=== PATIENT | male | born 1955 | race Caucasian/White ===

== ENCOUNTER 2016-11-19 07:43 | Inpatient (IN) | payer MEDICARE, OTHER ==
--- NOTE | 2016-11-19 08:17 | ED ---
General Adult HPI - General Chief complaint: Shortness of Breath Stated complaint: CHEST PAIN, PATRICIA Time Seen by Provider: 11/19/16 07:50 Source: patient, RN notes reviewed, old records reviewed Mode of arrival: ambulatory Limitations: no limitations - History of Present Illness Initial comments: This is a 61-year-old male ER for evaluation shortness breath, severe shortness of breath and pain in cough with congestion. Patient is a history of smoking, does have COPD with takes no medication. Patient denies any fevers. Again does admit to increased cough and congestion, severe exertional dyspnea. Patient has never been to the ER before for shortness of breath. No recent travel history no known sick contacts. Patient denies any other history of heart disease, no high blood pressure not cholesterol no diabetes - Related Data Home Medications Medication Instructions Recorded Confirmed Ibuprofen [Advil] 600 mg PO Q8HR PRN 11/19/16 11/19/16 Allergies Allergy/AdvReac Type Severity Reaction Status Date / Time No Known Allergies Allergy Verified 11/19/16 09:51 Review of Systems ROS Statement: Those systems with pertinent positive or pertinent negative responses have been documented in the HPI. ROS Other: All systems not noted in ROS Statement are negative. Past Medical History Past Medical History: Hypertension Additional Past Medical History / Comment(s): headaches History of Any Multi-Drug Resistant Organisms: None Reported Past Surgical History: Appendectomy, Tonsillectomy Past Psychological History: No Psychological Hx Reported Smoking Status: Current every day smoker Past Alcohol Use History: Rare Past Drug Use History: Cocaine, Marijuana - Past Family History Mother Family Medical History: Hypertension Additional Family Medical History / Comment(s): pulmonary hypertension - Father Family Medical History: Neurologic Disorder Additional Family Medical History / Comment(s): parkinsons - General Exam Limitations: no limitations General appearance: alert, in no apparent distress, anxious Head exam: Present: atraumatic, normocephalic, normal inspection Eye exam: Present: normal appearance, PERRL, EOMI. Absent: scleral icterus, conjunctival injection, periorbital swelling ENT exam: Present: normal exam, mucous membranes moist Neck exam: Present: normal inspection. Absent: tenderness, meningismus, lymphadenopathy Respiratory exam: Present: respiratory distress, wheezes, accessory muscle use, decreased breath sounds, prolonged expiratory. Absent: rales, rhonchi, stridor Cardiovascular Exam: Present: regular rate, normal rhythm, normal heart sounds. Absent: systolic murmur, diastolic murmur, rubs, gallop, clicks GI/Abdominal exam: Present: soft, normal bowel sounds. Absent: distended, tenderness, guarding, rebound, rigid Extremities exam: Present: normal inspection, full ROM, normal capillary refill. Absent: tenderness, pedal edema, joint swelling, calf tenderness Back exam: Present: normal inspection Neurological exam: Present: alert, oriented X3, CN II-XII intact Psychiatric exam: Present: normal affect, normal mood Skin exam: Present: warm, dry, intact, normal color. Absent: rash Course Vital Signs 11/19/16 11/19/16 11/19/16 07:45 07:56 08:06 Temperature 97.5 F L Pulse Rate 88 Respiratory 20 18 Rate Blood Pressure 133/91 O2 Sat by Pulse 89 L 94 L Oximetry 11/19/16 11/19/16 11/19/16 09:10 09:24 09:40 Temperature Pulse Rate 88 93 95 Respiratory Rate Blood Pressure O2 Sat by Pulse Oximetry 11/19/16 11/19/16 10:14 10:28 Temperature Pulse Rate 96 108 H Respiratory 18 Rate Blood Pressure 137/88 O2 Sat by Pulse 100 Oximetry - Reevaluation(s) Reevaluation #1: 11/19/16 10:53 patient is no better after prolonged breathing treatment EKG Findings - EKG Comments: EKG Findings:: EKG shows normal sinus rhythm 90, MI 150, QRS 78, QTC 428 Medical Decision Making - Lab Data Result diagrams: 11/19/16 08:01 11/19/16 08:01 Lab Results 11/19/16 11/19/16 11/19/16 Range/Units 08:01 08:01 08:01 WBC 5.5 (3.8-10.6) k/uL RBC 6.03 H (4.30-5.90) m/uL Hgb 18.0 H (13.0-17.5) gm/dL Hct 54.3 H (39.0-53.0) % MCV 90.1 (80.0-100.0) fL MCH 29.8 (25.0-35.0) pg MCHC 33.1 (31.0-37.0) g/dL RDW 13.4 (11.5-15.5) % Plt Count 227 (150-450) k/uL Neutrophils % (Manual) 55.0 % Band Neutrophils % 1.0 % Lymphocytes % (Manual) 30.0 % Monocytes % (Manual) 10.0 % Eosinophils % (Manual) 4.0 % Neutrophils # (Manual) 3.1 (1.3-7.7) k/uL Lymphocytes # (Manual) 1.7 (1.0-4.8) k/uL Monocytes # (Manual) 0.6 (0-1.0) k/uL Eosinophils # (Manual) 0.2 (0-0.7) k/uL Nucleated RBCs 0 (0-0) /100 WBC Manual Slide Review Performed RBC Morphology Normal PT (9.0-12.0) sec INR (<1.1) APTT (22.0-30.0) sec D-Dimer (<0.60) mg/L FEU Sodium 143 (137-145) mmol/L Potassium 4.7 (3.5-5.1) mmol/L Chloride 107 (98-107) mmol/L Carbon Dioxide 24 (22-30) mmol/L Anion Gap 12 mmol/L BUN 23 H (9-20) mg/dL Creatinine 0.96 (0.66-1.25) mg/dL Est GFR (MDRD) Af Amer >60 (>60 ml/min/1.73 sqM) Est GFR (MDRD) Non-Af >60 (>60 ml/min/1.73 sqM) Glucose 120 H (74-99) mg/dL Calcium 9.5 (8.4-10.2) mg/dL Magnesium 2.1 (1.6-2.3) mg/dL Total Bilirubin 0.5 (0.2-1.3) mg/dL AST 53 (17-59) U/L ALT 71 (21-72) U/L Alkaline Phosphatase 106 (38-126) U/L Total Creatine Kinase 265 H (55-170) U/L CK-MB (CK-2) 6.4 H* (0.0-2.4) ng/mL CK-MB (CK-2) Rel Index 2.4 Troponin I <0.012 (0.000-0.034) ng/mL NT-Pro-B Natriuret Pep pg/mL Total Protein 6.7 (6.3-8.2) g/dL Albumin 3.7 (3.5-5.0) g/dL 11/19/16 11/19/16 Range/Units 08:01 08:01 WBC (3.8-10.6) k/uL RBC (4.30-5.90) m/uL Hgb (13.0-17.5) gm/dL Hct (39.0-53.0) % MCV (80.0-100.0) fL MCH (25.0-35.0) pg MCHC (31.0-37.0) g/dL RDW (11.5-15.5) % Plt Count (150-450) k/uL Neutrophils % (Manual) % Band Neutrophils % % Lymphocytes % (Manual) % Monocytes % (Manual) % Eosinophils % (Manual) % Neutrophils # (Manual) (1.3-7.7) k/uL Lymphocytes # (Manual) (1.0-4.8) k/uL Monocytes # (Manual) (0-1.0) k/uL Eosinophils # (Manual) (0-0.7) k/uL Nucleated RBCs (0-0) /100 WBC Manual Slide Review RBC Morphology PT 10.0 (9.0-12.0) sec INR 1.0 (<1.1) APTT 27.9 (22.0-30.0) sec D-Dimer 1.69 H (<0.60) mg/L FEU Sodium (137-145) mmol/L Potassium (3.5-5.1) mmol/L Chloride (98-107) mmol/L Carbon Dioxide (22-30) mmol/L Anion Gap mmol/L BUN (9-20) mg/dL Creatinine (0.66-1.25) mg/dL Est GFR (MDRD) Af Amer (>60 ml/min/1.73 sqM) Est GFR (MDRD) Non-Af (>60 ml/min/1.73 sqM) Glucose (74-99) mg/dL Calcium (8.4-10.2) mg/dL Magnesium (1.6-2.3) mg/dL Total Bilirubin (0.2-1.3) mg/dL AST (17-59) U/L ALT (21-72) U/L Alkaline Phosphatase (38-126) U/L Total Creatine Kinase (55-170) U/L CK-MB (CK-2) (0.0-2.4) ng/mL CK-MB (CK-2) Rel Index Troponin I (0.000-0.034) ng/mL NT-Pro-B Natriuret Pep 43 pg/mL Total Protein (6.3-8.2) g/dL Albumin (3.5-5.0) g/dL - Radiology Data Radiology results: report reviewed (CXR is negative for acute disease, CTa negative for PE), image reviewed Critical Care Time Critical Care Time: Yes Total Critical Care Time: 31 Disposition Clinical Impression: Acute exacerbation of chronic obstructive airways disease, Hypoxia Disposition: ADMITTED IP TO THIS [facility] Condition: Fair Referrals: None,Stated [Primary Care Provider] - 1-2 days
[2016-11-19 08:21] LABS: Aty Lym Flag Slight; CH 30.2; CHCM 33.7; HCT 54.3 % (39.0-53.0); HDW 2.61; MCH 29.8 pg (25.0-35.0); MCHC 33.1 g/dL (31.0-37.0); MCV 90.1 fL (80.0-100.0); Mean Platelet Volume 6.5; RBC 6.03 m/uL (4.30-5.90); RDW 13.4 % (11.5-15.5); WBC 5.5 k/uL (3.8-10.6); WBC (Perox) 5.39
[2016-11-19 08:33] LABS: Add Differential Manual Differential
[2016-11-19 08:34] LABS: ALT 71 U/L (21-72); AST 53 U/L (17-59); Alkaline Phosphatase 106 U/L (38-126); Anion Gap 12 mmol/L; Blood Urea Nitrogen 23 mg/dL (9-20); Calcium 9.5 mg/dL (8.4-10.2); Carbon Dioxide 24 mmol/L (22-30); Chloride 107 mmol/L (98-107); Glucose 120 mg/dL (74-99); Magnesium 2.1 mg/dL (1.6-2.3); Non-African American GFR(MDRD) >60 (>60 ml/min/1.73 sqM); Potassium 4.7 mmol/L (3.5-5.1); Sodium 143 mmol/L (137-145); Total Bilirubin 0.5 mg/dL (0.2-1.3); Total Protein 6.7 g/dL (6.3-8.2)
[2016-11-19 08:35] LABS: Manual Review Performed; Nucleated Red Blood Cells 0 /100 WBC (0-0); RBC Morphology Normal; Total Cells Counted 100
[2016-11-19 08:36] LABS: Partial Thromboplastin Time 27.9 sec (22.0-30.0)
--- NOTE | 2016-11-19 08:38 | XR ---
EXAMINATION TYPE: XR chest 2V DATE OF EXAM: 11/19/2016 8:18 AM COMPARISON: Prior chest x-ray 09 November 2014 HISTORY: Difficulty breathing, shortness of breath TECHNIQUE: Frontal and lateral views of the chest are obtained. FINDINGS: There is no focal air space opacity, pleural effusion, or pneumothorax seen. There are ove rlying cardiac leads. Probable granuloma left lower lobe. The cardiac silhouette size is within zaina l limits. The osseous structures are intact. IMPRESSION: No acute cardiopulmonary process.
[2016-11-19 08:45] LABS: Creatine Kinase 265 U/L (55-170)
[2016-11-19] MEDS ORDERED: MORPHINE SULFATE 4 MG/ML SYRINGE IVP STA ×2 (08:49→10:51)
[2016-11-19] MEDS ORDERED: IPRATROPIUM 0.5 MG/2.5 ML NEBU INHALATION STA ×2 (08:49→10:51)
[2016-11-19] MEDS ORDERED: methylPREDNISolone SOD SUCCI 125 MG/2 ML VIAL IV STA (08:49)
[2016-11-19] MEDS ORDERED: ALBUTEROL NEBULIZED 2.5 MG/3 ML INHALATION STA (08:49)
[2016-11-19 08:55] LABS: Troponin I <0.012 ng/mL (0.000-0.034)
[2016-11-19 08:59] LABS: Creatine Kinase MB 6.4 ng/mL (0.0-2.4)
[2016-11-19] MEDS ORDERED: RX INFO: IV CONTRAST WAS GIVEN 1 EACH MISC MISCELLANE PRN (09:56)
--- NOTE | 2016-11-19 10:47 | CT ---
EXAMINATION TYPE: CT angio chest DATE OF EXAM: 11/19/2016 10:29 AM COMPARISON: Chest x-ray same date, prior chest CT July HISTORY: SOB CT DLP: 361.6 mGycm Automated exposure control for dose reduction was used. CONTRAST: CTA scan of the thorax is performed with IV Contrast, patient injected with 100 mL of Omnipaque 350, pulmonary embolism protocol. MIP images are created and reviewed. 3D reconstructed images are creat ed on an independent workstation and reviewed. FINDINGS: LUNGS: The lungs are grossly clear, there is no concerning parenchymal mass or nodule identified. [place] cified granuloma at the left lung base laterally as noted on plain film. Noncalcified pulmonary nodul es, emphysematous changes present within the lungs as on prior exam. Some new, subcentimeter, soft ti ssue nodules are suspected, this may be due to differences in technique, follow-up is suggested. Ther e is bronchial wall thickening centrally. There is no pleural effusion or pneumothorax seen. The tra cheobronchial tree is patent. AORTA: Aorta is borderline enlarged at 4.1 cm at the level of the root MEDIASTINUM: There is limited enhancement of the pulmonary artery and its branches, there is no CT ev idence for pulmonary embolism. Retrocaval pretracheal lymph nodes borderline enlarged, some hilar karthikeyan nopathy suspected, there are small prevascular nodes, no axillary adenopathy. No pericardial effusion is seen. OTHER: No additional significant abnormality is seen. IMPRESSION: EXAM SOMEWHAT LIMITED. EMPHYSEMA. BORDERLINE MEDIASTINAL ADENOPATHY. ASCENDING AORTIC ANEURYSM, FOLLO W-UP RECOMMENDED. PROBABLE OLD GRANULOMATOUS DISEASE, CONSIDER FOLLOW-UP TO ASSESS FOR STABILITY OF N ONCALCIFIED NODULES
[2016-11-19] MEDS ORDERED: LEVALBUTEROL NEB 1.25 MG/3 ML AMP INHALATION STA (10:51)
[2016-11-19] MEDS ORDERED: SODIUM CHLORIDE 0.9% 2,000 ML IV STA (10:51)
[2016-11-19] MEDS: SODIUM CHLORIDE 0.9% 1,000 ML IV STA ×2 (10:58→12:54)
[2016-11-19 12:13] VITALS: RESP 16
[2016-11-19 12:28] VITALS: BMI 31.9
[2016-11-19] MEDS: methylPREDNISolone SOD SUCCI 125 MG/2 ML VIAL IV SCH ×3 (12:55→23:17)
[2016-11-19] MEDS: IPRATROPIUM-ALBUTEROL 3 ML NEB INHALATION SCH ×3 (13:56→19:14)
[2016-11-19] MEDS: MORPHINE SULFATE 4 MG/ML SYRINGE IVP PRN ×2 (15:46→21:12)
[2016-11-19 17:17] LABS: Glucose,Whole Blood 159 mg/dL (75-99)
[2016-11-19] MEDS: INSULIN LISPRO (humaLOG) 300 UNIT/3 ML VIAL SQ SCH ×2 (17:24→23:16)
--- NOTE | 2016-11-19 18:49 | HP ---
DATE OF ADMISSION: 11/19/2016 The patient is a 61-year-old cane in with complaints of shortness of breath, cough, congestion. Patient is unable to cough up much and is bringing up about whitish yellowish sputum production. Patient on exam does have minimal expiratory wheezing because of which D. dimer was obtained appropriately. I believe his symptoms of shortness of breath significantly improved with the initial treatments in the ER because of which patient only has minimal wheezing and patient has elevated d-dimer and symptoms do not completely explain his shortness of breath. CT angio of the chest was obtained which is appropriate which did not show any pulmonary embolism or pneumonic process, but there is some lesions consistent with sarcoidosis. Possibility of sarcoidosis and I am consulting pulmonary for that. Patient denied any fever, chills, nausea, vomiting. The patient's symptoms have been going on for a week and the patient took [id number] antibiotic that he has at home without any significant improvement in symptoms. REVIEW OF SYSTEMS: CONSTITUTIONAL: No fever, no malaise, no fatigue. HEENT: No recent visual problems or hearing problems. Denied any sore throat. CARDIOVASCULAR: No chest pain, orthopnea, PND, no palpitations, no syncope. PULMONARY: As described in HPI. GASTROINTESTINAL: As described in HPI. Patient denied orthopnea, PND, chest pain. NEUROLOGICAL: No headaches, no weakness, no numbness. HEMATOLOGICAL: Denies any bleeding or petechiae. GENITOURINARY: Denies any burning micturition, frequency, or urgency. MUSCULOSKELETAL/RHEUMATOLOGICAL: Denies any joint pain, swelling, or any muscle pain. ENDOCRINE: Denies any polyuria or polydipsia. The rest of the 14 point review of systems is negative. PAST MEDICAL HISTORY: Significant for tonsillectomy, appendectomy, hypertension history although not taking any medications at home. The patient smokes about 1 and 1/2 pack of cigarettes per day. Denied any alcohol abuse. Occasional use of cocaine and marijuana. FAMILY HISTORY: Significant for mother with hypertension and pulmonary hypertension in mother and father had Parkinson's. PHYSICAL EXAMINATION: VITAL SIGNS: Temperature 97.5, pulse of 100, respiratory rate of 16, blood pressure is 143/80, saturating at 95% on 3 L O2 by nasal cannula. GENERAL: The patient is alert and oriented x3, not in any acute distress. Well developed, well nourished. HEENT: Pupils are round and equally reacting to light. EOMI. No scleral icterus. No conjunctival pallor. Normocephalic, atraumatic. No pharyngeal erythema. No thyromegaly. CARDIOVASCULAR: S1 and S2 present. No murmurs, rubs, or gallops. PULMONARY: Air entry is minimally decreased. Minimally expiratory wheezing bilaterally on exam. No crackles were appreciated. ABDOMEN: Soft, nontender, nondistended, normoactive bowel sounds. No palpable organomegaly. MUSCULOSKELETAL: No joint swelling or deformity. EXTREMITIES: No cyanosis, clubbing, or pedal edema. NEUROLOGICAL: Gross neurological examination did not reveal any focal deficits. SKIN: No rashes. LABORATORY DATA: CBC and BMP are abnormal for elevated hemoglobin of 18.0, elevated hematocrit secondary to chronic obstructive pulmonary disease, D. dimer 1.69. CK is minimally elevated. CT angio of the chest as mentioned above. ASSESSMENT AND PLAN: 1. Acute hypercapnic respiratory failure secondary to chronic obstructive pulmonary disease exacerbation and emphysema. Continue systemic steroids inhalation treatments. 2. Tracheobronchitis, doxycycline for that. 3. Possibility of sarcoidosis. I will get pulmonary to evaluate the patient and elevated hematocrit probably secondary to chronic hypoxemia. 4. Nicotine abuse, cocaine and marijuana use. Extensive counseling was provided. 5. Chronic low back pain. Obesity counseling was provided regarding that as well.
[2016-11-19 20:56] LABS: Glucose,Whole Blood 197 mg/dL (75-99)
[2016-11-19] MEDS: FAMOTIDINE 20 MG TAB PO SCH (21:12)
[2016-11-19] MEDS: DOXYCYCLINE 50 MG CAP PO SCH (21:12)
[2016-11-20] MEDS: MORPHINE SULFATE 4 MG/ML SYRINGE IVP PRN ×3 (03:10→12:47)
[2016-11-20] MEDS: methylPREDNISolone SOD SUCCI 125 MG/2 ML VIAL IV SCH ×2 (06:14→12:21)
[2016-11-20] MEDS: IPRATROPIUM-ALBUTEROL 3 ML NEB INHALATION SCH ×2 (07:28→11:24)
[2016-11-20 07:41] LABS: Glucose,Whole Blood 135 mg/dL (75-99)
[2016-11-20 07:53] VITALS: BP 143/83; TEMP 97.6
[2016-11-20 08:05] LABS: CH 29.8; CHCM 32.5; HDW 2.55; MCH 29.4 pg (25.0-35.0); MCHC 31.9 g/dL (31.0-37.0); Mean Platelet Volume 6.8; RBC 5.43 m/uL (4.30-5.90); RDW 13.2 % (11.5-15.5); WBC 11.8 k/uL (3.8-10.6)
[2016-11-20 08:11] LABS: Anion Gap 9 mmol/L; Blood Urea Nitrogen 19 mg/dL (9-20); Carbon Dioxide 22 mmol/L (22-30); Chloride 109 mmol/L (98-107); Glucose 141 mg/dL (74-99); Non-African American GFR(MDRD) >60 (>60 ml/min/1.73 sqM); Potassium 4.6 mmol/L (3.5-5.1); Sodium 140 mmol/L (137-145)
[2016-11-20] MEDS: INSULIN LISPRO (humaLOG) 300 UNIT/3 ML VIAL SQ SCH ×2 (08:48→12:11)
[2016-11-20] MEDS: DOXYCYCLINE 50 MG CAP PO SCH (08:54)
[2016-11-20] MEDS: FAMOTIDINE 20 MG TAB PO SCH (08:55)
[2016-11-20] MEDS: NICOTINE 21MG/24HR PATCH TRANSDERM SCH ×2 (08:55→09:01)
[2016-11-20] MEDS ORDERED: ENOXAPARIN 40 MG/0.4 ML SYRINGE SQ SCH (09:00)
[2016-11-20 11:36] LABS: Glucose,Whole Blood 160 mg/dL (75-99)
--- NOTE | 2016-11-20 13:26 | P.CNPUL ---
History of Present Illness Consult date: 11/20/16 Reason for consult: dyspnea, COPD Chief complaint: Shortness of breath and chest pain History of present illness: 61-year-old male who is a heavy smoker with no family physician and no previous past medical history, comes into the emergency department with complaints of increasing shortness of breath. The eighth and also pain in his chest with cough and chest congestion. Takes no medications for COPD as never really actually been diagnosed with COPD. Again does not have a family doctor takes no medications at home. 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 Again the patient takes no medications at home. Patient has a heavy tobacco history. Currently being he takes at home is [id number]-[id number]-[id number] ibuprofen from time to time. No known ALLERGIES. Sitting at the bedside today when I come in to see him. No complaints. Not using any supplemental oxygen. States his breathing is much much improved. Not demonstrating any difficulty breathing coughing wheezing or respiratory distress for that matter. Review of Systems A 12 point review of system is positive for shortness of breath chest congestion cough and chest pain. Most of those complaints have resolved themselves. His chest x-ray was essentially negative. CT of the chest really did not reveal any acute pathology. There is no evidence of pulmonary embolism. The rest of the 12 point review of system is unremarkable. Denies any fever chills. No hemoptysis. No nausea vomiting or diarrhea. No abdominal pain. No other complaints for that matter. Past Medical History Past Medical History: Hypertension Additional Past Medical History / Comment(s): headaches History of Any Multi-Drug Resistant Organisms: None Reported Past Surgical History: Appendectomy, Tonsillectomy Past Anesthesia/Blood Transfusion Reactions: No Reported Reaction Past Psychological History: No Psychological Hx Reported Smoking Status: Current every day smoker Past Alcohol Use History: Rare Past Drug Use History: Cocaine, Marijuana - Past Family History Mother Family Medical History: Hypertension Additional Family Medical History / Comment(s): pulmonary hypertension - Father Family Medical History: Neurologic Disorder Additional Family Medical History / Comment(s): parkinsons - Medications and Allergies Home Medications Medication Instructions Recorded Confirmed Type Ibuprofen [Advil] 600 mg PO Q8HR PRN 11/19/16 11/19/16 History Allergies Allergy/AdvReac Type Severity Reaction Status Date / Time No Known Allergies Allergy Verified 11/19/16 09:51 Physical Exam Osteopathic Statement: *. No significant issues noted on an osteopathic structural exam other than those noted in the History and Physical/Consult. Vitals: Vital Signs Temp Pulse Pulse Resp BP BP Pulse Ox 11/20/16 11:33 86 11/20/16 11:25 86 11/20/16 10:05 76 16 11/20/16 07:37 88 11/20/16 07:32 88 11/20/16 07:00 97.6 F 76 16 143/83 90 L 11/20/16 00:00 76 16 11/19/16 21:50 97.2 F L 88 16 122/76 92 L 11/19/16 19:28 87 11/19/16 19:16 92 11/19/16 16:13 80 11/19/16 16:03 80 93 L 11/19/16 15:40 97.4 F L 78 16 134/88 94 L 11/19/16 14:06 80 L Intake and Output 11/19/16 11/20/16 11/20/16 22:59 06:59 14:59 Other: Voiding Method Toilet Toilet # Voids 1 Weight 95.254 kg No acute distress, oriented 3. HEENT examination is grossly unremarkable. Mucous membranes are moist. No oral lesions. Neck supple. Full range of motion. No adenopathy or thyromegaly. Neck veins are flat. Cardiovascular examination reveals regular rhythm rate. S1-S2 normal. No S3- S4 or murmur. Lungs reveal relatively clear breath sounds. A few scattered rhonchi. No wheezes or crackles. Breath sounds are equal. Abdomen soft bowel sounds are heard. Extremities are intact. Neurologic examination is brief and nonfocal. Skin is without rash or lesion. Results - Laboratory Findings CBC and BMP: 11/20/16 07:13 11/20/16 07:13 PT/INR, D-dimer PT 10.0 sec (9.0-12.0) 11/19/16 08:01 INR 1.0 (<1.1) 11/19/16 08:01 D-Dimer 1.69 mg/L FEU (<0.60) H 11/19/16 08:01 Abnormal lab findings: Abnormal Labs 11/19/16 11/19/16 11/20/16 17:14 20:31 07:13 WBC 11.8 H Chloride Glucose POC Glucose (mg/dL) 159 H 197 H 11/20/16 11/20/16 11/20/16 07:13 07:20 11:28 WBC Chloride 109 H Glucose 141 H POC Glucose (mg/dL) 135 H 160 H - Diagnostic Findings Chest x-ray: image reviewed CT scan - chest: image reviewed (Chest x-ray labs and medications are all reviewed.) Assessment and Plan (1) Acute exacerbation of chronic obstructive airways disease Status: Acute (2) Hypoxia Status: Acute (3) COPD (chronic obstructive pulmonary disease) Status: Acute (4) Chest pain Status: Acute Plan: Plan dated 11/20/2016 The patient seemed be doing relatively well. Again does not have a family doctor. Could likely be discharged home. I'll talk to the primary service. They may choose acute the patient in the the another day for observation. The patient should get himself a family doctor and eventually should see a dry room operator for probable COPD. Time with Patient: Greater than 30
[2016-11-20 15:03] VITALS: PULSE 113
--- NOTE | 2016-11-20 16:14 | P.PN ---
Subjective Date of service 11/20/2016. Progress note being dictated for Dr. Gibson. Interval history: This a 61-year-old gentleman admitted with acute hypercapnic respiratory failure secondary to COPD exacerbation with emphysema, tracheobronchitis and multiple other medical issues. Breathing improving. Nonproductive cough. Ambulated in hallway with O2 sat of 87% after ambulation on room air. Initially had planned for discharge but given 24 hours more, patient probably will not require oxygen at discharge. Objective - Vital Signs Vital signs: Vital Signs Temp 97.6 F 11/20/16 07:00 Pulse 113 H 11/20/16 15:03 Resp 16 11/20/16 10:05 BP 143/83 11/20/16 07:00 Pulse Ox 91 L 11/20/16 15:03 Intake & Output 11/19/16 11/20/16 11/20/16 18:59 06:59 18:59 Intake Total 240 Balance 240 Weight 95.254 kg 95.254 kg Intake: Oral 240 Other: Voiding Method Toilet Toilet Toilet # Voids 1 1 3 - Exam PHYSICAL EXAM: VITAL SIGNS: As above GENERAL: [Sitting up in bed, no acute distress] HEENT: [Pupils equal conjunctiva normal.] NECK: [Supple, no JVD] RESPIRATORY EFFORT:[Normal] LUNGS: [Scattered rhonchi, no wheezes, no crackles CARDIOVASCULAR[regular S1 and S2, no murmurs rubs or gallops, no edema GI: [Abdomen soft, nontender, positive bowel sounds.] PSYCH: [Alert and oriented -3, mood and affect normal.] NEURO: No focal deficits - Labs CBC & Chem 7: 11/20/16 07:13 11/20/16 07:13 Labs: Abnormal Lab Results - Last 24 Hours (Table) 11/19/16 11/19/16 11/20/16 Range/Units 17:14 20:31 07:13 WBC 11.8 H (3.8-10.6) k/uL Chloride (98-107) mmol/L Glucose (74-99) mg/dL POC Glucose (mg/dL) 159 H 197 H (75-99) mg/dL 11/20/16 11/20/16 11/20/16 Range/Units 07:13 07:20 11:28 WBC (3.8-10.6) k/uL Chloride 109 H (98-107) mmol/L Glucose 141 H (74-99) mg/dL POC Glucose (mg/dL) 135 H 160 H (75-99) mg/dL Assessment and Plan Plan: 1. [Acute hypoxic hypercapnic respiratory failure secondary to acute exacerbation of COPD and emphysema]. 2. [Acute Tracheobronchitis]. 3. [Possibility of sarcoidosis]. 4. [Elevated hematocrit probably secondary to chronic hypoxemia]. 5. [Nicotine abuse, cocaine and marijuana use]. 6. [Chronic low back pain]. Plan: Continue on current medication regime, nebulized bronchodilators, antibiotics, steroids, monitoring and symptomatic treatment. As mentioned above currently maintaining O2 sats of 87% on room air after ambulation., Monitoring for further overnight ,reevaluate tomorrow. Suspect patient will not require oxygen tomorrow at discharge. Patient left AMA. The impression and plan of care has been dictated as directed. : I performed a H&P examination of this patient and discussed the same with the dictator. I agree with the dictator's note. Any additional findings/opinions/ etc. will be noted.
== END 2016-11-20 16:15 | disposition left against medical advice (07) | DRG 190 ==
LOC: EC 07:43 → 5MS5E 10:52
PROVIDERS: ADMIT Hospitalist; ATTEND Hospitalist
DX: J44.0 Chronic obstructive pulmonary disease with (acute) lower respiratory infection (principal); J96.01 Acute respiratory failure with hypoxia; J96.02 Acute respiratory failure with hypercapnia; I10 Essential (primary) hypertension; D86.9 Sarcoidosis, unspecified; J20.9 Acute bronchitis, unspecified; J44.1 Chronic obstructive pulmonary disease with (acute) exacerbation; E66.9 Obesity, unspecified; F12.90 Cannabis use, unspecified, uncomplicated; F17.200 Nicotine dependence, unspecified, uncomplicated; G89.29 Other chronic pain; M54.5 Low back pain; F14.90 Cocaine use, unspecified, uncomplicated; Z68.31 Body mass index [BMI] 31.0-31.9, adult; Z82.49 Family history of ischemic heart disease and other diseases of the circulatory system
CPT/HCPCS: 36415; 71020; 71275; 80048; 80053; 82550; 82553; 83036; 83735; 83880; 84484; 85025; 85027; 85379; 85610; 85730; 93005; 94640; 94644; 96361; 96374; 96375; 96376; 99291

== ENCOUNTER 2020-08-26 12:54 | Emergency (ER) | payer MEDICARE, OTHER ==
[2020-08-26 13:03] VITALS: TEMP 98.2
[2020-08-26] MEDS ORDERED: MORPHINE SULFATE 4 MG/ML SYRINGE IM STA (13:41)
--- NOTE | 2020-08-26 15:03 | XR ---
EXAMINATION TYPE: XR femur RT DATE OF EXAM: 08/26/2020 COMPARISON: None HISTORY: Pain, fall TECHNIQUE: 2 view right femur FINDINGS: There is narrowing of the right hip joint space. Femoral head articulates with the acetabul um. Cam deformity may be present. Mild degenerative changes are at the right knee No acute fracture or dislocation is evident. IMPRESSION: 1. Degenerative joint changes. 2. No acute or subacute osseous abnormality.
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
[2020-08-26 15:06] VITALS: BP 110/86; PULSE 75; RESP 17
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
[2020-08-26] MEDS ORDERED: MAGNESIUM CITRATE 296 ML BOTTLE PO ONE (15:40)
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
== END 2020-08-26 16:10 | disposition home or self-care (01) ==
LOC: EC 12:54
DX: M25.551 Pain in right hip (principal); M79.651 Pain in right thigh; F17.200 Nicotine dependence, unspecified, uncomplicated; Z90.49 Acquired absence of other specified parts of digestive tract; Y04.2XXA Assault by strike against or bumped into by another person, initial encounter
CPT/HCPCS: 72110; 73502; 73552; 73562; 74018; 99284; 96372; J2270

== ENCOUNTER 2021-02-06 15:55 | Observation (INO) | payer MEDICARE, OTHER ==
--- NOTE | 2021-02-06 16:10 | ED ---
General Adult HPI - General Chief complaint: Chest Pain Stated complaint: Chest Pain Time Seen by Provider: 02/06/21 16:07 Source: patient Mode of arrival: wheelchair Limitations: no limitations - History of Present Illness Initial comments: Patient presents to the ED complaining of having "throbbing" lower sternal chest pain with some radiation to his left arm since yesterday. Patient states that he has also felt somewhat dyspneic and dizzy as well. Patient rates his chest pain at 7/10 in severity currently. Patient denies taking any medication for his pain today. Patient also states that he has had a diffuse headache for the past 4 days. Patient denies trauma or injury, sudden onset of headache, LOC, neck pain or stiffness, fever or chills, focal numbness/weakness/neuro deficit, visual changes, speech difficulty, neck/jaw/back pain, pleuritic pain, cough or cold symptoms, palpitations, syncope, nausea/vomiting/diaphoresis, abdominal p ain, diarrhea, bloody or melanotic stool, dysuria or urinary symptoms, decreased urine output, leg or calf swelling or pain, or any other symptoms or complaints. - Related Data Home Medications Medication Instructions Recorded Confirmed Ibuprofen [Motrin Ib] 800 mg PO Q8H PRN 08/26/20 08/26/20 Previous Rx's Medication Instructions Recorded HYDROcodone/APAP 10-325MG [[place] 1 tab PO Q4H PRN #18 tab 08/26/20 10-325] Allergies Allergy/AdvReac Type Severity Reaction Status Date / Time No Known Allergies Allergy Verified 02/06/21 16:06 Review of Systems ROS Statement: Those systems with pertinent positive or pertinent negative responses have been documented in the HPI. ROS Other: All systems not noted in ROS Statement are negative. Past Medical History Past Medical History: Hypertension Additional Past Medical History / Comment(s): HEADACHES History of Any Multi-Drug Resistant Organisms: None Reported Past Surgical History: Appendectomy, Tonsillectomy Past Anesthesia/Blood Transfusion Reactions: No Reported Reaction Past Psychological History: No Psychological Hx Reported Smoking Status: Current every day smoker Past Alcohol Use History: Rare Past Drug Use History: None Reported - Past Family History Mother Family Medical History: Hypertension Additional Family Medical History / Comment(s): pulmonary hypertension - Father Family Medical History: Neurologic Disorder Additional Family Medical History / Comment(s): parkinsons - General Exam Limitations: no limitations General appearance: alert, in no apparent distress Head exam: Present: atraumatic, normocephalic Eye exam: Present: normal appearance, PERRL, EOMI. Absent: nystagmus ENT exam: Present: mucous membranes moist Neck exam: Present: other (Trachea is in midline). Absent: tenderness, meningismus Respiratory exam: Present: normal lung sounds bilaterally. Absent: respiratory distress, wheezes, rales, rhonchi, stridor, chest wall tenderness Cardiovascular Exam: Present: regular rate, normal rhythm, normal heart sounds, other (Normal radial pulses bilaterally) GI/Abdominal exam: Present: soft. Absent: distended, tenderness, guarding Extremities exam: Present: other (Negative Homans sign bilaterally). Absent: tenderness, pedal edema, calf tenderness Neurological exam: Present: alert, oriented X3, CN II-XII intact. Absent: motor sensory deficit Psychiatric exam: Present: normal affect, normal mood Skin exam: Present: warm, dry, intact, normal color Course Vital Signs 02/06/21 16:04 Temperature 98.9 F Pulse Rate 89 Respiratory 20 Rate Blood Pressure 128/92 O2 Sat by Pulse 95 Oximetry - Reevaluation(s) Reevaluation #1: 02/06/21 17:20 Case, H&P, test results and ED management were discussed with JOSEPH Hendrix. He accepts hospital admission on behalf of himself and Dr. Poe. He agrees with cardiology consultation. He has no further recommendations at this time. 02/06/21 17:30 Patient states that his pain has currently improved, and he denies development of any new symptoms while in the ED. Patient remains alert and breathing comfortably. Patient is aware of his test results, and he agrees with hospital admission at this time. EKG Findings - EKG Comments: EKG Findings:: Normal sinus rhythm, no ectopy, ventricular rate of 67 bpm, normal NM and QRS intervals, normal QT interval, normal axis, no ST or T-wave abnormality Medical Decision Making - Medical Decision Making Given the patient's reported chest pain and CAD risk factors (hypertension and smoking), will admit the patient to the hospital for further evaluation, cardiac monitoring and cardiology consultation. Patient's troponin is negative. Patient's head CT is negative. Patient has been given aspirin in the emergency department. JOSEPH Hendrix has accepted hospital admission. - Lab Data Result diagrams: 02/06/21 16:27 02/06/21 16:27 Lab Results 02/06/21 02/06/21 02/06/21 Range/Units 16:27 16:27 16:27 WBC 9.4 (3.8-10.6) k/uL RBC 5.27 (4.30-5.90) m/uL Hgb 16.4 (13.0-17.5) gm/dL Hct 47.3 (39.0-53.0) % MCV 89.7 (80.0-100.0) fL MCH 31.1 (25.0-35.0) pg MCHC 34.6 (31.0-37.0) g/dL RDW 13.5 (11.5-15.5) % Plt Count 295 (150-450) k/uL MPV 6.5 Neutrophils % 60 % Lymphocytes % 30 % Monocytes % 5 % Eosinophils % 4 % Basophils % 1 % Neutrophils # 5.6 (1.3-7.7) k/uL Lymphocytes # 2.8 (1.0-4.8) k/uL Monocytes # 0.5 (0-1.0) k/uL Eosinophils # 0.3 (0-0.7) k/uL Basophils # 0.1 (0-0.2) k/uL PT 10.3 (9.0-12.0) sec INR 1.0 (<1.2) APTT 22.9 (22.0-30.0) sec D-Dimer 0.57 (<0.60) mg/L FEU Sodium 140 (137-145) mmol/L Potassium 4.2 (3.5-5.1) mmol/L Chloride 110 H (98-107) mmol/L Carbon Dioxide 24 (22-30) mmol/L Anion Gap 6 mmol/L BUN 26 H (9-20) mg/dL Creatinine 1.12 (0.66-1.25) mg/dL Est GFR (CKD-EPI)AfAm 78 (>60 ml/min/1.73 sqM) Est GFR (CKD-EPI)NonAf 68 (>60 ml/min/1.73 sqM) Glucose 131 H (74-99) mg/dL Calcium 9.5 (8.4-10.2) mg/dL Magnesium 2.1 (1.6-2.3) mg/dL Total Bilirubin 0.2 (0.2-1.3) mg/dL AST 17 (17-59) U/L ALT 13 (4-49) U/L Alkaline Phosphatase 89 (38-126) U/L Troponin I (0.000-0.034) ng/mL NT-Pro-B Natriuret Pep pg/mL Total Protein 6.3 (6.3-8.2) g/dL Albumin 3.9 (3.5-5.0) g/dL Lipase 35 (23-300) U/L 02/06/21 02/06/21 Range/Units 16:27 16:27 WBC (3.8-10.6) k/uL RBC (4.30-5.90) m/uL Hgb (13.0-17.5) gm/dL Hct (39.0-53.0) % MCV (80.0-100.0) fL MCH (25.0-35.0) pg MCHC (31.0-37.0) g/dL RDW (11.5-15.5) % Plt Count (150-450) k/uL MPV Neutrophils % % Lymphocytes % % Monocytes % % Eosinophils % % Basophils % % Neutrophils # (1.3-7.7) k/uL Lymphocytes # (1.0-4.8) k/uL Monocytes # (0-1.0) k/uL Eosinophils # (0-0.7) k/uL Basophils # (0-0.2) k/uL PT (9.0-12.0) sec INR (<1.2) APTT (22.0-30.0) sec D-Dimer (<0.60) mg/L FEU Sodium (137-145) mmol/L Potassium (3.5-5.1) mmol/L Chloride (98-107) mmol/L Carbon Dioxide (22-30) mmol/L Anion Gap mmol/L BUN (9-20) mg/dL Creatinine (0.66-1.25) mg/dL Est GFR (CKD-EPI)AfAm (>60 ml/min/1.73 sqM) Est GFR (CKD-EPI)NonAf (>60 ml/min/1.73 sqM) Glucose (74-99) mg/dL Calcium (8.4-10.2) mg/dL Magnesium (1.6-2.3) mg/dL Total Bilirubin (0.2-1.3) mg/dL AST (17-59) U/L ALT (4-49) U/L Alkaline Phosphatase (38-126) U/L Troponin I <0.012 (0.000-0.034) ng/mL NT-Pro-B Natriuret Pep 68 pg/mL Total Protein (6.3-8.2) g/dL Albumin (3.5-5.0) g/dL Lipase (23-300) U/L - Radiology Data Radiology results: report reviewed (Chest x-ray: No active cardiopulmonary disease. Normal heart. No change; noncontrast head CT: Negative CT scan of the brain) Disposition Clinical Impression: Chest pain, Headache, Dizziness Disposition: ADMITTED IP TO THIS [facility] Condition: Stable Is patient prescribed a controlled substance at d/c from ED?: No Referrals: None,Stated [Primary Care Provider] - 1-2 days Time of Disposition: 17:23
[2021-02-06] MEDS ORDERED: ASPIRIN 81 MG PO STA ×2 (16:19→17:22)
[2021-02-06] MEDS ORDERED: NITROGLYCERIN SL TABS 0.4 MG TAB SUBLINGUAL STA (16:19)
[2021-02-06 16:34] LABS: Basophils # (A) 0.1 k/uL (0-0.2); Basophils % (A) 1 %; Eosinophils # (A) 0.3 k/uL (0-0.7); Eosinophils % (A) 4 %; HCT 47.3 % (39.0-53.0); HGB 16.4 gm/dL (13.0-17.5); Lymphocytes # (A) 2.8 k/uL (1.0-4.8); Lymphocytes % (A) 30 %; MCH 31.1 pg (25.0-35.0); MCHC 34.6 g/dL (31.0-37.0); MCV 89.7 fL (80.0-100.0); Mean Platelet Volume 6.5; Monocytes # (A) 0.5 k/uL (0-1.0); Monocytes % (A) 5 %; Neutrophils # (A) 5.6 k/uL (1.3-7.7); Neutrophils % (A) 60 %; Platelet Count 295 k/uL (150-450); RBC 5.27 m/uL (4.30-5.90); RDW 13.5 % (11.5-15.5); WBC 9.4 k/uL (3.8-10.6)
--- NOTE | 2021-02-06 16:41 | XR ---
EXAMINATION TYPE: XR chest 2V DATE OF EXAM: 02/06/2021 COMPARISON: 11/19/2016 HISTORY: Chest pain TECHNIQUE: 2 views FINDINGS: Heart and mediastinum are normal. Lungs are clear. Diaphragm is normal. Bony thorax is inta ct. There are chest leads. IMPRESSION: No active cardiopulmonary disease. Normal heart. No change.
[2021-02-06 16:46] LABS: Albumin 3.9 g/dL (3.5-5.0); Calcium 9.5 mg/dL (8.4-10.2); Magnesium 2.1 mg/dL (1.6-2.3); Potassium 4.2 mmol/L (3.5-5.1); Total Bilirubin 0.2 mg/dL (0.2-1.3); Total Protein 6.3 g/dL (6.3-8.2)
[2021-02-06 17:03] LABS: D-Dimer 0.57 mg/L FEU (<0.60); Partial Thromboplastin Time 22.9 sec (22.0-30.0); Prothrombin Time 10.3 sec (9.0-12.0)
--- NOTE | 2021-02-06 17:04 | CT ---
EXAMINATION TYPE: CT brain wo con DATE OF EXAM: 02/06/2021 COMPARISON: 10/08/2014 HISTORY: Headache and dizziness. CT DLP: 1129.4 mGycm Automated exposure control for dose reduction was used. Images of the brain obtained without contrast. Ventricles have normal size. There is no mass effect nor midline shift. There is no sign of intracran ial hemorrhage. The calvarium is intact. There is fluid level right maxillary sinus. There is no evid ence of cerebral edema. IMPRESSION: Negative CT scan of the brain. There is right maxillary sinusitis which appears new compared to old e xam.
[2021-02-06] MEDS: HEPARIN SODIUM,PORCINE/PF 5,000 UNIT/0.5 ML SYRINGE SQ SCH (21:47)
[2021-02-06] MEDS: MORPHINE SULFATE 4 MG/ML SYRINGE IVP PRN (21:47)
[2021-02-06] MEDS: ACETAMINOPHEN TAB 325 MG TAB PO PRN (21:48)
[2021-02-06] MEDS: PANTOPRAZOLE 40 MG TABLET PO SCH (21:49)
[2021-02-07] MEDS: MORPHINE SULFATE 4 MG/ML SYRINGE IVP PRN ×4 (02:16→18:26)
[2021-02-07] MEDS: PANTOPRAZOLE 40 MG TABLET PO SCH (07:25)
[2021-02-07] MEDS: HEPARIN SODIUM,PORCINE/PF 5,000 UNIT/0.5 ML SYRINGE SQ SCH ×4 (07:25→20:25)
[2021-02-07] MEDS: ACETAMINOPHEN TAB 325 MG TAB PO PRN ×3 (07:29→20:24)
[2021-02-07 09:24] LABS: Basophils # (A) 0.06 X 10*3/uL (0.00-0.10); Basophils % (A) 0.7 %; Eosinophils # (A) 0.23 X 10*3/uL (0.04-0.35); Eosinophils % (A) 2.5 %; HCT 47.5 % (39.6-50.0); HGB 15.2 g/dL (13.0-17.0); Lymphocytes # (A) 3.97 X 10*3/uL (0.90-5.00); Lymphocytes % (A) 43.1 %; MCH 29.7 pg (27.0-32.0); Mean Platelet Volume 9.3 fL (9.5-12.2); Monocytes # (A) 0.64 X 10*3/uL (0.20-1.00); Monocytes % (A) 6.9 %; Neutrophils # (A) 4.29 X 10*3/uL (1.80-7.70); Neutrophils % (A) 46.5 %; Platelet Count 269 X 10*3/uL (140-440); RBC 5.11 X 10*6/uL (4.40-5.60); RDW 13.8 % (11.5-14.5); WBC 9.22 X 10*3/uL (4.50-10.00)
[2021-02-07 09:33] LABS: African American GFR (CKD) 89.9 (60.0-200.0); Albumin 3.9 g/dL (3.80-4.90); Albumin/Globulin Ratio 1.95 (1.60-3.17); Anion Gap 8.7 mmol/L (4.00-12.00); Calcium 9.1 mg/dL (8.7-10.3); Carbon Dioxide 21.3 mmol/L (21.6-31.8); Non-African American GFR(CKD) 77.5 (60.0-200.0); Potassium 4.3 mmol/L (3.5-5.5); Total Bilirubin 0.3 mg/dL (0.3-1.2); Total Protein 5.9 g/dL (6.2-8.2)
--- NOTE | 2021-02-07 09:35 | P.CRDCN ---
History of Present Illness Consult date: 02/07/21 Requesting physician: Holden Poe Reason for Consult (text): chest pain Chief complaint: chest pain, headache, dizziness History of present illness: A pleasant 65-year-old gentleman who denies any significant medical history but has not seen a physician in quite some time. Does not follow regularly with a primary care provider. He is a smoker and was previously smoking 2 packs a day but more recently has been smoking only 2-3 cigarettes a day. Does have a history of chronic right leg pain following an injury. He presented to the emergency department with complaints of headache for a week, shortness of breath that worsens with activity, dizziness that worsens with movement and chest pain that has been constant for the last 2 days. EKG on presentation showed sinus mechanism with no acute ST-T wave abnormalities indicative of ischemia. Troponins have been negative 3. Chest x-ray showed no acute process. Computed tomography scan of the brain was negative with right maxillary sinusitis which appears new compared to old exam. Vital signs have been stable. Laboratory values were reviewed potassium 4.2, BUN 26, creatinine 1.12 and NT proBNP of 68. He continues to complain of shortness of breath but denies any orthopnea. Chest pain again has been constant for the last 2 days with mild improvement with morphine. He continues to complain of headache as well as dizziness with any type of movement. Chest pain does worsen with palpation. He denies any nausea or vomiting. He's had no syncope or near syncope. He's had no edema, orthopnea or PND. Past Medical History Past Medical History: Hypertension Additional Past Medical History / Comment(s): HEADACHES History of Any Multi-Drug Resistant Organisms: None Reported Past Surgical History: Appendectomy, Tonsillectomy Past Anesthesia/Blood Transfusion Reactions: No Reported Reaction Past Psychological History: No Psychological Hx Reported Smoking Status: Current every day smoker Past Alcohol Use History: Rare Past Drug Use History: None Reported - Past Family History Mother Family Medical History: Hypertension Additional Family Medical History / Comment(s): pulmonary hypertension - dece ased Father Family Medical History: Neurologic Disorder Additional Family Medical History / Comment(s): parkinsons - Medications and Allergies Home Medications Medication Instructions Recorded Confirmed Type No Known Home Medications 02/06/21 02/06/21 History Allergies Allergy/AdvReac Type Severity Reaction Status Date / Time No Known Allergies Allergy Verified 02/06/21 17:33 Physical Exam Vitals: Vital Signs Temp Pulse Pulse Resp BP BP Pulse Ox 02/07/21 07:00 98.5 F 47 L 19 129/84 96 02/07/21 02:00 97.5 F L 57 L 16 119/74 96 02/06/21 20:00 97.9 F 60 17 125/82 96 02/06/21 18:21 98.9 F 89 20 128/92 95 02/06/21 18:08 98.3 F 65 16 116/75 95 02/06/21 16:04 98.9 F 89 20 128/92 95 Intake and Output 02/06/21 02/07/21 02/07/21 22:59 06:59 14:59 Other: Voiding Method Toilet # Voids 1 Weight 90.718 kg PHYSICAL EXAMINATION: This is a 65-year-old male in no apparent distress at the time of my examination. VITAL SIGNS: Blood pressure 119/74, heart rate 57, respirations 16, temp 97.5F. Patient is 96 % on room air. HEENT: Head is atraumatic, normocephalic. Pupils are equal, round. Sclerae anicteric. Conjunctivae are clear. Mucous membranes of the mouth are moist. Neck is supple. There is no elevated jugular venous pressure. No carotid bruit is heard. CHEST EXAMINATION: Diminished to auscultation bilaterally. No wheezes rales or rhonchi. Respirations even and nonlabored. Left-sided chest wall tenderness to palpation. HEART EXAMINATION: Heart regular, positive S1 and S2. No S3. No S4. Soft systolic murmur. ABDOMEN: Soft, nontender. Bowel sounds are heard. No organomegaly noted. EXTREMITIES: 2+ peripheral pulses with no evidence of peripheral edema and no calf tenderness noted. NEUROLOGIC EXAMINATION: Patient is awake, alert and oriented x3. Results 02/07/21 04:25 02/06/21 16:27 Cardiac Enzymes 02/06/21 02/06/21 02/06/21 Range/Units 16:27 16:27 18:21 AST 17 (17-59) U/L Troponin I <0.012 <0.012 (0.000-0.034) ng/mL 02/06/21 Range/Units 21:43 AST (17-59) U/L Troponin I <0.012 (0.000-0.034) ng/mL Coagulation 02/06/21 Range/Units 16:27 PT 10.3 (9.0-12.0) sec APTT 22.9 (22.0-30.0) sec CBC 02/06/21 Range/Units 16:27 WBC 9.4 (3.8-10.6) k/uL RBC 5.27 (4.30-5.90) m/uL Hgb 16.4 (13.0-17.5) gm/dL Hct 47.3 (39.0-53.0) % Plt Count 295 (150-450) k/uL Comprehensive Metabolic Panel 02/06/21 Range/Units 16:27 Sodium 140 (137-145) mmol/L Potassium 4.2 (3.5-5.1) mmol/L Chloride 110 H (98-107) mmol/L Carbon Dioxide 24 (22-30) mmol/L BUN 26 H (9-20) mg/dL Creatinine 1.12 (0.66-1.25) mg/dL Glucose 131 H (74-99) mg/dL Calcium 9.5 (8.4-10.2) mg/dL AST 17 (17-59) U/L ALT 13 (4-49) U/L Alkaline Phosphatase 89 (38-126) U/L Total Protein 6.3 (6.3-8.2) g/dL Albumin 3.9 (3.5-5.0) g/dL Current Medications Generic Name Dose Route Start Last Admin Trade Name Freq PRN Reason Stop Dose Admin Acetaminophen 650 mg 02/06/21 21:32 02/07/21 07:29 Acetaminophen Tab 325 Mg Tab PO 650 mg Q6HR PRN Administration Fever and/ or Pain Heparin Sodium (Porcine) 5,000 unit 02/06/21 21:45 02/07/21 07:43 Heparin Sodium,Porcine/Pf 5,000 Unit/0.5 Ml Syringe SQ Not Given Q12HR [place] Morphine Sulfate 4 mg 02/06/21 21:31 02/07/21 07:31 Morphine Sulfate 4 Mg/Ml Syringe IVP 4 mg Q4HR PRN Administration Pain Pantoprazole Sodium 40 mg 02/06/21 21:45 02/07/21 07:25 Pantoprazole 40 Mg Tablet PO 40 mg [id number] [facility] Administration Intake and Output 02/06/21 02/07/21 02/07/21 22:59 06:59 14:59 Other: Voiding Method Toilet # Voids 1 Weight 90.718 kg 02/06/21 16:27 02/06/21 16:27 Assessment and Plan Assessment: #1 chest pain, atypical, an acute coronary event has been ruled out #2 headache and dizziness #3 shortness of breath with normal NT proBNP and normal chest x-ray Plan: From Cardiology's perspective we will obtain a 2-D echo with doppler study to assess cardiac structure and function. We will schedule him for stress echocardiogram to be done tomorrow. Further recommendations depending on clinical course and diagnostic findings. ART LIBRARIAN note has been reviewed, I agree with a documented findings and plan of care. Patient was seen and examined.
--- NOTE | 2021-02-07 11:34 | ECHOF ---
Referral Reason:chest pain MEASUREMENTS -------- HEIGHT: 172.7 cm WEIGHT: 90.7 kg BP: 129/84 RVIDd: 3.2 cm (< 3.3) IVSd: 1.1 cm (0.6 - 1.1) LVIDd: 4.8 cm (3.9 - 5.3) LVPWd: 1.2 cm (0.6 - 1.1) IVSs: 1.7 cm LVIDs: 3.2 cm LVPWs: 1.5 cm LAESV Index (A-L): 20.41 ml/m Ao Diam: 3.4 cm (2.0 - 3.7) AV Cusp: 1.8 cm (1.5 - 2.6) MV EXCURSION: 20.757 mm (> 18.000) MV EF SLOPE: 79 mm/s (70 - 150) EPSS: 0.7 cm MV E Beka: 0.69 m/s MV DecT: 176 ms MV A Beka: 0.37 m/s MV E/A Ratio: 1.88 RAP: 5.00 mmHg RVSP: 20.34 mmHg FINDINGS -------- Sinus rhythm. Resting bradycardia (HR<60bpm). This was a technically adequate study. The left ventricular size is normal. There is borderline concentric left ventricular hypertrophy. Overall left ventricular systolic function is normal with, an EF between 55 - 60 %. The diastolic filling pattern is normal for the age of the patient 7.44. The right ventricle is normal in size. Normal LA size by volume 22+/-6 ml/m2. The right atrial size is normal. Interatrial and interventricular septum intact. The aortic valve is trileaflet, and appears structurally normal. No aortic stenosis or regurgitation. The mitral valve is normal. There is trace mitral regurgitation. The tricuspid valve appears structurally normal. Mild tricuspid regurgitation present. Right vent ricular systolic pressure is normal at < 35 mmHg. The right ventricular systolic pressure, as measu red by Doppler, is 20.34mmHg. There is no pulmonic regurgitation present. The aortic root size is normal. The inferior vena cava is mildly dilated. There is no pericardial effusion. CONCLUSIONS -------- 1. There is borderline concentric left ventricular hypertrophy. 2. Overall left ventricular systolic function is normal with, an EF between 55 - 60 %. 3. Normal LA size by volume 22+/-6 ml/m2. 4. The aortic valve is trileaflet, and appears structurally normal. No aortic stenosis or regurgitati on. 5. There is trace mitral regurgitation. 6. Mild tricuspid regurgitation present. 7. The inferior vena cava is mildly dilated. SECY: Suyapa Balbuena RDCS
[2021-02-07 19:49] VITALS: RESP 16
[2021-02-07] MEDS ORDERED: BUTALB/APAP/CAFF 50-325-40MG TAB PO PRN (21:30)
[2021-02-07] MEDS ORDERED: ACETAMINOPHEN TAB 325 MG TAB PO PRN (21:32)
--- NOTE | 2021-02-07 23:00 | P.HPIM ---
History of Present Illness H&P Date: 02/07/21 Chief Complaint: Chest pain Mr. Colindres is a 65-year-old gentleman with a past medical history of hypertension, chronic right leg pain following an injury coming in to the hospital with a chief complaint of difficulty in breathing and dizziness. Patient states that he has been having headaches and had been feeling dizzy on and off for the past 1 week. But his symptoms of dizziness and chest discomfort increased and so he came into the hospital for further evaluation. Patient states that his dizziness is more when he moves his head or changes position. Patient denies having any falls but states that he was dizzy he felt like he would sustain a fall. Patient denies having any headaches, blurring of vision, slurred speech or weakness of his extremities. Patient denies having any double vision. He denies having any neck stiffness. Denies having any fevers chills or rigors. No cough or difficulty in breathing. No sick contacts. No recent travel. No abdominal pain nausea vomiting or diarrhea. No dysuria or hematuria. In the ER at the time of admission his vitals temperature 98.9, heart rate 89, respiratory 20, blood pressure 128/92 saturating at 95% on room air. He had a chest x-ray done showing no active cardiopulmonary disease. EKG done in the ER showing normal sinus rhythm with no ST or T wave changes he also had a CAT scan of his head showing right maxillary sinusitis. No acute intra-cranial process. On reviewing his labs white count of 9.2, hemoglobin 15.2, platelets 269. Sodium 143, potassium 4.3, chloride 113, bicarb 21, BUN 38, creatinine 1.0. Troponin less than 0.012x3. Review of Systems REVIEW OF SYSTEMS: CONSTITUTIONAL: No fever, no malaise, no fatigue. HEENT: + headaches , no neck stiffness, no blurring of vision CARDIOVASCULAR: as per HPI PULMONARY: No cough or difficulty in breathing GASTROINTESTINAL: No Abdominal pain nausea vomiting or diarrhea NEUROLOGICAL: No weakness of extremities HEMATOLOGICAL: Denies any bleeding or petechiae. GENITOURINARY: Denies any burning micturition, frequency, or urgency. MUSCULOSKELETAL/RHEUMATOLOGICAL: Denies any joint pain, swelling, or any muscle pain. ENDOCRINE: Denies polyuria polydipsia or heat or cold intolerance The rest of the 14-point review of systems is negative. Past Medical History Past Medical History: Hypertension Additional Past Medical History / Comment(s): HEADACHES History of Any Multi-Drug Resistant Organisms: None Reported Past Surgical History: Appendectomy, Tonsillectomy Past Anesthesia/Blood Transfusion Reactions: No Reported Reaction Past Psychological History: No Psychological Hx Reported Smoking Status: Current every day smoker Past Alcohol Use History: Rare Past Drug Use History: None Reported - Past Family History Mother Family Medical History: Hypertension Additional Family Medical History / Comment(s): pulmonary hypertension - dece ased Father Family Medical History: Neurologic Disorder Additional Family Medical History / Comment(s): parkinsons - Medications and Allergies Home Medications Medication Instructions Recorded Confirmed Type No Known Home Medications 02/06/21 02/06/21 History Allergies Allergy/AdvReac Type Severity Reaction Status Date / Time No Known Allergies Allergy Verified 02/06/21 17:33 Physical Exam Vitals: Vital Signs Temp Pulse Pulse Resp BP BP Pulse Ox 02/07/21 07:00 98.5 F 47 L 19 129/84 96 02/07/21 02:00 97.5 F L 57 L 16 119/74 96 02/06/21 20:00 97.9 F 60 17 125/82 96 02/06/21 18:21 98.9 F 89 20 128/92 95 02/06/21 18:08 98.3 F 65 16 116/75 95 02/06/21 16:04 98.9 F 89 20 128/92 95 Intake and Output 02/06/21 02/07/21 02/07/21 22:59 06:59 14:59 Intake Total 180 Balance 180 Intake: Oral 180 Other: Voiding Method Toilet Toilet # Voids 1 Weight 90.718 kg PHYSICAL EXAMINATION: GENERAL: Comfortably lying up in the bed appears to be no acute distress. HEENT: Pupils are round and equally reacting to light. EOMI. No scleral icterus. No conjunctival pallor. CARDIOVASCULAR: S1 and S2 present. No murmurs, rubs, or gallops. PULMONARY: Bilateral breath sounds positive. No wheeze or crackles.. ABDOMEN: Soft,non -tender, normal bowel sounds. No guarding or rigidity. MUSCULOSKELETAL: No joint swelling or deformity. EXTREMITIES: No edema NEUROLOGICAL: Gross neurological examination did not reveal any focal deficits.Strenght 5/5 in all 4 extremities [place] Myles pike manuever + positive , no nystagmus. Gait could not be assessed due to dizziness. SKIN:No rash Results CBC & Chem 7: 02/07/21 04:25 02/07/21 04:25 Labs: Abnormal Lab Results - Last 24 Hours (Table) 02/06/21 02/07/21 02/07/21 Range/Units 16:27 04:25 04:25 MPV 9.3 L (9.5-12.2) fL Chloride 110 H 113 H (98-107) mmol/L Carbon Dioxide 21.3 L (21.6-31.8) mmol/L BUN 26 H 38.0 H (9-20) mg/dL BUN/Creatinine Ratio 38.00 H (12.00-20.00) Ratio Glucose 131 H (74-99) mg/dL AST 12 L (14-35) U/L Total Protein 5.9 L (6.2-8.2) g/dL Thrombosis Risk Factor Assmnt - Choose All That Apply Any of the Below Risk Factors Present?: Yes Each Risk Factor Represents 2 Points: Age 61-74 years Thrombosis Risk Factor Assessment Total Risk Factor Score: 2 Thrombosis Risk Factor Assessment Level: Low Risk Assessment and Plan Assessment: ASSESSMENT Chest pain Headache with dizziness Hypertension Nicotine dependence PLAN: Patient had serial EKGs and troponins done that are negative. Cardiology has been consulted and an echocardiogram has been ordered. Patient complains of headaches and dizziness, [place]-Hallpike maneuver has been positive. Could most likely be BPPV, will give a trial of meclizine. He had a CAT scan of the head that was negative for any acute intracranial process. Will consult neurology for ongoing headache and dizziness. Further recommendations to follow depending on the progress of the patient.
[2021-02-08 07:36] VITALS: BP 134/87; PULSE 52; TEMP 97.8
[2021-02-08] MEDS ORDERED: ASPIRIN 81 MG PO SCH (09:00)
--- NOTE | 2021-02-08 23:24 | P.DS ---
Providers Date of admission: 02/06/21 17:23 Expected date of discharge: 02/08/21 Attending physician: Holden Poe Consults: 02/06/21 17:24 Consult Physician Urgent Consulting Provider: Prem Dickerson Consult Reason/Comments: chest pain Do you want consulting provider notified?: Yes 02/07/21 22:57 Consult Physician Routine Consulting Provider: Chevy Granger Consult Reason/Comments: ongoing headache and dizziness Do you want consulting provider notified?: Yes, Notify in am Primary care physician: Stated None Hospital Course: Mr. Colindres is a 65-year-old gentleman with a past medical history of hypertension, chronic right leg pain following an injury coming in to the hospital with a chief complaint of difficulty in breathing and dizziness. Patient states that he has been having headaches and had been feeling dizzy on and off for the past 1 week. But his symptoms of dizziness and chest discomfort increased and so he came into the hospital for further evaluation. Patient states that his dizziness is more when he moves his head or changes position. Patient denies having any falls but states that he was dizzy he felt like he would sustain a fall. Patient denies having any headaches, blurring of vision, slurred speech or weakness of his extremities. Patient denies having any double vision. He denies having any neck stiffness. Denies having any fevers chills or rigors. No cough or difficulty in breathing. No sick contacts. No recent travel. No abdominal pain nausea vomiting or diarrhea. No dysuria or hematuria. In the ER at the time of admission his vitals temperature 98.9, heart rate 89, respiratory 20, blood pressure 128/92 saturating at 95% on room air. He had a chest x-ray done showing no active cardiopulmonary disease. EKG done in the ER showing normal sinus rhythm with no ST or T wave changes he also had a CAT scan of his head showing right maxillary sinusitis. No acute intra-cranial process. On reviewing his labs white count of 9.2, hemoglobin 15.2, platelets 269. Sodium 143, potassium 4.3, chloride 113, bicarb 21, BUN 38, creatinine 1.0. Troponin less than 0.012x3. Hospital course - Patient had serial EKGs and troponins done that are negative. Cardiology has been consulted and an echocardiogram has been ordered. Patient complains of headaches and dizziness, [place]p-Hallpike maneuver has been positive. Could most likely be BPPV, will give a trial of meclizine. He had a CAT scan of the head that was negative for any acute intracranial process. Consulted neurology for ongoing headache and dizziness. Further recommendations to follow depending on the progress of the patient. Work up is in progressp. Patient left against medical advise DISCHARGE DIAGNOSIS Chest pain Headache with dizziness Hypertension Nicotine dependence Patient Condition at Discharge: Stable Plan - Discharge Summary Discharge Rx Participant: No New Discharge Prescriptions: No Action No Known Home Medications Discharge Medication List No Known Home Medications 02/06/21 [History] Follow up Appointment(s)/Referral(s): Ady Shields MD [STAFF PHYSICIAN] - 2 Weeks None,Stated [Primary Care Provider] - 1-2 days Discharge Disposition: Left Against Medical Advice
== END 2021-02-08 09:45 | disposition left against medical advice (07) ==
LOC: EC 15:55 → 6NMEDSUR 17:23
PROVIDERS: ADMIT Hospitalist; ATTEND Hospitalist
DX: R07.89 Other chest pain (principal); I10 Essential (primary) hypertension; R51.9 Headache, unspecified; R42 Dizziness and giddiness; R06.02 Shortness of breath; F17.210 Nicotine dependence, cigarettes, uncomplicated; J32.0 Chronic maxillary sinusitis; G89.29 Other chronic pain; M79.604 Pain in right leg; Z53.29 Procedure and treatment not carried out because of patient's decision for other reasons; Z90.49 Acquired absence of other specified parts of digestive tract; Z98.890 Other specified postprocedural states; Z82.49 Family history of ischemic heart disease and other diseases of the circulatory system; Z82.0 Family history of epilepsy and other diseases of the nervous system
CPT/HCPCS: 96376; 96374; 99285; 36415; 93005; 93306; 85379; 83880; 80053 ×2; 83690; 83735; 84484; 85025 ×2; 85610; 85730; 71046; 70450; G0378 ×3; J2270 ×2

== ENCOUNTER 2021-02-19 15:28 | Emergency (ER) | payer MEDICARE ==
[2021-02-19 15:34] VITALS: TEMP 98
[2021-02-19] MEDS ORDERED: diphenhydrAMINE 50 MG/ML 1 ML VIAL IVP STA (15:43)
[2021-02-19] MEDS ORDERED: ASPIRIN 81 MG PO STA (15:43)
[2021-02-19] MEDS ORDERED: SODIUM CHLORIDE 0.9% 1,000 ML IV ONE (15:45)
[2021-02-19] MEDS ORDERED: PROCHLORPERAZINE INJ 10 MG/2 ML VIAL IVP STA (15:45)
[2021-02-19] MEDS ORDERED: KETOROLAC 15 MG/ML 1 ML VIAL IVP STA (15:45)
--- NOTE | 2021-02-19 15:57 | ED ---
General Adult HPI - General Chief complaint: Chest Pain Stated complaint: chest pain, SOB Time Seen by Provider: 02/19/21 15:37 Source: patient, RN notes reviewed, old records reviewed Mode of arrival: ambulatory Limitations: no limitations - History of Present Illness Initial comments: Patient is a 65-year-old male with past medical history remarkable for chronic tobacco use, hypertension, history of headaches who presents to the emergency Department complaining of a three-day history of sudden onset left-sided chest pain. He describes the pain as left of his breastbone below his nipple and it radiates in a belt-like pattern around his thorax towards his back. He states that it suddenly started 3 days ago and has unknown associated cause for onset. He has attempted to take ibuprofen for pain control with minimal improvement. He states that he is having worse pain as well as difficulty in breathing, as he states he feels like he cannot catch his breath. He denies orthopnea, PND, and LE edema. Dyspnea is present at rest and on exertion, and worse when the pain is worse. Pain is pleuritic. He denies any fevers, chills, cough, sick contacts. Patient is fully vaccinated for COVID-19. Denies any history of cardiac disease other than hypertension. Denies any drug use. Denies any abdominal pain, nausea, vomiting. He is endorsing a mild tension-like headache that belt-like distribution around his head that is approximately a 3 out of 10. Patient states chest pain is sharp, pressure-like. He denies any history of blood clots, hemoptysis, bilateral lower extremity swelling, family medical history of blood clots. He has no other acute complaints at this time. - Related Data Previous Rx's Medication Instructions Recorded Ibuprofen [Motrin] 800 mg PO Q8H #21 tab 02/19/21 Lidocaine 5% Patch [Lidoderm 5% 1 patch TOPICAL DAILY #7 patch 02/19/21 Patch] Methocarbamol [Robaxin-750] 1,500 mg PO TID PRN #42 tablet 02/19/21 Allergies Allergy/AdvReac Type Severity Reaction Status Date / Time No Known Allergies Allergy Verified 02/19/21 16:15 Review of Systems ROS Statement: Those systems with pertinent positive or pertinent negative responses have been documented in the HPI. Review of Systems: CONST: Denies fever EYES: Denies blurry vision ENT: Denies nasal congestion C/V: Endorses chest pain RESP: Endorses shortness of breath GI: Denies abdominal pain : Denies dysuria SKIN: Denies rash. MSK: Denies joint pain. NEURO: Denies headache ROS Other: All systems not noted in ROS Statement are negative. Past Medical History Past Medical History: Hypertension Additional Past Medical History / Comment(s): HEADACHES History of Any Multi-Drug Resistant Organisms: None Reported Past Surgical History: Appendectomy, Tonsillectomy Past Anesthesia/Blood Transfusion Reactions: No Reported Reaction Past Psychological History: No Psychological Hx Reported Smoking Status: Current every day smoker Past Alcohol Use History: Rare Past Drug Use History: None Reported - Past Family History Mother Family Medical History: Hypertension Additional Family Medical History / Comment(s): pulmonary hypertension - Father Family Medical History: Neurologic Disorder Additional Family Medical History / Comment(s): parkinsons - General Exam - General Exam Comments Initial Comments: General: Appears in mild distress secondary to chest pain. HEAD: Normal with no signs of head trauma. EYES: PERRLA, EOMI, conjunctiva normal, no discharge. ENT: Hearing grossly intact, normal oropharynx. RESPIRATORY: Clear breath sounds bilaterally. No wheezes, rales, or rhonchi. C/V: Regular rate and rhythm. S1 and S2 auscultated, no edema, peripheral pulses 2+ and intact throughout. Patient's chest pain is palpable to palpation, approximately the fifth or sixth intercostal space with radiation around his thorax within the rib space and intercostal muscle towards his back. ABD: Abd is soft, nontender, nondistended EXT: Normal range of motion, no obvious deformity SKIN: No rashes or lesions observed on exposed skin. NEURO: Alert and oriented 4. No focal sensory or strength deficits. Limitations: no limitations Course Vital Signs 02/19/21 02/19/21 02/19/21 15:31 16:33 18:19 Temperature 98 F Pulse Rate 99 71 59 L Respiratory 22 18 18 Rate Blood Pressure 122/93 124/95 116/90 O2 Sat by Pulse 95 97 94 L Oximetry 02/19/21 18:42 Temperature 98 F Pulse Rate 59 L Respiratory 18 Rate Blood Pressure 116/90 O2 Sat by Pulse 94 L Oximetry Medical Decision Making - Medical Decision Making Based on the patient's presentation and physical exam, I'm concerned for possible cardiac etiology for the patient's chest pain at this time. I cannot rule out the possibility of pulmonary embolism, as the patient is having pleuritic chest pain with subjective dyspnea who is a chronic smoker. Patient does not PERC out. We'll score for pulmonary embolism is low, and therefore d- dimer will be obtained. Troponin, EKG, chest x-ray as well as prescribed also be obtained. Patient seems to have a tension-like headache associated with current symptoms and therefore he will receive a 1 L fluid bolus in addition to IV Toradol, Compazine, Benadryl for his headache. He was in agreement with this plan. He will receive an aspirin. Patient will also be connected to continuous cardiac monitoring while he is in the department. Patient's EKG shows normal sinus rhythm and no concern for acute ischemia. Laboratory studies are remarkable for an elevated d-dimer of 0.7. Patient's troponin is negative. The remainder of his laboratory studies are unremarkable. Chest x-ray revealed no acute cardio primary process. I spoke with the patient regarding his elevated d-dimer and requested and recommended that we obtain a CT thorax pulmonary embolus and, porfirioy was in agreement. CTA chest for PE was negative for pulmonary embolus and. It does show an unchanged ascending aortic aneurysm since his prior CT thorax. On reevaluation, patient is feeling improved. I did discuss with him the results of his labs as well as his imaging. He expressed understanding. I do believe it is likely chest wall pain that he is experiencing, possibly an intercostal muscle strain or sprain. Therefore I do believe it is safe for him to be discharged home with close follow-up. He was in agreement with the plan. I will provide the patient with a prescription for ibuprofen, Robaxin, lidocaine patch. I instructed the patient to follow up with their PCP in the next 3 days. I explained that the patient should return to the emergency department if they experience any worsening symptoms. Strict return precautions were discussed with the patient. The patient expressed understanding of these instructions. I answered all questions that the patient had. The patient was discharged home in improved condition with their prescriptions and follow up information. - Lab Data Result diagrams: 02/19/21 15:49 02/19/21 15:49 Lab Results 02/19/21 02/19/21 02/19/21 Range/Units 15:49 15:49 15:49 WBC 10.5 (3.8-10.6) k/uL RBC 5.27 (4.30-5.90) m/uL Hgb 16.5 (13.0-17.5) gm/dL Hct 47.7 (39.0-53.0) % MCV 90.5 (80.0-100.0) fL MCH 31.3 (25.0-35.0) pg MCHC 34.6 (31.0-37.0) g/dL RDW 13.5 (11.5-15.5) % Plt Count 310 (150-450) k/uL MPV 6.5 Neutrophils % 70 % Lymphocytes % 22 % Monocytes % 4 % Eosinophils % 3 % Basophils % 1 % Neutrophils # 7.3 (1.3-7.7) k/uL Lymphocytes # 2.3 (1.0-4.8) k/uL Monocytes # 0.4 (0-1.0) k/uL Eosinophils # 0.3 (0-0.7) k/uL Basophils # 0.1 (0-0.2) k/uL PT 9.8 (9.0-12.0) sec INR 0.9 (<1.2) APTT 22.4 (22.0-30.0) sec D-Dimer 0.70 H (<0.60) mg/L FEU Sodium 143 (137-145) mmol/L Potassium 4.2 (3.5-5.1) mmol/L Chloride 111 H (98-107) mmol/L Carbon Dioxide 24 (22-30) mmol/L Anion Gap 8 mmol/L BUN 27 H (9-20) mg/dL Creatinine 1.16 (0.66-1.25) mg/dL Est GFR (CKD-EPI)AfAm 76 (>60 ml/min/1.73 sqM) Est GFR (CKD-EPI)NonAf 65 (>60 ml/min/1.73 sqM) Glucose 138 H (74-99) mg/dL Calcium 9.5 (8.4-10.2) mg/dL Magnesium 2.2 (1.6-2.3) mg/dL Total Bilirubin <0.1 L (0.2-1.3) mg/dL AST 15 L (17-59) U/L ALT 12 (4-49) U/L Alkaline Phosphatase 98 (38-126) U/L Troponin I (0.000-0.034) ng/mL Total Protein 6.3 (6.3-8.2) g/dL Albumin 3.9 (3.5-5.0) g/dL 02/19/21 Range/Units 15:49 WBC (3.8-10.6) k/uL RBC (4.30-5.90) m/uL Hgb (13.0-17.5) gm/dL Hct (39.0-53.0) % MCV (80.0-100.0) fL MCH (25.0-35.0) pg MCHC (31.0-37.0) g/dL RDW (11.5-15.5) % Plt Count (150-450) k/uL MPV Neutrophils % % Lymphocytes % % Monocytes % % Eosinophils % % Basophils % % Neutrophils # (1.3-7.7) k/uL Lymphocytes # (1.0-4.8) k/uL Monocytes # (0-1.0) k/uL Eosinophils # (0-0.7) k/uL Basophils # (0-0.2) k/uL PT (9.0-12.0) sec INR (<1.2) APTT (22.0-30.0) sec D-Dimer (<0.60) mg/L FEU Sodium (137-145) mmol/L Potassium (3.5-5.1) mmol/L Chloride (98-107) mmol/L Carbon Dioxide (22-30) mmol/L Anion Gap mmol/L BUN (9-20) mg/dL Creatinine (0.66-1.25) mg/dL Est GFR (CKD-EPI)AfAm (>60 ml/min/1.73 sqM) Est GFR (CKD-EPI)NonAf (>60 ml/min/1.73 sqM) Glucose (74-99) mg/dL Calcium (8.4-10.2) mg/dL Magnesium (1.6-2.3) mg/dL Total Bilirubin (0.2-1.3) mg/dL AST (17-59) U/L ALT (4-49) U/L Alkaline Phosphatase (38-126) U/L Troponin I <0.012 (0.000-0.034) ng/mL Total Protein (6.3-8.2) g/dL Albumin (3.5-5.0) g/dL - EKG Data -: EKG Interpreted by Me EKG Comments: 12-lead Electrocardiogram Interpretation Note EKG was reviewed and interpreted by myself. 12-lead ECG performed at 1538 is interpreted by me as revealing normal sinus rhythm at a rate of 89 beats per minute. [place] is normal. [place] interval is 130 ms, QRS duration is 88 ms, QTc is 430 ms.. There were no ST or T wave abnormalities to suggest myocardial ischemia or injury. R wave progression across the precordium was satisfactory. By my interpretation this EKG is non-diagnostic for acute ischemia. Disposition Clinical Impression: Chest wall pain, Headache Disposition: HOME SELF-CARE Condition: Good Instructions (If sedation given, give patient instructions): Chest Pain (ED), Costochondritis (ED) Prescriptions: Lidocaine 5% Patch [Lidoderm 5% Patch] 1 patch TOPICAL DAILY #7 patch Ibuprofen [Motrin] 800 mg PO Q8H #21 tab Methocarbamol [Robaxin-750] 1,500 mg PO TID PRN #42 tablet PRN Reason: Muscle Pain Is patient prescribed a controlled substance at d/c from ED?: No Referrals: None,Stated [Primary Care Provider] - 1-2 days
[2021-02-19 16:02] LABS: Basophils # (A) 0.1 k/uL (0-0.2); Basophils % (A) 1 %; Eosinophils # (A) 0.3 k/uL (0-0.7); Eosinophils % (A) 3 %; HCT 47.7 % (39.0-53.0); HGB 16.5 gm/dL (13.0-17.5); Lymphocytes # (A) 2.3 k/uL (1.0-4.8); Lymphocytes % (A) 22 %; MCH 31.3 pg (25.0-35.0); MCHC 34.6 g/dL (31.0-37.0); MCV 90.5 fL (80.0-100.0); Mean Platelet Volume 6.5; Monocytes # (A) 0.4 k/uL (0-1.0); Monocytes % (A) 4 %; Neutrophils # (A) 7.3 k/uL (1.3-7.7); Neutrophils % (A) 70 %; Platelet Count 310 k/uL (150-450); RBC 5.27 m/uL (4.30-5.90); RDW 13.5 % (11.5-15.5); WBC 10.5 k/uL (3.8-10.6)
[2021-02-19 16:20] LABS: INR 0.9 (<1.2); Partial Thromboplastin Time 22.4 sec (22.0-30.0); Prothrombin Time 9.8 sec (9.0-12.0)
--- NOTE | 2021-02-19 16:29 | XR ---
EXAMINATION TYPE: XR chest 2V DATE OF EXAM: 02/19/2021 COMPARISON: 02/06/2021 HISTORY: Chest pain TECHNIQUE: FINDINGS: Heart and mediastinum are normal. There are small calcified granulomata in the left lower l obe. There are no hilar masses. Bony thorax is intact. There are chest leads. IMPRESSION: No active cardiopulmonary disease. No change.
[2021-02-19 16:37] LABS: ALT 12 U/L (4-49); AST 15 U/L (17-59); African American GFR (CKD) 76 (>60 ml/min/1.73 sqM); Albumin 3.9 g/dL (3.5-5.0); Alkaline Phosphatase 98 U/L (38-126); Anion Gap 8 mmol/L; Blood Urea Nitrogen 27 mg/dL (9-20); Calcium 9.5 mg/dL (8.4-10.2); Carbon Dioxide 24 mmol/L (22-30); Chloride 111 mmol/L (98-107); Glucose 138 mg/dL (74-99); Magnesium 2.2 mg/dL (1.6-2.3); Non-African American GFR(CKD) 65 (>60 ml/min/1.73 sqM); Potassium 4.2 mmol/L (3.5-5.1); Sodium 143 mmol/L (137-145); Total Bilirubin <0.1 mg/dL (0.2-1.3); Total Protein 6.3 g/dL (6.3-8.2)
[2021-02-19 16:41] LABS: D-Dimer 0.7 mg/L FEU (<0.60)
[2021-02-19] MEDS ORDERED: LIDOCAINE 5% PATCH TOPICAL STA (16:51)
[2021-02-19] MEDS ORDERED: MORPHINE SULFATE 4 MG/ML SYRINGE IVP STA (16:51)
[2021-02-19] MEDS ORDERED: methocarbamoL 750 MG TAB PO STA (16:52)
[2021-02-19 17:25] VITALS: RESP 18
--- NOTE | 2021-02-19 17:43 | CT ---
EXAMINATION TYPE: CT chest angio for PE DATE OF EXAM: 02/19/2021 COMPARISON: 11/19/2016 HISTORY: Chest pain and SOB CT DLP: 468.8 mGycm Automated exposure control for dose reduction was used. CONTRAST: Performed with IV Contrast, patient injected with 100 mL of Isovue 370. There are 3-D post processed images. The lungs are clear of consolidation. There is no evidence of a pulmonary mass. There is no pleural e ffusion. There is no pericardial effusion. Heart size is normal. There is no mediastinal adenopathy. There are no hilar masses. Thoracic aorta is intact. There is no aneurysm or dissection. The ascendin g aorta measures 3.9 cm. There is no evidence of filling defect in the pulmonary arteries. The bony thorax is intact. Sternum is intact. There is no evidence of rib fracture. IMPRESSION: Negative exam. No evidence of pulmonary embolism. No adverse change compared to old exam. Borderline aneurysm ascending aorta is unchanged.
[2021-02-19 18:19] VITALS: BP 116/90; PULSE 59
== END 2021-02-19 18:42 | disposition home or self-care (01) ==
LOC: EC 15:28
DX: R07.89 Other chest pain (principal); F17.200 Nicotine dependence, unspecified, uncomplicated; I10 Essential (primary) hypertension; R51.9 Headache, unspecified
CPT/HCPCS: 36415; 93005; 85379; 80053; 83735; 84484; 85025; 85610; 85730; 71046; 71275; 99285; 96374; 96375 ×3; J2270; J1200; J0780; J1885; Q9967

== ENCOUNTER 2021-02-27 16:46 | Emergency (ER) | payer MEDICARE ==
[2021-02-27 17:01] VITALS: BP 145/89; PULSE 67; RESP 16; TEMP 98
[2021-02-27] MEDS ORDERED: HYDROmorphone 0.5 MG/0.5 ML SYRINGE IVP STA (17:14)
--- NOTE | 2021-02-27 17:14 | ED ---
ENT HPI - General Chief complaint: Dental/Oral Stated complaint: Tooth pain Source: patient, family, RN notes reviewed Mode of arrival: ambulatory Limitations: no limitations - History of Present Illness Initial comments: 65-year-old well-appearing white male presents to the emergency room with complaints of left lower tooth pain. Patient states has been increasing pain with the past 2-3 days. States that he does not have a dentist and does not have insurance. He states that he does have a high tolerance for pain medications and needs something very strong. Patient denies any other symptoms. Denies fevers, nausea vomiting or diarrhea. No difficulty swallowing. No headache. MD complaint: tooth pain -: days(s) (2) Severity: severe Severity scale (1-10): 10 Quality: aching, constant Consistency: constant Improves with: none Worsens with: none Context- Dental: history of dental caries, poor dental care - Related Data Previous Rx's Medication Instructions Recorded Ibuprofen [Motrin] 800 mg PO Q8H #21 tab 02/19/21 Lidocaine 5% Patch [Lidoderm 5% 1 patch TOPICAL DAILY #7 patch 02/19/21 Patch] Methocarbamol [Robaxin-750] 1,500 mg PO TID PRN #42 tablet 02/19/21 Amoxicillin/Potassium Clav 1 tab PO Q12HR #20 tab 02/27/21 [Augmentin 875-125 Tablet] HYDROcodone/APAP 7.5-325MG [[place] 1 tab PO Q6HR PRN 3 Days #12 tab 02/27/21 7.5-325] Allergies Allergy/AdvReac Type Severity Reaction Status Date / Time No Known Allergies Allergy Verified 02/27/21 16:59 Review of Systems ROS Statement: Those systems with pertinent positive or pertinent negative responses have been documented in the HPI. ROS Other: All systems not noted in ROS Statement are negative. Past Medical History Past Medical History: Hypertension Additional Past Medical History / Comment(s): HEADACHES History of Any Multi-Drug Resistant Organisms: None Reported Past Surgical History: Appendectomy, Tonsillectomy Past Anesthesia/Blood Transfusion Reactions: No Reported Reaction Past Psychological History: No Psychological Hx Reported Smoking Status: Never smoker Past Alcohol Use History: Rare Past Drug Use History: None Reported - Past Family History Mother Family Medical History: Hypertension Additional Family Medical History / Comment(s): pulmonary hypertension - Father Family Medical History: Neurologic Disorder Additional Family Medical History / Comment(s): parkinsons - General Exam Limitations: no limitations General appearance: alert, in no apparent distress Head exam: Present: atraumatic, normocephalic, normal inspection Eye exam: Present: normal appearance, PERRL, EOMI. Absent: scleral icterus, conjunctival injection, periorbital swelling ENT exam: Present: normal exam, normal oropharynx, mucous membranes moist Expanded Mouth exam: Present: normal external inspection, tongue normal, tongue elevation. Absent: drooling, trismus, muffled voice, laceration Teeth exam: Present: dental caries, dental tenderness # (Tooth 17) Throat exam: normal inspection. negative: tonsillar erythema, tonsillomegaly, tonsillar exudate, R peritonsillar mass, L peritonsillar mass Neck exam: Present: normal inspection, full ROM. Absent: tenderness, menin gismus, lymphadenopathy, thyromegaly Expanded Neck exam: Absent: tenderness, midline deformity, anterior neck swelling, thyroid mass, carotid bruit, tracheal deviation Respiratory exam: Present: normal lung sounds bilaterally. Absent: respiratory distress, wheezes, rales, rhonchi, stridor, chest wall tenderness, accessory muscle use Cardiovascular Exam: Present: regular rate, normal rhythm, normal heart sounds. Absent: systolic murmur, diastolic murmur, rubs, gallop, clicks GI/Abdominal exam: Present: soft, normal bowel sounds. Absent: distended, tenderness, guarding, rebound, rigid Extremities exam: Present: normal inspection, full ROM, normal capillary refill. Absent: tenderness, pedal edema, joint swelling, calf tenderness Back exam: Present: normal inspection, full ROM. Absent: tenderness, CVA tenderness (R), CVA tenderness (L), muscle spasm, paraspinal tenderness, vertebral tenderness, rash noted Neurological exam: Present: alert, oriented X3, CN II-XII intact Psychiatric exam: Present: normal affect, normal mood Skin exam: Present: warm, dry, intact, normal color. Absent: rash, cyanosis, diaphoretic, erythema, petechiae, pallor, mottled Course Vital Signs 02/27/21 16:59 Temperature 98 F Pulse Rate 67 Respiratory 16 Rate Blood Pressure 145/89 O2 Sat by Pulse 99 Oximetry Procedures - Nerve Block Consent Obtained: verbal consent Local Anesthetic Used: Lidocaine 1% Side: left Intraoral Nerve Block: inferior alveolar Procedure Successful: Yes Complications: none Patient Tolerated Procedure: well Medical Decision Making - Medical Decision Making Patient got relief with pain medications in the emergency room along with dental block. He'll be discharged home with antibiotics and pain medication and directed to follow up with dentist as soon as possible. He is also directed to return if increasing pain, headache or fevers. Disposition Clinical Impression: Dental caries, Dental abscess Disposition: HOME SELF-CARE Condition: Fair Instructions (If sedation given, give patient instructions): Dental Abscess (ED), Toothache (ED) Additional Instructions: Follow-up with the dentist as soon as possible. Take antibiotics as prescribed. Return if fever, headache or worsening pain Prescriptions: Amoxicillin/Potassium Clav [Augmentin 875-125 Tablet] 1 tab PO Q12HR #20 tab HYDROcodone/APAP 7.5-325MG [[place] 7.5-325] 1 tab PO Q6HR PRN 3 Days #12 tab PRN Reason: Severe Pain Is patient prescribed a controlled substance at d/c from ED?: Yes Referrals: None,Stated [Primary Care Provider] - 1-2 days Tari Antonio DDS [STAFF PHYSICIAN] - 1-2 days Eben Roche DDS [STAFF PHYSICIAN] - 1-2 days Arely Briceno DDS [STAFF PHYSICIAN] - 1-2 days Time of Disposition: 17:59
[2021-02-27] MEDS ORDERED: BUPIVACAINE (PF) 0.5% 30 ML VIAL SQ STA (17:25)
[2021-02-27] MEDS ORDERED: LIDOCAINE 1% INJ 10MG/ML (20 ML MDV) SQ ONE (17:25)
== END 2021-02-27 18:22 | disposition home or self-care (01) ==
LOC: EC 16:46
DX: K04.7 Periapical abscess without sinus (principal); K02.9 Dental caries, unspecified; I10 Essential (primary) hypertension; Z79.1 Long term (current) use of non-steroidal anti-inflammatories (NSAID); Z79.899 Other long term (current) drug therapy; Z82.49 Family history of ischemic heart disease and other diseases of the circulatory system
CPT/HCPCS: 64400; 96374; 99282; J2001; J1170

== ENCOUNTER 2021-03-01 15:45 | Emergency (ER) | payer MEDICARE ==
[2021-03-01 16:27] VITALS: BP 137/79; PULSE 84; RESP 18; TEMP 98.4
[2021-03-01] MEDS ORDERED: LIDOCAINE 1% INJ 10MG/ML (20 ML MDV) SQ ONE (16:33)
[2021-03-01] MEDS ORDERED: BUPIVACAINE (PF) 0.5% 30 ML VIAL SQ STA (16:33)
--- NOTE | 2021-03-01 17:10 | ED ---
ENT HPI - General Chief complaint: Dental/Oral Stated complaint: dental pain-revisit Source: patient, RN notes reviewed, old records reviewed Mode of arrival: ambulatory Limitations: no limitations - History of Present Illness Initial comments: 65-year-old white male, well-appearing presents to the emergency room being seen for the same 2 days ago. Patient states that the dental block was performed pain medicine given lasted him for almost 2 days but no pain in his back severely. Patient states he cannot get into the dentist yet and he needs some pain relief. Patient denies any fevers, nausea vomiting or diarrhea. He states this just the tooth that is constantly painful. MD complaint: tooth pain -: week(s) Location: tooth # (17) Severity: severe Severity scale (1-10): 10 Quality: aching Consistency: constant Improves with: other medication Context- Dental: history of dental caries, poor dental care - Related Data Previous Rx's Medication Instructions Recorded Ibuprofen [Motrin] 800 mg PO Q8H #21 tab 02/19/21 Lidocaine 5% Patch [Lidoderm 5% 1 patch TOPICAL DAILY #7 patch 02/19/21 Patch] Methocarbamol [Robaxin-750] 1,500 mg PO TID PRN #42 tablet 02/19/21 Amoxicillin/Potassium Clav 1 tab PO Q12HR #20 tab 02/27/21 [Augmentin 875-125 Tablet] HYDROcodone/APAP 7.5-325MG [[place] 1 tab PO Q6HR PRN 3 Days #12 tab 02/27/21 7.5-325] Allergies Allergy/AdvReac Type Severity Reaction Status Date / Time No Known Allergies Allergy Verified 03/01/21 16:25 Review of Systems ROS Statement: Those systems with pertinent positive or pertinent negative responses have been documented in the HPI. ROS Other: All systems not noted in ROS Statement are negative. Past Medical History Past Medical History: Hypertension Additional Past Medical History / Comment(s): HEADACHES History of Any Multi-Drug Resistant Organisms: None Reported Past Surgical History: Appendectomy, Tonsillectomy Past Anesthesia/Blood Transfusion Reactions: No Reported Reaction Past Psychological History: No Psychological Hx Reported Smoking Status: Never smoker Past Alcohol Use History: Rare Past Drug Use History: None Reported - Past Family History Mother Family Medical History: Hypertension Additional Family Medical History / Comment(s): pulmonary hypertension - Father Family Medical History: Neurologic Disorder Additional Family Medical History / Comment(s): parkinsons - General Exam Limitations: no limitations General appearance: alert, in no apparent distress Head exam: Present: atraumatic, normocephalic, normal inspection Eye exam: Present: normal appearance, PERRL, EOMI. Absent: scleral icterus, conjunctival injection, periorbital swelling ENT exam: Present: normal exam, normal oropharynx, mucous membranes moist, other (Dental caries and) Neck exam: Present: normal inspection, full ROM. Absent: tenderness, meningismus, lymphadenopathy Respiratory exam: Present: normal lung sounds bilaterally. Absent: respiratory distress, wheezes, rales, rhonchi, stridor, chest wall tenderness, accessory mus daniel use Cardiovascular Exam: Present: regular rate, normal rhythm, normal heart sounds. Absent: systolic murmur, diastolic murmur, rubs, gallop, clicks GI/Abdominal exam: Present: soft, normal bowel sounds. Absent: distended, tenderness, guarding, rebound, rigid Extremities exam: Present: normal inspection, full ROM, normal capillary refill. Absent: tenderness, pedal edema, joint swelling, calf tenderness Back exam: Present: full ROM. Absent: tenderness Neurological exam: Present: alert, oriented X3, CN II-XII intact Psychiatric exam: Present: normal affect, normal mood Skin exam: Present: warm, dry, intact, normal color. Absent: rash, cyanosis, diaphoretic, petechiae, pallor Course Vital Signs 03/01/21 16:25 Temperature 98.4 F Pulse Rate 84 Respiratory 18 Rate Blood Pressure 137/79 O2 Sat by Pulse 95 Oximetry Medical Decision Making - Medical Decision Making 65-year-old male patient requesting another digital block that was given 2 days ago with pain relief. Patient states he could not get into the dentist but does have an appointment scheduled for the end of next week. He will be discharged home to continue his antibiotics Tylenol and Motrin for pain. Patient was also given antibiotics and [place] last visit she continues to take. Case discussed with Dr. Lomeli Disposition Clinical Impression: Dental caries, Dental abscess Disposition: HOME SELF-CARE Condition: Good Instructions (If sedation given, give patient instructions): Dental Abscess (ED), Toothache (ED) Additional Instructions: Keep your appointment next week and continue your antibiotics as prescribed Is patient prescribed a controlled substance at d/c from ED?: No Referrals: None,Stated [Primary Care Provider] - 1-2 days Time of Disposition: 17:10
== END 2021-03-01 17:21 | disposition home or self-care (01) ==
LOC: EC 15:45
DX: K02.9 Dental caries, unspecified (principal); K04.7 Periapical abscess without sinus; I10 Essential (primary) hypertension; Z90.49 Acquired absence of other specified parts of digestive tract
CPT/HCPCS: 99282; J2001

== ENCOUNTER 2021-03-02 11:36 | Emergency (ER) | payer MEDICARE ==
[2021-03-02 12:04] VITALS: BP 137/85; PULSE 65; RESP 17; TEMP 98
[2021-03-02] MEDS ORDERED: HYDROmorphone 0.5 MG/0.5 ML SYRINGE IM STA (12:52)
[2021-03-02] MEDS ORDERED: LIDOCAINE 1% INJ 10MG/ML (20 ML MDV) SQ ONE (12:52)
--- NOTE | 2021-03-02 12:55 | ED ---
General Adult HPI - General Chief complaint: Dental/Oral Stated complaint: dental pain & headache Time Seen by Provider: 03/02/21 12:28 Source: patient Mode of arrival: ambulatory Limitations: no limitations - History of Present Illness Initial comments: Dictation was produced using [employer] dictation software. please excuse any grammatical, word or spelling errors. Chief Complaint: 65-year-old male presents with dental pain History of Present Illness: Patient is 65-year-old male he has history of poor dentition. Patient is in the hospital yesterday and 3 days ago for dental pain. He states that he wants a dental block. Patient has not had any luck with finding any [facility] on so short notice. He does however have an appointment with scarring to be in several days. States that his left mandibular dental teeth hurt. States that he reports significant relief after dental block the last 2 times. The ROS documented in this emergency department record has been reviewed and confirmed by me. Those systems with pertinent positive or negative responses have been documented in the HPI. All other systems are other negative and/or noncontributory. PHYSICAL EXAM: General Impression: Alert and oriented x3, not in acute distress HEENT: Normocephalic atraumatic, extra-ocular movements intact, pupils equal and reactive to light bilaterally, mucous membranes moist. Oral: Very poor dentition, no gingival abscess Cardiovascular: Heart regular rate and rhythm Chest: Able to complete full sentences, no retractions, no tachypnea Musculoskeletal: Pulses present and equal in all extremities, no peripheral edema Motor: no focal deficits noted Neurological: CN II-XII grossly intact, no focal motor or sensory deficits noted Skin: Intact with no visualized rashes Psych: Normal affect and mood ED course: 65-year-old male presents with chief complaint of dental pain. This is his third time in the last 4 days. vitalsigns upon arrival are within acceptable limits. Patient still has antibiotics medications to cover for dental pain. If her alveolar block was performed. Patient given prescription for by mouth analgesia. Still that he should follow-up with dentist as soon as possible. - Related Data Previous Rx's Medication Instructions Recorded Ibuprofen [Motrin] 800 mg PO Q8H #21 tab 02/19/21 Lidocaine 5% Patch [Lidoderm 5% 1 patch TOPICAL DAILY #7 patch 02/19/21 Patch] Methocarbamol [Robaxin-750] 1,500 mg PO TID PRN #42 tablet 02/19/21 Amoxicillin/Potassium Clav 1 tab PO Q12HR #20 tab 02/27/21 [Augmentin 875-125 Tablet] HYDROcodone/APAP 7.5-325MG [[place] 1 tab PO Q6HR PRN 3 Days #12 tab 02/27/21 7.5-325] HYDROcodone/APAP 5-325MG [[place] 1 tab PO Q6HR PRN 3 Days #12 tab 03/02/21 5-325] Allergies Allergy/AdvReac Type Severity Reaction Status Date / Time No Known Allergies Allergy Verified 03/02/21 12:04 Review of Systems ROS Statement: Those systems with pertinent positive or pertinent negative responses have been documented in the HPI. ROS Other: All systems not noted in ROS Statement are negative. Past Medical History Past Medical History: Hypertension Additional Past Medical History / Comment(s): HEADACHES History of Any Multi-Drug Resistant Organisms: None Reported Past Surgical History: Appendectomy, Tonsillectomy Past Anesthesia/Blood Transfusion Reactions: No Reported Reaction Past Psychological History: No Psychological Hx Reported Smoking Status: Never smoker Past Alcohol Use History: Rare Past Drug Use History: None Reported - Past Family History Mother Family Medical History: Hypertension Additional Family Medical History / Comment(s): pulmonary hypertension - deceas ed Father Family Medical History: Neurologic Disorder Additional Family Medical History / Comment(s): parkinsons - General Exam Limitations: no limitations Course Vital Signs 03/02/21 12:01 Temperature 98.0 F Pulse Rate 65 Respiratory 17 Rate Blood Pressure 137/85 O2 Sat by Pulse 96 Oximetry Procedures - Nerve Block Consent Obtained: verbal consent Local Anesthetic Used: Lidocaine 1% Side: left Nerve Blocks: other (infralveolar block) Intraoral Nerve Block: inferior alveolar Procedure Successful: Yes Complications: none Patient Tolerated Procedure: well Disposition Clinical Impression: Dental implant pain Disposition: HOME SELF-CARE Condition: Fair Instructions (If sedation given, give patient instructions): Toothache (ED) Prescriptions: HYDROcodone/APAP 5-325MG [[place] 5-325] 1 tab PO Q6HR PRN 3 Days #12 tab PRN Reason: Severe Pain Is patient prescribed a controlled substance at d/c from ED?: Yes If prescribed controlled substance>3 days was MAPS reviewed?: Prescribed <3 Days Referrals: None,Stated [Primary Care Provider] - 1-2 days
== END 2021-03-02 13:28 | disposition home or self-care (01) ==
LOC: EC 11:36
DX: K08.89 Other specified disorders of teeth and supporting structures (principal); I10 Essential (primary) hypertension; Z79.1 Long term (current) use of non-steroidal anti-inflammatories (NSAID); Z79.899 Other long term (current) drug therapy; Z82.49 Family history of ischemic heart disease and other diseases of the circulatory system; Z90.49 Acquired absence of other specified parts of digestive tract
CPT/HCPCS: 64400; 96372; 99282; J2001; J1170

== ENCOUNTER 2021-03-04 14:57 | Emergency (ER) | payer MEDICARE ==
[2021-03-04 15:12] VITALS: BP 133/83; PULSE 90; RESP 20; TEMP 98.6
[2021-03-04] MEDS ORDERED: KETOROLAC 15 MG/ML 1 ML VIAL IM STA (15:27)
--- NOTE | 2021-03-04 15:36 | ED ---
General Adult HPI - General Chief complaint: Headache Stated complaint: Head/Oral pain Time Seen by Provider: 03/04/21 15:14 Source: patient, RN notes reviewed Mode of arrival: ambulatory Limitations: no limitations - History of Present Illness Initial comments: Patient is a 65-year-old male that presents to the emergency department complaining of continuing to pain. Been seen several times and last week in the emergency Department for the same complaint. He keeps saying that he's been try to call the dentist and has an appointment scheduled for Sunday. He notes that he needs more pain medication and symptomatic control. 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 Patient was otherwise a well-appearing 65-year-old male in no apparent distress or pain. He denied any chest pain shortness of breath headache nausea vomiting diarrhea constipation fever fatigue chills. - Related Data Previous Rx's Medication Instructions Recorded Ibuprofen [Motrin] 800 mg PO Q8H #21 tab 02/19/21 Lidocaine 5% Patch [Lidoderm 5% 1 patch TOPICAL DAILY #7 patch 02/19/21 Patch] Methocarbamol [Robaxin-750] 1,500 mg PO TID PRN #42 tablet 02/19/21 Amoxicillin/Potassium Clav 1 tab PO Q12HR #20 tab 02/27/21 [Augmentin 875-125 Tablet] HYDROcodone/APAP 7.5-325MG [[place] 1 tab PO Q6HR PRN 3 Days #12 tab 02/27/21 7.5-325] HYDROcodone/APAP 5-325MG [[place] 1 tab PO Q6HR PRN 3 Days #12 tab 03/02/21 5-325] Amoxicillin/Potassium Clav 1 tab PO Q12HR #20 tab 03/04/21 [Augmentin 875-125 Tablet] HYDROcodone/APAP 7.5-325MG [[place] 1 tab PO Q6HR PRN 3 Days #12 tab 03/04/21 7.5-325] Allergies Allergy/AdvReac Type Severity Reaction Status Date / Time No Known Allergies Allergy Verified 03/04/21 15:12 Review of Systems ROS Statement: Those systems with pertinent positive or pertinent negative responses have been documented in the HPI. ROS Other: All systems not noted in ROS Statement are negative. Past Medical History Past Medical History: Hypertension Additional Past Medical History / Comment(s): HEADACHES History of Any Multi-Drug Resistant Organisms: None Reported Past Surgical History: Appendectomy, Tonsillectomy Past Anesthesia/Blood Transfusion Reactions: No Reported Reaction Past Psychological History: No Psychological Hx Reported Smoking Status: Never smoker Past Alcohol Use History: Rare Past Drug Use History: None Reported - Past Family History Mother Family Medical History: Hypertension Additional Family Medical History / Comment(s): pulmonary hypertension - Father Family Medical History: Neurologic Disorder Additional Family Medical History / Comment(s): parkinsons - General Exam Limitations: no limitations General appearance: alert, in no apparent distress Head exam: Present: atraumatic, normocephalic, normal inspection Eye exam: Present: normal appearance, PERRL, EOMI. Absent: scleral icterus, conjunctival injection, periorbital swelling ENT exam: Present: normal exam, mucous membranes moist Neck exam: Present: normal inspection Respiratory exam: Present: normal lung sounds bilaterally. Absent: respiratory distress, wheezes, rales, rhonchi, stridor Cardiovascular Exam: Present: regular rate, normal rhythm, normal heart sounds. Absent: systolic murmur, diastolic murmur, rubs, gallop, clicks Extremities exam: Present: normal inspection, full ROM, normal capillary refill. Absent: tenderness, pedal edema, joint swelling, calf tenderness Neurological exam: Present: alert. Absent: oriented X3 Psychiatric exam: Present: normal affect, normal mood Skin exam: Present: warm, dry, intact, normal color. Absent: rash Course Vital Signs 03/04/21 15:09 Temperature 98.6 F Pulse Rate 90 Respiratory 20 Rate Blood Pressure 133/83 O2 Sat by Pulse 99 Oximetry Medical Decision Making - Medical Decision Making 65-year-old male complaining of tooth pain. Has been seen several times in the last week. Antibiotics sent to pharmacy per patient's last, pain medication sent for 3 days. Patient was instructed that he needs to follow-up with his dentist in the pain management clinic for further prescriptions and symptomatic control. Case discussed with Dr. Law, patient discharge home with follow-up to dentist. Disposition Clinical Impression: Dental caries, Dental implant pain Disposition: HOME SELF-CARE Condition: Stable Instructions (If sedation given, give patient instructions): Acute Headache (ED) Additional Instructions: Please return to the Emergency Department if symptoms worsen or any other concerns. Follow-up with primary care in 1-2 days. Take pain medication as prescribed. Follow-up with pain clinic for symptomatic control. Take antibiotics as prescribed until complete. Prescriptions: Amoxicillin/Potassium Clav [Augmentin 875-125 Tablet] 1 tab PO Q12HR #20 tab HYDROcodone/APAP 7.5-325MG [[place] 7.5-325] 1 tab PO Q6HR PRN 3 Days #12 tab PRN Reason: Pain Is patient prescribed a controlled substance at d/c from ED?: No Referrals: None,Stated [Primary Care Provider] - 1-2 days Time of Disposition: 15:35
== END 2021-03-04 15:41 | disposition home or self-care (01) ==
LOC: EC 14:57
DX: T85.848A Pain due to other internal prosthetic devices, implants and grafts, initial encounter (principal); K02.9 Dental caries, unspecified; I10 Essential (primary) hypertension; Z79.891 Long term (current) use of opiate analgesic; Z79.1 Long term (current) use of non-steroidal anti-inflammatories (NSAID); Z79.899 Other long term (current) drug therapy; Z82.49 Family history of ischemic heart disease and other diseases of the circulatory system
CPT/HCPCS: 99282; 96372; J1885

== ENCOUNTER 2021-03-17 18:51 | Emergency (ER) | payer MEDICARE ==
[2021-03-17 19:08] VITALS: BP 152/97; PULSE 65; RESP 16; TEMP 98.4
[2021-03-17] MEDS ORDERED: LIDOCAINE 1% INJ 10MG/ML (20 ML MDV) SQ ONE (19:42)
[2021-03-17] MEDS ORDERED: BUPIVACAINE (PF) 0.5% 30 ML VIAL SQ STA (19:43)
--- NOTE | 2021-03-17 19:44 | ED ---
ENT HPI - General Chief complaint: Dental/Oral Stated complaint: InQuicker/Dental Pain/Headache Time Seen by Provider: 03/17/21 19:31 Source: patient Mode of arrival: ambulatory Limitations: no limitations - History of Present Illness Initial comments: This 65-year-old male presents with a complaint of some left lower dental pain which is been present over the last 1 day. He states that it radiates up into his left head and causes a headache. He denies any fevers or chills. He has had multiple dental problems in the past. He states that he cannot currently afford to get his teeth fixed. He is requesting a dental anesthetic injection. No other complaints or modifying factors. He has been prescribed Lambert in the past but does not have any left currently. - Related Data Previous Rx's Medication Instructions Recorded Ibuprofen [Motrin] 800 mg PO Q8H #21 tab 02/19/21 Lidocaine 5% Patch [Lidoderm 5% 1 patch TOPICAL DAILY #7 patch 02/19/21 Patch] Methocarbamol [Robaxin-750] 1,500 mg PO TID PRN #42 tablet 02/19/21 Amoxicillin/Potassium Clav 1 tab PO Q12HR #20 tab 02/27/21 [Augmentin 875-125 Tablet] HYDROcodone/APAP 7.5-325MG [Lambert 1 tab PO Q6HR PRN 3 Days #12 tab 02/27/21 7.5-325] HYDROcodone/APAP 5-325MG [Lambert 1 tab PO Q6HR PRN 3 Days #12 tab 03/02/21 5-325] Amoxicillin/Potassium Clav 1 tab PO Q12HR #20 tab 03/04/21 [Augmentin 875-125 Tablet] HYDROcodone/APAP 7.5-325MG [Lambert 1 tab PO Q6HR PRN 3 Days #12 tab 03/04/21 7.5-325] Amoxicillin 500 mg PO Q8H #30 capsule 03/17/21 traMADol HCl [Ultram] 50 - 100 mg PO Q6H PRN #12 tab 03/17/21 Allergies Allergy/AdvReac Type Severity Reaction Status Date / Time No Known Allergies Allergy Verified 03/17/21 19:08 Review of Systems ROS Statement: Those systems with pertinent positive or pertinent negative responses have been documented in the HPI. ROS Other: All systems not noted in ROS Statement are negative. Past Medical History Past Medical History: Hypertension Additional Past Medical History / Comment(s): HEADACHES History of Any Multi-Drug Resistant Organisms: None Reported Past Surgical History: Appendectomy, Tonsillectomy Past Anesthesia/Blood Transfusion Reactions: No Reported Reaction Past Psychological History: No Psychological Hx Reported Smoking Status: Never smoker Past Alcohol Use History: Rare Past Drug Use History: None Reported - Past Family History Mother Family Medical History: Hypertension Additional Family Medical History / Comment(s): pulmonary hypertension - Father Family Medical History: Neurologic Disorder Additional Family Medical History / Comment(s): parkinsons - General Exam Limitations: no limitations General appearance: alert, in no apparent distress Head exam: Present: atraumatic, normocephalic ENT exam: Present: other (Multiple dental caries are identified. There is one tooth left in the molar region on the left lower dentition and this appears to have a dental carry. There is no intraoral abscess identified. There is no facial swelling identified.) Neck exam: Present: normal inspection. Absent: tenderness, meningismus Psychiatric exam: Present: normal affect, normal mood Course Vital Signs 03/17/21 19:05 Temperature 98.4 F Pulse Rate 65 Respiratory 16 Rate Blood Pressure 152/97 O2 Sat by Pulse 95 Oximetry Medical Decision Making - Medical Decision Making The patient is seen and examined. It is felt as though he does have a dental carry with likely dental abscess. It is also felt as though he would benefit from a dental block. Utilizing approximately 2 mL of lidocaine with bupivacaine a local injection is done at the base of the left 18th tooth. Excellent anesthesia is identified. He will be placed on antibiotics as well as medication for pain. He understands and agrees with this plan and leaves in no distress. Close follow-up with dentist is recommended. Disposition Clinical Impression: Dental abscess, Dental caries, Cephalgia Disposition: HOME SELF-CARE Condition: Good Instructions (If sedation given, give patient instructions): Dental Abscess (ED), Toothache (ED) Additional Instructions: Please follow-up with their dentist as soon as possible. You also may take Tylenol and/or Motrin as needed for pain. Prescriptions: Amoxicillin 500 mg PO Q8H #30 capsule traMADol HCl [Ultram] 50 - 100 mg PO Q6H PRN #12 tab PRN Reason: Pain Is patient prescribed a controlled substance at d/c from ED?: Yes When asked, does pt state using other controlled substances?: No If prescribed controlled substance>3 days was MAPS reviewed?: Prescribed <3 Days Referrals: None,Stated [Primary Care Provider] - 1-2 days Time of Disposition: 19:51
== END 2021-03-17 20:01 | disposition home or self-care (01) ==
LOC: EC 18:51
DX: K04.7 Periapical abscess without sinus (principal); K02.9 Dental caries, unspecified; I10 Essential (primary) hypertension; Z79.1 Long term (current) use of non-steroidal anti-inflammatories (NSAID); Z82.49 Family history of ischemic heart disease and other diseases of the circulatory system; Z90.49 Acquired absence of other specified parts of digestive tract
CPT/HCPCS: 64400; 99282; J2001

== ENCOUNTER 2021-04-16 09:37 | Emergency (ER) | payer MEDICARE ==
[2021-04-16 09:43] VITALS: TEMP 98.1
--- NOTE | 2021-04-16 10:19 | ED ---
Psych HPI - General Chief Complaint: Psychiatric Symptoms Stated Complaint: Mental Health Time Seen by Provider: 04/16/21 09:43 Source: patient, RN notes reviewed Mode of arrival: ambulatory Limitations: no limitations - History of Present Illness Initial Comments: 65-year-old male presents emergency Department with chief complaint of needing psychiatric help. Patient states that he wants to get off his drug use. Patient uses cocaine. Patient does admit that he's had thoughts of overdosing. Patient did take some [id number] sleeping pills overnight denies any fevers or chills no chest pain or shortness breath no nausea vomiting abdominal complaints. - Related Data Home Medications Medication Instructions Recorded Confirmed No Known Home Medications 04/16/21 04/16/21 Allergies Allergy/AdvReac Type Severity Reaction Status Date / Time No Known Allergies Allergy Verified 04/16/21 10:32 Review of Systems ROS Statement: Those systems with pertinent positive or pertinent negative responses have been documented in the HPI. ROS Other: All systems not noted in ROS Statement are negative. Past Medical History Past Medical History: Hypertension Additional Past Medical History / Comment(s): HEADACHES History of Any Multi-Drug Resistant Organisms: None Reported Past Surgical History: Appendectomy, Tonsillectomy Past Anesthesia/Blood Transfusion Reactions: No Reported Reaction Past Psychological History: Anxiety, Depression Smoking Status: Current every day smoker Past Alcohol Use History: Occasional, Rare Past Drug Use History: Cocaine, Marijuana - Past Family History Mother Family Medical History: Hypertension Additional Family Medical History / Comment(s): pulmonary hypertension - Father Family Medical History: Neurologic Disorder Additional Family Medical History / Comment(s): parkinsons - General Exam Limitations: no limitations General appearance: alert, in no apparent distress Head exam: Present: atraumatic, normocephalic, normal inspection Eye exam: Present: normal appearance, PERRL, EOMI. Absent: scleral icterus, conjunctival injection, periorbital swelling ENT exam: Present: normal exam, normal oropharynx, mucous membranes moist Neck exam: Present: normal inspection, full ROM. Absent: tenderness, meningism us, lymphadenopathy Respiratory exam: Present: normal lung sounds bilaterally. Absent: respiratory distress, wheezes, rales, rhonchi, stridor Cardiovascular Exam: Present: regular rate, normal rhythm, normal heart sounds. Absent: systolic murmur, diastolic murmur, rubs, gallop, clicks Neurological exam: Present: alert Psychiatric exam: Present: depressed Skin exam: Present: warm, dry, intact, normal color. Absent: rash Course Vital Signs 04/16/21 04/16/21 04/16/21 09:38 09:42 10:42 Temperature 98.1 F Pulse Rate 57 L Respiratory 16 18 18 Rate Blood Pressure 123/85 O2 Sat by Pulse 95 Oximetry 04/16/21 11:42 Temperature Pulse Rate Respiratory 18 Rate Blood Pressure O2 Sat by Pulse Oximetry Medical Decision Making - Medical Decision Making Patient was evaluated by EPS case discussed with psychiatrist for atrial fibrillation rehab. Disposition Clinical Impression: Drug abuse, Depression Disposition: HOME SELF-CARE Condition: Stable Instructions (If sedation given, give patient instructions): Cocaine Abuse (ED) Additional Instructions: Please return to the Emergency Department if symptoms worsen or any other concerns. Is patient prescribed a controlled substance at d/c from ED?: No Referrals: Eduard Dominguez MD [Primary Care Provider] - 1-2 days Time of Disposition: 12:00
[2021-04-16 11:43] VITALS: RESP 18
[2021-04-16 12:15] VITALS: BP 120/84; PULSE 61
== END 2021-04-16 12:15 | disposition home or self-care (01) ==
LOC: EC 09:37
DX: F19.10 Other psychoactive substance abuse, uncomplicated (principal); F32.9 Major depressive disorder, single episode, unspecified; I10 Essential (primary) hypertension; F12.90 Cannabis use, unspecified, uncomplicated; F14.90 Cocaine use, unspecified, uncomplicated; F17.200 Nicotine dependence, unspecified, uncomplicated; Z82.49 Family history of ischemic heart disease and other diseases of the circulatory system; Z90.49 Acquired absence of other specified parts of digestive tract
CPT/HCPCS: 82075; 99283

== ENCOUNTER 2021-04-22 16:04 | Emergency (ER) | payer MEDICARE ==
[2021-04-22 16:14] VITALS: TEMP 98.4
[2021-04-22] MEDS ORDERED: AMOXIC-POT CLAV 200-28.5MG/5ML 100 ML BOTTLE PO ONE (16:57)
[2021-04-22] MEDS ORDERED: HYDROmorphone 0.5 MG/0.5 ML SYRINGE IM STA (16:59)
--- NOTE | 2021-04-22 17:37 | ED ---
ENT HPI - General Chief complaint: Dental/Oral Stated complaint: tooth pain Time Seen by Provider: 04/22/21 16:32 Source: patient Mode of arrival: ambulatory Limitations: no limitations - History of Present Illness Initial comments: 65-year-old male presents to the emergency room with a chief complaint of dental abscess. Patient reports she has not seen a dentist in quite some time. Patient reports the pain is located in the right upper jaw. States he has poor dentition. Patient states the pain has been getting worse over the last week and now he has a headache from it. He denies any fevers or chills. Denies any facial swelling nausea vomiting or diarrhea. Denies any chest pain or shortness of breath. - Related Data Home Medications Medication Instructions Recorded Confirmed No Known Home Medications 04/16/21 04/16/21 Allergies Allergy/AdvReac Type Severity Reaction Status Date / Time No Known Allergies Allergy Verified 04/22/21 16:14 Review of Systems ROS Statement: Those systems with pertinent positive or pertinent negative responses have been documented in the HPI. ROS Other: All systems not noted in ROS Statement are negative. Past Medical History Past Medical History: Hypertension Additional Past Medical History / Comment(s): HEADACHES History of Any Multi-Drug Resistant Organisms: None Reported Past Surgical History: Appendectomy, Tonsillectomy Past Anesthesia/Blood Transfusion Reactions: No Reported Reaction Past Psychological History: Anxiety, Depression Smoking Status: Current every day smoker Past Alcohol Use History: Occasional, Rare Past Drug Use History: Cocaine, Marijuana - Past Family History Mother Family Medical History: Hypertension Additional Family Medical History / Comment(s): pulmonary hypertension - Father Family Medical History: Neurologic Disorder Additional Family Medical History / Comment(s): parkinsons - General Exam Limitations: no limitations General appearance: alert, in no apparent distress Head exam: Present: atraumatic, normocephalic, normal inspection Eye exam: Present: normal appearance Pupils: Present: normal accommodation ENT exam: Present: normal exam, mucous membranes moist, TM's normal bilaterally, normal external ear exam. Absent: normal oropharynx (Dental abscess in the right upper region of the intraoral cavity. Tooth #1. Poor dentition. No other oral lesions.) Neck exam: Present: normal inspection, full ROM. Absent: tenderness, lymphadenopathy Respiratory exam: Present: normal lung sounds bilaterally. Absent: respiratory distress Cardiovascular Exam: Present: regular rate, normal rhythm, normal heart sounds Extremities exam: Present: normal inspection, full ROM, normal capillary refill. Absent: tenderness, pedal edema, joint swelling Back exam: Present: normal inspection, full ROM. Absent: tenderness Neurological exam: Present: alert, oriented X3 Psychiatric exam: Present: normal affect, normal mood Skin exam: Present: warm, dry, intact, normal color Course Vital Signs 04/22/21 16:11 Temperature 98.4 F Pulse Rate 78 Respiratory 16 Rate Blood Pressure 155/97 O2 Sat by Pulse 96 Oximetry Procedures - Incision & Drainage Consent Obtained: verbal consent Indication: Dental abscess Site: oral Size (cm): 1 Sterile Field Used?: No Needle Aspiration Performed?: Yes Irrigation Performed?: No I&D Drainage Obtained: Pus, Blood Culture Obtained?: No Complications: pain, bleeding Patient Tolerated Procedure: well, no complications Medical Decision Making - Medical Decision Making 65-year-old male presents to the emergency department with a chief complaint of dental pain. On physical examination, patient has a dental abscess. Tooth #1. He has poor dentition. Needle aspiration performed with pus and blood removed. Patient will be started on Timentin. Discharged with Augmentin. He was given analgesia here. I given contact information for [facility] to follow up. Return parameters were discussed the patient was understanding and agreeable. Disposition Clinical Impression: Dental caries, Toothache, Dental abscess Disposition: HOME SELF-CARE Condition: Stable Instructions (If sedation given, give patient instructions): Dental Abscess (ED) Additional Instructions: Please return to the Emergency Department if symptoms worsen or any other concerns. Is patient prescribed a controlled substance at d/c from ED?: No Referrals: Eduard Dominguez MD [Primary Care Provider] - 1-2 days Time of Disposition: 17:37
[2021-04-22 17:47] VITALS: BP 152/95; PULSE 64; RESP 18
== END 2021-04-22 17:46 | disposition home or self-care (01) ==
LOC: EC 16:04
DX: K04.7 Periapical abscess without sinus (principal); K02.9 Dental caries, unspecified; I10 Essential (primary) hypertension; F17.200 Nicotine dependence, unspecified, uncomplicated; F14.90 Cocaine use, unspecified, uncomplicated; F12.90 Cannabis use, unspecified, uncomplicated; Z82.49 Family history of ischemic heart disease and other diseases of the circulatory system; Z90.49 Acquired absence of other specified parts of digestive tract
CPT/HCPCS: 41800; 99282; 96372; J1170

== ENCOUNTER 2021-05-04 14:56 | Emergency (ER) | payer MEDICARE ==
--- NOTE | 2021-05-04 16:48 | CT ---
EXAMINATION TYPE: CT brain osman wo con DATE OF EXAM: 05/04/2021 COMPARISON: 02/06/2021 CT brain HISTORY: fall CT DLP: 1390.5 mGycm Automated exposure control for dose reduction was used. Ventricles have normal size. There is no mass effect nor midline shift. There is no sign of intracran ial hemorrhage. Calvarium appears intact skull base is intact. Mastoid sinuses appear normal. Cervical vertebra have normal alignment. There is degenerative disc space narrowing at C5-6 and C6-7 with spurring of the endplates. There is hypertrophic facet arthropathy in the mid cervical spine. Th ere is no compression fracture. IMPRESSION: Negative CT scan of the brain. Right maxillary sinusitis noted. No change. Spondylotic changes in the cervical spine. No fracture.
--- NOTE | 2021-05-04 16:50 | XR ---
EXAMINATION TYPE: XR Hip Complete RT DATE OF EXAM: 05/04/2021 COMPARISON: 08/26/2020 HISTORY: Fall. Pain. TECHNIQUE: 2 views FINDINGS: Acetabulum is intact. There is mild acetabular spurring. Proximal femur is intact. There is hip joint space narrowing. IMPRESSION: Mild osteoarthritis. No fracture.
[2021-05-04] MEDS ORDERED: ORPHENADRINE 30 MG/ML 2 ML VIAL IM STA (19:01)
--- NOTE | 2021-05-04 19:01 | ED ---
General Adult HPI - General Chief complaint: Fall Stated complaint: Fall-Back Pain Time Seen by Provider: 05/04/21 18:28 Source: patient, RN notes reviewed Mode of arrival: wheelchair Limitations: no limitations - History of Present Illness Initial comments: This is a well-appearing 65-year-old male that presents to the emergency room stating that he fell down 10 steps head over heels and is complaining of neck pain, low back pain and right hip pain. he denies any loss of consciousness. States the pain is 10 out of 10. He states that there is no redness or bruising to his back because the steps were carpeted. he did not loose consciousness. -: hour(s) (5) Location: neck, back, right, lower extremity Severity scale (1-10): 10 Quality: aching Consistency: constant Improves with: none Worsens with: movement Associated Symptoms: denies other symptoms Treatments Prior to Arrival: none - Related Data Previous Rx's Medication Instructions Recorded Cyclobenzaprine [Flexeril] 10 mg PO TID PRN #15 tab 05/04/21 Ibuprofen [Motrin] 800 mg PO Q6HR #30 tab 05/04/21 Allergies Allergy/AdvReac Type Severity Reaction Status Date / Time No Known Allergies Allergy Verified 05/04/21 18:35 Review of Systems ROS Statement: Those systems with pertinent positive or pertinent negative responses have been documented in the HPI. ROS Other: All systems not noted in ROS Statement are negative. Past Medical History Past Medical History: Hypertension Additional Past Medical History / Comment(s): HEADACHES History of Any Multi-Drug Resistant Organisms: None Reported Past Surgical History: Appendectomy, Tonsillectomy Past Anesthesia/Blood Transfusion Reactions: No Reported Reaction Past Psychological History: Anxiety, Depression Smoking Status: Current every day smoker Past Alcohol Use History: None Reported Past Drug Use History: None Reported, Cocaine, Marijuana - Past Family History Mother Family Medical History: Hypertension Additional Family Medical History / Comment(s): pulmonary hypertension - Father Family Medical History: Neurologic Disorder Additional Family Medical History / Comment(s): parkinsons - General Exam Limitations: no limitations General appearance: alert, in no apparent distress Head exam: Present: atraumatic, normocephalic, normal inspection Eye exam: Present: normal appearance, PERRL, EOMI. Absent: scleral icterus, conjunctival injection, periorbital swelling, periorbital tenderness ENT exam: Present: normal exam, mucous membranes moist Neck exam: Present: normal inspection, full ROM. Absent: tenderness, meningismus, lymphadenopathy, thyromegaly Expanded Neck exam: Present: other (no C-spine tenderness, full ROM). Absent: midline deformity, anterior neck swelling, tracheal deviation Respiratory exam: Present: normal lung sounds bilaterally. Absent: respiratory distress, wheezes, rales, rhonchi, stridor, chest wall tenderness Cardiovascular Exam: Present: regular rate, normal rhythm, normal heart sounds. Absent: systolic murmur, diastolic murmur, rubs, gallop, clicks GI/Abdominal exam: Present: soft, normal bowel sounds. Absent: distended, tenderness, guarding, rebound, rigid Extremities exam: Present: normal inspection, full ROM, normal capillary refill. Absent: tenderness, pedal edema, joint swelling, calf tenderness Back exam: Present: normal inspection, full ROM, paraspinal tenderness. Absent: vertebral tenderness, rash noted (Right lumbar) Neurological exam: Present: alert, oriented X3, CN II-XII intact, normal gait Psychiatric exam: Present: normal affect, normal mood Skin exam: Present: warm, dry, intact, normal color. Absent: rash, cyanosis, diaphoretic, petechiae, pallor, mottled Course Vital Signs 05/04/21 05/04/21 15:38 19:35 Temperature 99.1 F 98.4 F Pulse Rate 67 88 Respiratory 20 19 Rate Blood Pressure 140/98 147/89 O2 Sat by Pulse 97 97 Oximetry Medical Decision Making - Medical Decision Making patient is ambulatory in the room steady gait. He has full range of motion. He has trapezius muscle tightness. He did not lose consciousness. He has no evidence of trauma, no bruising or abrasions noted at this time. he was directed to follow up with his primary care doctor, take medication as prescribed, increase his fluid intake and return to the emergency room with any new or worsening symptoms. Case discussed with Dr. Negron Disposition Clinical Impression: Fall Disposition: HOME SELF-CARE Condition: Good Instructions (If sedation given, give patient instructions): Fall Prevention for Older Adults (ED) Additional Instructions: Take Motrin and Flexeril as needed for pain. Follow-up with the primary care doctor in 1 week Prescriptions: Cyclobenzaprine [Flexeril] 10 mg PO TID PRN #15 tab PRN Reason: Muscle Spasm Ibuprofen [Motrin] 800 mg PO Q6HR #30 tab Is patient prescribed a controlled substance at d/c from ED?: No Referrals: Eduard Dominguez MD [Primary Care Provider] - 1-2 days Time of Disposition: 19:18
[2021-05-04 19:37] VITALS: BP 147/89; PULSE 88; RESP 19; TEMP 98.4
== END 2021-05-04 19:36 | disposition home or self-care (01) ==
LOC: EC 14:56
DX: M54.2 Cervicalgia (principal); I10 Essential (primary) hypertension; F41.9 Anxiety disorder, unspecified; F32.9 Major depressive disorder, single episode, unspecified; F17.200 Nicotine dependence, unspecified, uncomplicated; F12.90 Cannabis use, unspecified, uncomplicated; Z90.49 Acquired absence of other specified parts of digestive tract; Z90.89 Acquired absence of other organs
CPT/HCPCS: 99284; 96372; 73502; 72125; 70450; J2360

== ENCOUNTER 2021-06-25 14:15 | Emergency (ER) | payer MEDICARE, OTHER ==
[2021-06-25 14:23] VITALS: TEMP 98.1
[2021-06-25] MEDS ORDERED: HYDROmorphone 1 MG/ML 1 ML SYRINGE IM STA (15:34)
[2021-06-25] MEDS ORDERED: methylPREDNISolone SOD SUCCI 125 MG/2 ML VIAL IM ONE (15:34)
--- NOTE | 2021-06-25 16:32 | XR ---
EXAMINATION TYPE: XR Hip RT and AP Pelvis DATE OF EXAM: 06/25/2021 COMPARISON: 05/04/2021 HISTORY: Hip pain TECHNIQUE: 4 views FINDINGS: Pelvic ring appears intact. There is some narrowing of the right hip joint space with aceta bular spurring. Sacroiliac joints are intact. IMPRESSION: Osteoarthritis in the right hip joint. No fracture. No adverse change compared to recent exam.
--- NOTE | 2021-06-25 16:36 | XR ---
EXAMINATION TYPE: XR lumbar spine 2 or 3V DATE OF EXAM: 06/25/2021 COMPARISON: 08/26/2020 HISTORY: Back pain TECHNIQUE: 3 views FINDINGS: 3 views show some degenerative disc space narrowing from L2 to S1. There is no compression fracture. Posterior elements are intact. There is slight levoscoliosis. Sacroiliac joints are intact. IMPRESSION: Spondylotic changes. No fracture. No change compared to old exam.
--- NOTE | 2021-06-25 16:37 | XR ---
EXAMINATION TYPE: XR femur RT DATE OF EXAM: 06/25/2021 COMPARISON: 08/26/2020 HISTORY: Pain TECHNIQUE: 4 views FINDINGS: There is narrowing of the hip joint space. I see no fracture nor dislocation. Knee joint ap pears intact. IMPRESSION: Mild osteoarthritis right hip joint. No fracture. No adverse change.
--- NOTE | 2021-06-25 16:51 | ED ---
Extremity Problem HPI - General Chief complaint: Extremity Problem,Nontraumatic Stated complaint: severe leg pain Time Seen by Provider: 06/25/21 15:28 Source: patient, RN notes reviewed Mode of arrival: wheelchair Limitations: no limitations - History of Present Illness Initial comments: 65-year-old male presenting to the emergency room complaining of right hip and leg pain. He notes he was seen approximately 2 months ago for a similar issue and did not find any acute fractures dislocations. He notes that he is just having increased pain. Recommend getting an MRI. He notes he has a follow-up with his primary care in July 11. He notes that he needs symptomatically control his pain at this time. He denied any chest pain shortness breath headache nausea vomiting diarrhea constipation fever fatigue chills. He denied any saddle anesthesia bladder bowel incontinence or retention. - Related Data Previous Rx's Medication Instructions Recorded Cyclobenzaprine [Flexeril] 10 mg PO TID PRN #15 tab 05/04/21 Ibuprofen [Motrin] 800 mg PO Q6HR #30 tab 05/04/21 HYDROcodone/APAP 10-325MG [[place] 1 tab PO Q6HR PRN 3 Days #12 tab 06/25/21 10-325] Allergies Allergy/AdvReac Type Severity Reaction Status Date / Time No Known Allergies Allergy Verified 06/25/21 14:23 Review of Systems ROS Statement: Those systems with pertinent positive or pertinent negative responses have been documented in the HPI. ROS Other: All systems not noted in ROS Statement are negative. Past Medical History Past Medical History: Hypertension Additional Past Medical History / Comment(s): HEADACHES History of Any Multi-Drug Resistant Organisms: None Reported Past Surgical History: Appendectomy, Tonsillectomy Past Anesthesia/Blood Transfusion Reactions: No Reported Reaction Past Psychological History: Anxiety, Depression Smoking Status: Current every day smoker Past Alcohol Use History: None Reported Past Drug Use History: None Reported, Cocaine, Marijuana - Past Family History Mother Family Medical History: Hypertension Additional Family Medical History / Comment(s): pulmonary hypertension - Father Family Medical History: Neurologic Disorder Additional Family Medical History / Comment(s): parkinsons - General Exam Limitations: no limitations General appearance: alert, in no apparent distress, obese Head exam: Present: atraumatic, normocephalic, normal inspection Eye exam: Present: normal appearance, PERRL, EOMI. Absent: scleral icterus, conjunctival injection, periorbital swelling ENT exam: Present: normal exam, mucous membranes moist Neck exam: Present: normal inspection Respiratory exam: Present: normal lung sounds bilaterally. Absent: respiratory distress, wheezes, rales, rhonchi, stridor Cardiovascular Exam: Present: regular rate, normal rhythm, normal heart sounds. Absent: systolic murmur, diastolic murmur, rubs, gallop, clicks GI/Abdominal exam: Present: soft, normal bowel sounds. Absent: distended, tenderness, guarding, rebound, rigid Extremities exam: Present: normal inspection, full ROM, normal capillary refill. Absent: tenderness, pedal edema, joint swelling, calf tenderness Neurological exam: Present: alert, oriented X3 Psychiatric exam: Present: normal affect, normal mood Skin exam: Present: warm, dry, intact, normal color. Absent: rash Course Vital Signs 06/25/21 14:20 Temperature 98.1 F Pulse Rate 116 H Respiratory 18 Rate Blood Pressure 175/97 O2 Sat by Pulse 97 Oximetry Medical Decision Making - Medical Decision Making 65-year-old male complaining of right hip and right leg pain. X-ray of the right hip and pelvis, x-ray right femur, x-ray lumbar spine ordered. Enema Dilaudid and 125 mg of Solu-Medrol ordered. X-ray imaging negative for any acute fractures dislocations. Patient was informed of results and is agreeable discharge home with follow-up to primary care as planned. Case discussed with Dr. Negron, patient discharge home. - Radiology Data Radiology results: report reviewed, image reviewed Femur x-ray: Mild osteoarthritis right hip joint. No fracture. No adverse change. Lumbar spine x-ray: Spondylitic changes. No fracture. No change compared to old exam. X-ray right hip and pelvis: Osteoarthritis the right hip joint. No fracture. No adverse change compared to recent exam. Disposition Clinical Impression: Right hip pain Disposition: HOME SELF-CARE Condition: Stable Instructions (If sedation given, give patient instructions): Hip Pain (ED) Additional Instructions: Please return to the Emergency Department if symptoms worsen or any other concerns. Follow-up with primary care 1-2 days. Take pain medication as prescribed. Is patient prescribed a controlled substance at d/c from ED?: Yes When asked, does pt state using other controlled substances?: No If prescribed controlled substance>3 days was MAPS reviewed?: Prescribed <3 Days If opioid is for acute pain is fill amount 7 days or less?: Yes Referrals: Eduard Dominguez MD [Primary Care Provider] - 1-2 days Time of Disposition: 16:51
[2021-06-25 17:10] VITALS: BP 128/76; PULSE 89; RESP 20
== END 2021-06-25 17:14 | disposition home or self-care (01) ==
LOC: EC 14:15
DX: M25.551 Pain in right hip (principal); I10 Essential (primary) hypertension; F41.9 Anxiety disorder, unspecified; F32.A Depression, unspecified; F17.200 Nicotine dependence, unspecified, uncomplicated; F12.90 Cannabis use, unspecified, uncomplicated
CPT/HCPCS: 72100; 73502; 73552; 99283; 96372 ×2; J2930; J1170

== ENCOUNTER 2021-08-16 20:19 | Emergency (ER) | payer MEDICARE, OTHER ==
[2021-08-16 20:24] VITALS: BP 169/111; PULSE 80; RESP 18; TEMP 98
[2021-08-16 21:04] LABS: INR 0.9 (<1.2); Partial Thromboplastin Time 24.5 sec (22.0-30.0); Prothrombin Time 9.8 sec (9.0-12.0)
[2021-08-16 21:06] LABS: Basophils # (A) 0.1 k/uL (0-0.2); Basophils % (A) 1 %; Eosinophils # (A) 0.3 k/uL (0-0.7); Eosinophils % (A) 3 %; HCT 47.9 % (39.0-53.0); HGB 15.9 gm/dL (13.0-17.5); Lymphocytes # (A) 3.2 k/uL (1.0-4.8); Lymphocytes % (A) 40 %; MCH 31.3 pg (25.0-35.0); MCHC 33.2 g/dL (31.0-37.0); MCV 94.4 fL (80.0-100.0); Mean Platelet Volume 6.6; Monocytes # (A) 0.4 k/uL (0-1.0); Monocytes % (A) 5 %; Neutrophils # (A) 3.9 k/uL (1.3-7.7); Neutrophils % (A) 49 %; Platelet Count 287 k/uL (150-450); RBC 5.07 m/uL (4.30-5.90); RDW 13.5 % (11.5-15.5); WBC 8.1 k/uL (3.8-10.6)
[2021-08-16 21:10] LABS: Albumin 3.8 g/dL (3.5-5.0); Calcium 9.1 mg/dL (8.4-10.2); Magnesium 2.3 mg/dL (1.6-2.3); Potassium 4.5 mmol/L (3.5-5.1); Total Bilirubin 0.3 mg/dL (0.2-1.3); Total Protein 6.4 g/dL (6.3-8.2)
--- NOTE | 2021-08-16 22:16 | XR ---
EXAMINATION TYPE: XR chest 2V DATE OF EXAM: 08/16/2021 COMPARISON: 02/19/2021 HISTORY: 66 years Male. STUDY INDICATION GIVEN: Chest Pain . TECHNIQUE: Frontal and lateral chest radiographs. IMPRESSION: A patchy opacity seen in the right lower lobe. Be reflective of pneumonia. Thickening of the right upper peripheral pleural as annotated on the x-ray. This is not significantly changed compared to prior chest radiograph. Pneumothorax or large pleural effusion. The cardiomediastinal silhouette is within normal limits. Stable subcentimeter nodules in the bilateral perihilar regions. No acute osseous abnormality seen.
== END 2021-08-17 03:55 | disposition left against medical advice (07) ==
LOC: EC 20:19
DX: Z53.21 Procedure and treatment not carried out due to patient leaving prior to being seen by health care provider (principal)
CPT/HCPCS: 36415; 71046; 80053; 83735; 84484; 85025; 85610; 85730; 93005; 99499

== ENCOUNTER → 2021-08-16 | Outpatient (CLI) | payer MEDICARE, OTHER ==
--- NOTE | 2021-08-16 09:06 | CT ---
EXAMINATION TYPE: CT lumbar spine wo con DATE OF EXAM: 08/16/2021 8:59 AM COMPARISON: Lumbar spine x-ray August 26, 2020 HISTORY: neuritis CT DLP: 754 mGycm Automated exposure control for dose reduction was used. Unenhanced CT of the lumbar spine was performed. Bone and soft tissue window settings are submitted as well as coronal and sagittal reconstructions. There are 5 lumbar-type vertebra redemonstrated. There is stable in satisfactory alignment. Vertebral body heights are maintained. Jeaf-oj-[id number] multilevel anterior and lateral spurring is present. M oderate to severe multilevel disc space narrowing with multilevel vacuum disc phenomenon L2-L3 throug h the L5-S1 levels. Findings greatest at right L3-L4 and left L5-S1 levels. Endplate sclerosis L4-L5 and L5-S1 levels noted. Axial images from T12-L1 and L1-L2 levels to appear within normal limits. Axial images at L2-L3 level to moderate broad-based posterior disc protrusion effacing the anterior t hecal sac and mild facet arthropathy and ligamentum flavum hypertrophy effacing posterolateral thecal sac. There is symmetric mild bilateral neural foraminal narrowing. Axial images at the L3-L4 level show moderate right greater than left facet arthropathy and ligamentu m flavum hypertrophy effacing posterior lateral thecal sac. There is icknqvkt-jn-yzpnsv broad-based d isc bulge effacing the anterior thecal sac causing spinal canal stenosis axial image 49. There is mod erate bilateral neural foraminal narrowing. Axial images at the L4-L5 level show moderate to advanced right greater than left facet arthropathy a nd ligament flavum hypertrophy pressing posterior lateral thecal sac. There is posterior spur disc co mplex effacing the anterior thecal sac. There is moderate to severe left greater than right facet art hropathy. Axial images at L5-S1 level shows a right paracentral disc herniation and moderate facet arthropathy. There is moderate to severe left greater than right bilateral neural foraminal narrowing with margin al spurring. Some sigmoid colonic diverticula are present. Visualized liver is heterogeneously hypodense consisten t with diffuse fatty infiltration. IMPRESSION: Multilevel moderate to advanced degenerative changes mid to lower lumbar spine as detaile d above. No paraspinal masses are identified. Lumbar segments are intact.
== END | disposition home or self-care (01) ==
LOC: RADCTMAIN 08:31
PROVIDERS: ATTEND Family Medicine
DX: M47.26 Other spondylosis with radiculopathy, lumbar region (principal); M51.16 Intervertebral disc disorders with radiculopathy, lumbar region; M48.061 Spinal stenosis, lumbar region without neurogenic claudication; M99.73 Connective tissue and disc stenosis of intervertebral foramina of lumbar region; K57.30 Diverticulosis of large intestine without perforation or abscess without bleeding
CPT/HCPCS: 72131

== ENCOUNTER → 2021-08-22 | Outpatient (CLI) | payer MEDICARE, OTHER ==
--- NOTE | 2021-08-23 07:36 | CT ---
EXAMINATION TYPE: CT chest w con DATE OF EXAM: 08/22/2021 COMPARISON: CTA chest February 19, 2021 HISTORY: Pneumothorax, pleural effusion. Prior abnormal CT. CT DLP: 551.80 mGycm. Automated Exposure Control for Dose Reduction was Utilized. TECHNIQUE: CT scan of the thorax is performed following with IV Contrast, patient injected with 80 m L of Isovue 300. FINDINGS: LUNGS: Small subpleural calcified nodules or benign granulomas in the left lower lobe axial images 45 and 46 are redemonstrated. Focal prominence of pleural based fat lateral right upper lung axial imag e 19 again seen. Occasional scattered micronodule for reference in the lingula axial image 36 there a re 2 nodules measuring near 2 mm identified. No greater than 5 mm noncalcified pulmonary nodules. No pleural effusion or pneumothorax seen bilaterally. No suspicious focal consolidation. MEDIASTINUM: There are no greater than 1 cm hilar or mediastinal lymph nodes. No pericardial effusi on is seen. Mild calcified plaque in the LAD redemonstrated. OTHER: Liver is diffusely low dense consistent with diffuse fatty infiltration. Slight underlying sco liotic curvature with mild to moderate multilevel spurring. IMPRESSION: No pleural effusion or pneumothorax seen. Chronic changes without suspicious acute pulmon gregor process.
== END | disposition home or self-care (01) ==
LOC: RADCTMAIN 15:04
PROVIDERS: ATTEND Family Medicine
DX: R91.8 Other nonspecific abnormal finding of lung field (principal)
CPT/HCPCS: 82565; 84520; 71260; 36415; Q9967

== ENCOUNTER 2021-09-23 21:44 | Inpatient (IN) | payer MEDICARE, OTHER ==
[2021-09-23] MEDS ORDERED: SODIUM CHLORIDE 0.9% 1,000 ML IV STA ×2 (22:44)
[2021-09-23] MEDS ORDERED: IPRATROPIUM-ALBUTEROL 3 ML NEB INHALATION STA (22:44)
[2021-09-23] MEDS ORDERED: MORPHINE SULFATE 4 MG/ML SYRINGE IV STA (22:44)
--- NOTE | 2021-09-23 22:45 | ED ---
Chest Pain HPI - General Chief Complaint: Chest Pain Stated Complaint: PATRICIA,L side pain Time Seen by Provider: 09/23/21 22:42 Source: patient, family, RN notes reviewed, old records reviewed Mode of arrival: wheelchair Limitations: no limitations - History of Present Illness Initial Comments: This is a 66-year-old male to the emergency department for evaluation of difficulty breathing with left-sided chest pain. She does admit to some underlying shortness of breath. Patient has history of high blood pressure is a nonsmoker no history of COPD no history of heart disease. No travel history or sick contacts. No recent fevers, no current cough or congestion. MD Complaint: chest pain -: hour(s) Onset: during rest Pain Location: left chest Pain Radiation: back Severity: moderate Severity scale (1-10): 7 Quality: sharp Consistency: constant Improves With: nothing Worsens With: nothing Context: recent illness Anginal Symptoms: dyspnea Other Symptoms: palpitations Treatments Prior to Arrival: none - Related Data Home Medications Medication Instructions Recorded Confirmed Cyclobenzaprine [Flexeril] 5 mg PO TID PRN 09/23/21 09/23/21 Gabapentin 300 mg PO TID 09/23/21 09/23/21 HYDROcodone/APAP 7.5-325MG [[place] 1 tab PO TID 09/23/21 09/23/21 7.5-325] Allergies Allergy/AdvReac Type Severity Reaction Status Date / Time No Known Allergies Allergy Verified 09/23/21 23:40 Review of Systems ROS Statement: Those systems with pertinent positive or pertinent negative responses have been documented in the HPI. ROS Other: All systems not noted in ROS Statement are negative. EKG Findings - EKG Comments: EKG Findings:: EKG is sinus tachycardia 132 WI 158 QRS 60 QTC 387 Past Medical History Past Medical History: Hypertension Additional Past Medical History / Comment(s): HEADACHES, back pain History of Any Multi-Drug Resistant Organisms: None Reported Past Surgical History: Appendectomy, Tonsillectomy Past Anesthesia/Blood Transfusion Reactions: No Reported Reaction Past Psychological History: Anxiety, Depression Smoking Status: Current every day smoker Past Alcohol Use History: None Reported Past Drug Use History: Marijuana - Past Family History Mother Family Medical History: Hypertension Additional Family Medical History / Comment(s): pulmonary hypertension - Father Family Medical History: Neurologic Disorder Additional Family Medical History / Comment(s): parkinsons - General Exam Limitations: no limitations General appearance: alert, in no apparent distress Head exam: Present: atraumatic, normocephalic, normal inspection Eye exam: Present: normal appearance, PERRL, EOMI. Absent: scleral icterus, conjunctival injection, periorbital swelling ENT exam: Present: normal exam, mucous membranes moist Neck exam: Present: normal inspection. Absent: tenderness, meningismus, lymphadenopathy Respiratory exam: Present: normal lung sounds bilaterally. Absent: respiratory distress, wheezes, rales, rhonchi, stridor Cardiovascular Exam: Present: normal rhythm, tachycardia, normal heart sounds. Absent: systolic murmur, diastolic murmur, rubs, gallop, clicks GI/Abdominal exam: Present: soft, normal bowel sounds. Absent: distended, tenderness, guarding, rebound, rigid Extremities exam: Present: normal inspection, full ROM, normal capillary refill. Absent: tenderness, pedal edema, joint swelling, calf tenderness Back exam: Present: normal inspection Neurological exam: Present: alert, oriented X3, CN II-XII intact Psychiatric exam: Present: normal affect, normal mood Skin exam: Present: warm, dry, intact, normal color. Absent: rash Course Vital Signs 09/23/21 09/23/21 09/23/21 22:31 23:24 23:32 Temperature 98.8 F Pulse Rate 130 H 115 H 121 H Respiratory 18 Rate Blood Pressure 121/81 O2 Sat by Pulse 94 L Oximetry 09/24/21 00:47 Temperature Pulse Rate 110 H Respiratory 18 Rate Blood Pressure 106/71 O2 Sat by Pulse 97 Oximetry - Reevaluation(s) Reevaluation #1: 09/23/21 23:08 Medical records reviewed Reevaluation #2: 09/24/21 02:36 Patient is resting comfortably here in the ER currently Reevaluation #3: 09/24/21 02:36 Patient informed results and questions are answered - Consultations Consultation #1: Spoke with Dr. Alexander who agrees to admit this patient Chest Pain MDM - MDM 66 male DF for evaluation patient Dese for left-sided chest pain. Patient does have significant left-sided pneumonia with no other findings. Patient will be admitted for treatment of pneumonia IV antibiotics IV resuscitation and breathing treatments for COPD. Disposition Clinical Impression: Acute exacerbation of chronic obstructive airways disease, Chest pain, Community acquired pneumonia Disposition: ADMITTED IP TO THIS HOSP Condition: Good Is patient prescribed a controlled substance at d/c from ED?: No Referrals: Eduard Dominguez MD [Primary Care Provider] - 1-2 days
--- NOTE | 2021-09-23 23:05 | XR ---
EXAMINATION TYPE: XR chest 1V portable DATE OF EXAM: 09/23/2021 COMPARISON: 08/16/2021 HISTORY: Abdominal pain TECHNIQUE: Single view FINDINGS: There is no heart failure. Pneumonic infiltrate. Costophrenic angles are clear. There are c hest leads. Bony thorax is intact. IMPRESSION: No active cardiopulmonary disease. No adverse change.
[2021-09-24 00:46] LABS: HCT 46.3 % (39.0-53.0); HGB 15.6 gm/dL (13.0-17.5); MCH 31.4 pg (25.0-35.0); MCHC 33.7 g/dL (31.0-37.0); MCV 92.9 fL (80.0-100.0); Mean Platelet Volume 6.5; Platelet Count 275 k/uL (150-450); RBC 4.98 m/uL (4.30-5.90); RDW 13.8 % (11.5-15.5); WBC 23.8 k/uL (3.8-10.6)
[2021-09-24 01:02] LABS: Band Neutrophils % 26 %; Eosinophils # (M) 0.24 k/uL (0-0.7); INR 1.2 (<1.2); Lymphocytes # (M) 0.95 k/uL (1.0-4.8); Monocytes # (M) 0.24 k/uL (0-1.0); Neutrophils % (M) 68 %; Nucleated Red Blood Cells 0 /100 WBC (0-0); Partial Thromboplastin Time 27.4 sec (22.0-30.0); Prothrombin Time 12.9 sec (9.0-12.0); Total Cells Counted 200
[2021-09-24 01:03] LABS: Toxic Vacuolation Present
[2021-09-24 01:04] LABS: Potassium 4.2 mmol/L (3.5-5.1)
[2021-09-24 01:05] LABS: Albumin 3.7 g/dL (3.5-5.0); Calcium 9.1 mg/dL (8.4-10.2); Magnesium 1.6 mg/dL (1.6-2.3); Phosphorus 3.3 mg/dL (2.5-4.5); Total Bilirubin 1.1 mg/dL (0.2-1.3); Total Protein 6.3 g/dL (6.3-8.2)
[2021-09-24] MEDS ORDERED: MORPHINE SULFATE 4 MG/ML SYRINGE IVP STA (01:48)
--- NOTE | 2021-09-24 02:09 | CT ---
EXAMINATION TYPE: CT angio chest DATE OF EXAM: 09/24/2021 COMPARISON: 08/22/2021 HISTORY: pe CT DLP: 2264.8 mGycm Automated exposure control for dose reduction was used. CONTRAST: Performed with IV Contrast, patient injected with 100 mL of Isovue 370. There are Three-D postprocessed images. There is airspace consolidation and atelectasis left lower lobe posteriorly. There is no mediastinal adenopathy. There are no hilar masses. There is no thoracic aortic aneurysm or dissection. The ascend ing aorta measures 3.5 cm. There are no hilar masses. There is no evidence of filling defect in the pulmonary arteries. The thor acic spine is intact. There is some fatty infiltration of the liver. Sternum is intact. IMPRESSION: No evidence of pulmonary embolism. Left lower lobe pneumonia. Fatty infiltration of the liver. Pneumonia appears new compared to old exa m.
--- NOTE | 2021-09-24 02:19 | CT ---
EXAMINATION TYPE: CT abdomen pelvis w con DATE OF EXAM: 09/24/2021 COMPARISON: None HISTORY: pain CT DLP: 2264.8 mGycm Automated exposure control for dose reduction was used. CONTRAST: Performed with IV Contrast, patient injected with 100 mL of Isovue 370. Images obtained from the diaphragm to the floor of the pelvis with IV contrast. There is infiltrate and atelectasis left lower lobe. Heart size is normal. There is no pericardial ef fusion. There is diffuse fatty infiltration of the liver. Gallbladder appears normal. Spleen appears normal. There is no pancreatic mass. Stomach has normal size and contour. The bile ducts are not dila tamia. There is no adrenal mass. Kidneys show satisfactory contrast opacification. There is no hydronephrosi s. Delayed images show normal renal excretion. There is no retroperitoneal adenopathy. Bladder distends smoothly. There is no inguinal hernia. There is no free fluid in the pelvis. There i s no evidence of a pelvic mass. There are a few sigmoid diverticula. There is no diverticulitis. There is no mesenteric edema. There is no ascites or free air. There is no bowel obstruction. Appendi x not seen. No sign of thickened appendix. The lumbar vertebra have normal alignment. There is narrowing of disc spaces from L2 to S1 with vacuu m disc and spurring. There is no compression fracture. The bony pelvis is intact. Hip joints are inta ct. There is spinal stenosis at L4-5 related to facet arthropathy. IMPRESSION: Left lower lobe pneumonia and atelectasis. Fatty infiltration of the liver. Sigmoid mild diverticulosis without diverticulitis. No acute abnorma lity within the abdomen pelvis.
[2021-09-24] MEDS ORDERED: AZITHROMYCIN 500 MG in SODIUM CHLORIDE 0.9% 250 ML IVPB STA (02:24)
[2021-09-24] MEDS ORDERED: KETOROLAC 15 MG/ML 1 ML VIAL IVP STA (02:25)
[2021-09-24] MEDS ORDERED: ACETAMINOPHEN TAB 500 MG TAB PO STA (02:25)
[2021-09-24] MEDS ORDERED: PNEUMONIA PROTOCOL UTILIZED 1 EACH MISC PO PRN (02:34)
[2021-09-24] MEDS ORDERED: IPRATROPIUM-ALBUTEROL 3 ML NEB INHALATION STA (02:34)
[2021-09-24] MEDS: SODIUM CHLORIDE 0.9% 1,000 ML IV SCH ×4 (05:48→21:43)
[2021-09-24] MEDS: ALBUTEROL NEBULIZED 2.5 MG/3 ML INHALATION SCH ×4 (07:50→19:57)
[2021-09-24] MEDS: ENOXAPARIN 40 MG/0.4 ML SYRINGE SQ SCH (08:42)
[2021-09-24] MEDS ORDERED: CYCLOBENZAPRINE 5 MG TAB PO PRN (09:03)
[2021-09-24] MEDS: GABAPENTIN 300 MG CAP PO SCH ×3 (11:13→21:42)
[2021-09-24] MEDS: HYDROcodone/APAP 7.5-325MG 1 EACH TAB PO SCH ×3 (11:13→21:41)
[2021-09-24] MEDS ORDERED: SODIUM CHLORIDE 0.9% 500 ML 500 ML IV ONE (12:04)
[2021-09-24] MEDS ORDERED: IPRATROPIUM-ALBUTEROL 3 ML NEB INHALATION PRN (15:21)
--- NOTE | 2021-09-24 15:35 | HP ---
HISTORY AND PHYSICAL This 66-year-old white male came in with left-sided chest pain and difficulty breathing, admitted for shortness of breath and possible bilateral pneumonia. He has a history of hypertension, COPD, heart disease. No sick contacts. No fevers, chills, congestion. He was having some mild palpitations, dyspnea, sharp pain, moderate in severity 7/10 in his chest, intermittent. MEDICATIONS AT HOME: 1. Flexeril 5 mg t.i.d. 2. Gabapentin 300 t.i.d. 3. [place] 7.5 t.i.d. ALLERGIES: NEGATIVE. REVIEW OF SYSTEMS: Fourteen-point review of systems otherwise negative. EKG sinus rhythm. PAST MEDICAL HISTORY: See old chart. SURGICAL HISTORY: See old chart. All reviewed. FAMILY HISTORY: Reviewed. See chart. PHYSICAL EXAMINATION: Pulse is 115 to 130, temperature 98.8, blood pressure 120s over 80s, O2 94. Cardiovascular S1, S2. No murmurs, rubs, gallops. Lungs with normal breath sounds. Some mild wheeze. HEENT within normal. Ophthalmologic normal. ENT normal. EXTREMITIES: No cyanosis, clubbing, edema. Back normal. Neurologic normal. Psych normal. Skin normal. ASSESSMENT: Atypical left-sided chest pain secondary to left-sided pneumonia. IV antibiotics, steroids, updrafts. Prognosis is guarded. Possibly get Cardiology and Pulmonary involved. Please see further orders. MMODL / IJN: [id number] /
[2021-09-24] MEDS: methylPREDNISolone SOD SUCCI 40 MG/ML 1 ML VIAL IV SCH ×2 (16:28→23:04)
--- NOTE | 2021-09-24 16:58 | P.CNPUL ---
History of Present Illness Consult date: 09/24/21 Reason for consult: dyspnea, cough, chest pain Chief complaint: Shortness of breath with left-sided pleuritic chest pain History of present illness: This is a 66-year-old male with extensive history of smoking and nicotine abuse lately has been smoking one pack per day for last 50 years, patient had the one day history of pleuritic chest pain cough shortness of breath not feeling well decided to come into the hospital, on arrival patient was hypertensive, patient does have a history of degenerative joint disease osteoarthritis of the spine and hypertension, his labs are significant for diabetes is on the 23,800, d- dimer 0.7, lactic acid 3.2, cord was negative, chest x-ray was negative for any active process, computed tomography scan of the chest showed left lower lobe pneumonia, patient has been on IV Rocephin and Zithromax Review of Systems All systems: negative Past Medical History Past Medical History: Hypertension Additional Past Medical History / Comment(s): HEADACHES, back pain History of Any Multi-Drug Resistant Organisms: None Reported Past Surgical History: Appendectomy, Tonsillectomy Past Anesthesia/Blood Transfusion Reactions: No Reported Reaction Past Psychological History: Anxiety, Depression Smoking Status: Current every day smoker Past Alcohol Use History: None Reported Past Drug Use History: Marijuana - Past Family History Mother Family Medical History: Hypertension Additional Family Medical History / Comment(s): pulmonary hypertension - Father Family Medical History: Neurologic Disorder Additional Family Medical History / Comment(s): parkinsons - Medications and Allergies Home Medications Medication Instructions Recorded Confirmed Type Cyclobenzaprine [Flexeril] 5 mg PO TID PRN 09/23/21 09/23/21 History Gabapentin 300 mg PO TID 09/23/21 09/23/21 History HYDROcodone/APAP 7.5-325MG [[place] 1 tab PO TID 09/23/21 09/23/21 History 7.5-325] Allergies Allergy/AdvReac Type Severity Reaction Status Date / Time No Known Allergies Allergy Verified 09/23/21 23:40 Physical Exam Vitals: Vital Signs Temp Pulse Pulse Resp BP BP Pulse Ox 09/24/21 16:00 104 H 09/24/21 15:46 100 09/24/21 13:48 97.3 F L 104 H 16 109/62 93 L 09/24/21 12:19 108 H 09/24/21 12:04 108 H 09/24/21 08:02 100 09/24/21 07:50 92 09/24/21 07:00 97.8 F 106 H 16 101/63 93 L 09/24/21 05:26 99.7 F H 126 H 22 111/75 91 L 09/24/21 04:00 98.8 F 115 H 20 111/59 95 09/24/21 00:47 110 H 18 106/71 97 09/23/21 23:32 121 H 09/23/21 23:24 115 H 09/23/21 22:31 98.8 F 130 H 18 121/81 94 L Intake and Output 09/24/21 09/24/21 09/24/21 06:59 14:59 22:59 Intake Total 118 Balance 118 Intake: Oral 118 Other: # Voids 1 4 # Bowel Movements 1 Weight 99.79 kg - Constitutional General appearance: average body habitus, disheveled - EENT Eyes: PERRLA ENT: normal oropharynx Ears: bilateral: normal - Neck Carotids: bilateral: upstroke normal Thyroid: bilateral: normal size - Respiratory Respiratory: bilateral: CTA - Cardiovascular Rhythm: regular Heart sounds: normal: S1, S2 - Gastrointestinal General gastrointestinal: normal bowel sounds, soft - Integumentary Integumentary: normal turgor - Neurologic Neurologic: CNII-XII intact - Musculoskeletal Musculoskeletal: gait normal, generalized weakness, strength equal bilaterally - Psychiatric Psychiatric: A&O x's 3, appropriate affect, intact judgment & insight Results - Laboratory Findings CBC and BMP: 09/24/21 00:32 09/24/21 00:32 PT/INR, D-dimer PT 12.9 sec (9.0-12.0) H 09/24/21 00:32 INR 1.2 (<1.2) H 09/24/21 00:32 D-Dimer 0.72 mg/L FEU (<0.60) H 09/24/21 00:32 Abnormal lab findings: Abnormal Labs 09/24/21 09/24/21 09/24/21 00:32 00:32 00:32 WBC 23.8 H Neutrophils # (Manual) 22.30 H Lymphocytes # (Manual) 0.95 L PT 12.9 H INR 1.2 H D-Dimer 0.72 H Sodium 135 L Carbon Dioxide 20 L Glucose 126 H Plasma Lactic Acid Anjel 09/24/21 09/24/21 09/24/21 00:32 03:28 07:10 WBC Neutrophils # (Manual) Lymphocytes # (Manual) PT INR D-Dimer Sodium Carbon Dioxide Glucose Plasma Lactic Acid Anjel 2.1 H* 2.2 H* 2.5 H* 09/24/21 09/24/21 11:08 13:56 WBC Neutrophils # (Manual) Lymphocytes # (Manual) PT INR D-Dimer Sodium Carbon Dioxide Glucose Plasma Lactic Acid Anjel 2.6 H* 3.2 H* - Diagnostic Findings Chest x-ray: report reviewed, image reviewed CT scan - chest: report reviewed, image reviewed (Finding as noted above) Assessment and Plan Assessment: Sepsis associated with left lower lobe pneumonia Left lower lobe pneumonia Chest pain due to left lower lobe pneumonia Extensive history of smoking and nicotine use Possible baseline COPD Plan: IV antibiotics including Rocephin and Zithromax Pain control with [place] Supplemental oxygen Deep breathing exercise incentive spirometry Gentle rehydration Further plan of care as per clinical response of the patient Time with Patient: Greater than 30
[2021-09-25] MEDS: SODIUM CHLORIDE 0.9% 1,000 ML IV SCH ×3 (04:38→15:20)
[2021-09-25] MEDS: AZITHROMYCIN 500 MG in SODIUM CHLORIDE 0.9% 250 ML IVPB SCH ×2 (05:38→06:55)
[2021-09-25] MEDS: ALBUTEROL NEBULIZED 2.5 MG/3 ML INHALATION SCH ×4 (07:23→20:23)
[2021-09-25] MEDS: ENOXAPARIN 40 MG/0.4 ML SYRINGE SQ SCH (07:53)
[2021-09-25] MEDS: HYDROcodone/APAP 7.5-325MG 1 EACH TAB PO SCH ×3 (07:56→21:44)
[2021-09-25] MEDS: GABAPENTIN 300 MG CAP PO SCH ×3 (07:57→21:44)
[2021-09-25] MEDS: methylPREDNISolone SOD SUCCI 40 MG/ML 1 ML VIAL IV SCH ×3 (07:57→23:10)
--- NOTE | 2021-09-25 08:03 | XR ---
EXAMINATION TYPE: XR chest 2V DATE OF EXAM: 09/25/2021 COMPARISON: 09/23/[address] 09/24/2021 HISTORY: 66-year-old male pneumonia TECHNIQUE: Frontal and lateral views FINDINGS: The heart is upper limits of normal in size. Aorta and pulmonary vasculature within normal limits. Th ere is some focal subpleural nodularity in her right upper lobe measuring 2.5 cm. Worsening left infr ahilar patchy opacity. Suspect a couple calcified granulomas in the left base. IMPRESSION: 1. Borderline heart size. 2. Slight interval worsening in left lower lobe pneumonia. 3. Known peripheral right upper lobe subpleural lipoma.
[2021-09-25 09:09] LABS: HCT 42.3 % (39.6-50.0); HGB 12.9 g/dL (13.0-17.0); MCHC 30.5 g/dL (32.0-37.0); MCV 95.1 fL (80.0-97.0); Mean Platelet Volume 9.3 fL (9.5-12.2); NRBC Per 100 WBC 0 /100 WBCS (0.0-0.0); Platelet Count 226 X 10*3/uL (140-440); RBC 4.45 X 10*6/uL (4.40-5.60); RDW 13.7 % (11.5-14.5); WBC 24.83 X 10*3/uL (4.50-10.00)
[2021-09-25 09:21] LABS: ALT 17 U/L (10-49); AST 11 U/L (14-35); African American GFR (CKD) 101.4 (60.0-200.0); Albumin 3.2 g/dL (3.8-4.9); Albumin/Globulin Ratio 1.78 (1.60-3.17); Alkaline Phosphatase 56 U/L (41-126); BUN/Creat Ratio 22.11 Ratio (12.00-20.00); Blood Urea Nitrogen 19.9 mg/dL (9.0-27.0); Calcium 8.6 mg/dL (8.7-10.3); Carbon Dioxide 21.1 mmol/L (20.0-27.5); Chloride 110 mmol/L (96-109); Globulin 1.8 g/dL (1.6-3.3); Glucose 164 mg/dL (70-110); Non-African American GFR(CKD) 87.5 (60.0-200.0); Potassium 4.3 mmol/L (3.5-5.5); Sodium 139 mmol/L (135-145); Total Bilirubin <0.15 mg/dL (0.30-1.20)
[2021-09-25 09:41] LABS: Basophils # (A) 0.06 X 10*3/uL (0.00-0.10); Basophils % (A) 0.2 %; Eosinophils # (A) 0 X 10*3/uL (0.04-0.35); Eosinophils % (A) 0 %; Immature Grans, Automated 3.1 %; Lymphocytes # (A) 1.02 X 10*3/uL (0.90-5.00); Lymphocytes % (A) 4.1 %; Monocytes # (A) 0.51 X 10*3/uL (0.20-1.00); Monocytes % (A) 2.1 %; Neutrophils # (A) 22.48 X 10*3/uL (1.80-7.70); Neutrophils % (A) 90.5 %
[2021-09-25] MEDS: PIPERACILLIN-TAZOBACTAM 3.375 GM in SODIUM CHLORIDE 0.9% 100 ML IVPB SCH ×2 (11:38→20:08)
--- NOTE | 2021-09-25 11:50 | PN ---
PROGRESS NOTE [age]old white male says he is feeling a lot better than yesterday, although his white count is still at 24,000. He had a negative D-dimer. Lactic acid was high for 3 days, but it is now 1.7. He feels like he is getting better. Chest x- ray shows left lower lobe pneumonia is getting possibly worse. We are going to switch his Rocephin to Zosyn for a day. Plan on discharging him home in the next day or two depending on how he does. Home medicines have been ordered. CT of the chest negative for PE. Pulse rate now is right around 100, temperature 97 to 98. Blood pressure is 110s over 60s now. O2 is 92 on 2 L. Cardiovascular S, S2. Lungs have scattered wheeze. GI is distended due to obesity. Extremities no cyanosis, clubbing, edema. As mentioned, white count 22.5, sodium 135, potassium 4.2, BUN 17, creatinine 1.05. ASSESSMENT: 1. Sepsis associated with left lower lobe pneumonia. 2. Chest pain secondary to left lower lobe pneumonia. 3. Extensive nicotine addiction. 4. Chronic obstructive pulmonary disease. 5. Lumbar spinal stenosis. Sees neurosurgeon next week as an outpatient. Continue with antibiotics, pain control. Rehydrate. Try to wean off oxygen as tolerated. MMODL / IJN: [id number] /
[2021-09-26] MEDS: SODIUM CHLORIDE 0.9% 1,000 ML IV SCH ×2 (01:09→11:49)
[2021-09-26] MEDS: PIPERACILLIN-TAZOBACTAM 3.375 GM in SODIUM CHLORIDE 0.9% 100 ML IVPB SCH (03:30)
[2021-09-26] MEDS: ENOXAPARIN 40 MG/0.4 ML SYRINGE SQ SCH (07:05)
[2021-09-26] MEDS: GABAPENTIN 300 MG CAP PO SCH (07:09)
[2021-09-26] MEDS: HYDROcodone/APAP 7.5-325MG 1 EACH TAB PO SCH (07:09)
[2021-09-26] MEDS: methylPREDNISolone SOD SUCCI 40 MG/ML 1 ML VIAL IV SCH (07:09)
[2021-09-26] MEDS: ALBUTEROL NEBULIZED 2.5 MG/3 ML INHALATION SCH ×2 (07:25→11:05)
[2021-09-26 08:42] VITALS: BP 97/60; PULSE 85; RESP 16; TEMP 97.9
[2021-09-26] MEDS: AZITHROMYCIN 500 MG in SODIUM CHLORIDE 0.9% 250 ML IVPB SCH (11:49)
[2021-09-26] MEDS ORDERED: CEFDINIR 300 MG CAP PO SCH (21:00)
[2021-09-27] MEDS ORDERED: dexAMETHasone 2 MG TAB PO SCH (09:00)
== END 2021-09-26 13:01 | disposition home or self-care (01) | DRG 871 ==
LOC: EC 21:44 → 6NMEDSUR 09-24 02:34 → OBSVTOIN 09-24 11:00
PROVIDERS: ADMIT Family Medicine; ATTEND Family Medicine
DX: A41.9 Sepsis, unspecified organism (principal); J18.9 Pneumonia, unspecified organism; J44.0 Chronic obstructive pulmonary disease with (acute) lower respiratory infection; J44.1 Chronic obstructive pulmonary disease with (acute) exacerbation; E66.9 Obesity, unspecified; M48.061 Spinal stenosis, lumbar region without neurogenic claudication; Z68.33 Body mass index [BMI] 33.0-33.9, adult; F17.210 Nicotine dependence, cigarettes, uncomplicated; I10 Essential (primary) hypertension; Z79.899 Other long term (current) drug therapy; Z82.0 Family history of epilepsy and other diseases of the nervous system; Z82.49 Family history of ischemic heart disease and other diseases of the circulatory system; Z20.822 Contact with and (suspected) exposure to COVID-19; Z90.89 Acquired absence of other organs; Z90.49 Acquired absence of other specified parts of digestive tract; I51.9 Heart disease, unspecified
CPT/HCPCS: 36415; 71045; 71046; 71275; 74177; 80053; 83605; 83735; 83880; 84100; 84484; 85025; 85379; 85610; 85730; 87040; 87635; 93005; 94640; 96361; 96374; 99285

== ENCOUNTER → 2022-02-17 | Outpatient (CLI) | payer MEDICARE, OTHER ==
--- NOTE | 2022-02-20 12:13 | MR ---
EXAMINATION TYPE: MR lumbar spine wo con DATE OF EXAM: 02/17/2022 COMPARISON: none HISTORY: Low back pain TECHNIQUE: Multiplanar, multisequence images of the lumbar spine were acquired without IV contrast. L1-L2: Moderate decreased signal and loss of height compatible degenerative disc disease. Mild to mod erate posterior disc bulge with mild central stenosis. Bilateral foraminal encroachment. L2-L3: Severe disc desiccation with moderate circumferential disc bulge greatest posteriorly. Hypertr ophy ligamentum flavum and facet joint arthropathy result in moderate to severe central stenosis. Mu ateral neural foraminal encroachment. L3-L4: Severe disc desiccation with moderate circumferential disc bulge greatest posteriorly. Hypertr ophy ligamentum flavum and facet joint arthropathy result in moderate to severe central stenosis. Mu ateral neural foraminal encroachment. L4-L5: Severe disc desiccation. Posterior disc bulge with small herniation. Hypertrophy ligamentum fl avum and facet joint arthropathy resulting in severe central stenosis. Neural foraminal encroachment seen bilaterally. L5-S1: Moderate decreased signal and loss of height compatible degenerative disc disease. Mild suspender maker ior disc bulge without central stenosis or lateral recess stenosis. No evidence for disc herniation. Facet joint arthropathy resulting in moderate to severe bilateral foraminal encroachment. Bilateral f oraminal encroachment. Lumbar segments are intact. No paraspinal masses are identified. Conus medullaris has a normal appe arance. IMPRESSION: 1. Multilevel degenerative disc disease. 2. Central stenosis at multiple levels as outlined above.
== END | disposition home or self-care (01) ==
LOC: RADMRIMAIN 18:02
PROVIDERS: ATTEND Orthopaedic Surgery
DX: M47.816 Spondylosis without myelopathy or radiculopathy, lumbar region (principal); M51.26 Other intervertebral disc displacement, lumbar region; M48.061 Spinal stenosis, lumbar region without neurogenic claudication
CPT/HCPCS: 72148

== ENCOUNTER → 2022-06-02 | Outpatient (CLI) | payer MEDICARE, OTHER ==
[2022-06-02 18:04] LABS: Basophils # (A) 0.08 X 10*3/uL (0.00-0.10); Basophils % (A) 1.3 %; Eosinophils # (A) 0.39 X 10*3/uL (0.04-0.35); Eosinophils % (A) 6.1 %; HCT 48.1 % (39.6-50.0); HGB 14.4 g/dL (13.0-17.0); Immature Grans, Automated 0.2 %; Lymphocytes # (A) 2.56 X 10*3/uL (0.90-5.00); MCH 26.7 pg (27.0-32.0); MCHC 29.9 g/dL (32.0-37.0); MCV 89.2 fL (80.0-97.0); Mean Platelet Volume 9.4 fL (9.5-12.2); Monocytes # (A) 0.52 X 10*3/uL (0.20-1.00); Monocytes % (A) 8.1 %; NRBC Per 100 WBC 0 /100 WBCS (0.0-0.0); Neutrophils # (A) 2.84 X 10*3/uL (1.80-7.70); Neutrophils % (A) 44.3 %; Platelet Count 301 X 10*3/uL (140-440); RBC 5.39 X 10*6/uL (4.40-5.60); RDW 15.7 % (11.5-14.5)
[2022-06-02 18:23] LABS: African American GFR (CKD) 89.2 (60.0-200.0); Anion Gap 7.2 mmol/L (10.00-18.00); Carbon Dioxide 25.8 mmol/L (20.0-27.5); Potassium 4.9 mmol/L (3.5-5.5)
== END | disposition home or self-care (01) ==
LOC: LABPAT 10:36
PROVIDERS: ATTEND Orthopaedic Surgery
DX: Z01.812 Encounter for preprocedural laboratory examination (principal); Z01.818 Encounter for other preprocedural examination; M48.061 Spinal stenosis, lumbar region without neurogenic claudication; M48.062 Spinal stenosis, lumbar region with neurogenic claudication
CPT/HCPCS: 80048; 85025; 87070

== ENCOUNTER 2022-06-06 09:08 | Inpatient (IN) | payer MEDICARE, OTHER ==
--- NOTE | 2022-06-06 06:32 | P.HPOR ---
History of Present Illness H&P Date: 05/24/22 .D:Date: 05/24/22 : 09:29am .T:Title: [facility] History and Physical Date of :[birth year] Age: 66 year Height: 5'8" Weight: 240 lbs BMI: 36.49 kg/m2 Occupation: Retired VAS: 8 CHIEF COMPLAINT: low back pain DOI: chronic DOS: none HISTORY : Xrays No new xrays taken in office Trauma or injury No Work-Related No Pain description burning, sharp. Location posterior diffuse Activity Modification yes , unable to stand or ambulate for extended periods of time. Hand Dominance right TREATMENTS COMPLETED: 6 weeks of PT completed? Month and Year of last PT date? 12/2021 Yes How many visits: 6 Did it help: No discernable improvements, patient did have to d/c as a family member was in a MVA in [place] which he had to travel for. Physician directed home exercise completed? Yes, daily for 2 months without any relief of his symptoms. Medications yes List: Flexeril 5mg, Gabapentin 300mg, Fairview 7.5/325mg all with mild relief. Mobic 15mg without any relief. Toradol 10mg without relief of his symptoms. Alternative interventions Chiropractic: yes , temporary relief Massage therapy: No R.I.C.E: yes daily without relief. Brace: No Injections No RFA: No SUBJECTIVE: Mr. Colindres returns to the office for a recheck of their low back pain. Since the time of the last appointment the patient reports continued low back pain into the right lower extremity diffusely. Patient does also continue to complain of numbness and tingling about the lower extremity as well. Overall the patient has seen a progressive increase in symptoms since their onset. Mr. Colindres symptoms are exacerbated with standing and ambulation, due to this they notes that it is increasingly difficult for Mr. Colindres to complete many of their daily tasks. Patient is having severe sleep disturbances as well due to their ongoing pain and associated symptoms. Regarding treatments, the patient has previously trialed all abovementioned treatment modalities without any lasting relief his his symptoms. Patient denies trialing any other modalities at this time. For their symptoms, the patient has been taking Celoxib with mild improvements to his pain. Otherwise the patient denies any f/c/sob/cp, no incision concerns, no bladder or bowel retention/incontinence, no perineal numbness/tingling, and ambu lates independently. HPI: Mr. Colindres last returned to the office on 04/05/2022 for a recheck of their low back and to review his MRI obtained after the time of the last appointment. Patient reports continued lumbar pain ongoing for the last 1 1/2-2 years with no known injury or trauma to indicate an exact onset of their symptoms. In addition to their lumbar pain, they do report that it radiates into the bilateral lower extremities, associated with numbness and tingling through the legs diffusely. Overall the patient has seen a progressive increase in symptoms since their onset. Mr. Colindres symptoms are exacerbated with most ADL's, due to this they notes that it is increasingly difficult for Mr. Colindres to complete many of their daily tasks. Patient is having severe sleep disturbances as well due to their ongoing pain and associated symptoms. Regarding treatments, the patient has previously trialed all abovementioned treatment modalities without relief of his symptoms. Patient denies trialing any other modalities at this time. For their symptoms, the patient has been taking Mobic 15mg, Fairview 7.5/325mg, Gabapentin 300mg, and Flexeril all without relief of his symptoms. Otherwise the patient denies any f/c/sob/cp, no incision concerns, no bladder or bowel retention/incontinence, no perineal numbness/tingling, and ambulates with the use of crutches. The patient previously returned to the office on 01/12/2022 for a recheck of his lumbar spine. Since the time of the last appointment the patient did complete 6 visits of formal physical therapy but had to discontinue this due to him leaving the state following his daughter being in an MVA. With the visits he did attend the patient denies any lasting improvements. Additionally he notes that he has continued with the physician recommended home exercise program without any relief of his symptoms. Patient notes that he has seen some mid, temporary relief with Chiropractics as well as the daily use of Fairview 7.5mg. He denies any improvements with Flexeril 5mg, Gabapentin, and Mobic 15mg. Overall he denies any lasting changes to his symptoms with all conservative modalities trialed thus far. As for his symptoms he continues to complain of right sided low back pain radiating into the right lower extremity with associated numbness/tingling and weakness. Overall these symptoms are exacerbated with prolonged standing and ambulation which is making completion of most daily tasks very challenging. he also notes frequent sleep disturbances due to pain. Otherwise he denies any f/c/sob/cp, no bladder or bowel retention/incontinence, no perineal numbness/tingling and is ambulating with the use of crutches. Mr. Colindres presents to the office on 12/01/2021 for and evaluation of his lumbar spine. Patient reports that he has had persistent pain for the last 1 1/2 years with no known injury or trauma to indicate an exact onset of her symptoms. With this he does report that his symptoms have progressively worsened over time. He denies seeing any other prior specialists regarding this issues outside of her PCP. Regarding his back, she complains of diffuse lumbar pain radiating into the bilateral lower extremities, with left hip and left lower extremity being worse than the right. With this the patient does also report that hat he is having numbness and tingling about the left lower extremity as well. Overall his symptoms are made worse with prolonged standing, activity, and ambulation which is increasingly impacting his ability to perform daily functions. Additionally he notes that he is having frequent sleep disturbances due to his pain as well. As for treatments, the patient has trialed Flexeril ,Gabapentin, and Fairview all with mild/temporary relief of his symptoms. Additionally he has trialed chiropractics and RICE daily with mild relief. Overall he denies any notable improvements to his symptoms with the modalities trialed thus far. Otherwise the patient denies any bladder or bowel retention/incontinence, no perineal numbness/tingling, and ambulates independently. The patients' past social, medical, family, surgical history, as well as review of systems, have been reviewed. Please refer to the Neurosurgery History and Ph ysical form that has been scanned in to our electronic medical record system. 16 points review of systems completed and as stated in HPI, all other systems reviewed are negative. Social History: Reviewed, see appropriate section of the chart for details. P3 Social History: Smoking: former smoker P3 Alcohol: none P3 Family History: Reviewed, see appropriate section of the chart for details. P2 Past Medical History: Reviewed, see appropriate section of the chart for details. T4Bncukec Medications: Rx: cyclobenzaprine 5 mg tablet Ref: 0 Rx: gabapentin 300 mg capsule Ref: 0 Rx: HYDROcodone 7.5 mg-acetaminophen 325 mg tablet Ref: 0 Rx: meloxicam 15 mg tablet Ref: 0 PHYSICAL EXAMINATION: General: Awake, alert, appropriate for age, in no acute distress. HEENT: No unusual neck masses around region of lateral neck triangle, thyroid, supraclavicular groove Heart: Regular rate and rhythm, normal S1, S2 and no murmur/gallop. Lungs: Clear to auscultation bilaterally with no use of accessory muscles. Extremities: Skin warm and dry without acute lesions, coloration, temperature, skin intact, no tenderness or erythema Integument: Hairy patches: ABSENT Dorsal skin dimples: ABSENT Cafe au lait spots: ABSENT Surgical incisions: none Palpation: Please see Pain drawing on Intake sheet for further detail. Midline spinal tenderness: No E6 Cervical Tenderness: No E6 Paralumbar tenderness: No E6 Parathoracic tenderness: No E6 Buttocks tenderness: No E6 Sacroiliac Tenderness: No POSTURAL and MUSCULO-SKELETAL EVALUATION: Coronal Balance: NEUTRAL Recumbent testing: Patient is able to lay flat on back Sagittal Balance: NEUTRAL Shoulder Profile: LEVEL Pelvic Girdle: LEVEL Neck ROM: UNRESTRICTED Lumbar ROM: RESTRICTED Shoulder ROM: Symmetrical Hip ROM: Symmetrical Knee ROM: Symmetrical Hands: Normal appearance, symmetrical Feet: Normal appearance, Symmetrical VASCULAR STATUS : LEFT RIGHT Wrist Pulses INTACT INTACT Pedal Pulses (Dors. pedis & post.tibialis) INTACT INTACT Color NORMAL NORMAL Edema Absent Absent NEUROLOGIC EXAMINATION: Mental Status:Awake and alert, fully oriented, with normal attention, concentration and memory, and fluent, appropriate speech. Cranial Nerves: I: Olfactory not tested. II: Visual acuity normal, no visual field deficit noted with confrontation. III,IV: Normal pupillary reflexes & intact extraocular movements without nystagmus. V,: Intact symmetrical facial sensation. VII: Intact symmetrical facial motor movement VIII: Hearing intact. IX,X: Intact gag, swallow, & normal voice. XI: Sternocleidomastoid, trapezius function intact. XII: Tongue midline with normal movements. L'hermitte's Sign: Negative / absent Spurling'Sign: Absent bilaterally. Cubital percussion test: Absent bilaterally. Meyer-Tinel sign - Carpal region: Absent bilaterally. Straight Leg Raising: Absent bilaterally. Crossed straight leg raise: negative O8 MOTOR EXAM (0-5/5, N/T) STRENGTH RIGHT LEFT Shoulder Abd (not part of the DAVID score) 5 5 Elbow Flexors 5 5 Elbow Extensor 5 5 Wrist Dorsiflexors 5 5 Finger Abductor 5 5 Acquisition Manager 5 5 Hip Flexor (Not part of DAVID Motor score) 5 5 Knee Flexor 5 5 Knee Extensor 5 5 Ankle dorsiflexor 4+ 4- Ankle plantarflexion 4+ 4- Extensor hallucis 5 5 REFLEXES(0-4/2, NT) RIGHT LEFT Upper Extremities 2 2 Lower Extremities 1 1 Pathological Reflexes RIGHT LEFT Meyer's Absent Absent Clonus Absent Absent Babinski Absent Absent # Indicates mechanical impairment Muscle appearance: Symmetrical, without signs of atrophy or dystrophy. Rectal Tone:Deferred Sensory system (0-4, N/T) Test type RU SONAL RL LL Joint-Position 2 2 2 2 Vibration 2 2 2 2 Pain & LT sense 2 2 2 2 Dermatomal Deficit: None None L4-L5, L5-S1 None Gait and Functional Evaluation: Ambulatory aids: Crutches Romberg's test: Intact bilaterally Toe heel walk / heel-toe walk intact while maintaining satisfactory balance? No Squatting/straightening w/o assistance to a min of 60 degree knee flexion? No Single leg stance: not intact bilaterally Trendelenburg sign negative bilaterally Hand and finger dexterity intact bilaterally? yes Disdiadochokinesis examination negative bilaterally? yes RADIOGRAPHIC STUDIES: XRay taken on 12/02/21 of Lumbar Spine and Pelvis: this is reviewed in the office of the patient and demonstrates severe spondylosis from L2 through S1 with near complete disc height loss desiccation anterior osteophyte posterior osteophytes facet arthrosis facet overgrowth. Somewhat flattened lumbar lordosis secondary to these changes. There is foraminal stenosis and likely central stenosis related these changes. There are no fractures or other dislocations noted at this time. AP pelvis demonstrates congruent level pelvis no fracture or dislocation CT scan from08/16/2021 of Lumbar Spine: this is also reviewed in the office today and demonstrates multilevel spondylotic changes with vacuum disc phenomenon at L2 through S1. There is severe facet arthrosis with overgrowth osteophytic changes as well as stenosis throughout the lumbar spine related to the spondylotic changes. There is flattening of the normal lumbar lordosis secondary to this. There is foraminal collapse secondary to this.no acute fracture or dislocation is noted at this time. MRI from 02/17/2022 of the lumbar spine demonstrates: Images reviewed with the patient demonstrate severe spondylotic changes in the lumbar spine from L2-S1. There is disc dessication, height loss and herniation at nearly every level. This as well as facet arthrosis, ligamental hypertrophy, facet hypertrophy causes severe stenosis centrally and foraminally at all levels. There is turublent flow of CSF at the L2 level due to the severity of the stenosis at this level. There is flattening of the normal LL to around 30 deg. There is a L4-5 grade I spondylolisthesis noted which is degenerative in nature. No fractures noted. No lesions noted at this time. IMPRESSION: It was my pleasure to have seen and examined Jerrod. I reviewed the patient's clinical syndrome, physical findings, and imaging studies during the appointment today. It is my impression that the patient has a diagnosis of. 1. lumbar spondylosis L2-S1 severe 2. severe lumbar stenosis 3. neurogenic claudication .DX:Diagnosis: Lumbar spondylosis : ICD10 = M47.816 / ICD9 = 721.3 / SNOMED = 905664069 .DX:Diagnosis: Degenerative lumbar spinal stenosis : ICD10 = M48.061 / ICD9 = 724.02 / SNOMED = 722117215 .DX:Diagnosis: Spinal stenosis of lumbar region with neurogenic claudication : ICD10 = M48.062 / ICD9 = 724.03 I outlined the natural course history without intervention and various interventional options. PLAN: Based on my findings I suggest the following course of action: -Continue with supplements, health maintenance, home exercise, and expressive writing programs. - Continue with current course of medications. - Patient given a refill of his Celoxib for further management of his symptoms. - I discussed treatment options with the patient, including operative and non- operative options, and they have elected to proceed with the following surgical procedure: lumbar (L2-Pelvis) Decompression and Posterior Lateral Interbody Fusion (59495, 24566, 76596, 45424, 97878, 08650, 78741) The indications, risks, benefits, and alternatives to surgery were discussed with the patient at length. Specifically (but not limited to) the risks of infection, stiffness, recurrence of symptoms, need for revision surgery, local numbness, neurovascular injury, and blood clots were discussed. The patient's questions were answered. The decision to proceed was made. Consent will be obtained for the procedure. Spine Surgery Risk Review Mr. Colindres is presenting for evaluation of low back pain. It was my pleasure to have seen and examined Mr. Colindres. In our visit today we have had a chance to go over subjective complaints, physical examination findings and treatments including the natural course history without intervention and various interventional options. The patients imaging demonstrates: XRay taken on 12/02/21 of Lumbar Spine and Pelvis: this is reviewed in the office of the patient and demonstrates severe spondylosis from L2 through S1 with near complete disc height loss desiccation anterior osteophyte posterior osteophytes facet arthrosis facet overgrowth. Somewhat flattened lumbar lordosis secondary to these changes. There is foraminal stenosis and likely central stenosis related these changes. There are no fractures or other dislocations noted at this time. AP pelvis demonstrates congruent level pelvis no fracture or dislocation CT scan from08/16/2021 of Lumbar Spine: this is also reviewed in the office today and demonstrates multilevel spondylotic changes with vacuum disc phenomenon at L2 through S1. There is severe facet arthrosis with overgrowth osteophytic changes as well as stenosis throughout the lumbar spine related to the spondylotic changes. There is flattening of the normal lumbar lordosis secondary to this. There is foraminal collapse secondary to this.no acute fracture or dislocation is noted at this time. MRI from 02/17/2022 of the lumbar spine demonstrates: Images reviewed with the patient demonstrate severe spondylotic changes in the lumbar spine from L2-S1. There is disc dessication, height loss and herniation at nearly every level. This as well as facet arthrosis, ligamental hypertrophy, facet hypertrophy causes severe stenosis centrally and foraminally at all levels. There is turublent flow of CSF at the L2 level due to the severity of the stenosis at this level. There is flattening of the normal LL to around 30 deg. There is a L4-5 grade I spondylolisthesis noted which is degenerative in nature. No fractures noted. No lesions noted at this time. On physical exam, Mr. Colindres demonstrates severely restricted lumbar ROM with bilateral lower extremity weakness, radiculopathy, and hyporeflexia . Patient does also demonstrate right lower extremity L4-S1 dermatomal deficits. I have explained to the patient that as their condition progresses it will cause further neurological deficits and eventual paralysis. Based on the patients imaging, physical exam, and the rapid progression and disabling nature of their symptoms, at this time I recommend surgery in the form or a: lumbar (L2-Pelvis) Decompression and Posterior Lateral Interbody Fusion. I discussed the risk and benefits of this procedure at length with Mr. Colindres. The patient [significant other] agreed to considered pursuing the procedure abovementioned. Prior to surgery, she should follow up with her PCP (Cardio, ID, IM etc) for clearance. Questions were invited and answered, and the patient wishes to proceed as outlined below. Currently, I am recommendin.lumbar (L2-Pelvis) Decompression and Posterior Lateral Interbody Fusion 2.Follow up with PCP for surgical clearance 3.Review of surgical risks and benefits as well as an educational packet on t he proposed surgical procedure. Risks: All surgical procedures come with inherent risks, including those related to positioning, anesthesia, intraoperative findings, and postoperative complications. It is important to understand that surgery does not come with any guarantee of a successful outcome as complications and adverse events are always possible. The patient was given a handout in office today discussing the surgical procedure and risks associated with the intervention, both of which were discussed with the patient. These risks include but are not limited to the following: * Experiencing same, different or even worse symptoms in back, neck, arms, or legs compared to before surgery. Requiring further surgery or other forms of treatment presently or at some time in the future at same or other levels of the intended spine surgery. On an extreme but fortunately relatively rare basis severe complication such as blindness, stroke, heart attack, temporary and/or permanent nerve injury, paralysis, coma, or may occur, sometimes without known explanation. Surgical complications may include but are not limited to risk of infection, fluid accumulation in the surgical dissection site, including a seroma or hematoma, that requires additional surgery, wound drainage, bleeding, new numbness or weakness, vision changes/loss, spinal fluid leakage, non-healing and/or infected incision, headaches, difficulty or inability to swallow, hoarseness, hemopneumothorax, pneumothorax, impotence, retrograde ejaculation, vaginal dryness; injury to nerves, spinal cord, blood vessels, lymphatics or other vital organs (i.e., bowel injury, injury to the great vessels); heterotopic bone formation; complications related to the hardware such as screws, rods, cages including misplaced hardware, device failure, instrumentation at the wrong spine level, hardware fracture/breakage, or hardware loosening; vertebral failure of the spinal column above or below the newly placed hardware; retained surgical instrumentations or devices and the need for further surgery. * Medical risks of the planned spine surgery include but are not limited to generalized Infections to the whole body or local areas outside of the surgical site (sepsis), heart attack, bleeding, anaphylaxis, meningitis, seizure, epilepsy, hearing loss, burn betts, laceration of the head or other areas of the body, bruising, hypersensitivity of the skin, bladder over distension; allergic reaction; shoulder injury related to positioning; fat, blood and air clots to other areas of the body like heart, lungs, brain; failure of internal organs such as lungs, kidneys, liver and excessive bleeding. If blood transfusions are necessary, note that transfusions may cause intolerance reactions such as anaphylaxis or other complex reactions. Despite best efforts, the results of spine surgery might not heal in terms of bone, soft tissues such as skin, fascia, ligaments, and joints. Additionally, in order to achieve best possible results, spine surgery may be carried out beyond the initially planned levels and involve decompression, fusion including insertion of hardware at levels other than the original intended area of surgical interest change some portions of the procedure in order to ensure the best possible outcomes. With spine surgery and spinal fusion, there are different off label uses of instrumentation (devices, implants and hardware) as well as biological substances (bone morphogenic proteins, demineralized bone matrix) as well as using extra bone from allograft sources (i.e. cadaver bone) or autograft (iliac crest bone, ribs, or the spine itself). The patient has been given information about these practices and their inherent risks and benefits. [facility] is an educational center that serves as a training facility for neurosurgical and orthopedic [employer] and Nursing students. Physician assistants are medically trained surgical providers who function in the outpatient, inpatient, and operating room setting under the direct supervision of the attending surgeon. [facility] has multiple operating rooms with single and overlapping rooms running daily. They currently function under the required guidelines as produced by the Senate Finance Committee with regards to the overlapping rooms and will continue to comply with changes to this policy as they occur. The requirements include and are complied with as follows: (1) the critical portions of the overlapping rooms will not occur at the same time, (2) the attending physician will be physically present during the critical portions of the procedure and immediately available during the entire case, and (3) a back-up attending is designated should the primary attending not be immediately available. The patient has had a chance to review all the listed information, has been given print outs detailing this information, and has had all his/her questions answered to their satisfaction. It was my pleasure to have seen and examined Mr. Colindres. In our visit today we have had a chance to go over my understanding of our patient's current condition, the natural course history without intervention and various interventional options. Questions were invited and answered, and the patient wishes to proceed as outlined above. I have seen and examined the patient for 25 minutes and we have spent more than 50% of the time in repeat and detailed counseling about the patient's condition, its natural course history with out and as much as can be predicted with surgery and re-review of various surgical treatment options. In conclusion, Mr. Colindres requested we proceed with the above suggested surgery and are willing to accept risks and limitations of the suggested surgery as nature of the disease process and our best attempts at treatment for the condition. Thank you again for allowing us to be part of your patient's care. Please don't hesitate to contact me if you have any further questions. Signed and authenticated by: [employer] P:\\\\ppart\\\\[id number]\\\\[id number].[id number] \\d Follow-up: 2 weeks post-op Patient Education: (Informational booklet, instructions, etc) given at today's appointment: Yes .ED:Patient Education: Y Plan at next visit: review progress Medications Reviewed: YES In our visit today Mr. Colindres and I have had a chance to go over my understanding of the patient's current condition, the natural course history without intervention and various interventional options. Questions were invited and answered, and the patient wishes to proceed as outlined above. I will be sure to keep you updated afterMr. Jens returns here for further follow-up. Thank you again for your referral. Please do not hesitate to contact me if you have any further questions. Signed and authenticated by: Stiven Roland Anju Phan [facility] [address], [address] [place] [address] This message is confidential, intended only for the named recipient(s) and may contain information that is privileged or exempt from disclosure under applicable law. If you are not the intended recipient(s), you are notified that the dissemination, distribution or copying of this information is strictly prohibited. If you received this message in error, please notify the sender then delete this message. Patient verbalizes understanding of the information discussed. The above note was initiated by Stiven Quiroga, physician recording assistant health educator for Dr. Stiven Khan. This note has been reviewed by Dr. Khan, who has made his personal changes and impressions for this document. Rx: celecoxib 200 mg capsule, 30, Ref: 1, take 1 capsule (200 mg) by oral route daily # SIGNED BY Stiven Khan (GOO)05/31/2022 07:43AM Past Medical History Past Medical History: COPD, Hypertension, Osteoarthritis (OA), Pneumonia Additional Past Medical History / Comment(s): HEADACHES., HOSPITALIZED WITH PNEUMONIA, COPD AND SEPSIS (OCTOBER 2021)., HX COLON POLYPS, DDD WITH BACK PAIN w/right leg pain & weakness & numbness History of Any Multi-Drug Resistant Organisms: None Reported Past Surgical History: Appendectomy, Heart Catheterization, Tonsillectomy Additional Past Surgical History / Comment(s): JOB REMOVED FROM SHOULDER (CHILD) Past Anesthesia/Blood Transfusion Reactions: No Reported Reaction Smoking Status: Former smoker - Past Family History Mother Family Medical History: Hypertension Additional Family Medical History / Comment(s): pulmonary hypertension - Father Family Medical History: Neurologic Disorder Additional Family Medical History / Comment(s): parkinsons - Medications and Allergies Home Medications Medication Instructions Recorded Confirmed Type Gabapentin 800 mg PO TID 09/23/21 05/30/22 History Acetaminophen/Caffeine [Excedrin 3 each PO BID 05/30/22 05/30/22 History Tension Headache] Albuterol Inhaler [Ventolin Hfa 1 - 2 puff INHALATION Q6H PRN 05/30/22 05/30/22 History Inhaler] Celecoxib [CeleBREX] 200 mg PO DAILY 05/30/22 05/30/22 History Metoprolol Succinate [Metoprolol 25 mg PO DAILY 05/30/22 05/30/22 History Succinate ER] Allergies Allergy/AdvReac Type Severity Reaction Status Date / Time No Known Allergies Allergy Verified 11/21/21 11:04 Physical Examination Osteopathic Statement: *. No significant issues noted on an osteopathic structural exam other than those noted in the History and Physical/Consult.
[~2022-06-06 09:08] MED LIST: ACETAMINOPHEN TAB 500 MG TAB PO PRN; DEXAMETHASONE SOD PHOSPHATE 4 MG/ML 1 ML VIAL IV ONE; GABAPENTIN 300 MG CAP PO PRN; HYDROmorphone 0.5 MG/0.5 ML SYRINGE IVP PRN; ONDANSETRON 4 MG/2 ML VIAL IVP ONE; ONDANSETRON 4 MG/2 ML VIAL IVP PRN; TRANEXAMIC ACID IN NACL,ISO-OS 1,000 MG in SALINE 1 100ML.BAG IVPB PRN
[2022-06-06] MEDS: LACTATED RINGERS 1,000 ML IV SCH ×2 (09:45→11:30)
[2022-06-06 10:11] LABS: Prothrombin Time 10.6 sec (9.0-12.0)
[2022-06-06] MEDS ORDERED: MIDAZOLAM 2 MG/2 ML VIAL IV ONE (10:11)
--- NOTE | 2022-06-06 11:01 | P.ANPRN ---
Procedure Note - Anesthesia - Invasive Line Right Arterial Line Time Out Performed: Yes Date of Procedure: 06/06/22 Time of Procedure: 10:11 Location of Patient: PreOp Preparation: Sterile Prep Arterial Line Location: Radial Ultrasound Used: No Purpose - Visualization and Identification of Vasculature: No Narrative: Central line placement per sterile protocol utilized.
--- NOTE | 2022-06-06 11:02 | P.ANPRN ---
Procedure Note - Anesthesia - Invasive Line Right Central Line Time Out Performed: Yes Date of Procedure: 06/06/22 Location of Patient: PreOp Preparation: Sterile Prep, Sterile Dressing Ultrasound Used: No Purpose - Visualization and Identification of Vasculature: No (RIGHT INT JUGULAR) Narrative: Central line placement per sterile protocol utilized.
--- NOTE | 2022-06-06 11:31 | XR ---
EXAMINATION TYPE: XR chest 1V DATE OF EXAM: 06/06/2022 COMPARISON: 09/25/2021 INDICATION: Line placement TECHNIQUE: Single frontal view of the chest is obtained. FINDINGS: The heart size is normal. The pulmonary vasculature is normal. The lungs are clear. There is placement of a right central venous catheter with tip in the distal superior vena cava regio n. No pneumothorax is evident. IMPRESSION: 1. No pneumothorax post line placement, tip is in the distal superior vena cava region.
--- NOTE | 2022-06-06 11:43 | P.PN ---
Progress Note - Text Progress Note Date: 06/06/22 History and Physical UPDATE I have seen and examined the patient and reviewed the history and physical. There appear to be no significant changes in the patient's current medical status as outlined in the current History and Physical.
[2022-06-06] MEDS ORDERED: GELATIN SPONGE,ABSORBABLE 1 GM POWDER TOPICAL ONE (13:25)
[2022-06-06] MEDS ORDERED: THROMBIN (BOVINE) 5,000 UNIT VIAL TOPICAL ONE (13:25)
[2022-06-06] MEDS ORDERED: TRANEXAMIC ACID IN NACL,ISO-OS 1,000 MG in SALINE 1 100ML.BAG IVPB ONE (13:52)
[2022-06-06] MEDS ORDERED: LACTATED RINGERS 1,000 ML IV ONE ×4 (15:41→17:17)
[2022-06-06] MEDS ORDERED: bisacodyL 10 MG SUPP RECTAL PRN (15:50)
[2022-06-06] MEDS ORDERED: SENNOSIDES-DOCUSATE SODIUM 1 EACH TAB PO PRN (15:50)
[2022-06-06] MEDS ORDERED: MAGNESIUM HYDROXIDE 2,400 MG/10 ML CUP PO PRN (15:50)
[2022-06-06] MEDS ORDERED: ONDANSETRON 4 MG/2 ML VIAL IVP PRN (15:50)
[2022-06-06] MEDS ORDERED: MAG HYDROX/AL HYDROX/SIMETH 30 ML CUP PO PRN (15:50)
[2022-06-06] MEDS ORDERED: NA PHOS,M-B/NA PHOS,DI-BA 133 ML ENEMA RECTAL PRN (15:50)
[2022-06-06] MEDS ORDERED: ceFAZolin 3,000 MG in SODIUM CHLORIDE 0.9% IRRIGATIO 3,000 ML IRRIGATION ONE (16:00)
[2022-06-06 17:48] LABS: HCT 31.7 % (39.0-53.0); HGB 10.3 gm/dL (13.0-17.5); Hypochromasia Slight; MCH 28.7 pg (25.0-35.0); MCHC 32.4 g/dL (31.0-37.0); MCV 88.4 fL (80.0-100.0); Mean Platelet Volume 7.6; Platelet Count 265 k/uL (150-450); RBC 3.58 m/uL (4.30-5.90); RDW 14.9 % (11.5-15.5); WBC 9.6 k/uL (3.8-10.6)
[2022-06-06 19:02] LABS: Glucose,Whole Blood 138 mg/dL (70-110)
[2022-06-06] MEDS: 0.9% NACL WITH KCL 20 MEQ/L 1,000 ML IV SCH (19:43)
[2022-06-06] MEDS: GABAPENTIN 400 MG CAP PO SCH ×2 (19:44→22:58)
[2022-06-06] MEDS: ACETAMINOPHEN TAB 500 MG TAB PO SCH ×3 (20:15→22:58)
[2022-06-06] MEDS: HYDROmorphone 1 MG/ML 1 ML SYRINGE IVP PRN (20:17)
--- NOTE | 2022-06-06 20:45 | P.PN ---
Progress Note - Text Progress Note Date: 06/06/22 brief postop report preop diagnosis: L2 to S1 severe stenosis neurogenic claudication postoperative diagnosis same procedure: L2 to pelvis decompression and fusion surgeon: Erin Assist: Jose anesthesia: GETHo EBL: 2 L fluids: 3200 urine output: 340 complications: None distal: Stable to ICU - plantar postoperative resuscitation with ICU staff and ICU. Fluids and or blood transfusions as needed for vital signs. - Maintain blood pressure and maps 80 overnight - pain control as needed - GI prophylaxis mechanical DVT prophylaxis - Reynolds - will reassess in the morning.
--- NOTE | 2022-06-06 20:59 | FL ---
Intraoperative/procedural fluoroscopic services were provided. Total fluoroscopy time is 1 minute 3 s econds with a total of 0 submitted images to PACS. Please see the operative/procedural note for furth er details.
[2022-06-06] MEDS: HYDROcodone/APAP 10-325MG 1 EACH TAB PO PRN (22:59)
[2022-06-07] MEDS: HYDROmorphone 1 MG/ML 1 ML SYRINGE IVP PRN ×3 (01:15→18:54)
[2022-06-07 04:33] LABS: Basophils % (A) 0 %; Eosinophils % (A) 0 %; HCT 30.4 % (39.0-53.0); HGB 9.8 gm/dL (13.0-17.5); Hypochromasia Slight; Lymphocytes # (A) 1.7 k/uL (1.0-4.8); Lymphocytes % (A) 15 %; MCH 28.5 pg (25.0-35.0); MCHC 32.1 g/dL (31.0-37.0); MCV 88.9 fL (80.0-100.0); Mean Platelet Volume 7.9; Monocytes # (A) 0.5 k/uL (0-1.0); Monocytes % (A) 5 %; Neutrophils # (A) 8.6 k/uL (1.3-7.7); Neutrophils % (A) 79 %; Platelet Count 215 k/uL (150-450); RBC 3.42 m/uL (4.30-5.90); RDW 14.9 % (11.5-15.5)
[2022-06-07 04:48] LABS: African American GFR (CKD) >90 (>60 ml/min/1.73 sqM); Anion Gap 8 mmol/L; Blood Urea Nitrogen 18 mg/dL (9-20); Calcium 7.7 mg/dL (8.4-10.2); Carbon Dioxide 23 mmol/L (22-30); Chloride 106 mmol/L (98-107); Glucose 128 mg/dL (74-99); Non-African American GFR(CKD) 90 (>60 ml/min/1.73 sqM); Potassium 4.6 mmol/L (3.5-5.1); Sodium 137 mmol/L (137-145)
[2022-06-07] MEDS ORDERED: SODIUM CHLORIDE 0.9% 500 ML 500 ML IV ONE (05:08)
[2022-06-07] MEDS: ACETAMINOPHEN TAB 500 MG TAB PO SCH ×4 (05:22→23:09)
[2022-06-07] MEDS: HYDROcodone/APAP 10-325MG 1 EACH TAB PO PRN ×4 (07:03→23:11)
--- NOTE | 2022-06-07 07:52 | P.PN ---
Subjective Progress Note Date: 06/07/22 patient seen and examined using fairly well as morning although he is in some pain. He has been getting pain medications overnight but needs more control. He has not been up yet but states his legs better. He is moving all 4 extremities well. Denies any bowel or bladder issues Chong is in place. Denies any numbness or tingling at this time. Objective - Vital Signs Vital signs: Vital Signs Temp 97.9 F 06/07/22 04:00 Pulse 86 06/07/22 07:00 Resp 13 06/07/22 07:00 BP 115/75 06/07/22 07:00 Pulse Ox 97 06/07/22 07:00 FiO2 Intake & Output 06/06/22 06/07/22 06/07/22 18:59 06:59 18:59 Intake Total 3461 1350 70 Output Total 2300 770 310 Balance 1161 580 -240 Weight 95.3 kg 104.6 kg Intake: IV 3151 1350 70 Lactated Ringers 1,000 ml 750 70 @ 70 mls/hr IV .[id number] [facility] Rx#:[id number] Sodium Chloride 0.9% 500 500 ml 500 ml @ 999 mls/hr IV .Q31M ONE Rx#:[id number] ceFAZolin 2 gm In Sodium 100 Chloride 0.9% 50 ml @ 100 mls/hr IVPB Q8H [facility] Rx#: [id number] Blood Product 310 Rc As-1 Unit 310 [id number] Output: Drainage 270 250 Right Back 270 250 Urine 300 500 60 Estimated Blood Loss 1999 Other: Voiding Method Indwelling Catheter ABP, PAP, CO, CI - Last Documented Arterial Blood Pressure 105/66 - Exam Physical Exam: -Patient is alert and oriented 3 appears well-nourished well-hydrated is in no acute distress. They do not appear septic. -There is TTP About the incision site which is clean and dry dressings are clean and dry with mild spotting [-Incision is CDI, no EEE, no drainage] -Upper extremities show [5] out of 5 strength in all major muscle groups. -Lower extremities with 4+] out of 5 strength in all major muscle groups normal deconditioning postsurgical -There is [FROM] that is [painless] of the b/l UE and LE in all major joints. negative straight leg raise -They are intact to light touch sensation in C5 to T1 and L2 to S1 nerve distribution. -DTR [2]/4 all upper and lower extremities -Patient has palpable distal pulses all 4 ext -Compartments are soft and compressible. -Patient shows a negative Manny's [-Neg Hoffmans b/l] [-Neg Clonus b/l] [-Neg babinski b/l] Cranial nerves II through XII are grossly intact. drain: 580 mL overnight - Labs CBC & Chem 7: 06/07/22 04:24 06/07/22 04:24 Labs: Abnormal Lab Results - Last 24 Hours (Table) 06/02/22 06/06/22 06/06/22 Range/Units 10:53 17:30 19:01 WBC (3.8-10.6) k/uL RBC 3.58 L (4.30-5.90) m/uL Hgb 10.3 L (13.0-17.5) gm/dL Hct 31.7 L (39.0-53.0) % Neutrophils # (1.3-7.7) k/uL Glucose (74-99) mg/dL POC Glucose (mg/dL) 138 H (70-110) mg/dL Calcium (8.4-10.2) mg/dL Crossmatch See Detail 06/07/22 06/07/22 Range/Units 04:24 04:24 WBC 11.0 H (3.8-10.6) k/uL RBC 3.42 L (4.30-5.90) m/uL Hgb 9.8 L (13.0-17.5) gm/dL Hct 30.4 L (39.0-53.0) % Neutrophils # 8.6 H (1.3-7.7) k/uL Glucose 128 H (74-99) mg/dL POC Glucose (mg/dL) (70-110) mg/dL Calcium 7.7 L (8.4-10.2) mg/dL Crossmatch Assessment and Plan Assessment: 66-year-old male postoperative day 1 L2 to pelvis decompression and fusion Plan: -Appreciate educational consultant and team management. -Activity: Ambulate QID, OOB all meals, up and about, limit lifting bending twisting to less than 5 lbs. Use walker or cane if needed for stability. -Daily PT/OT, increase ambulation strength and balance. -[Brace when up and about, not needed in bed or chair] -Pain control: will schedule medications scheduled [place] 2 tabs, schedule gabapentin, schedule Flexeril, -Meds: [reviewed] -GI ppx: senna, Miralax -DC chong when up and about, bedside commode if needed -DVT PPX: [OK to restart Heparin tonight] -Hygiene: Shower today. Maintain dressing clean and dry. Meticulous cleaning after BMs away from incision site -Drains: [Maintain for now. Record output] -Encourage IS 10x/hr -Dispo: [Pending]
[2022-06-07] MEDS: GABAPENTIN 400 MG CAP PO SCH ×3 (08:04→21:00)
[2022-06-07] MEDS: CYCLOBENZAPRINE 10 MG TAB PO PRN (08:05)
[2022-06-07] MEDS ORDERED: HYDROcodone/APAP 10-325MG 1 EACH TAB PO ONE (09:57)
[2022-06-07] MEDS: METOPROLOL SUCCINATE (ER) 25 MG TAB.ER.24H PO SCH (10:01)
--- NOTE | 2022-06-07 11:28 | P.CONS ---
History of Present Illness - Reason for Consult Consult date: 06/06/22 Medical management Requesting physician: Stiven Khan - Chief Complaint Lumbar surgery - History of Present Illness I'm rounding for Dr. Eduard Dominguez This is a 66-year-old patient, follows with Dr. Eduard Dominguez. Patient has undergone lumbar surgery per Dr. Khan. Postprocedure the ICU. Hemovac in place. Post anesthesia patient rather lethargic. Not able to give much of a history. Just about arousable. Does not appear to be in pain. IV fluids. Patient's had chronic low back pain. Review of systems could not be obtained as patient other lethargic p ostprocedure. Past medical history to include: COPD, hypertension, chronic low back pain Social history: Patient smoked for about 54 years 2 packs a day stopped about 3 months ago. Occasionally does marijuana and alcohol. 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 Lives with his . Physical examination: VITAL SIGNS: 96.7, 71, 12, 133/94, 100% on nasal cannula GENERAL: BMI 35.1, lethargic laying in bed. EYES: Pupils equal. Conjunctiva normal. HEENT: [External appearance of nose and ears normal, oral cavity mucous membrane dry. NECK: JVD not raised; masses not palpable. HEART: First and second heart sounds are normal; no edema. LUNGS: Respiratory rate normal; decreased breath sounds. ABDOMEN: Soft, nontender, liver spleen not palpable, no masses palpable. Reynolds catheter. Hemovac PSYCH: Unable to assess patient lethargicl. MUSCULOSKELETAL:No Clubbing/cyanosis;muscles-grossly intact NEUROLOGICAL: Cranial nerves grossly intact; no facial asymmetry, power and sensation grossly intact. LYMPHATICS: No lymph nodes palpable in the axilla and neck INVESTIGATIONS, reviewed in the clinical context: WBC 9.6 hemoglobin 10.3 platelets 265 Previous labs [06/02/2022] Hemoglobin 14.4 potassium 4.9 creatinine 1.0 Assessment and plan: -Lumbar surgery by Dr. Khan. Formal operative report pending. Hemovac in place. -COPD in a smoker Albuterol when necessary -Essential hypertension Metoprolol ER 25 mg a day -Primary osteoarthritis Pain management -Acute postprocedure blood loss anemia expected from surgery IV iron. Ferrous sulfate Resumed medications. Hemovac in place. Patient will need IV iron. Oral ferrous sulfate. Thank you Dr. Khan Past Medical History Past Medical History: COPD, Hypertension, Osteoarthritis (OA), Pneumonia Additional Past Medical History / Comment(s): HEADACHES., HOSPITALIZED WITH PNEUMONIA, COPD AND SEPSIS (OCTOBER 2021)., HX COLON POLYPS, DDD WITH BACK PAIN w/right leg pain & weakness & numbness History of Any Multi-Drug Resistant Organisms: None Reported Past Surgical History: Appendectomy, Heart Catheterization, Tonsillectomy Additional Past Surgical History / Comment(s): JOB REMOVED FROM SHOULDER (CHILD) Past Anesthesia/Blood Transfusion Reactions: No Reported Reaction Smoking Status: Former smoker - Past Family History Mother Family Medical History: Hypertension Additional Family Medical History / Comment(s): pulmonary hypertension - dec eased Father Family Medical History: Neurologic Disorder Additional Family Medical History / Comment(s): parkinsons - Medications and Allergies Home Medications Medication Instructions Recorded Confirmed Type Gabapentin 800 mg PO TID 09/23/21 05/30/22 History Acetaminophen/Caffeine [Excedrin 3 each PO BID 05/30/22 05/30/22 History Tension Headache] Albuterol Inhaler [Ventolin Hfa 1 - 2 puff INHALATION Q6H PRN 05/30/22 05/30/22 History Inhaler] Celecoxib [CeleBREX] 200 mg PO DAILY 05/30/22 05/30/22 History Metoprolol Succinate [Metoprolol 25 mg PO DAILY 05/30/22 05/30/22 History Succinate ER] Allergies Allergy/AdvReac Type Severity Reaction Status Date / Time No Known Allergies Allergy Verified 06/06/22 09:33 Physical Exam Vitals: Vital Signs Temp Pulse Pulse Resp BP BP Pulse Ox 06/06/22 20:30 64 10 L 115/92 100 06/06/22 20:15 125 H 98 06/06/22 20:00 96.5 F L 68 14 137/94 100 06/06/22 10:45 56 L 16 145/83 99 06/06/22 09:44 97.6 F 66 16 147/92 95 Intake and Output 06/06/22 06/06/22 06/06/22 06:59 14:59 22:59 Intake Total 1950 1511 Output Total 2300 Balance 1950 -789 Intake: IV 1950 1201 Blood Product 310 Rc As-1 Unit 310 [id number] Output: Urine 300 Estimated Blood Loss 1999 Other: Weight 95.3 kg ABP, PAP, CO, CI - Last 8 Hours Arterial Blood Pressure 109/54 Arterial Blood Pressure 106/64 Arterial Blood Pressure 116/58 Results CBC & Chem 7: 06/07/22 04:24 06/07/22 04:24 Labs: Abnormal Lab Results - Last 24 Hours (Table) 06/02/22 06/06/22 06/06/22 Range/Units 10:53 17:30 19:01 RBC 3.58 L (4.30-5.90) m/uL Hgb 10.3 L (13.0-17.5) gm/dL Hct 31.7 L (39.0-53.0) % POC Glucose (mg/dL) 138 H (70-110) mg/dL Crossmatch See Detail
[2022-06-07] MEDS: 0.9% NACL WITH KCL 20 MEQ/L 1,000 ML IV SCH (11:31)
--- NOTE | 2022-06-07 11:31 | P.PN ---
Progress Note - Text Progress Note Date: 06/07/22 - Chief Complaint Lumbar surgery I'm rounding for Dr. Eduard Dominguez This is a 66-year-old patient, follows with Dr. Eduard Dominguez. Patient has undergone lumbar surgery per Dr. Khan. Postprocedure the ICU. Hemovac in place. Post anesthesia patient rather lethargic. Not able to give much of a history. Just about arousable. Does not appear to be in pain. IV fluids. Patient's had chronic low back pain. 06/07/2022: ICU. Awake. Pain at the operative site. Hemovac in place. IV Ancef. Did eat a very small amount of breakfast. Reynolds catheter in place. Hasn't been out of bed. Active Medications Acetaminophen (Acetaminophen Tab 500 Mg Tab) 1,000 mg PO Q6HR [facility] Last Admin: 06/07/22 05:22 Dose: 1,000 mg Hydrocodone Bitart/Acetaminophen (Hydrocodone/Apap 10-325mg 1 Each Tab) 1 each PO Q6H PRN PRN Reason: Pain Scale 6 To 8 Last Admin: 06/07/22 07:03 Dose: 1 each Al Hydroxide/Mg Hydroxide (Mag Hydrox/Al Hydrox/Simeth 30 Ml Cup) 30 ml PO Q4HR PRN PRN Reason: Indigestion Bisacodyl (Bisacodyl 10 Mg Supp) 10 mg RECTAL DAILY PRN PRN Reason: Constipation Cyclobenzaprine HCl (Cyclobenzaprine 10 Mg Tab) 10 mg PO TID PRN PRN Reason: Muscle Spasm Last Admin: 06/07/22 08:05 Dose: 10 mg Ferrous Sulfate (Ferrous Sulfate 325 Mg Tab) 325 mg PO BID-W/ME[facility] [place] Gabapentin (Gabapentin 400 Mg Cap) 800 mg PO TID [facility] Last Admin: 06/07/22 08:04 Dose: 800 mg Hydromorphone HCl (Hydromorphone 0.5 Mg/0.5 Ml Syringe) 0.5 mg IVP Q3HR PRN PRN Reason: Pain Scale 4 - 6 Hydromorphone HCl (Hydromorphone 1 Mg/Ml 1 Ml Syringe) 1 mg IVP Q3HR PRN PRN Reason: Pain Scale of 7 - 10 Last Admin: 06/07/22 08:06 Dose: 1 mg Lactated Ringer's (Lactated Ringers) 1,000 mls @ 70 mls/hr IV .[id number] [facility] Last Admin: 06/06/22 11:30 Dose: 200 mls Cefazolin Sodium 2 gm/ Sodium (Chloride) 50 mls @ 100 mls/hr IVPB Q8H [facility]; Protocol Last Admin: 06/07/22 04:27 Dose: 100 mls/hr Potassium Chloride/Sodium Chloride (Ns-Kcl 20 Meq/L Iv Solution) 1,000 mls @ 50 mls/hr IV .Q20H [facility] Last Admin: 06/06/22 19:43 Dose: Not Given Ferric Sodium Gluconate 125 mg (/ Sodium Chloride) 110 mls @ 100 mls/hr IVPB DAILY [facility] Stop: 06/08/22 10:05 Magnesium Hydroxide (Magnesium Hydroxide 2,400 Mg/10 Ml Cup) 2,400 mg PO DAILY PRN PRN Reason: Constipation Metoprolol Succinate (Metoprolol Succinate (Er) 25 Mg Tab.Er.24h) 25 mg PO DAILY [facility] Last Admin: 06/07/22 10:01 Dose: 25 mg Ondansetron HCl (Ondansetron 4 Mg/2 Ml Vial) 4 mg IVP Q8HR PRN PRN Reason: Nausea And Vomiting Oxycodone HCl (Oxycodone Hcl 5 Mg Tab) 5 mg PO Q4HR PRN PRN Reason: Pain Scale 8 to 10 Last Admin: 06/07/22 08:05 Dose: 5 mg Senna/Docusate Sodium (Sennosides-Docusate Sodium 1 Each Tab) 2 each PO DAILY PRN PRN Reason: Constipation Sodium Biphosphate/Sodium Phosphate (Na Phos,M-B/Na Phos,Di-Ba 133 Ml Enema) 133 ml RECTAL DAILY PRN PRN Reason: Constipation Past medical history to include: COPD, hypertension, chronic low back pain Social history: Patient smoked for about 54 years 2 packs a day stopped about 3 months ago. Occasionally does marijuana and alcohol. 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 Lives with his . Physical examination: VITAL SIGNS: 97.9, 89, 13, 115/69, 95% on 2 L GENERAL: Laying in bed, awake, tired EYES: Pupils equal. Conjunctiva normal. HEENT: [External appearance of nose and ears normal, oral cavity mucous membrane dry. NECK: JVD not raised; masses not palpable. HEART: First and second heart sounds are normal; no edema. LUNGS: Respiratory rate normal; decreased breath sounds. ABDOMEN: Soft, nontender, liver spleen not palpable, no masses palpable. Reynolds catheter. PSYCH: Unable to assess patient lethargicl. MUSCULOSKELETAL:No Clubbing/cyanosis;muscles-grossly intact. Hemovac in place. NEUROLOGICAL: Cranial nerves grossly intact; no facial asymmetry, power and sensation grossly intact. INVESTIGATIONS, reviewed in the clinical context: 06/06/2022: White count 11 hemoglobin 9.8 platelets 215 progression 4.6 creatinine 0.85 WBC 9.6 hemoglobin 10.3 platelets 265 Previous labs [06/02/2022] Hemoglobin 14.4 potassium 4.9 creatinine 1.0 Assessment and plan: -Lumbar surgery by Dr. Khan. Formal operative report pending. Hemovac in place. -COPD in a smoker Albuterol when necessary -Mild leukocytosis, likely reactive from blood loss anemia. No clinical evidence of infection. Follow CBC -Essential hypertension Metoprolol ER 25 mg a day -Primary osteoarthritis Pain management -Acute postprocedure blood loss anemia expected from surgery IV iron. Ferrous sulfate Resumed medications. Hemovac in place. Patient will need IV iron. Oral ferrous sulfate. Thank you Dr. Khan
[2022-06-07] MEDS: SODIUM FERRIC GLUCONAT-SUCROSE 125 MG in SODIUM CHLORIDE 0.9% 100 ML IVPB SCH (12:01)
--- NOTE | 2022-06-07 12:53 | CT ---
EXAMINATION TYPE: CT lumbar spine wo con DATE OF EXAM: 06/07/2022 11:21 AM COMPARISON: 08/16/2021 HISTORY: S/P Lumbar fusion CT DLP: 1977 mGycm Automated exposure control for dose reduction was used. Unenhanced CT of the lumbar spine was performed. Bone and soft tissue window settings are submitted as well as coronal and sagittal reconstructions. L1-L2: Mild degenerative disc space narrowing. No evidence for disc herniation or protrusion. No cent ral stenosis. Mild ventral spondylosis. L2-L3: Decompressive laminectomy with pedicular screws in place. Alignment is anatomic. Streak artifa ct limits evaluation. No obvious recurrent or residual disease. L3-L4: Decompressive laminectomy with pedicular screws in place. Intervertebral spacer is well-positi oned. Alignment is anatomic. Streak artifact limits evaluation. No obvious recurrent or residual dise ase. L4-L5: Decompressive laminectomy with pedicular screws in place. Intervertebral spacer is well-positi oned. Alignment is anatomic. Streak artifact limits evaluation. No obvious recurrent or residual dise ase. L5-S1: Decompressive laminectomy with pedicular screws in place. Intervertebral spacer is well-positi oned. Alignment is anatomic. Streak artifact limits evaluation. No obvious recurrent or residual dise ase. No evidence for fracture. Postsurgical soft tissue changes seen. IMPRESSION: Postsurgical changes of decompressive laminectomy and fusion thinning from L2-3 through L5-S1 as disc ussed above. Alignment appears near-anatomic. Postsurgical soft tissue changes seen.
[2022-06-07] MEDS: LACTATED RINGERS 1,000 ML IV SCH (18:54)
[2022-06-08] MEDS: HYDROmorphone 1 MG/ML 1 ML SYRINGE IVP PRN (01:29)
[2022-06-08] MEDS: ACETAMINOPHEN TAB 500 MG TAB PO SCH ×4 (05:26→23:51)
[2022-06-08] MEDS: HYDROcodone/APAP 10-325MG 1 EACH TAB PO PRN (06:34)
[2022-06-08 07:05] LABS: Basophils # (A) 0.1 k/uL (0-0.2); Basophils % (A) 1 %; Eosinophils # (A) 0.4 k/uL (0-0.7); Eosinophils % (A) 4 %; HCT 26.1 % (39.0-53.0); HGB 8.4 gm/dL (13.0-17.5); Hypochromasia Moderate; Lymphocytes # (A) 1.7 k/uL (1.0-4.8); Lymphocytes % (A) 17 %; MCHC 32.2 g/dL (31.0-37.0); Mean Platelet Volume 7.4; Monocytes # (A) 0.6 k/uL (0-1.0); Monocytes % (A) 6 %; Neutrophils # (A) 7.1 k/uL (1.3-7.7); Neutrophils % (A) 72 %; Platelet Count 140 k/uL (150-450); RDW 14.8 % (11.5-15.5)
[2022-06-08] MEDS: 0.9% NACL WITH KCL 20 MEQ/L 1,000 ML IV SCH (07:57)
[2022-06-08] MEDS: SODIUM FERRIC GLUCONAT-SUCROSE 125 MG in SODIUM CHLORIDE 0.9% 100 ML IVPB SCH (08:28)
[2022-06-08] MEDS: GABAPENTIN 400 MG CAP PO SCH ×3 (08:28→22:25)
[2022-06-08] MEDS: CYCLOBENZAPRINE 10 MG TAB PO PRN ×2 (11:41→22:25)
[2022-06-08] MEDS: METOPROLOL SUCCINATE (ER) 25 MG TAB.ER.24H PO SCH ×2 (11:42→12:18)
--- NOTE | 2022-06-08 14:36 | P.PN ---
Subjective Progress Note Date: 06/08/22 Principal diagnosis: 1. lumbar spondylosis L2-S1 severe 2. severe lumbar stenosis 3. neurogenic claudication Patient was seen at bedside this morning resting comfortably in the semirecumbent position. Patient says she did get up with physical therapy and sat in the chair. Drain is in place currently and dressing is present on lumbar spine. Patient says he has not had bowel area, however, patient says she has been passing gas. Patient denies chest pain, fever, Shortness of breath, nausea, Change in vision, loss of bowel/bladder control. Objective - Vital Signs Vital signs: Vital Signs Temp 98.1 F 06/08/22 08:00 Pulse 82 06/08/22 09:00 Resp 9 L 06/08/22 09:00 BP 107/63 06/08/22 09:00 Pulse Ox 95 06/08/22 09:00 FiO2 Intake & Output 06/07/22 06/08/22 06/08/22 18:59 06:59 18:59 Intake Total 960 940 210 Output Total 820 845 120 Balance 140 95 90 Weight 106.3 kg Intake: IV 960 940 210 Lactated Ringers 1,000 ml 910 840 210 @ 70 mls/hr IV .[id number] [facility] Rx#:[id number] ceFAZolin 2 gm In Sodium 50 100 Chloride 0.9% 50 ml @ 100 mls/hr IVPB Q8H [facility] Rx#: [id number] Output: Drainage 250 380 120 Right Back 250 380 120 Urine 570 465 Other: Voiding Method Indwelling Catheter Indwelling Catheter Indwelling Catheter ABP, PAP, CO, CI - Last Documented Arterial Blood Pressure 93/61 - Exam Silver foam dressing is present over the lumbar spine this time. Drain is in place. There has been a moderate amount of serosanguineous output to drain. We will maintain drain for now. Drain may be moved to gravity. Sensation is intact bilaterally in upper and lower extremities. Patient does have some moderate tenderness to the patient along the incision. Nontender to palpation throughout rest of exam. Patient does have decent range of motion in bilateral upper and lower extremities. Motor exam 4+/5 in all major motor groups. Negative Callie bilaterally. Negative clonus bilaterally. Negative Homans bilaterally. Cap refill is under 3 seconds in digits the upper extremities. Radial pulses intact, 2+ bilaterally - Labs CBC & Chem 7: 06/08/22 06:24 06/07/22 04:24 Labs: Abnormal Lab Results - Last 24 Hours (Table) 06/02/22 06/08/22 Range/Units 10:53 06:24 RBC 2.90 L (4.30-5.90) m/uL Hgb 8.4 L (13.0-17.5) gm/dL Hct 26.1 L (39.0-53.0) % Plt Count 140 L (150-450) k/uL Crossmatch See Detail Assessment and Plan Assessment: 1. lumbar spondylosis L2-S1 severe; severe lumbar stenosis; neurogenic claudication - Postop day #2 status post [id number] decompression and posterolateral interbody fusion Plan: 1. lumbar spondylosis L2-S1 severe; severe lumbar stenosis; neurogenic claudication - surgery performed 06/06/2022 - [id number] decompression and posterolateral interbody fusion. Patient stable at bedside this afternoon. Dressing in place over lumbar spine. Maintain drain for now. Patient is to be transferred from ICU to surgical floor later today. Drain may be removed to gravity. We'll continue to follow patient during his stay in hospital. 2. Appreciate medical management 3. Pain management - OxyIR; [place]; Flexeril; gabapentin 4. DVT prophylaxis - mechanical 5. GI prophylaxis - senna; Maalox; Dulcolax 6. PT/OT - weightbearing as tolerated with walker and brace on at all times while up and about 7. Encourage incentive spirometer use 8. Discharge planning - pending Time with Patient: Less than 30
[2022-06-08 14:38] LABS: HCT 25.4 % (39.0-53.0); HGB 8.1 gm/dL (13.0-17.5); Hypochromasia Slight; MCH 28.7 pg (25.0-35.0); MCHC 31.9 g/dL (31.0-37.0); Mean Platelet Volume 7.6; Platelet Count 164 k/uL (150-450); RBC 2.82 m/uL (4.30-5.90); RDW 15.1 % (11.5-15.5); WBC 10.7 k/uL (3.8-10.6)
[2022-06-08] MEDS: HYDROmorphone 0.5 MG/0.5 ML SYRINGE IVP PRN ×3 (16:16→23:48)
[2022-06-08] MEDS: FERROUS SULFATE 325 MG TAB PO SCH (16:16)
--- NOTE | 2022-06-08 17:08 | P.PN ---
Progress Note - Text Progress Note Date: 06/08/22 - Chief Complaint Lumbar surgery I'm rounding for Dr. Eduard Dominguez This is a 66-year-old patient, follows with Dr. Eduard Dominguez. Patient has undergone lumbar surgery per Dr. Khan. Postprocedure the ICU. Hemovac in place. Post anesthesia patient rather lethargic. Not able to give much of a history. Just about arousable. Does not appear to be in pain. IV fluids. Patient's had chronic low back pain. 06/07/2022: ICU. Awake. Pain at the operative site. Hemovac in place. IV Ancef. Did eat a very small amount of breakfast. Reynolds catheter in place. Hasn't been out of bed. 06/08/2022: Overflow in the ICU. More awake. Some pain at the operative site. Hemovac in place. Putting on about 200 mL a shift. Appetite better but still low. Reynolds catheter removed this morning. Slight flatus. Did walk in the hallway. Active Medications Acetaminophen (Acetaminophen Tab 500 Mg Tab) 1,000 mg PO Q6HR [facility] Last Admin: 06/08/22 11:41 Dose: 1,000 mg Hydrocodone Bitart/Acetaminophen (Hydrocodone/Apap 10-325mg 1 Each Tab) 1 each PO Q6H PRN PRN Reason: Pain Scale 6 To 8 Last Admin: 06/08/22 06:34 Dose: 1 each Al Hydroxide/Mg Hydroxide (Mag Hydrox/Al Hydrox/Simeth 30 Ml Cup) 30 ml PO Q4HR PRN PRN Reason: Indigestion Bisacodyl (Bisacodyl 10 Mg Supp) 10 mg RECTAL DAILY PRN PRN Reason: Constipation Cyclobenzaprine HCl (Cyclobenzaprine 10 Mg Tab) 10 mg PO TID PRN PRN Reason: Muscle Spasm Last Admin: 06/08/22 11:41 Dose: 10 mg Ferrous Sulfate (Ferrous Sulfate 325 Mg Tab) 325 mg PO BID-W/MEALS [facility] Last Admin: 06/08/22 16:16 Dose: 325 mg Gabapentin (Gabapentin 400 Mg Cap) 800 mg PO TID [facility] Last Admin: 06/08/22 16:15 Dose: 800 mg Hydromorphone HCl (Hydromorphone 0.5 Mg/0.5 Ml Syringe) 0.5 mg IVP Q3HR PRN PRN Reason: Pain Scale 4 - 6 Last Admin: 06/08/22 16:16 Dose: 0.5 mg Hydromorphone HCl (Hydromorphone 1 Mg/Ml 1 Ml Syringe) 1 mg IVP Q3HR PRN PRN Reason: Pain Scale of 7 - 10 Last Admin: 06/08/22 01:29 Dose: 1 mg Cefazolin Sodium 2 gm/ Sodium (Chloride) 50 mls @ 100 mls/hr IVPB Q8H [facility]; Protocol Last Admin: 06/08/22 14:10 Dose: 100 mls/hr Magnesium Hydroxide (Magnesium Hydroxide 2,400 Mg/10 Ml Cup) 2,400 mg PO DAILY PRN PRN Reason: Constipation Metoprolol Succinate (Metoprolol Succinate (Er) 25 Mg Tab.Er.24h) 25 mg PO DAILY [facility] Last Admin: 06/08/22 12:18 Dose: Not Given Ondansetron HCl (Ondansetron 4 Mg/2 Ml Vial) 4 mg IVP Q8HR PRN PRN Reason: Nausea And Vomiting Oxycodone HCl (Oxycodone Hcl 5 Mg Tab) 5 mg PO Q4HR PRN PRN Reason: Pain Scale 8 to 10 Last Admin: 06/08/22 11:41 Dose: 5 mg Senna/Docusate Sodium (Sennosides-Docusate Sodium 1 Each Tab) 2 each PO DAILY PRN PRN Reason: Constipation Sodium Biphosphate/Sodium Phosphate (Na Phos,M-B/Na Phos,Di-Ba 133 Ml Enema) 133 ml RECTAL DAILY PRN PRN Reason: Constipation Past medical history to include: COPD, hypertension, chronic low back pain Social history: Patient smoked for about 54 years 2 packs a day stopped about 3 months ago. Occasionally does marijuana and alcohol. 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 Lives with his . Physical examination: VITAL SIGNS: 98.1, 73, 18, 98/62, 95% on 2 L GENERAL: Laying in bed, awake, less tired EYES: Pupils equal. Conjunctiva normal. HEENT: [External appearance of nose and ears normal, oral cavity mucous membrane dry. NECK: JVD not raised; masses not palpable. HEART: First and second heart sounds are normal; no edema. LUNGS: Respiratory rate normal; decreased breath sounds. ABDOMEN: Soft, nontender, liver spleen not palpable, no masses palpable. PSYCH: Unable to assess patient lethargicl. MUSCULOSKELETAL:No Clubbing/cyanosis;muscles-grossly intact. Hemovac in place. NEUROLOGICAL: Patient did walk in the hallway INVESTIGATIONS, reviewed in the clinical context: 06/08/2022: Hemoglobin 8.1 06/07/2022: White count 11 hemoglobin 9.8 platelets 215 progression 4.6 creatinine 0.85 WBC 9.6 hemoglobin 10.3 platelets 265 Previous labs [06/02/2022] Hemoglobin 14.4 potassium 4.9 creatinine 1.0 Assessment and plan: -Lumbar surgery by Dr. Khan. Formal operative report pending. Hemovac in place. -COPD in a smoker Albuterol when necessary -Mild leukocytosis, likely reactive from blood loss anemia. No clinical evidence of infection. Follow CBC -Essential hypertension, currently blood pressure running low because of blood loss anemia Hold Metoprolol ER 25 mg a day -Primary osteoarthritis Pain management -Acute postprocedure blood loss anemia expected from surgery IV iron. Ferrous sulfate Hemovac in place. Further drop in hemoglobin. Hold Toprol-XL. Repeat CBC in the morning. Activity as tolerated. We'll follow along with you, Dr. Khan
[2022-06-09] MEDS: HYDROmorphone 0.5 MG/0.5 ML SYRINGE IVP PRN ×2 (02:52→06:56)
[2022-06-09] MEDS: ACETAMINOPHEN TAB 500 MG TAB PO SCH ×4 (04:59→23:42)
[2022-06-09 06:28] LABS: Basophils % (A) 0 %; Eosinophils # (A) 0.4 k/uL (0-0.7); Eosinophils % (A) 5 %; HCT 24.6 % (39.0-53.0); HGB 7.9 gm/dL (13.0-17.5); Hypochromasia Slight; Lymphocytes # (A) 1.5 k/uL (1.0-4.8); Lymphocytes % (A) 15 %; MCH 28.8 pg (25.0-35.0); MCHC 32.1 g/dL (31.0-37.0); MCV 89.9 fL (80.0-100.0); Mean Platelet Volume 7.3; Monocytes # (A) 0.4 k/uL (0-1.0); Monocytes % (A) 4 %; Neutrophils # (A) 7.3 k/uL (1.3-7.7); Neutrophils % (A) 74 %; Platelet Count 177 k/uL (150-450); RBC 2.74 m/uL (4.30-5.90); RDW 14.9 % (11.5-15.5); WBC 9.9 k/uL (3.8-10.6)
[2022-06-09 06:41] LABS: African American GFR (CKD) >90 (>60 ml/min/1.73 sqM); Anion Gap 4 mmol/L; Blood Urea Nitrogen 12 mg/dL (9-20); Calcium 7.5 mg/dL (8.4-10.2); Carbon Dioxide 27 mmol/L (22-30); Chloride 104 mmol/L (98-107); Glucose 119 mg/dL (74-99); Non-African American GFR(CKD) >90 (>60 ml/min/1.73 sqM); Potassium 3.6 mmol/L (3.5-5.1); Sodium 135 mmol/L (137-145)
[2022-06-09] MEDS: FERROUS SULFATE 325 MG TAB PO SCH ×2 (08:45→17:04)
[2022-06-09] MEDS: GABAPENTIN 400 MG CAP PO SCH ×3 (08:45→21:42)
[2022-06-09] MEDS: METOPROLOL SUCCINATE (ER) 25 MG TAB.ER.24H PO SCH (08:57)
[2022-06-09] MEDS: HYDROcodone/APAP 10-325MG 1 EACH TAB PO PRN ×2 (09:11→16:06)
[2022-06-09] MEDS: CYCLOBENZAPRINE 10 MG TAB PO PRN ×2 (09:12→17:03)
--- NOTE | 2022-06-09 10:59 | P.PN ---
Subjective Progress Note Date: 06/09/22 Principal diagnosis: 1. lumbar spondylosis L2-S1 severe 2. severe lumbar stenosis 3. neurogenic claudication Patient was seen at bedside this morning sitting up in chair. Patient says he did walk with physical therapy earlier this morning. Patient says he was able to walk down the hallway and all away down to the nurse's station and back. Patient says his pain medication is not then helping control his pain very much. Patient says he did have less pain when he is walking with therapy and now that he is sitting in a chair as pain has seemed to increase. Patient does have a back brace he uses. Drain is in place currently. Patient says he has not had bowel movement yet, however, patient says he has been passing gas. Patient denies chest pain, fever, shortness of breath, nausea, vomiting, change in vision, loss of bowel/bladder control. Objective - Vital Signs Vital signs: Vital Signs Temp 96.2 F L 06/09/22 08:09 Pulse 82 06/09/22 08:09 Resp 14 06/09/22 08:09 BP 119/66 06/09/22 08:09 Pulse Ox 92 L 06/09/22 05:11 FiO2 Intake & Output 06/08/22 06/09/22 06/09/22 18:59 06:59 18:59 Intake Total 620 550 Output Total 750 600 Balance -130 -50 Intake: IV 260 50 Lactated Ringers 1,000 ml 210 @ 70 mls/hr IV .[id number] [facility] Rx#:[id number] ceFAZolin 2 gm In Sodium 50 50 Chloride 0.9% 50 ml @ 100 mls/hr IVPB Q8H [facility] Rx#: [id number] Oral 360 500 Output: Drainage 250 100 Right Back 250 100 Urine 500 500 Other: Voiding Method Indwelling Catheter Urinal ABP, PAP, CO, CI - Last Documented Arterial Blood Pressure 93/61 - Exam Silver foam dressing was removed from incision. Negative for any fluctuance/purulence. Ayer appear to be well aligned in good place at this time. New silver foam dressing was placed over incision. We will maintain drain for now. Drain to be kept to gravity. Sensation is intact bilaterally in upper and lower extremities. Patient does have some moderate tenderness to the patient along the incision. Nontender to palpation throughout rest of exam. Patient does have decent range of motion in bilateral upper and lower extremities. Motor exam 4+/5 in all major motor groups. Negative Callie bilaterally. Negative clonus bilaterally. Negative Homans bilaterally. Cap refill is under 3 seconds in digits the upper extremities. Radial pulses intact, 2+ bilaterally - Labs CBC & Chem 7: 06/09/22 05:48 06/09/22 05:48 Labs: Abnormal Lab Results - Last 24 Hours (Table) 06/08/22 06/09/22 06/09/22 Range/Units 14:27 05:48 05:48 WBC 10.7 H (3.8-10.6) k/uL RBC 2.82 L 2.74 L (4.30-5.90) m/uL Hgb 8.1 L 7.9 L (13.0-17.5) gm/dL Hct 25.4 L 24.6 L (39.0-53.0) % Sodium 135 L (137-145) mmol/L Glucose 119 H (74-99) mg/dL Calcium 7.5 L (8.4-10.2) mg/dL Assessment and Plan Assessment: 1. lumbar spondylosis L2-S1 severe; severe lumbar stenosis; neurogenic claudication - Postop day #3 status post [id number] decompression and posterolateral interbody fusion Plan: 1. lumbar spondylosis L2-S1 severe; severe lumbar stenosis; neurogenic claudication - surgery performed 06/06/2022 - [id number] decompression and posterolateral interbody fusion. Patient stable at bedside this morning. Surgical dressing was removed. Incision appears be healing well at this time. Ayer are well aligned. Negative for any fluctuance/purulence. New silicone dressing was placed over incision. We'll maintain drain for now. Drain will be kept at gravity. 100 ml overnight. Possible removal of drain tmrw. We will just some of the pain medications. We'll continue to follow patient during his stay in hospital. 2. Appreciate medical management 3. Pain management - OxyIR; [place]; Flexeril; gabapentin 4. DVT prophylaxis - mechanical 5. GI prophylaxis - senna; Maalox; Dulcolax 6. PT/OT - weightbearing as tolerated with walker and brace on at all times while up and about 7. Encourage incentive spirometer use 8. Discharge planning - Sunday vs Sunday home with health services Time with Patient: Less than 30
[2022-06-09] MEDS: HYDROmorphone 1 MG/ML 1 ML SYRINGE IVP PRN ×3 (12:06→23:43)
--- NOTE | 2022-06-09 16:53 | P.PN ---
Progress Note - Text Progress Note Date: 06/09/22 - Chief Complaint Lumbar surgery I'm rounding for Dr. Eduard Dominguez This is a 66-year-old patient, follows with Dr. Eduard Dominguez. Patient has undergone lumbar surgery per Dr. Khan. Postprocedure the ICU. Hemovac in place. Post anesthesia patient rather lethargic. Not able to give much of a history. Just about arousable. Does not appear to be in pain. IV fluids. Patient's had chronic low back pain. 06/07/2022: ICU. Awake. Pain at the operative site. Hemovac in place. IV Ancef. Did eat a very small amount of breakfast. Reynolds catheter in place. Hasn't been out of bed. 06/08/2022: Overflow in the ICU. More awake. Some pain at the operative site. Hemovac in place. Putting on about 200 mL a shift. Appetite better but still low. Reynolds catheter removed this morning. Slight flatus. Did walk in the hallway. 06/09/2022: Sitting up in a chair. Did walk in the hallway. No BM. Eating better. pain at the operative site. Active Medications Acetaminophen (Acetaminophen Tab 500 Mg Tab) 1,000 mg PO Q6HR [facility] Last Admin: 06/09/22 12:07 Dose: 1,000 mg Hydrocodone Bitart/Acetaminophen (Hydrocodone/Apap 10-325mg 1 Each Tab) 1 each PO Q4H PRN PRN Reason: Pain Scale 6 To 8 Last Admin: 06/09/22 16:06 Dose: 1 each Al Hydroxide/Mg Hydroxide (Mag Hydrox/Al Hydrox/Simeth 30 Ml Cup) 30 ml PO Q4HR PRN PRN Reason: Indigestion Bisacodyl (Bisacodyl 10 Mg Supp) 10 mg RECTAL DAILY PRN PRN Reason: Constipation Cyclobenzaprine HCl (Cyclobenzaprine 10 Mg Tab) 10 mg PO TID PRN PRN Reason: Muscle Spasm Last Admin: 06/09/22 09:12 Dose: 10 mg Ferrous Sulfate (Ferrous Sulfate 325 Mg Tab) 325 mg PO BID-W/MEALS [facility] Last Admin: 06/09/22 08:45 Dose: 325 mg Gabapentin (Gabapentin 400 Mg Cap) 800 mg PO TID [facility] Last Admin: 06/09/22 16:05 Dose: 800 mg Hydromorphone HCl (Hydromorphone 0.5 Mg/0.5 Ml Syringe) 0.5 mg IVP Q3HR PRN PRN Reason: Pain Scale 4 - 6 Last Admin: 06/09/22 06:56 Dose: 0.5 mg Hydromorphone HCl (Hydromorphone 1 Mg/Ml 1 Ml Syringe) 1 mg IVP Q3HR PRN PRN Reason: Pain Scale of 7 - 10 Last Admin: 06/09/22 12:06 Dose: 1 mg Cefazolin Sodium 2 gm/ Sodium (Chloride) 50 mls @ 100 mls/hr IVPB Q8H [facility]; Protocol Last Admin: 06/09/22 12:06 Dose: 100 mls/hr Magnesium Hydroxide (Magnesium Hydroxide 2,400 Mg/10 Ml Cup) 2,400 mg PO DAILY PRN PRN Reason: Constipation Metoprolol Succinate (Metoprolol Succinate (Er) 25 Mg Tab.Er.24h) 25 mg PO JANEL LY [facility] Last Admin: 06/09/22 08:57 Dose: 25 mg Ondansetron HCl (Ondansetron 4 Mg/2 Ml Vial) 4 mg IVP Q8HR PRN PRN Reason: Nausea And Vomiting Oxycodone HCl (Oxycodone Hcl 5 Mg Tab) 7.5 mg PO Q4HR PRN PRN Reason: Pain Scale 8 to 10 Last Admin: 06/09/22 11:13 Dose: 7.5 mg Senna/Docusate Sodium (Sennosides-Docusate Sodium 1 Each Tab) 2 each PO DAILY PRN PRN Reason: Constipation Sodium Biphosphate/Sodium Phosphate (Na Phos,M-B/Na Phos,Di-Ba 133 Ml Enema) 133 ml RECTAL DAILY PRN PRN Reason: Constipation Past medical history to include: COPD, hypertension, chronic low back pain Social history: Patient smoked for about 54 years 2 packs a day stopped about 3 months ago. Occasionally does marijuana and alcohol. 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 Lives with his . Physical examination: VITAL SIGNS: 96.2, 82, 14, 11 9 x 66, 92% on 2 L GENERAL: Sitting up in a chair, more comfortable EYES: Pupils equal. Conjunctiva normal. HEENT: [External appearance of nose and ears normal, oral cavity mucous membrane dry. NECK: JVD not raised; masses not palpable. HEART: First and second heart sounds are normal; no edema. LUNGS: Respiratory rate normal; decreased breath sounds. ABDOMEN: Soft, nontender, liver spleen not palpable, no masses palpable. PSYCH: Unable to assess patient lethargicl. MUSCULOSKELETAL:No Clubbing/cyanosis;muscles-grossly intact. Hemovac in place. NEUROLOGICAL: Patient did walk in the hallway INVESTIGATIONS, reviewed in the clinical context: 06/09/2022: Hemoglobin 7.9 date is 177 potassium 2.6 creatinine 0.76 06/08/2022: Hemoglobin 8.1 06/07/2022: White count 11 hemoglobin 9.8 platelets 215 progression 4.6 creatinine 0.85 WBC 9.6 hemoglobin 10.3 platelets 265 Previous labs [06/02/2022] Hemoglobin 14.4 potassium 4.9 creatinine 1.0 Assessment and plan: -Lumbar surgery by Dr. Khan. Formal operative report pending. Hemovac in place. Ambulated in the hallway. -COPD in a smoker Albuterol when necessary -Mild leukocytosis, likely reactive from blood loss anemia. No clinical evidence of infection. Follow CBC -Essential hypertension, currently blood pressure running low because of blood loss anemia Hold Metoprolol ER 25 mg a day. Resume when systolic blood pressure above 120 -Primary osteoarthritis Pain management -Acute postprocedure blood loss anemia expected from surgery IV iron. Ferrous sulfate Hemovac in place. Hold Toprol-XL. Increase activity as tolerated. We'll follow along with you, Dr. Khan
[2022-06-10] MEDS: GABAPENTIN 400 MG CAP PO SCH ×3 (10:13→21:16)
[2022-06-10] MEDS: METOPROLOL SUCCINATE (ER) 25 MG TAB.ER.24H PO SCH (10:13)
[2022-06-10] MEDS: ACETAMINOPHEN TAB 500 MG TAB PO SCH ×3 (10:13→17:34)
[2022-06-10] MEDS: FERROUS SULFATE 325 MG TAB PO SCH ×2 (10:13→17:34)
[2022-06-10] MEDS: HYDROmorphone 1 MG/ML 1 ML SYRINGE IVP PRN (12:53)
--- NOTE | 2022-06-10 14:09 | P.PN ---
Subjective Progress Note Date: 06/10/22 Principal diagnosis: 1. lumbar spondylosis L2-S1 severe 2. severe lumbar stenosis 3. neurogenic claudication Patient was seen at bedside this morning lying semirecumbent in bed. Patient says he did walk with physical therapy yesterday morning. Patient says he was able to walk down the hallway and down to the nurse's station and back. Patient says his pain medication is not then helping control his pain very much. Patient does have a back brace he uses. Drain was removed at bedside this morning. Patient says he has not had bowel movement yet, however, patient says he has been passing gas. Patient denies chest pain, fever, shortness of breath, nausea, vomiting, change in vision, loss of bowel/bladder control. Objective - Vital Signs Vital signs: Vital Signs Temp 97.9 F 06/10/22 11:58 Pulse 93 06/10/22 11:58 Resp 18 06/10/22 11:58 BP 113/74 06/10/22 11:58 Pulse Ox 95 06/10/22 11:58 FiO2 Intake & Output 06/09/22 06/10/22 06/10/22 18:59 06:59 18:59 Output Total 170 Balance -170 Output: Drainage 170 Right Back 170 Other: Voiding Method Urinal Urinal Urinal # Voids 3 ABP, PAP, CO, CI - Last Documented Arterial Blood Pressure 93/61 - Exam Silver foam dressing is over incision. there is some spotting present. Drain removed at bedisde this morning. Minimal serosanguineous output. Sensation is intact bilaterally in upper and lower extremities. Patient does have some moderate tenderness to the patient along the incision. Nontender to palpation throughout rest of exam. Patient does have decent range of motion in bilateral upper and lower extremities. Motor exam 4+/5 in all major motor groups. Negative Callie bilaterally. Negative clonus bilaterally. Negative Homans bilaterally. Cap refill is under 3 seconds in digits the upper extremities. Radial pulses intact, 2+ bilaterally - Labs CBC & Chem 7: 06/09/22 05:48 06/09/22 05:48 Assessment and Plan Assessment: 1. lumbar spondylosis L2-S1 severe; severe lumbar stenosis; neurogenic claudication - Postop day #4 status post [id number] decompression and posterolateral interbody fusion Plan: 1. lumbar spondylosis L2-S1 severe; severe lumbar stenosis; neurogenic claudication - surgery performed 06/06/2022 - [id number] decompression and posterolateral interbody fusion. Patient stable at bedside this morning. Dressign in place over incision. Drain removed at bedside this morning. Minimal serosanguineous output. We'll continue to follow patient during his stay in hospital. Plan for discharge home with health services tmrw, Sunday06/11/2022 vs Sunday06/12/2022. 2. Appreciate medical management 3. Pain management - OxyIR; [place]; Flexeril; gabapentin 4. DVT prophylaxis - mechanical 5. GI prophylaxis - senna; Maalox; Dulcolax 6. PT/OT - weightbearing as tolerated with walker and brace on at all times while up and about 7. Encourage incentive spirometer use 8. Discharge planning - Sunday vs Sunday home with health services Time with Patient: Less than 30
[2022-06-10] MEDS ORDERED: LACTULOSE 20 GM/30 ML CUP PO ONE (15:05)
[2022-06-10] MEDS: PSYLLIUM HUSK 100% 6 GM PACKET PO SCH (15:19)
[2022-06-10] MEDS: CYCLOBENZAPRINE 10 MG TAB PO PRN (15:19)
[2022-06-10] MEDS: SODIUM CHLORIDE 0.9% 1,000 ML IV SCH (17:53)
--- NOTE | 2022-06-10 18:37 | P.PN ---
Progress Note - Text Progress Note Date: 06/10/22 - Chief Complaint Lumbar surgery I'm rounding for Dr. Eduard Dominguez This is a 66-year-old patient, follows with Dr. Eduard Dominguez. Patient has undergone lumbar surgery per Dr. Khan. Postprocedure the ICU. Hemovac in place. Post anesthesia patient rather lethargic. Not able to give much of a history. Just about arousable. Does not appear to be in pain. IV fluids. Patient's had chronic low back pain. 06/07/2022: ICU. Awake. Pain at the operative site. Hemovac in place. IV Ancef. Did eat a very small amount of breakfast. Reynolds catheter in place. Hasn't been out of bed. 06/08/2022: Overflow in the ICU. More awake. Some pain at the operative site. Hemovac in place. Putting on about 200 mL a shift. Appetite better but still low. Reynolds catheter removed this morning. Slight flatus. Did walk in the hallway. 06/09/2022: Sitting up in a chair. Did walk in the hallway. No BM. Eating better. pain at the operative site. 06/10/2022: Salt the patient this morning. Sitting up in a chair. He tolerated his diet. No BM. Metamucil and lactulose ordered. Did ambulate. Patient has a brace. Computers were down earlier. I did the patient picked up a fever. UA with culture, blood culture, chest x-ray ordered. Active Medications Acetaminophen (Acetaminophen Tab 500 Mg Tab) 1,000 mg PO Q6HR [facility] Last Admin: 06/10/22 17:34 Dose: 1,000 mg Hydrocodone Bitart/Acetaminophen (Hydrocodone/Apap 10-325mg 1 Each Tab) 1 each PO Q4H PRN PRN Reason: Pain Scale 6 To 8 Last Admin: 06/09/22 16:06 Dose: 1 each Al Hydroxide/Mg Hydroxide (Mag Hydrox/Al Hydrox/Simeth 30 Ml Cup) 30 ml PO Q4HR PRN PRN Reason: Indigestion Bisacodyl (Bisacodyl 10 Mg Supp) 10 mg RECTAL DAILY PRN PRN Reason: Constipation Cyclobenzaprine HCl (Cyclobenzaprine 10 Mg Tab) 10 mg PO TID PRN PRN Reason: Muscle Spasm Last Admin: 06/10/22 15:19 Dose: 10 mg Ferrous Sulfate (Ferrous Sulfate 325 Mg Tab) 325 mg PO BID-W/MEALS [facility] TO [facility] Last Admin: 06/10/22 17:34 Dose: 325 mg Gabapentin (Gabapentin 400 Mg Cap) 800 mg PO TID [facility] Last Admin: 06/10/22 15:19 Dose: 800 mg Hydromorphone HCl (Hydromorphone 0.5 Mg/0.5 Ml Syringe) 0.5 mg IVP Q3HR PRN PRN Reason: Pain Scale 4 - 6 Last Admin: 06/09/22 06:56 Dose: 0.5 mg Hydromorphone HCl (Hydromorphone 1 Mg/Ml 1 Ml Syringe) 1 mg IVP Q3HR PRN PRN Reason: Pain Scale of 7 - 10 Last Admin: 06/10/22 12:53 Dose: 1 mg Cefazolin Sodium 2 gm/ Sodium (Chloride) 50 mls @ 100 mls/hr IVPB Q8H [facility]; Protocol Last Admin: 06/10/22 12:53 Dose: 100 mls/hr Sodium Chloride (Saline 0.9%) 1,000 mls @ 100 mls/hr IV .Q10H [facility] Last Admin: 06/10/22 17:53 Dose: 100 mls/hr Magnesium Hydroxide (Magnesium Hydroxide 2,400 Mg/10 Ml Cup) 2,400 mg PO DAILY PRN PRN Reason: Constipation Metoprolol Succinate (Metoprolol Succinate (Er) 25 Mg Tab.Er.24h) 25 mg PO DAILY [facility] Last Admin: 06/10/22 10:13 Dose: Not Given Ondansetron HCl (Ondansetron 4 Mg/2 Ml Vial) 4 mg IVP Q8HR PRN PRN Reason: Nausea And Vomiting Oxycodone HCl (Oxycodone Hcl 5 Mg Tab) 7.5 mg PO Q4HR PRN PRN Reason: Pain Scale 8 to 10 Last Admin: 06/09/22 21:42 Dose: 7.5 mg Psyllium Hydrophilic Mucilloid (Psyllium Husk 100% 6 Gm Packet) 6 gm PO DAILY [facility] Last Admin: 06/10/22 15:19 Dose: 6 gm Senna/Docusate Sodium (Sennosides-Docusate Sodium 1 Each Tab) 2 each PO DAILY PRN PRN Reason: Constipation Sodium Biphosphate/Sodium Phosphate (Na Phos,M-B/Na Phos,Di-Ba 133 Ml Enema) 133 ml RECTAL DAILY PRN PRN Reason: Constipation Past medical history to include: COPD, hypertension, chronic low back pain Social history: Patient smoked for about 54 years 2 packs a day stopped about 3 months ago. Occasionally does marijuana and alcohol. 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 Lives with his . Physical examination: VITAL SIGNS: 103.1, 103, 18, 130/81, 94% on 2 L GENERAL: Sitting up in a chair, EYES: Pupils equal. Conjunctiva normal. HEENT: [External appearance of nose and ears normal, oral cavity mucous membrane dry. NECK: JVD not raised; masses not palpable. HEART: First and second heart sounds are normal; no edema. LUNGS: Respiratory rate normal; decreased breath sounds. ABDOMEN: Soft, nontender, liver spleen not palpable, no masses palpable. PSYCH: Unable to assess patient lethargicl. MUSCULOSKELETAL:No Clubbing/cyanosis;muscles-grossly intact. Hemovac in place. NEUROLOGICAL: Patient did walk in the hallway INVESTIGATIONS, reviewed in the clinical context: 06/09/2022: Hemoglobin 7.9 date is 177 potassium 2.6 creatinine 0.76 06/08/2022: Hemoglobin 8.1 06/07/2022: White count 11 hemoglobin 9.8 platelets 215 progression 4.6 creatinine 0.85 WBC 9.6 hemoglobin 10.3 platelets 265 Previous labs [06/02/2022] Hemoglobin 14.4 potassium 4.9 creatinine 1.0 Assessment and plan: -Lumbar surgery by Dr. Khan. Formal operative report pending. Hemovac in place. Ambulated in the hallway. -COPD in a smoker Albuterol when necessary -Mild leukocytosis, likely reactive from blood loss anemia. No clinical evidence of infection. Follow CBC -Essential hypertension, currently blood pressure running low because of blood loss anemia Hold Metoprolol ER 25 mg a day. Resume when systolic blood pressure above 120 -Primary osteoarthritis Pain management -Acute postprocedure blood loss anemia expected from surgery IV iron. Ferrous sulfate -Febrile with a sepsis picture.: New diagnosis Blood culture, urine culture, chest x-ray ordered. IV fluids. Infection workup in place. Given that patient's had orthopedic surgery will empirically start the patient and IV vancomycin and Zosyn if okay with orthopedics. Repeat labs. Started IV fluids.
[2022-06-10] MEDS: HYDROcodone/APAP 10-325MG 1 EACH TAB PO PRN (18:42)
[2022-06-10] MEDS ORDERED: VANCOMYCIN IV PER PHARMACY 1 EACH MISC MISCELLANE PRN (18:56)
--- NOTE | 2022-06-10 18:58 | XR ---
EXAMINATION TYPE: XR chest 2V DATE OF EXAM: 06/10/2022 6:44 PM COMPARISON: Chest x-ray 06/06/2022, chest x-ray 09/25/2021 TECHNIQUE: XR chest 2V . CLINICAL INDICATION:Male, 66 years old with history of Post op fever; FINDINGS: Lungs/Pleura: Low lung volumes are present. There is no evidence of pleural effusion, focal consolida tion, or pneumothorax. Bibasilar atelectasis. Stable calcified granulomas in the left lung base. Pulmonary vascularity: Unremarkable. Heart/mediastinum: Cardiomediastinal silhouette is unremarkable. Musculoskeletal: No acute osseous pathology. Other findings: Interval removal of right central venous catheter from 06/06/2022. IMPRESSION: Multifocal atelectasis without evidence for focal airspace consolidation.
[2022-06-10] MEDS: VANCOMYCIN 1,750 MG in SODIUM CHLORIDE 0.9% 500 ML 500 ML IVPB SCH (20:09)
[2022-06-10] MEDS: PIPERACILLIN-TAZOBACTAM 3.375 GM in SODIUM CHLORIDE 0.9% 100 ML IVPB SCH (20:09)
[2022-06-10 22:14] LABS: Appearance,Urine Clear (Clear); Bilirubin,Urine Negative (Negative); Blood,Urine Negative (Negative); Color,Urine Light Yellow; Glucose,Urine (UA) Negative (Negative); Ketones,Urine Negative (Negative); Leukocyte Esterase,Urine Negative (Negative); Nitrite,Urine Negative (Negative); Protein,Urine Negative (Negative); Specific Gravity,Urine 1.009 (1.001-1.035); Urobilinogen,Urine <2.0 mg/dL (<2.0)
[2022-06-11] MEDS: PIPERACILLIN-TAZOBACTAM 3.375 GM in SODIUM CHLORIDE 0.9% 100 ML IVPB SCH ×3 (00:24→17:31)
[2022-06-11] MEDS: ACETAMINOPHEN TAB 500 MG TAB PO SCH ×4 (00:33→17:36)
[2022-06-11] MEDS: HYDROcodone/APAP 10-325MG 1 EACH TAB PO PRN ×3 (02:30→22:14)
[2022-06-11] MEDS: CYCLOBENZAPRINE 10 MG TAB PO PRN ×2 (02:31→10:43)
[2022-06-11] MEDS: SODIUM CHLORIDE 0.9% 1,000 ML IV SCH ×2 (03:53→17:32)
[2022-06-11] MEDS: HYDROmorphone 1 MG/ML 1 ML SYRINGE IVP PRN (05:20)
[2022-06-11 05:49] LABS: Basophils % (A) 0 %; Eosinophils # (A) 0.2 k/uL (0-0.7); Eosinophils % (A) 2 %; HCT 22.3 % (39.0-53.0); HGB 7.1 gm/dL (13.0-17.5); Hypochromasia Slight; Lymphocytes # (A) 1.6 k/uL (1.0-4.8); Lymphocytes % (A) 17 %; MCH 28.4 pg (25.0-35.0); MCHC 31.8 g/dL (31.0-37.0); MCV 89.4 fL (80.0-100.0); Mean Platelet Volume 8.3; Monocytes # (A) 0.4 k/uL (0-1.0); Monocytes % (A) 4 %; Neutrophils # (A) 7.2 k/uL (1.3-7.7); Neutrophils % (A) 74 %; Platelet Count 242 k/uL (150-450); RDW 15.5 % (11.5-15.5); WBC 9.7 k/uL (3.8-10.6)
[2022-06-11 06:02] LABS: African American GFR (CKD) >90 (>60 ml/min/1.73 sqM); Anion Gap 5 mmol/L; Blood Urea Nitrogen 12 mg/dL (9-20); Calcium 7.3 mg/dL (8.4-10.2); Carbon Dioxide 29 mmol/L (22-30); Chloride 102 mmol/L (98-107); Glucose 112 mg/dL (74-99); Non-African American GFR(CKD) >90 (>60 ml/min/1.73 sqM); Potassium 3.3 mmol/L (3.5-5.1); Sodium 136 mmol/L (137-145)
[2022-06-11] MEDS: METOPROLOL SUCCINATE (ER) 25 MG TAB.ER.24H PO SCH (08:20)
[2022-06-11] MEDS: GABAPENTIN 400 MG CAP PO SCH ×3 (08:20→22:14)
[2022-06-11] MEDS: FERROUS SULFATE 325 MG TAB PO SCH ×2 (08:20→16:40)
[2022-06-11] MEDS: PSYLLIUM HUSK 100% 6 GM PACKET PO SCH (08:20)
[2022-06-11] MEDS: VANCOMYCIN 1,750 MG in SODIUM CHLORIDE 0.9% 500 ML 500 ML IVPB SCH ×2 (08:21→20:22)
[2022-06-11] MEDS ORDERED: Potassium Replacement Protocol 1 EACH MISC MISCELLANE PRN (10:36)
[2022-06-11] MEDS: POTASSIUM CHLORIDE ER 20 MEQ TAB.ER PO SCH ×2 (10:43→13:09)
--- NOTE | 2022-06-11 10:47 | P.PN ---
Subjective Progress Note Date: 06/11/22 Principal diagnosis: 1. lumbar spondylosis L2-S1 severe 2. severe lumbar stenosis 3. neurogenic claudication Patient was seen at bedside this morning lying semirecumbent in bed. Patient says he did get up yesterday and walked a little bit around room and into hallway. Patient says he is still having a lot of pain and it is localized to low back. Patient does have a back brace he uses. Patient mentions he is feeling very fatigued this morning. Patient says he has not had bowel movement yet, however, patient says he has been passing gas. Patient denies chest pain, fever, shortness of breath, nausea, vomiting, change in vision, loss of bowel/bladder control. Objective - Vital Signs Vital signs: Vital Signs Temp 97.7 F 06/11/22 04:31 Pulse 78 06/11/22 04:31 Resp 18 06/11/22 04:31 BP 111/65 06/11/22 04:31 Pulse Ox 95 06/11/22 04:31 FiO2 Intake & Output 06/10/22 06/11/22 06/11/22 19:59 06:59 18:59 Intake Total Balance Intake: Intake, IV Titration Amount Piperacillin-Tazobactam 3 .375 gm In Sodium Chloride 0.9% 100 ml @ 25 mls/hr IVPB Q8HR [facility] Rx# :[id number] Sodium Chloride 0.9% 1, 000 ml @ 100 mls/hr IV . Q10H [facility] Rx#:[id number] Vancomycin 1,750 mg In Sodium Chloride 0.9% 500 ml 500 ml @ 167 mls/hr IVPB Q12H [facility] Rx#: [id number] Oral Other: Voiding Method # Voids ABP, PAP, CO, CI - Last Documented Arterial Blood Pressure 93/61 - Exam Silver foam dressing is over incision. there is some spotting present. Sensation is intact bilaterally in upper and lower extremities. Patient does have some moderate tenderness to the patient along the incision. Nontender to palpation throughout rest of exam. Patient does have decent range of motion in bilateral upper and lower extremities. Motor exam 4+/5 in all major motor groups. Negative Callie bilaterally. Negative clonus bilaterally. Negative Homans bilaterally. Cap refill is under 3 seconds in digits the upper extremities. Radial pulses intact, 2+ bilaterally - Labs CBC & Chem 7: 11/06/22 05:28 06/11/22 05:28 Labs: Abnormal Lab Results - Last 24 Hours (Table) 06/11/22 06/11/22 Range/Units 05:28 05:28 RBC 2.50 L (4.30-5.90) m/uL Hgb 7.1 L (13.0-17.5) gm/dL Hct 22.3 L (39.0-53.0) % Sodium 136 L (137-145) mmol/L Potassium 3.3 L (3.5-5.1) mmol/L Glucose 112 H (74-99) mg/dL Calcium 7.3 L (8.4-10.2) mg/dL Assessment and Plan Assessment: 1. lumbar spondylosis L2-S1 severe; severe lumbar stenosis; neurogenic claudication - Postop day #5 status post [id number] decompression and posterolateral interbody fusion Plan: 1. lumbar spondylosis L2-S1 severe; severe lumbar stenosis; neurogenic claudi cation - surgery performed 06/06/2022 - [id number] decompression and posterolateral interbody fusion. Patient stable at bedside this morning. Dressign in place over incision. Hemoglobin 7.1 as of this morning. Potassium 3.3. 1 unit PRBCs ordered. Potassium protocol. We'll continue to follow patient during his stay in hospital. Plan for discharge home with health services tmrw, Sunday06/12/2022. 2. Appreciate medical management 3. Pain management - OxyIR; Martin; Flexeril; gabapentin 4. DVT prophylaxis - mechanical 5. GI prophylaxis - senna; Maalox; Dulcolax 6. PT/OT - weightbearing as tolerated with walker and brace on at all times while up and about 7. Encourage incentive spirometer use 8. Discharge planning - Sunday vs Sunday home with health services Time with Patient: Less than 30
[2022-06-11] MEDS ORDERED: bisacodyL 5 MG TABLET.DR PO STA (11:49)
--- NOTE | 2022-06-11 19:56 | P.PN ---
Progress Note - Text Progress Note Date: 06/11/22 - Chief Complaint Lumbar surgery I'm rounding for Dr. Eduard Dominguez This is a 66-year-old patient, follows with Dr. Eduard Dominguez. Patient has undergone lumbar surgery per Dr. Khan. Postprocedure the ICU. Hemovac in place. Post anesthesia patient rather lethargic. Not able to give much of a history. Just about arousable. Does not appear to be in pain. IV fluids. Patient's had chronic low back pain. 06/07/2022: ICU. Awake. Pain at the operative site. Hemovac in place. IV Ancef. Did eat a very small amount of breakfast. Reynolds catheter in place. Hasn't been out of bed. 06/08/2022: Overflow in the ICU. More awake. Some pain at the operative site. Hemovac in place. Putting on about 200 mL a shift. Appetite better but still low. Reynolds catheter removed this morning. Slight flatus. Did walk in the hallway. 06/09/2022: Sitting up in a chair. Did walk in the hallway. No BM. Eating better. pain at the operative site. 06/10/2022: saw the patient this morning. Sitting up in a chair. He tolerated his diet. No BM. Metamucil and lactulose ordered. Did ambulate. Patient has a brace. Computers were down earlier. Evening picked up a fever. UA with culture, blood culture, chest x-ray ordered. 06/11/2022: Feeling tired. On IV vancomycin and Zosyn. No further fever. Cultures pending. Patient has a slight cough. No urinary symptoms. Patient Hemovac was removed yesterday. Orthopedics ordered a unit of blood. Active Medications Acetaminophen (Acetaminophen Tab 500 Mg Tab) 1,000 mg PO Q6HR [facility] Last Admin: 06/11/22 17:36 Dose: Not Given Hydrocodone Bitart/Acetaminophen (Hydrocodone/Apap 10-325mg 1 Each Tab) 1 each PO Q4H PRN PRN Reason: Pain Scale 6 To 8 Last Admin: 06/11/22 16:39 Dose: 1 each Al Hydroxide/Mg Hydroxide (Mag Hydrox/Al Hydrox/Simeth 30 Ml Cup) 30 ml PO Q4HR PRN PRN Reason: Indigestion Bisacodyl (Bisacodyl 10 Mg Supp) 10 mg RECTAL DAILY PRN PRN Reason: Constipation Cyclobenzaprine HCl (Cyclobenzaprine 10 Mg Tab) 10 mg PO TID PRN PRN Reason: Muscle Spasm Last Admin: 06/11/22 10:43 Dose: 10 mg Ferrous Sulfate (Ferrous Sulfate 325 Mg Tab) 325 mg PO BID-W/MEALS [facility] Last Admin: 06/11/22 16:40 Dose: 325 mg Gabapentin (Gabapentin 400 Mg Cap) 800 mg PO TID [facility] Last Admin: 06/11/22 16:39 Dose: 800 mg Hydromorphone HCl (Hydromorphone 0.5 Mg/0.5 Ml Syringe) 0.5 mg IVP Q3HR PRN PRN Reason: Pain Scale 4 - 6 Last Admin: 06/09/22 06:56 Dose: 0.5 mg Hydromorphone HCl (Hydromorphone 1 Mg/Ml 1 Ml Syringe) 1 mg IVP Q3HR PRN PRN Reason: Pain Scale of 7 - 10 Last Admin: 06/11/22 05:20 Dose: 1 mg Sodium Chloride (Saline 0.9%) 1,000 mls @ 100 mls/hr IV .Q10H [facility] Last Admin: 06/11/22 17:32 Dose: 100 mls/hr Piperacillin Sod/Tazobactam (Sod 3.375 gm/ Sodium Chloride) 100 mls @ 25 mls/hr IVPB Q8HR [facility]; Protocol Last Admin: 06/11/22 17:31 Dose: 25 mls/hr Vancomycin HCl 1,750 mg/ (Sodium Chloride) 500 mls @ 167 mls/hr IVPB Q12H [facility] Last Admin: 06/11/22 08:21 Dose: 167 mls/hr Magnesium Hydroxide (Magnesium Hydroxide 2,400 Mg/10 Ml Cup) 2,400 mg PO DAILY PRN PRN Reason: Constipation Metoprolol Succinate (Metoprolol Succinate (Er) 25 Mg Tab.Er.24h) 25 mg PO DAILY [facility] Last Admin: 06/11/22 08:20 Dose: 25 mg Miscellaneous Information (Potassium Replacement Protocol 1 Each Misc) 1 each MISCELLANE DAILY PRN; Protocol PRN Reason: Per Protocol Ondansetron HCl (Ondansetron 4 Mg/2 Ml Vial) 4 mg IVP Q8HR PRN PRN Reason: Nausea And Vomiting Oxycodone HCl (Oxycodone Hcl 5 Mg Tab) 7.5 mg PO Q4HR PRN PRN Reason: Pain Scale 8 to 10 Last Admin: 06/11/22 08:27 Dose: 7.5 mg Psyllium Hydrophilic Mucilloid (Psyllium Husk 100% 6 Gm Packet) 6 gm PO DAILY [facility] Last Admin: 06/11/22 08:20 Dose: 6 gm Senna/Docusate Sodium (Sennosides-Docusate Sodium 1 Each Tab) 2 each PO DAILY PRN PRN Reason: Constipation Sodium Biphosphate/Sodium Phosphate (Na Phos,M-B/Na Phos,Di-Ba 133 Ml Enema) 133 ml RECTAL DAILY PRN PRN Reason: Constipation Past medical history to include: COPD, hypertension, chronic low back pain Social history: Patient smoked for about 54 years 2 packs a day stopped about 3 months ago. Occasionally does marijuana and alcohol. 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 Lives with his . Physical examination: VITAL SIGNS: Afebrile, 91, 18, 104/70, 100% on room air GENERAL: Laying in bed, tired EYES: Pupils equal. Conjunctiva normal. HEENT: [External appearance of nose and ears normal, oral cavity normal. NECK: JVD not raised; masses not palpable. HEART: First and second heart sounds are normal; no edema. LUNGS: Respiratory rate normal; decreased breath sounds. ABDOMEN: Soft, nontender, liver spleen not palpable, no masses palpable. PSYCH: Unable to assess patient lethargicl. MUSCULOSKELETAL:No Clubbing/cyanosis;muscles-grossly intact. Hemovac removed yesterday NEUROLOGICAL: Patient did walk in the hallway INVESTIGATIONS, reviewed in the clinical context: 06/11/2022: He will globin 7.1 progression 3.3 creatinine 0.78 UA: Negative Chest x-ray film personally reviewed by me-[June 11]: Multifocal atelectasis reported 06/09/2022: Hemoglobin 7.9 date is 177 potassium 2.6 creatinine 0.76 06/08/2022: Hemoglobin 8.1 06/07/2022: White count 11 hemoglobin 9.8 platelets 215 progression 4.6 creatinine 0.85 WBC 9.6 hemoglobin 10.3 platelets 265 Previous labs [06/02/2022] Hemoglobin 14.4 potassium 4.9 creatinine 1.0 Assessment and plan: -Lumbar surgery by Dr. Khan. Formal operative report pending. Hemovac in place. Ambulated in the hallway. -COPD in a smoker Albuterol when necessary -Essential hypertension, currently blood pressure running low because of blood loss anemia Hold Metoprolol ER 25 mg a day. Resume when systolic blood pressure above 120 -Primary osteoarthritis Pain management -Acute postprocedure blood loss anemia expected from surgery IV iron. Ferrous sulfate. Patient received 1 unit of blood today. -Febrile with a sepsis picture.: Blood culture, urine culture, chest x-ray -nonspecific. IV fluids. Empirically vancomycin and Zosyn. Await culture results. Empirically vancomycin and Zosyn. Patient has a slight cough. No fever. Normal white count. Repeat labs in the morning. Check pro- calcitonin. Discussed with patient.
[2022-06-12] MEDS: ACETAMINOPHEN TAB 500 MG TAB PO SCH ×4 (00:19→18:41)
[2022-06-12] MEDS: PIPERACILLIN-TAZOBACTAM 3.375 GM in SODIUM CHLORIDE 0.9% 100 ML IVPB SCH ×3 (00:20→16:59)
[2022-06-12] MEDS: SODIUM CHLORIDE 0.9% 1,000 ML IV SCH ×2 (00:21→11:15)
[2022-06-12] MEDS: HYDROcodone/APAP 10-325MG 1 EACH TAB PO PRN ×4 (04:24→18:39)
[2022-06-12] MEDS: CYCLOBENZAPRINE 10 MG TAB PO PRN ×2 (04:24→16:28)
[2022-06-12 07:21] LABS: Basophils % (A) 0 %; Eosinophils # (A) 0.4 k/uL (0-0.7); Eosinophils % (A) 6 %; HCT 24.6 % (39.0-53.0); HGB 7.6 gm/dL (13.0-17.5); Hypochromasia Slight; Lymphocytes # (A) 1.5 k/uL (1.0-4.8); Lymphocytes % (A) 23 %; MCH 27.7 pg (25.0-35.0); MCHC 30.9 g/dL (31.0-37.0); MCV 89.8 fL (80.0-100.0); Mean Platelet Volume 7.6; Monocytes # (A) 0.3 k/uL (0-1.0); Monocytes % (A) 5 %; Neutrophils # (A) 4.3 k/uL (1.3-7.7); Neutrophils % (A) 63 %; Platelet Count 246 k/uL (150-450); RBC 2.74 m/uL (4.30-5.90); RDW 15.6 % (11.5-15.5); WBC 6.9 k/uL (3.8-10.6)
[2022-06-12 07:33] LABS: African American GFR (CKD) >90 (>60 ml/min/1.73 sqM); Anion Gap 1 mmol/L; Blood Urea Nitrogen 12 mg/dL (9-20); Calcium 7.4 mg/dL (8.4-10.2); Carbon Dioxide 29 mmol/L (22-30); Chloride 106 mmol/L (98-107); Glucose 97 mg/dL (74-99); Non-African American GFR(CKD) >90 (>60 ml/min/1.73 sqM); Potassium 3.4 mmol/L (3.5-5.1); Sodium 136 mmol/L (137-145)
--- NOTE | 2022-06-12 08:22 | P.OP ---
Date of Procedure: 06/06/22 Preoperative Diagnosis: 1. L1-S1 severe spondylosis with severe stenosis 2. Lumbar degenerative scoliosis 3. Neurogenic claudication 4. LE weakness Postoperative Diagnosis: 1. L1-S1 severe spondylosis with severe stenosis 2. Lumbar degenerative scoliosis 3. Neurogenic claudication 4. LE weakness Procedure(s) Performed: 1. L3-4, L4-5 and L5-S1 posteriolatearl and interbody fusion (92165, 32622a2) 2. L2-3 posteriolateral instrumented fusion (24208/59) 3. Attachment of the caudal end of instrumentation to bony pelvis (56126) 4. Bilateral laminectomy, complete facetectomy and foraminotomy L2-S1 beyond that needed for cage placement (95713, 89183i9) 5. Dural repair with patch graft (91912) 6. Segmental instrumentation L2-P (66164) 7. Insertion of biomechanical device L3-4, L4-5 and L5-S1 (22098i3) 8. [employer] 3D navigation for the placement of screws (28282) Use of IONM Implants: -Globus Creo Screw and fabiana system -x2 cross link globus -Zivation expandable cages x3 -iFactor -MagnatOs -Autograft -Allograft Anesthesia: GETA Surgeon: Stiven Khan Public Health Training Assistant #1: Alan Garcia Estimated Blood Loss (ml): 1,700 IV fluids (ml): 3,200 Urine output (ml): 550 Pathology: none sent Condition: stable Disposition: ICU Indications for Procedure: Mr. Colindres is presenting for evaluation of low back pain. It was my pleasure to have seen and examined Mr. Colindres. In our visit today we have had a chance to go over subjective complaints, physical examination findings and treatments including the natural course history without intervention and various interventional options. The patients imaging demonstrates: XRay taken on 12/02/21 of Lumbar Spine and Pelvis: this is reviewed in the office of the patient and demonstrates severe spondylosis from L2 through S1 with near complete disc height loss desiccation anterior osteophyte posterior osteophytes facet arthrosis facet overgrowth. Somewhat flattened lumbar lordosis secondary to these changes. There is foraminal stenosis and likely central stenosis related these changes. There are no fractures or other dislocations noted at this time. AP pelvis demonstrates congruent level pelvis no fracture or dislocation CT scan from08/16/2021 of Lumbar Spine: this is also reviewed in the office today and demonstrates multilevel spondylotic changes with vacuum disc phenomenon at L2 through S1. There is severe facet arthrosis with overgrowth osteophytic changes as well as stenosis throughout the lumbar spine related to the spondylotic changes. There is flattening of the normal lumbar lordosis secondary to this. There is foraminal collapse secondary to this.no acute fracture or dislocation is noted at this time. MRI from 02/17/2022 of the lumbar spine demonstrates: Images reviewed with the patient demonstrate severe spondylotic changes in the lumbar spine from L2-S1. There is disc dessication, height loss and herniation at nearly every level. This as well as facet arthrosis, ligamental hypertrophy, facet hypertrophy causes severe stenosis centrally and foraminally at all levels. There is turublent flow of CSF at the L2 level due to the severity of the stenosis at this level. There is flattening of the normal LL to around 30 deg. There is a L4-5 grade I spondylolisthesis noted which is degenerative in nature. No fractures noted. No lesions noted at this time. On physical exam, Mr. Colindres demonstrates severely restricted lumbar ROM with bilateral lower extremity weakness, radiculopathy, and hyporeflexia . Patient does also demonstrate right lower extremity L4-S1 dermatomal deficits. I have explained to the patient that as their condition progresses it will cause further neurological deficits and eventual paralysis. Based on the patients imaging, physical exam, and the rapid progression and disabling nature of their symptoms, at this time I recommend surgery in the form or a: lumbar (L2-Pelvis) Decompression and Posterior Lateral Interbody Fusion. I discussed the risk and benefits of this procedure at length with Mr. Colindres. The patient [significant other] agreed to considered pursuing the procedure abovementioned. Prior to surgery, she should follow up with her PCP (Cardio, ID, IM etc) for clearance. Questions were invited and answered, and the patient wishes to proceed as outlined below. Currently, I am recommendin.lumbar (L2-Pelvis) Decompression and Posterior Lateral Interbody Fusion Description of Procedure: The patient was seen and examined in the preoperative area. All preoperative protocols were followed. Informed consent was obtained risks and benefits of the procedure were discussed at length. Risks including bleeding infection damage to the surrounding tissue and risk of reoperation were discussed with the patient. Risk of anesthesia up to and including was a discussed with the patient. These are outlined in the risk review. They were willing to accept these risks and all of the risks of surgery. The patient was given a weight- based dose of antibiotics in the form of 2 g Ancef redosed every 4 hours. The p atient was seen and evaluated by the anesthesia team who deemed them fit for surgery. The site was marked, the patient was willing to proceed with the procedure. The patient was transferred to the operative suite by the Department of anesthesia. They were then drifted off to sleep by the department anesthesia and GETA was performed. The patient tolerated this well. [Reynolds catheter was placed by nursing staff, atraumatically]. Once confirmation of lines and ventilation the patient was transferred to a [prone Julio table very carefully]. All bony prominences including wrists, elbows, axilla, chest, hips, and thighs, and feet were padded very well. Special attention was paid to the genitalia and these were padded accordingly. SCDs were placed on bilateral lower extremities and were connected. Arms were well padded and placed [on arm boards up and out in the 90/90 position]. Once in position, again we confirmed good ventilation capabilities and that lines were running appropriately. The patient's lumbopelvic spine was then exposed. 1010s were placed outlining the incision site. Standard alcohol was used to clean the incision site and allowed to dry. C-arm was used to biomark the patient and confirm level for incision which was marked with a skin marker. Operative briefing was performed with all teams and everyone in agreement to proceed. The patient was then prepped and draped in a normal sterile fashion. Timeout was then performed and all parties were in agreement with the procedure to be performed. midline skin incision was made over the previously been marked. Dissection taken down to the lumbar sacral fascia was identified. This was then cleaned with a Martinez. Midline fasciotomy was then made from L1 down to S2. Subperiosteal dissection was taken down over the lamina of these levels transverse processes were identified at these levels and decorticated. Once there was good exposure the wound was irrigated a tracker was placed on to S1 spinous process for Lee navigation. This was secured once secured a 3-D intraoperative Ziehm spin was registered. Once registered we confirmed its accuracy with the Lee navigation and was accurate. We then proceeded with placement of pedicle screws bilaterally using first a navigated bur to create a gliding pilot instructor hole followed by a navigated all tapped and navigated screwdriver. Each screw was measured appropriately. A feeler was placed in between each step to ensure within the 4 valdes of the pedicle. We then placed screws bilaterally at L2 through S1. These were then tested and tested above 20 mA. Then placed bilateral pelvic screws using freehand technique under lateral fluoroscopy high- speed bur was used to obtain gliding pilot instructor hole followed by a pedicle gearshift which was advanced into the inner and outer table we then took a 30 iliac oblique view to visualize the teardrop and confirmed in good position once we confirmed good position the screw was measured and placed under lateral fluoroscopy. We then took AP and lateral films to confirm good placement of all hardware. We then proceeded with decompression and interbody fusion was performed at L3 through S1. Starting at L5-S1 bilateral laminectomy complete facetectomy and foraminotomy were performed using high-speed bur Kerrison registered rongeur. We did access the disc space through Kambin's triangle and carefully protecting the neural elements we were able to perform interbody fusion L5-S1 using osteotome followed by sequential lavonne. Complete discectomy was performed at this level good bleeding endplates were encountered. The packed anterior to the cage autograft allograft and I factor. Once this was accomplished cage was impacted into position under lateral fluoroscopic guidance was in good position and was expanded and was stable. We then repeated this at L4-L5 with bilateral laminectomy complete facetectomy foraminotomy and interbody fusion using same technique as described. at L4-L5 due to the severe stenosis that was there was erosion into the dura on the left-hand side of the bone. This produced a small punctate dural lesion. This was then closed with 5-0 Prolene in a [id number] fashion. We then sewed in a fat patch graft over this. A Valsalva to 40 no unusual mercurywas performed and there was no leak. we then turned our attention to the L3 4 interspace and we performed interobody fusion at L3-L4 with bilateral laminectomy complete facetectomy and foraminotomies and interbody fusion as described. the L2-L3 disc space was unable to be accessed at this point the patient had lost about 1200 mL of blood and so we elected to go the interbody fusion at L2-L3. Once the decompression and interbody fusions were completely then proceeded with fabiana placement rods were selected and bent accordingly and placed and secured with set screws. The set screws were final tightened rods were sequentially reduced to allow for lordosis. Once sequentially reduced the set screws were all final tightened. We then selected 2 cross-links and final tightened these into position. We then copiously irrigated the wound with 3 L of Ancef irrigation 3 L of gentamicin irrigation followed by 3 L of normal sterile saline. We then placed Surgicel over the dura along with meticulous hemostasis. A combination of MagnatOs autograft and allograft were placed in the posterior lateral gutters from L2 through the pelvis. This was to complete the posterior lateral fusion. We then placed a deep drain and sewed it in position. 2 g of vancomycin powder was placed deep within the wound. We then proceeded with layered closure. Deep fascial layer was closed with #1 PDS in [id number] fashion. Then closed the deep subcu tissue with 0 Vicryl superficial subcu tissue with 2-0 Vicryl and skin with skin ace. The wound edges approximated very well. The wound was then cleaned and dressed sterilely with an operative foam dressing drain sponge and Tegaderm. The patient was transferred back to their hospital bed atraumatically. Drain continued to hold suction and were in good position. Patient was then awakened and extubated by the department of anesthesia having tolerated the procedure very well with no complications. They were transferred to the ICU in stable condition.
--- NOTE | 2022-06-12 08:43 | P.PN ---
Subjective Progress Note Date: 06/12/22 Principal diagnosis: 1. L1-S1 severe spondylosis with severe stenosis 2. Lumbar degenerative scoliosis 3. Neurogenic claudication 4. LE weakness Patient seen and examined at bedside. Patient resting supine in bed. Patient states his pain is managed on current regimen. He states his prior symptoms to surgery seem to be resolving. He denies any numbness or tingling to bilateral lower extremities. Patient is currently refusing to get up to the chair. Encouraged patient to use incentive spirometer and he states, "I can't do it and I don't want to do it". Educated patient on the effects of utilizing the IS and patient was resistant to information. During assessment of his incision, patient tolerated rolling to his left side well. The dressing was wet due to patient sweating and not moving in bed. Dressing was changed and was noted that he has x5 blisters present related to tape irritation. Requested patient to lay on his side to allow air to get to his back, patient verbalized understanding. Patient is requesting a hospital bed for home, script was left in the chart. Patient denies fever/chills, nausea/vomiting, or chest pain. Patient is requesting to be discharged. Informed patient that due to his hgb post-op we would infuse an additional unit of RBC and evaluate this afternoon. Objective - Vital Signs Vital signs: Vital Signs Temp 97.5 F L 06/12/22 04:28 Pulse 63 06/12/22 04:28 Resp 18 06/12/22 04:28 BP 109/62 06/12/22 04:28 Pulse Ox 96 06/12/22 04:28 FiO2 Intake & Output 06/11/22 06/12/22 06/12/22 18:59 06:59 18:59 Intake Total 1510 2300 Output Total 200 Balance 1310 2300 Intake: Intake, IV Titration 1200 1800 Amount Piperacillin-Tazobactam 3 100 .375 gm In Sodium Chloride 0.9% 100 ml @ 25 mls/hr IVPB Q8HR [facility] Rx# :[id number] Sodium Chloride 0.9% 1, 1200 1200 000 ml @ 100 mls/hr IV . Q10H [facility] Rx#:[id number] Vancomycin 1,750 mg In 500 Sodium Chloride 0.9% 500 ml 500 ml @ 167 mls/hr IVPB Q12H [facility] Rx#: [id number] Oral 500 Blood Product 310 Rc As-1 Unit 310 [id number] Output: Urine 200 Other: Voiding Method Urinal Urinal # Voids 2 3 ABP, PAP, CO, CI - Last Documented Arterial Blood Pressure 93/61 - Exam Physical Examination General: The patient is awake and alert, in no acute distress Skin: Skin is warm and dry with no obvious rashes or lesions. Hairy patches absent, no dorsal skin dimples, no cafe au lait spots. Surgical incision to lumbar region, edges approximated with ace intact. Dressing changed this morning. x5 blisters present around drain site, r/t tape irritation. Left them open to air. Eye: Pupils are equal, round and reactive to light, extra-ocular movements are intact; there is normal conjunctiva bilaterally. Neck: The neck is supple, there is no tenderness and ROM intact. Cardiovascular: There is a regular rate and rhythm. No murmur, rub or gallop is appreciated. Respiratory: Lungs are clear to auscultation, respirations are non-labored, breath sounds are equal. Gastrointestinal: Soft, non-distended, non-tender abdomen . Back: There is no tenderness to palpation in the midline, paralumbar, parathoracic or buttocks region. There is no obvious deformity . Musculoskeletal: ROM limited secondary to pain and stiffness from surgical procedure. Muscle strength in all major groups in BUE 5/5, BLE 4/5 Neurological: CN 2-12 intact. There are no obvious motor or sensory deficits. Movement and coordination equal and intact. Sensory exam to light touch intact C5-T1 and intact from L2-S1. Reflexes 2/4 in bilateral upper and lower extremities. Negative Hoffmans, babinski, and clonus signs. Psychiatric: Cooperative, appropriate mood & affect, normal judgment. - Labs CBC & Chem 7: 06/12/22 06:34 06/12/22 06:34 Labs: Abnormal Lab Results - Last 24 Hours (Table) 06/02/22 06/11/22 06/12/22 Range/Units 10:53 12:43 06:34 RBC 2.74 L (4.30-5.90) m/uL Hgb 7.6 L (13.0-17.5) gm/dL Hct 24.6 L (39.0-53.0) % MCHC 30.9 L (31.0-37.0) g/dL RDW 15.6 H (11.5-15.5) % Sodium (137-145) mmol/L Potassium (3.5-5.1) mmol/L Calcium (8.4-10.2) mg/dL Crossmatch See Detail See Detail 06/12/22 Range/Units 06:34 RBC (4.30-5.90) m/uL Hgb (13.0-17.5) gm/dL Hct (39.0-53.0) % MCHC (31.0-37.0) g/dL RDW (11.5-15.5) % Sodium 136 L (137-145) mmol/L Potassium 3.4 L (3.5-5.1) mmol/L Calcium 7.4 L (8.4-10.2) mg/dL Crossmatch Microbiology - Last 24 Hours (Table) 06/10/22 19:12 Blood Culture - Preliminary Blood No Growth after 24 hours 06/10/22 19:12 Blood Culture - Preliminary Blood No Growth after 24 hours Assessment and Plan Assessment: Post-Op Day 6: L2-Pelvis decompression and PLIF 1. L1-S1 severe spondylosis with severe stenosis 2. Lumbar degenerative scoliosis 3. Neurogenic claudication 4. LE weakness Plan: Plan: -Appreciate applications consultant and team management. -Infuse 1unit PRBCs -Activity: Ambulate QID, OOB all meals, up and about, limit lifting bending twisting to less than 5 lbs. Use walker or cane if needed for stability. -Daily PT/OT, increase ambulation strength and balance. -Brace when up and about, not needed in bed or chair -Pain control: Adequate at this time -Meds: reviewed -GI ppx: senna, Miralax -DVT PPX: Heparin, TEDS -Hygiene: Shower today. Maintain dressing clean and dry. Meticulous cleaning after BMs away from the incision site -Encourage IS 10x/hr -Dispo: Anticipate discharge home later today vs tomorrow with homecare *I reviewed and discussed this case with my attending Dr. Khan, whom has reviewed this chart and films and is in agreement with assessment and plan of care as outlined above. I have personally seen and examined the patient, performed the documentation and the assessment and plan as written. Number of minutes spent on the visit: 20m.
[2022-06-12] MEDS: VANCOMYCIN 1,750 MG in SODIUM CHLORIDE 0.9% 500 ML 500 ML IVPB SCH (09:35)
[2022-06-12] MEDS: GABAPENTIN 400 MG CAP PO SCH ×2 (09:35→16:28)
[2022-06-12] MEDS: METOPROLOL SUCCINATE (ER) 25 MG TAB.ER.24H PO SCH (09:35)
[2022-06-12] MEDS: FERROUS SULFATE 325 MG TAB PO SCH ×2 (09:35→18:39)
[2022-06-12] MEDS: PSYLLIUM HUSK 100% 6 GM PACKET PO SCH (09:36)
[2022-06-12] MEDS: POTASSIUM CHLORIDE ER 20 MEQ TAB.ER PO SCH (11:18)
--- NOTE | 2022-06-12 14:06 | P.PN ---
Progress Note - Text Progress Note Date: 06/12/22 Patient is requesting a hospital bed, prescription was left in chart. The beneficiary has a medical condition status post L2 to pelvis decompression and PLIF which requires positioning of the body in ways not feasible with an ordinary bed. The head of the bed must be elevated at more than 30 most of the time to alleviate pain/and or pressure. Please accommodate accordingly.
[2022-06-12] MEDS ORDERED: Potassium Replacement Protocol 1 EACH MISC MISCELLANE PRN (14:09)
[2022-06-12] MEDS ORDERED: POTASSIUM CHLORIDE ER 20 MEQ TAB.ER PO SCH (15:00)
--- NOTE | 2022-06-12 16:17 | P.DS ---
Providers Date of admission: 06/06/22 09:08 Expected date of discharge: 06/12/22 Attending physician: Stiven Khan DO Consults: 06/06/22 15:52 Consult Physician Routine Consulting Provider: Eduard Dominguez Reason/Comments: medical management Do you want consulting provider notified?: Yes [facility]: Hospital Course: The patient was evaluated preoperatively and found to have the diagnosis of lumbar spondylosis with stenosis. They underwent appropriate preoperative care and were willing to undergo the intended procedure. They underwent a successful [id number] decompression with PLIF, were recovered appropriately and sent to the floor. While on the floor they worked with physical therapy, occupational therapy and nursing to enhance their recovery experience. Their pain was well controlled through their stay and they were started on appropriate medications, DVT ppx modalities, activity and dietary needs. Daily labs were monitored closely, and transfusions were only used when necessary. Medicine as well as other consulting services have made their input and have helped with our team approach and multidisciplinary care. PT milestones have been met and passed and they have made the recommendation of home with home care for this patient and treating providers agree with this care path. The patient will be discharged home with appropriate medications, instructions and follow-up information and in stable condition. Patient Condition at Discharge: Good Plan - Discharge Summary Discharge Rx Participant: Yes New Discharge Prescriptions: New cefaDROXiL [Duricef] 500 mg PO Q12HR 10 Days #5 cap Gabapentin 300 mg PO TID #90 cap HYDROcodone/APAP 10-325MG [[place] 10-325] 1 tab PO Q4-6H PRN #56 tab PRN Reason: Pain Cyclobenzaprine [Flexeril] 10 mg PO TID #90 tab No Action Celecoxib [CeleBREX] 200 mg PO DAILY Gabapentin 800 mg PO TID Metoprolol Succinate [Metoprolol Succinate ER] 25 mg PO DAILY Acetaminophen/Caffeine [Excedrin Tension Headache] 3 each PO BID Albuterol Inhaler [Ventolin Hfa Inhaler] 1 - 2 puff INHALATION Q6H PRN PRN Reason: Shortness Of Breath Discharge Medication List Gabapentin 800 mg PO TID 09/23/21 [History] Acetaminophen/Caffeine [Excedrin Tension Headache] 3 each PO BID 05/30/22 [History] Albuterol Inhaler [Ventolin Hfa Inhaler] 1 - 2 puff INHALATION Q6H PRN 05/30/22 [History] Celecoxib [CeleBREX] 200 mg PO DAILY 05/30/22 [History] Metoprolol Succinate [Metoprolol Succinate ER] 25 mg PO DAILY 05/30/22 [History] Cyclobenzaprine [Flexeril] 10 mg PO TID #90 tab 06/12/22 [Rx] Gabapentin 300 mg PO TID #90 cap 06/12/22 [Rx] HYDROcodone/APAP 10-325MG [[place] 10-325] 1 tab PO Q4-6H PRN #56 tab 06/12/22 [Rx] cefaDROXiL [Duricef] 500 mg PO Q12HR 10 Days #5 cap 06/12/22 [Rx] Follow up Appointment(s)/Referral(s): Eduard Dominguez MD [Primary Care Provider] - 1-2 Days (Please follow up with PCP for a CBC to recheck hgb level) [facility], [NON-STAFF] - ([facility] will call you to arrange a visit. ) Stiven Khan DO [Doctor of Osteopathic Medicine] - 2 Weeks Activity/Diet/Wound Care/Special Instructions: Spine Discharge and Recovery Instructions Date of Surgery: 06/06/2022 Diagnosis: Lumbar spondylosis with stenosis Procedure: L2 to pelvis decompression with PLIF Medications: See medication list All medication refills should be obtained through your primary care doctor or your clinic spine surgeon. Please discuss prescription refills at your follow up appointment. Do not call the hospital for medication refills. Dressing: Leave your dressing in place for a total of 5 days post operatively. Then you may remove your dressing and leave open to air. Keep the area clean and if not able to keep area clean, then cover with sterile gauze and tape. Showering: You may shower 3 days after your procedure allowing soap and water to run over incision. Do not scrub. Do not soak. Blot dry. Follow up: Please confirm a follow up appointment with your surgeon 3 weeks post operatively. Please make an appointment to follow up with your PCP in 1-2 weeks after surgery for evaluation 3 phase, 3-week plan POST OP WEEKS 1-3 1. Lifting/carrying/pushing/pulling limited to less than 5 pounds. 2. Do not sit for longer than 15 minutes at one time. Get up and walk around. Prolonged sitting is NOT advised. If you lay down, see if you can tolerate laying down on you front (belly side) 3. Walk for periods of 15 minutes = 1 mile but no longer; do it multiple times times each day. 4. Ice your low back after activity. POST OP WEEKS 3-6 1. Lifting limited to less than 20 pounds. 2. Do not sit for longer than 30 minutes at a time. Frequently change positions. Use a sit-to stand workstation or take frequent breaks from sitting if you have returned to work. 3. Walk for 30 minutes each day. If possible, do these three or more times a day POST OP WEEKS 6+ At your 6-week appointment we will give you a physical therapy referral to focus on a core stabilization and strengthening program. You should also work on leg & buttock strengthening, hamstring & quadriceps stretching, and continue a low impact aerobic activity program such as swimming, walking, or riding a stationary bicycle. During the initial 6 weeks after your surgery, you are at the highest risk of re-injuring your spine. You should generally avoid BLTs (bending, lifting and twisting combination motions) and follow the above guidelines to reduce the chance of reinjury. You can anticipate post op appointments in our office at approximately 3 weeks and 6 weeks after your surgery. INCISION CARE: If your incision is not draining you do NOT need to cover it with a dressing. Keep your incision clean, dry and intact. In most cases, we apply skin glue, ace or sutures to the incision at the time of surgery. This will be like a crust or have the appearance of a scab and will fall off in time on its own. The stitches or ace need to be removed at 3 weeks post op appointment. You may begin to shower 3 days after surgery (this allows the glue to mackenzie well). However, please avoid scrubbing the incision site or peeling off any of the skin glue. This will ensure optimal healing of your incision. Also, during this time avoid soaking the incision area in water - this includes swimming pools, hot tubs or baths. No ointments, lotions or oils on the incision until your surgeon allows. Leave ace, sutures or glue in place. Neurological dysfunction that comes on suddenly can also be a sign of a stroke. Below some common symptoms of a stroke are listed: B - balance difficulty such as sudden onset walking or leaning to one side - NEW E - eye problem such as sudden double vision or trouble seeing on one side - NEW F - Facial weakness or numbness on one side - NEW A - Arm or leg weakness or numbness on one side - NEW S - Slurred speech or difficulty with word finding - NEW T - Time is BRAIN! Call 911 as soon as you recognize these symptoms Diet: Consume a regular diet rich in vegetables and lean protein such as chicken or fish. You should consume in a ratio of approximately 20% fats|40% carbohydrates|40%protein. Vegetables, sweet potatoes, brown rice or quinoa are examples of good carbohydrates. Chips, white bread, cookies and sweets/sugar are examples of bad carbohydrates. Limit your bad carbs, go wild with good carbs. "Life's Simple 7" Guidelines as per [place] [employer] These will help you reclaim your life after surgery and cementer helper in your recovery, keeping in mind your restrictions. (1) Get Active. Physical activity can help people lose weight, control high blood pressure and cholesterol, feel emotionally better, and sleep better. (2) Control Cholesterol. Avoid a diet high in saturated fat, trans fat, & cholesterol. Limit whole milk & cream, ice cream, butter, egg yolks, processed meats (like sausage and hot dogs), and fatty meats. Choose healthy foods that are low in saturated fat, trans fat and cholesterol which include: Fruits and vegetables, fiber rich grain products (like whole grain pasta and brown rice), lean meat such as chicken, fish, nuts, seeds, and legumes. (3) Eat Better. Eat small portions. Shop at the grocery with a list and do not stray from it. Tips for a healthy diet include: Limit sodium intake to less than 1500mg daily, avoid prepackaged, processed, and fast foods, choose a diet rich in fruits, vegetables, and whole grain, high fiber foods, and limit saturated & cholesterol in your diet. (4) Manage Blood Pressure. If you have high blood pressure, you should have a cuff at home so that you can check your blood pressure regularly. Be sure you have a good cuff. An arm one is generally better than a wrist one. Bring the cuff to a doctor's appointment to validate that the measurements that your cuff are taking are accurate. Take your blood pressure twice daily when you are sitting down and relaxing. Record the numbers in a log and bring this log with you to your doctors' appointments. (5) Lose Weight if your BMI is above 25. A healthy BMI is between 19-25. To calculate Your BMI, you may use a Standard BMI Calculator on the NIH BMI website: <www.nhlbi.nih.gov/guidelines/obesity/BMI/bmicalc.htm>. Weigh oneself daily. If you are overweight, set a goal to lose weight. A pound a week loss if needed is a good target. (6) Reduce Blood Sugar. Limit foods and liquids with "added sugars." (Added sugars include sucrose, fructose, glucose, maltose, dextrose, high fructose corn syrup, corn syrup, concentrated fruit juice and honey). (7) Stop Smoking. If you smoke, quitting smoking is one of the best things that you can do for your health. Smoking increases your risk of heart attack, stroke, and peripheral vascular disease, which is a build-up of plaque in your arteries. Please discard all the cigarettes and lighters in your house. Have a plan for what you will do when you have the urge to smoke. Direct and second- hand smoke shortens your life as well as the lives of your family, friends and others around you. For your health and the health of those around you, please co nsider quitting! Proper Bending Body Mechanics: Maintain a wide stance with one foot slightly in front of the other. Keep your back straight. Bend utilizing the strength in your hips and knees. Do not bend at the waist. Maintain the lifted object at your waist-level close to your body. Avoid lifting weight that causes immediately pain or pain anywhere in the body afterwards. Smoking/Nicotine If there was ever one thing that you could do to increase your overall health, decrease your risk of cardiovascular problems by about 39% the second you make the choice, it is to STOP SMOKING. Your body's most instant gratification is the second you stop smoking. We have all heard the studies, read the articles but it is true, smoking is extremely bad for your overall health, and moreover it is detrimental to your bone health. Nicotine, IN ANY FORM, kills bone cells, prevents your body from healing fractures, and significantly prolongs healing after surgery. In spine surgery specifically, it increases your risk of not healing your bones to create a fusion and increases your risk of having a revision surgery due to this up to 60%. I know it is hard. I know it feels impossible. But there are ways. Take control of your life. We are here to help you through it. And when you are ready, ask us and we can direct you to help if you desire. Use the START Plan to Quit Smoking (please visit the Let it Wave.org website listed below for more information): S = Set a quit date. Choose a date within the next 2 weeks, so you have enough time to prepare without losing your motivation to quit. If you mainly smoke at work, quit on the weekend, so you have a few days to adjust to the change. T = Tell family, friends, and co-workers that you plan to quit. Let your friends and family in on your plan to quit smoking and tell them you need their support and encouragement to stop. Look for a quit laurita who wants to stop smoking as well. You can help each other get through the rough times. A = Anticipate and plan for the challenges you'll face while quitting. Most people who begin smoking again do so within the first 3 months. You can help yourself make it through by preparing ahead for common challenges, such as nicotine withdrawal and cigarette cravings. R = Remove cigarettes and other tobacco products from your home, car, and work. Throw away all your cigarettes (no emergency pack!), lighters, ashtrays, and matches. Wash your clothes and freshen up anything that smells like smoke. Shampoo your car, clean your drapes and carpet, and steam your furniture. T = Talk to your doctor about getting help to quit. Your doctor can prescribe medication to help with withdrawal and suggest other alternatives. If you can't see a doctor, you can get many products over the counter at your local pharmacy or grocery store, including the nicotine patch, nicotine lozenges, and nicotine gum. Resources for Quitting Smoking: <https://www.[place].gov/documents/[facility]/Quit_Tobacco_Resources_for_patients_313 480_7.pdf> Supplementation: Take recommended dosages of Vitamin D and Calcium to help fortify your bones and help them to heal. See your health maintenance packet for dosages and vani mmended levels. DVT/VTE prophylaxis: You will be given compression stockings from the hospital. Wear these daily for the first two weeks after surgery. You may take them off at night. You may be prescribed a medication to help thin your blood. Take this as directed. If you are not prescribed this medication, early and frequent ambulation has been shown to be the best prophylaxis to deep vein thrombosis and sequelae related to this event. Discharge Disposition: HOME WITH HOME HEALTH SERVICES
[2022-06-12 19:14] LABS: Basophils % (A) 0 %; Eosinophils # (A) 0.5 k/uL (0-0.7); Eosinophils % (A) 6 %; HCT 29.2 % (39.0-53.0); Hypochromasia Slight; Lymphocytes % (A) 25 %; MCH 28.8 pg (25.0-35.0); MCHC 32.2 g/dL (31.0-37.0); MCV 89.6 fL (80.0-100.0); Mean Platelet Volume 7.9; Monocytes # (A) 0.3 k/uL (0-1.0); Monocytes % (A) 4 %; Neutrophils % (A) 62 %; Platelet Count 336 k/uL (150-450); RBC 3.26 m/uL (4.30-5.90); RDW 15.6 % (11.5-15.5); WBC 8.1 k/uL (3.8-10.6)
[2022-06-12 19:53] VITALS: BP 142/87; PULSE 68; RESP 16; TEMP 97.3
[2022-06-12 19:58] LABS: HGB 9.4 gm/dL (13.0-17.5)
[2022-06-13] MEDS ORDERED: VANCOMYCIN TROUGH DUE 1 EACH MISC MISCELLANE ONE (07:00)
--- NOTE | 2022-06-14 20:30 | CDI ---
Documentation Clarification Form Date: 06/14/2022 08:15:03 PM From: Tosha Fernandez Phone: Admit Date: 06/06/2022 09:08:00 AM Patient Name: Jerrod Colindres Visit Number: [id number] Discharge Date: 06/12/2022 08:04:00 PM ATTENTION: The Clinical Documentation Specialists (CDI) and [facility] Coding Staff appreciate your assistance in clarifying documentation. Please respond to the clarification below the line at the bottom and electronically sign. The CDI & [facility] Coding staff will review the response and follow-up if needed. Please note: Queries are made part of the Legal Health Record. If you have any questions, please contact the author of this message via ITS. Dr. Stiven Khan Sepsis is documented per Dr. Orozco Progress Note 06/10/22 which may lack sufficient clinical evidence/support in the medical record. Additional clarification is requested. History/Risk Factors: 66yo M, Lumbar spondylosis L2-S1 w myelopathy, radiculopathy, and stenosis, Neurogenic claudication, acute ABLA, reactive leukocytosis, COPD, Hx smoking WBC: 9.6 06/06 10.7 06/08 Blood cultures: Cultures pending 06/11 VITAL SIGNS: 97.9, 89, 13, 115/69, 95% on 2 L 06/07/22 VITAL SIGNS: 96.2, 82, 14, 11 9 x 66, 92% on 2 L 06/09/22 VITAL SIGNS: Afebrile, 91, 18, 104/70, 100% on room air 06/11/22 Antibiotics: vancomycin and Zosyn IV Bolus: IV fluids Please clarify if Sepsis is a valid diagnosis? [ ] Sepsis, Not POA [ ] Sepsis ruled out [ ] SIRS, without underlying infectious process [ ] Other, please specify [ ] Unable to determine SIRS Criteria: 2 or more of the following may indicate SIRS -Temperature < 96.8F (36C) or > 101.0F (38.3C) -Heart Rate > 90 bpm -Respiratory Rate > 20 breaths/min or PaCO2 < 32 mmHg -White Blood Cell Count > 12,000 or < 4,000 cells/mm3 or > 10% bands (Template Last Revised: October 2020) No sepsis. Does not meet SIRS criteria. Sepsis ruled out. MTDD
== END 2022-06-12 20:04 | disposition home health service (06) | DRG 454 ==
LOC: 2ORMAIN 09:08 → 2SICU 18:21 → 5NMEDONC 06-08 22:18
PROVIDERS: ADMIT Orthopaedic Surgery; ATTEND Orthopaedic Surgery
PROC: 0SG1071 Fusion of 2 or more Lumbar Vertebral Joints with Autologous Tissue Substitute, Posterior Approach, Posterior Column, Open Approach (ICD-10-PCS; 2022-06-06)
PROC: 0SG30AJ Fusion of Lumbosacral Joint with Interbody Fusion Device, Posterior Approach, Anterior Column, Open Approach (ICD-10-PCS; 2022-06-06)
PROC: 01NB0ZZ Release Lumbar Nerve, Open Approach (ICD-10-PCS; 2022-06-06)
PROC: 00UT07Z Supplement Spinal Meninges with Autologous Tissue Substitute, Open Approach (ICD-10-PCS; 2022-06-06)
PROC: 30243N1 Transfusion of Nonautologous Red Blood Cells into Central Vein, Percutaneous Approach (ICD-10-PCS; 2022-06-06)
PROC: 0SG10AJ Fusion of 2 or more Lumbar Vertebral Joints with Interbody Fusion Device, Posterior Approach, Anterior Column, Open Approach (ICD-10-PCS; principal; 2022-06-06 10:45)
DX: M47.16 Other spondylosis with myelopathy, lumbar region (principal); D62 Acute posthemorrhagic anemia; J44.9 Chronic obstructive pulmonary disease, unspecified; I10 Essential (primary) hypertension; M41.56 Other secondary scoliosis, lumbar region; I95.89 Other hypotension; M48.062 Spinal stenosis, lumbar region with neurogenic claudication; M48.07 Spinal stenosis, lumbosacral region; M43.16 Spondylolisthesis, lumbar region; M47.26 Other spondylosis with radiculopathy, lumbar region; G89.29 Other chronic pain; Z87.891 Personal history of nicotine dependence; M19.91 Primary osteoarthritis, unspecified site; D72.828 Other elevated white blood cell count; Z79.1 Long term (current) use of non-steroidal anti-inflammatories (NSAID); Z79.899 Other long term (current) drug therapy
CPT/HCPCS: 71045; 71046; 72100; 72131; 80048; 81003; 84145; 85025; 85027; 85610; 86850; 86900; 86901; 86920; 87040; 94760

== ENCOUNTER → 2023-07-16 | Outpatient (CLI) | payer MEDICARE, OTHER ==
--- NOTE | 2023-07-16 13:03 | CT ---
EXAMINATION TYPE: CT lumbar spine wo con DATE OF EXAM: 07/16/2023 COMPARISON: 06/07/2022 HISTORY: Low back pain CT DLP: 1354.90 mGycm CONTRAST: None TECHNIQUE: CT of the lumbar spine is performed on a spiral scan at 3 mm thick sections. Reconstructed images are performed in the coronal and sagittal planes. FINDINGS: Pedicle screws appear to extend from L2 to S2. Beam hardening artifact is present with some limitation. Multiple laminectomies are evident. No obvious stenosis is evident. Pelvic screws are stable in position with the left pelvic screw extending posterior to the iliac wing . Disc spacers present at L4-5. Additional disc spaces are present L3-4 and L5-S1. Narrowing of the L2- 3 disc height. No spondylolisthesis is evident. Vertebral body heights appear preserved. IMPRESSION: Postsurgical lumbar fixation, stable from the comparison of 06/07/2022.
== END | disposition home or self-care (01) ==
LOC: RADCTMAIN 09:32
PROVIDERS: ATTEND Orthopaedic Surgery
DX: M54.50 Low back pain, unspecified (principal); Z98.890 Other specified postprocedural states
CPT/HCPCS: 72131

== ENCOUNTER 2023-08-25 17:49 | Inpatient (IN) | payer MEDICARE, OTHER ==
[2023-08-25] MEDS ORDERED: MORPHINE SULFATE 4 MG/ML SYRINGE IVP STA (17:59)
[2023-08-25 18:09] LABS: Glucose,Whole Blood 138 mg/dL (70-110)
[2023-08-25] MEDS: ONDANSETRON 4 MG/2 ML VIAL IVP STA (18:10)
[2023-08-25] MEDS: fentaNYL (PF) 50 MCG/ML 2 ML AMP IVP STA ×2 (18:11→19:00)
[2023-08-25 18:16] LABS: Basophils # (A) 0.1 k/uL (0-0.2); Basophils % (A) 0 %; Eosinophils # (A) 0.3 k/uL (0-0.7); Eosinophils % (A) 1 %; HCT 45.1 % (39.0-53.0); HGB 14.6 gm/dL (13.0-17.5); Lymphocytes # (A) 4.1 k/uL (1.0-4.8); Lymphocytes % (A) 20 %; MCH 28.1 pg (25.0-35.0); MCHC 32.3 g/dL (31.0-37.0); MCV 87.1 fL (80.0-100.0); Monocytes # (A) 0.8 k/uL (0-1.0); Monocytes % (A) 4 %; Neutrophils # (A) 14.8 k/uL (1.3-7.7); Neutrophils % (A) 74 %; Platelet Count 312 k/uL (150-450); RBC 5.18 m/uL (4.30-5.90); RDW 15.4 % (11.5-15.5); WBC 20.1 k/uL (3.8-10.6)
[2023-08-25 18:26] LABS: ALT 50 U/L (4-49); African American GFR (CKD) >90 (>60 ml/min/1.73 sqM); Albumin 3.5 g/dL (3.5-5.0); Alcohol <10 mg/dL; Anion Gap 3 mmol/L; Blood Urea Nitrogen 22 mg/dL (9-20); Calcium 8.3 mg/dL (8.4-10.2); Carbon Dioxide 22 mmol/L (22-30); Chloride 112 mmol/L (98-107); Glucose 137 mg/dL (74-99); Non-African American GFR(CKD) 85 (>60 ml/min/1.73 sqM); Sodium 137 mmol/L (137-145); Total Bilirubin 0.5 mg/dL (0.2-1.3)
--- NOTE | 2023-08-25 18:26 | XR ---
EXAMINATION TYPE: XR chest 1V DATE OF EXAM: 08/25/2023 HISTORY: Shortness of breath. COMPARISON: 06/10/2022 TECHNIQUE: Single view of the chest is submitted. FINDINGS: Demonstrated are scattered senescent parenchymal change. There is no evidence for focal infiltrate. The heart is stable. Hilar and mediastinal structures are within normal limits. Degenerative changes are seen of the dorsal spine. IMPRESSION: 1. Chronic changes without evidence for acute pulmonary disease.
--- NOTE | 2023-08-25 18:27 | XR ---
EXAMINATION TYPE: XR pelvis AP view DATE OF EXAM: 08/25/2023 CLINICAL HISTORY: pain TECHNIQUE: Single view the pelvis is submitted. FINDINGS: No evidence for fracture, dislocation or bony lesion. Joint spaces are severely narrowed on the right.. SI joints appear symmetric. Lumbosacral postoperative changes seen. IMPRESSION: 1. No acute fracture or dislocation seen. ICD 10 NO FRACTURE, INITIAL EVALUATION
[2023-08-25 18:32] LABS: Potassium 4.6 mmol/L (3.5-5.1)
[2023-08-25 18:33] LABS: AST 72 U/L (17-59); Alkaline Phosphatase 73 U/L (38-126)
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
[2023-08-25] MEDS: SODIUM CHLORIDE 0.9% 1,000 ML IV STA (18:38)
[2023-08-25 18:43] LABS: Partial Thromboplastin Time 24.3 sec (22.0-30.0)
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
[2023-08-25] MEDS: DIPH,PERTUS(ACELL)TETVAC-LF 0.5 ML VIAL IM ONE (18:59)
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
--- NOTE | 2023-08-25 19:15 | XR ---
EXAMINATION TYPE: XR knee limited RT DATE OF EXAM: 08/25/2023 CLINICAL HISTORY: pain TECHNIQUE: 2 views of the right knee are obtained. COMPARISON: None. FINDINGS: There is no acute fracture/dislocation. The tri-compartment joint spaces appear within no rmal limits. The overlying soft tissue appears unremarkable. IMPRESSION: There is no acute fracture or dislocation.ICD 10 NO FRACTURE, INITIAL EVALUATION
--- NOTE | 2023-08-25 19:16 | XR ---
EXAMINATION TYPE: XR tibia fibula LT DATE OF EXAM: 08/25/2023 CLINICAL HISTORY: pain TECHNIQUE: AP and lateral images of the left tibia and fibula are obtained. COMPARISON: None. FINDINGS: Minimally comminuted virtually nondisplaced fracture involving the distal one third of the left tibial diaphysis. There is additional minimally displaced fracture involving the distal fibular diaphysis just proximal to the metaphyseal region. The joint spaces appear within normal limits. Tis adriana swelling noted. IMPRESSION: Fractures as described. ICD 10 NO FRACTURE, INITIAL EVALUATION
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
[2023-08-25] MEDS ORDERED: ONDANSETRON 4 MG/2 ML VIAL IVP PRN (20:00)
[2023-08-25] MEDS ORDERED: NALOXONE 0.4 MG/ML 1 ML VIAL IV PRN (20:00)
[2023-08-25] MEDS: MORPHINE SULFATE 4 MG/ML SYRINGE IVP STA (20:29)
[2023-08-25] MEDS: LIDOCAINE 1% INJ 10MG/ML (20 ML MDV) SQ ONE (20:30)
[2023-08-25] MEDS: SODIUM CHLORIDE 0.9% 1,000 ML IV SCH (20:36)
[2023-08-25] MEDS: CYCLOBENZAPRINE 5 MG TAB PO SCH (21:08)
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
[2023-08-25] MEDS: HEPARIN SODIUM,PORCINE 5,000 UNIT/ML 1 ML VIAL SQ SCH (23:27)
[2023-08-25] MEDS: GABAPENTIN 400 MG CAP PO SCH (23:27)
[2023-08-26] MEDS: HYDROmorphone 1 MG/ML 1 ML SYRINGE IVP PRN (00:37)
[2023-08-26 05:20] LABS: Appearance,Urine Clear (Clear); Bilirubin,Urine Negative (Negative); Blood,Urine Moderate (Negative); Color,Urine Yellow; Glucose,Urine (UA) Negative (Negative); Ketones,Urine Negative (Negative); Leukocyte Esterase,Urine Negative (Negative); Nitrite,Urine Negative (Negative); PH, Urine 5.5 (5.0-8.0); Protein,Urine Trace (Negative); RBC,Urine 8 /hpf (0-5); Squamous Epithelial Cell,Urine <1 /hpf (0-4); Urobilinogen,Urine <2.0 mg/dL (<2.0); WBC,Urine 5 /hpf (0-5)
[2023-08-26 05:23] LABS: Specific Gravity,Urine >1.050 (1.001-1.035)
[2023-08-26 05:52] LABS: Amphetamine Screen,Urine Detected (NotDetected); Cocaine Screen,Urine Detected (NotDetected); Opiate Screen,Urine Detected (NotDetected); Phencyclidine Screen,Urine Not Detected (NotDetected); Urn Cannabinoid Scrn Detected (NotDetected)
[2023-08-26 05:53] LABS: Barbiturate Screen,Urine Not Detected (NotDetected); Benzodiazepines Screen,Urine Not Detected (NotDetected); Methadone Screen, Urine Not Detected (NotDetected); Oxycodone Screen, Urine Not Detected (NotDetected); Tricyclic Antidepressant,Urine Detected (NotDetected)
[2023-08-26] MEDS: IPRATROPIUM 0.5 MG/2.5 ML NEBU INHALATION SCH (07:56)
[2023-08-26 08:07] LABS: Basophils % (A) 0 %; Eosinophils % (A) 0 %; HCT 38.7 % (39.0-53.0); HGB 12.5 gm/dL (13.0-17.5); Hypochromasia Slight; Lymphocytes # (A) 2.3 k/uL (1.0-4.8); Lymphocytes % (A) 19 %; MCH 28.7 pg (25.0-35.0); MCHC 32.3 g/dL (31.0-37.0); MCV 88.9 fL (80.0-100.0); Mean Platelet Volume 7.6; Monocytes # (A) 0.7 k/uL (0-1.0); Monocytes % (A) 6 %; Neutrophils # (A) 9.2 k/uL (1.3-7.7); Neutrophils % (A) 74 %; Platelet Count 275 k/uL (150-450); RBC 4.35 m/uL (4.30-5.90); RDW 15.5 % (11.5-15.5); WBC 12.5 k/uL (3.8-10.6)
[2023-08-26] MEDS: PANTOPRAZOLE 40 MG TABLET PO SCH (08:07)
[2023-08-26] MEDS: METOPROLOL SUCCINATE (ER) 25 MG TAB.ER.24H PO SCH (08:07)
[2023-08-26 08:22] LABS: African American GFR (CKD) 40 (>60 ml/min/1.73 sqM); Anion Gap 8 mmol/L; Blood Urea Nitrogen 33 mg/dL (9-20); Calcium 8.3 mg/dL (8.4-10.2); Carbon Dioxide 16 mmol/L (22-30); Chloride 113 mmol/L (98-107); Glucose 130 mg/dL (74-99); Non-African American GFR(CKD) 34 (>60 ml/min/1.73 sqM); Sodium 137 mmol/L (137-145)
[2023-08-26 08:26] LABS: Potassium 5.9 mmol/L (3.5-5.1)
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
[2023-08-26] MEDS: MIDODRINE 5 MG TAB PO SCH (11:51)
[2023-08-26] MEDS: DEXTROSE 5% IN WATER 1,000 ML with SODIUM BICARB (1 MEQ/ML) 150 ML IV SCH (12:12)
[2023-08-26 12:31] LABS: African American GFR (CKD) 40 (>60 ml/min/1.73 sqM); Anion Gap 10 mmol/L; Blood Urea Nitrogen 35 mg/dL (9-20); Calcium 8.1 mg/dL (8.4-10.2); Carbon Dioxide 14 mmol/L (22-30); Chloride 112 mmol/L (98-107); Glucose 186 mg/dL (74-99); Non-African American GFR(CKD) 35 (>60 ml/min/1.73 sqM); Potassium 4.9 mmol/L (3.5-5.1); Sodium 136 mmol/L (137-145)
[2023-08-26] MEDS: GABAPENTIN 300 MG CAP PO SCH (16:21)
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
[2023-08-26] MEDS: NICOTINE 21MG/24HR PATCH TRANSDERM SCH (23:58)
[2023-08-27] MEDS ORDERED: TRANEXAMIC 1,000 MG/100ML-NACL 1,000 MG in SALINE 1 100ML.BAG IVPB PRN (05:00)
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
[2023-08-27] MEDS: SYMBICORT 80-4.5 MCG INHALER INHALATION SCH (07:42)
[2023-08-27] MEDS: MORPHINE SULFATE 4 MG/ML SYRINGE IV PRN (08:41)
[2023-08-27 08:57] LABS: Basophils # (A) 0.1 k/uL (0-0.2); Basophils % (A) 1 %; Eosinophils # (A) 0.3 k/uL (0-0.7); Eosinophils % (A) 2 %; HCT 31.6 % (39.0-53.0); HGB 10.4 gm/dL (13.0-17.5); Lymphocytes # (A) 2.3 k/uL (1.0-4.8); Lymphocytes % (A) 22 %; MCH 28.8 pg (25.0-35.0); MCV 87.3 fL (80.0-100.0); Mean Platelet Volume 7.5; Monocytes # (A) 0.6 k/uL (0-1.0); Monocytes % (A) 5 %; Neutrophils # (A) 7.5 k/uL (1.3-7.7); Neutrophils % (A) 69 %; Platelet Count 206 k/uL (150-450); RBC 3.62 m/uL (4.30-5.90); RDW 15.6 % (11.5-15.5); WBC 10.8 k/uL (3.8-10.6)
[2023-08-27 09:11] LABS: ALT 40 U/L (4-49); AST 65 U/L (17-59); African American GFR (CKD) 76 (>60 ml/min/1.73 sqM); Albumin 2.6 g/dL (3.5-5.0); Alkaline Phosphatase 61 U/L (38-126); Anion Gap 2 mmol/L; Blood Urea Nitrogen 29 mg/dL (9-20); Calcium 7.4 mg/dL (8.4-10.2); Carbon Dioxide 32 mmol/L (22-30); Chloride 100 mmol/L (98-107); Glucose 284 mg/dL (74-99); Non-African American GFR(CKD) 66 (>60 ml/min/1.73 sqM); Potassium 3.9 mmol/L (3.5-5.1); Sodium 134 mmol/L (137-145); Total Bilirubin 0.5 mg/dL (0.2-1.3); Total Protein 4.7 g/dL (6.3-8.2)
[2023-08-27 09:32] LABS: Creatine Kinase 2998 U/L (55-170)
[2023-08-27] MEDS: SODIUM CHLORIDE 0.9% 1,000 ML IV SCH (10:30)
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
[2023-08-27] MEDS: IV FLUID CONTINUATION 1,000 ML IV ONE ×2 (14:18→16:45)
[2023-08-27] MEDS: ONDANSETRON 4 MG/2 ML VIAL IVP ONE (14:34)
[2023-08-27] MEDS: DEXAMETHASONE SOD PHOSPHATE 4 MG/ML 1 ML VIAL IVP ONE (14:35)
[2023-08-27] MEDS ORDERED: HYDROmorphone 0.5 MG/0.5 ML SYRINGE ONE (14:48)
[2023-08-27] MEDS: HYDROmorphone 0.5 MG/0.5 ML SYRINGE IVP ONE (14:49)
[2023-08-27] MEDS: IPRATROPIUM-ALBUTEROL 3 ML NEB INHALATION SCH (15:10)
[2023-08-27] MEDS ORDERED: SUCCINYLCHOLINE CHLORIDE 200 MG/10 ML VIAL IV ONE (15:24)
[2023-08-27] MEDS ORDERED: GLYCOPYRROLATE 0.2 MG/ML 2 ML VIAL ONE (15:24)
[2023-08-27] MEDS ORDERED: MIDAZOLAM 2 MG/2 ML VIAL ONE (15:24)
[2023-08-27] MEDS ORDERED: fentaNYL (PF) 50 MCG/ML 2 ML AMP ONE (15:24)
[2023-08-27] MEDS ORDERED: LIDOCAINE 1% INJ 10MG/ML (20 ML MDV) ONE (15:24)
[2023-08-27] MEDS ORDERED: ROCURONIUM 10 MG/ML (5 ML VIAL) IV ONE (15:24)
[2023-08-27] MEDS ORDERED: PROPOFOL 10 MG/ML 20 ML VIAL IV ONE (15:24)
[2023-08-27] MEDS ORDERED: NEOSTIGMINE 1 MG/ML 10 ML VIAL ONE (15:24)
[2023-08-27 15:48] LABS: Hepatitis A Antibody IgM Nonreactive; Hepatitis B Core IgM Nonreactive; Hepatitis B Surface Antigen Nonreactive; Hepatitis C IgG Antibody Nonreactive
[2023-08-27] MEDS: ceFAZolin 1,000 MG in SODIUM CHLORIDE 0.9% 1,000 ML IRRIGATION ONE (15:58)
[2023-08-27] MEDS ORDERED: SENNOSIDES-DOCUSATE SODIUM 1 EACH TAB PO PRN (17:10)
[2023-08-27] MEDS ORDERED: HYDROmorphone 0.5 MG/0.5 ML SYRINGE IVP PRN (17:10)
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
--- NOTE | 2023-08-27 17:17 | XR ---
EXAMINATION TYPE: XR tibia fibula LT, FL guidance operating room Intraoperative/procedural fluoroscop ic services were provided. Total fluoroscopy time is 59 seconds with a total of 10 submitted images t o PACS. Please see the operative/procedural note for further details. DAP: 0.8197 Gycm2
[2023-08-27 20:18] LABS: Basophils % (A) 0 %; Eosinophils # (A) 0.1 k/uL (0-0.7); Eosinophils % (A) 1 %; HCT 29.8 % (39.0-53.0); HGB 9.8 gm/dL (13.0-17.5); Lymphocytes % (A) 8 %; MCH 28.8 pg (25.0-35.0); MCHC 33.1 g/dL (31.0-37.0); MCV 87.1 fL (80.0-100.0); Mean Platelet Volume 7.1; Monocytes # (A) 0.5 k/uL (0-1.0); Monocytes % (A) 4 %; Neutrophils # (A) 10.8 k/uL (1.3-7.7); Neutrophils % (A) 86 %; Platelet Count 201 k/uL (150-450); RBC 3.42 m/uL (4.30-5.90); RDW 15.6 % (11.5-15.5); WBC 12.6 k/uL (3.8-10.6)
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
[2023-08-28] MEDS: ceFAZolin 3 GM in SODIUM CHLORIDE 0.9% 100 ML IVPB SCH (00:05)
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
[2023-08-28] MEDS: HYDROcodone/APAP 7.5-325MG 1 EACH TAB PO PRN (17:55)
[2023-08-29] MEDS: HYDROcodone/APAP 10-325MG 1 EACH TAB PO PRN (08:52)
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
--- NOTE | 2023-08-29 09:09 | XR ---
EXAMINATION TYPE: XR hand limited LT DATE OF EXAM: 08/29/2023 COMPARISON: 08/25/2023 HISTORY: 68-year-old male left hand pain and tenderness, limited range of motion TECHNIQUE: 2 views FINDINGS: Moderate degenerative change first CMC joint. A ring obscures the fourth proximal phalangea l shaft. Unchanged punctate hyperdense retained foreign body material along the ulnar carpal soft tis sues. Some lucencies within the lunate bone remain unchanged and may be seen with ulnar impaction syn drome. No acute fracture, subluxation, dislocation seen. 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 Changes which may be seen with ulnar impaction syndrome. Correlate for any chronic ulnar-sided wrist pain. No acute osseous amount is seen.
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
[2023-08-29 11:17] LABS: African American GFR (CKD) >90 (>60 ml/min/1.73 sqM); Anion Gap 2 mmol/L; Blood Urea Nitrogen 22 mg/dL (9-20); Calcium 8.1 mg/dL (8.4-10.2); Carbon Dioxide 27 mmol/L (22-30); Chloride 106 mmol/L (98-107); Glucose 116 mg/dL (74-99); Non-African American GFR(CKD) 89 (>60 ml/min/1.73 sqM); Potassium 3.9 mmol/L (3.5-5.1); Sodium 135 mmol/L (137-145)
[2023-08-29] MEDS ORDERED: ARTIFICIAL TEARS-HYPROMELLOSE DROPS 15 ML BTL RIGHT EYE PRN (14:40)
[2023-08-29] MEDS: HYDROmorphone 0.5 MG/0.5 ML SYRINGE IVP PRN (16:33)
--- NOTE | 2023-08-30 03:16 | PN ---
PROGRESS NOTE SUBJECTIVE: This is a 68-year-old white male, on Symbicort, scheduled to get a T10-L2 fracture repair tomorrow. He has hypertension. He is on blood pressure medications COPD, pulmonary hypertension, and getting treatments. Prognosis guarded. OBJECTIVE: VITAL SIGNS: Temperature 98.5, pulse 85, respiratory rate 18 to 20, blood pressure 120s/80s, and O2 saturations 97% on 3 L. HEMATOLOGY: Negative for Homans. CARDIOVASCULAR: S1 and S2. LUNGS: Decreased breath sounds x4. ABDOMEN: Soft. Nontender. ASSESSMENT: 1. Preoperative thoracic fracture. 2. Chronic obstructive pulmonary disease. 3. Hypertension. 4. Nicotine addiction. PLAN: Continue current treatment. Continue breathing treatments, inhalers, PT/OT. Follow up in the next 24 to 48 hours after surgery. MMODL / IJN: [id number] /
[2023-08-30] MEDS: LACTATED RINGERS 1,000 ML IV ONE ×8 (10:58→14:30)
[2023-08-30] MEDS: ONDANSETRON 4 MG/2 ML VIAL IVP ONE (11:00)
[2023-08-30] MEDS ORDERED: LIDOCAINE 1% (10MG/ML) FOR IV START INTRADERMA PRN (11:03)
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
[2023-08-30] MEDS: MIDAZOLAM 2 MG/2 ML VIAL IVP ONE (11:18)
[2023-08-30] MEDS: fentaNYL (PF) 50 MCG/ML 2 ML AMP IVP ONE (11:18)
[2023-08-30] MEDS ORDERED: TRANEXAMIC 1,000 MG/100ML-NACL 1,000 MG in SALINE 1 100ML.BAG IVPB PRN (12:00)
[2023-08-30] MEDS ORDERED: GLYCOPYRROLATE 0.2 MG/ML 2 ML VIAL ONE (12:10)
[2023-08-30] MEDS ORDERED: MIDAZOLAM 2 MG/2 ML VIAL ONE (12:10)
[2023-08-30] MEDS ORDERED: NEOSTIGMINE 1 MG/ML 10 ML VIAL ONE (12:10)
[2023-08-30] MEDS ORDERED: HYDROmorphone (PF) 1 MG/ML ONE (12:10)
[2023-08-30] MEDS ORDERED: PROPOFOL 10 MG/ML 20 ML VIAL IV ONE (12:10)
[2023-08-30] MEDS ORDERED: fentaNYL (PF) 50 MCG/ML 2 ML AMP ONE (12:10)
[2023-08-30] MEDS ORDERED: PHENYLEPHRINE 10 MG/ML VIAL ONE (12:10)
[2023-08-30] MEDS ORDERED: TRANEXAMIC 1,000 MG/100ML-NACL PREMIX BAG ONE (12:10)
[2023-08-30] MEDS ORDERED: ROCURONIUM 10 MG/ML (5 ML VIAL) IV ONE (12:10)
[2023-08-30] MEDS ORDERED: KETAMINE HCL IN 0.9 % NACL 50 MG/5 ML SYRINGE ONE (12:10)
[2023-08-30] MEDS ORDERED: SUCCINYLCHOLINE CHLORIDE 200 MG/10 ML VIAL IV ONE (12:10)
[2023-08-30] MEDS ORDERED: LIDOCAINE 1% INJ 10MG/ML (20 ML MDV) ONE (12:10)
[2023-08-30] MEDS: THROMBIN (BOVINE) 5,000 UNIT VIAL TOPICAL ONE (12:15)
[2023-08-30] MEDS: GELATIN SPONGE,ABSORB (LARGE) 1 EACH SPONGE TOPICAL ONE (12:15)
[2023-08-30] MEDS: VANCOMYCIN 1,000 MG VIAL MISCELLANE ONE (12:15)
[2023-08-30] MEDS: GENTAMICIN 80 MG in SODIUM CHLORIDE 0.9% IRRIGATIO 3,000 ML IRRIGATION ONE ×2 (12:15→13:07)
[2023-08-30] MEDS: ceFAZolin 3,000 MG in SODIUM CHLORIDE 0.9% IRRIGATIO 3,000 ML IRRIGATION ONE ×2 (12:15→13:07)
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
[2023-08-30 12:23] LABS: Anisocytosis Slight; Basophils % (A) 0 %; Eosinophils # (A) 0.4 k/uL (0-0.7); Eosinophils % (A) 6 %; HCT 25.1 % (39.0-53.0); HGB 8.5 gm/dL (13.0-17.5); Lymphocytes # (A) 1.5 k/uL (1.0-4.8); Lymphocytes % (A) 22 %; MCH 29.5 pg (25.0-35.0); MCHC 33.9 g/dL (31.0-37.0); MCV 86.9 fL (80.0-100.0); Mean Platelet Volume 7.4; Monocytes # (A) 0.4 k/uL (0-1.0); Monocytes % (A) 6 %; Neutrophils # (A) 4.5 k/uL (1.3-7.7); Neutrophils % (A) 64 %; Platelet Count 231 k/uL (150-450); RBC 2.88 m/uL (4.30-5.90); RDW 16.3 % (11.5-15.5)
--- NOTE | 2023-08-30 12:36 | P.ANPRN ---
Procedure Note - Anesthesia - Invasive Line Right Central Line Time Out Performed: Yes (1117) Date of Procedure: 08/30/23 Time of Procedure: 11:18 Location of Patient: PreOp Preparation: Sterile Prep, Sterile Dressing Central Line Location: Internal Jugular (right IJ CHERI) Ultrasound Used: Yes Purpose - Visualization and Identification of Vasculature: Yes Needle Guage: 18g angio Image Stored and Saved: Yes Narrative: Central line placement per sterile protocol utilized. + local + angio+ CVP + J-wire + uneventful dilation and introduction right IJ double-lumen catheter. Lumens blood and flushed. Secured. Biopatch. Dressed
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
--- NOTE | 2023-08-30 14:42 | P.PN ---
Progress Note - Text Progress Note Date: 08/30/23 Attempted to see patient for new consult. Patient is currently not in his room and is in the OR for back surgery. Patient will be seen tomorrow.
--- NOTE | 2023-08-30 16:13 | FL ---
EXAMINATION TYPE: FL guidance operating room, XR lumbar spine 2 or 3V Intraoperative/procedural fluor oscopic services were provided. Total fluoroscopy time is 21 seconds with a total of 12 submitted shalom ges to PACS. Please see the operative/procedural note for further details. DAP: 3423.11 cGycm2
[2023-08-30] MEDS: LACTATED RINGERS 1,000 ML IV SCH (20:47)
[2023-08-30] MEDS: DEXAMETHASONE SOD PHOSPHATE 4 MG/ML 1 ML VIAL IV ONE (20:47)
[2023-08-30] MEDS: SENNOSIDES-DOCUSATE SODIUM 1 EACH TAB PO SCH (21:36)
--- NOTE | 2023-08-30 22:57 | PN ---
PROGRESS NOTE SUBJECTIVE: This is a 68-year-old who had interoperative procedure for possible surgery on his back today, coming to OR for back surgery. OBJECTIVE: VITAL SIGNS: Reviewed. Temp 97.6, O2 is 99 on simple face mask, respiratory rate 16 to 18, pulse is 90s, blood pressure 110/60s to 70s. Hemoglobin 8.5 this morning. Sodium 135, potassium 3.9. Continue current treatment. Prognosis guarded. Please see further orders. Wait for further surgical recommendations. MMODL / IJN: [id number] /
[2023-08-31] MEDS: LACTATED RINGERS 1,000 ML IV SCH (01:26)
[2023-08-31] MEDS: ONDANSETRON 4 MG/2 ML VIAL IVP ONE (01:26)
[2023-08-31] MEDS ORDERED: HYDROmorphone 0.5 MG/0.5 ML SYRINGE IVP PRN (07:00)
[2023-08-31] MEDS ORDERED: MIDAZOLAM 2 MG/2 ML VIAL IV PRN (07:00)
[2023-08-31 07:50] LABS: Anisocytosis Slight; Basophils % (A) 0 %; Eosinophils # (A) 0.2 k/uL (0-0.7); Eosinophils % (A) 2 %; HCT 23.1 % (39.0-53.0); HGB 7.5 gm/dL (13.0-17.5); Hypochromasia Slight; Lymphocytes # (A) 1.4 k/uL (1.0-4.8); Lymphocytes % (A) 13 %; MCH 29.1 pg (25.0-35.0); MCHC 32.6 g/dL (31.0-37.0); MCV 89.2 fL (80.0-100.0); Mean Platelet Volume 7.4; Monocytes # (A) 0.5 k/uL (0-1.0); Monocytes % (A) 4 %; Neutrophils # (A) 8.4 k/uL (1.3-7.7); Neutrophils % (A) 79 %; Platelet Count 268 k/uL (150-450); RBC 2.59 m/uL (4.30-5.90); RDW 16.7 % (11.5-15.5); WBC 10.6 k/uL (3.8-10.6)
[2023-08-31 08:07] LABS: African American GFR (CKD) >90 (>60 ml/min/1.73 sqM); Anion Gap 5 mmol/L; Blood Urea Nitrogen 20 mg/dL (9-20); Calcium 7.9 mg/dL (8.4-10.2); Carbon Dioxide 24 mmol/L (22-30); Chloride 106 mmol/L (98-107); Glucose 166 mg/dL (74-99); Non-African American GFR(CKD) 89 (>60 ml/min/1.73 sqM); Sodium 135 mmol/L (137-145)
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
[2023-08-31 11:22] LABS: Partial Thromboplastin Time 23.6 sec (22.0-30.0); Prothrombin Time 10.8 sec (10.0-12.5)
[2023-08-31] MEDS: HYDROcodone/APAP 10-325MG 1 EACH TAB PO PRN (11:31)
[2023-08-31] MEDS: CALCIUM CARBONATE 500 MG CHEWABLE PO PRN (11:43)
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
[2023-08-31 13:34] VITALS: BMI 41.0
--- NOTE | 2023-08-31 14:11 | CT ---
EXAMINATION TYPE: CT thor lumbar spine wo con DATE OF EXAM: 08/31/2023 COMPARISON: 08/25/2023 HISTORY: L1 ORIF with T-11-L2 stabilization CT DLP: 2263.1 mGycm Automated exposure control for dose reduction was used. FINDINGS: Compared to the prior study there has been additional laminectomy and posterior metallic fusion of T1 1, T12 and L1 and vertebroplasty of T12 and L1 for stabilization of an L1 fracture which was seen on the prior study. Laminectomy and posterior and intradiscal fusion from L2 through S1 is stable. There are skin ace in the posterior lumbar region soft tissues and a mild scattered subcutaneous gas consistent with hi story of recent surgery. At the L1 level, there is no change in the slight retropulsion with less than 10% compromise of the s epi canal. Evaluation of the thecal sac is limited by this technique particularly given the high degree of stre ak artifact from the pedicle screws and stabilization rods. There is no significant bony encroachment of the spinal canal in the lower thoracic or lumbar region IMPRESSION: 1. RECENT VERTEBROPLASTY OF T11 AND L1 WITH LAMINECTOMY AND POSTERIOR METALLIC FUSION FROM T11 THROUG H L1 FOR STABILIZATION OF AN L1 FRACTURE. 2. NO CHANGE IN THE MILD RETROPULSION AT THE L1 LEVEL WITH LESS THAN 10% COMPROMISE OF THE SPINAL CAN AL . 3. NO CHANGE IN THE LAMINECTOMY AND FUSION FROM L2 THROUGH S1. 4. THROUGHOUT THE LOWER THORACIC AND LUMBAR SPINE, THERE IS NO MALALIGNMENT OF THE VERTEBRAL SEGMENT S.
[2023-08-31] MEDS: SYMBICORT 80-4.5 MCG INHALER INHALATION SCH (14:49)
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
[2023-08-31] MEDS: CYCLOBENZAPRINE 10 MG TAB PO SCH (16:04)
[2023-08-31] MEDS: SODIUM FERRIC GLUCONAT-SUCROSE 125 MG in SODIUM CHLORIDE 0.9% 100 ML IVPB SCH (18:15)
[2023-08-31] MEDS: FUROSEMIDE 10 MG/ML 2 ML VIAL IV ONE (18:16)
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
--- NOTE | 2023-08-31 20:13 | PN ---
PROGRESS NOTE Traumatic rhabdomyolysis present on admission. MMODL / IJN: [id number] /
--- NOTE | 2023-08-31 20:18 | PN ---
PROGRESS NOTE Postop day 4 right tibia IMN fixation postop day 1 and 1 open treatment fixation due to severe COPD, pulmonary hypertension, etc. The C collar in place. He is sleepy, lethargic. Urology consult, scrotal edema and ecchymosis appreciated. Diet okay for tolerated, possibly give him some heart failure secondary to surgery and his bad breathing. Prognosis is guarded. Possibly add some Lasix IV and we will see how patient does. Prognosis guarded. Maintain broad-spectrum antibiotics, breathing treatments, etc. MMODL / IJN: [id number] /
[2023-09-01] MEDS: HYDROcodone/APAP 5-325MG 1 EACH TAB PO PRN (05:57)
[2023-09-01 07:51] LABS: Anisocytosis Slight; Basophils % (A) 0 %; Eosinophils # (A) 0.3 k/uL (0-0.7); Eosinophils % (A) 2 %; HCT 22.2 % (39.0-53.0); HGB 7.3 gm/dL (13.0-17.5); Hypochromasia Slight; Lymphocytes # (A) 1.5 k/uL (1.0-4.8); Lymphocytes % (A) 11 %; MCH 29.3 pg (25.0-35.0); MCHC 32.8 g/dL (31.0-37.0); MCV 89.2 fL (80.0-100.0); Monocytes # (A) 0.6 k/uL (0-1.0); Monocytes % (A) 5 %; Neutrophils # (A) 10.6 k/uL (1.3-7.7); Neutrophils % (A) 80 %; Platelet Count 266 k/uL (150-450); RBC 2.49 m/uL (4.30-5.90); RDW 17.3 % (11.5-15.5); WBC 13.3 k/uL (3.8-10.6)
[2023-09-01 08:48] LABS: African American GFR (CKD) >90 (>60 ml/min/1.73 sqM); Anion Gap 1 mmol/L; Blood Urea Nitrogen 16 mg/dL (9-20); Calcium 8.2 mg/dL (8.4-10.2); Carbon Dioxide 29 mmol/L (22-30); Chloride 103 mmol/L (98-107); Glucose 130 mg/dL (74-99); Non-African American GFR(CKD) 89 (>60 ml/min/1.73 sqM); Sodium 133 mmol/L (137-145)
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
[2023-09-01] MEDS: ACETAMINOPHEN TAB 500 MG TAB PO PRN (15:41)
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
[2023-09-01 23:45] LABS: Anisocytosis Slight; HCT 22.7 % (39.0-53.0); HGB 7.6 gm/dL (13.0-17.5); Hypochromasia Slight; MCH 29.3 pg (25.0-35.0); MCHC 33.4 g/dL (31.0-37.0); MCV 87.7 fL (80.0-100.0); Mean Platelet Volume 7.9; Platelet Count 288 k/uL (150-450); RBC 2.59 m/uL (4.30-5.90); WBC 13.1 k/uL (3.8-10.6)
[2023-09-02 10:27] LABS: Basophils # (A) 0.05 X 10*3/uL (0.00-0.10); Basophils % (A) 0.4 %; Eosinophils # (A) 0.45 X 10*3/uL (0.04-0.35); Eosinophils % (A) 3.4 %; HCT 24.4 % (39.6-50.0); HGB 7.7 g/dL (13.0-17.0); Lymphocytes # (A) 2.19 X 10*3/uL (0.90-5.00); Lymphocytes % (A) 16.4 %; MCH 28.3 pg (27.0-32.0); MCHC 31.6 g/dL (32.0-37.0); MCV 89.7 FL (80.0-97.0); Mean Platelet Volume 9.1 FL (9.5-12.2); Monocytes # (A) 1.12 X 10*3/uL (0.20-1.00); Monocytes % (A) 8.4 %; NRBC Per 100 WBC 0.05 X 10*3/uL (0.00-0.01); Neutrophils # (A) 9.36 X 10*3/uL (1.80-7.70); Neutrophils % (A) 69.9 %; Platelet Count 272 X 10*3/uL (140-440); RBC 2.72 X 10*6/uL (4.40-5.60); RDW 16.8 % (11.5-14.5); WBC 13.37 X 10*3/uL (4.50-10.00)
[2023-09-02 10:44] LABS: ALT 13 U/L (10-49); AST 21 U/L (14-35); Albumin 2.6 g/dL (3.8-4.9); Albumin/Globulin Ratio 1.37 Ratio (1.60-3.17); Alkaline Phosphatase 72 U/L (41-126); BUN/Creat Ratio 23.86 Ratio (12.00-20.00); Blood Urea Nitrogen 16.7 mg/dL (9.0-27.0); Calcium 7.9 mg/dL (8.7-10.3); Chloride 103 mmol/L (96-109); Globulin 1.9 g/dL (1.6-3.3); Glucose 106 mg/dL (70-110); Potassium 3.8 mmol/L (3.5-5.5); Sodium 137 mmol/L (135-145); Total Bilirubin 0.5 mg/dL (0.3-1.2); Total Protein 4.5 g/dL (6.2-8.2)
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
[2023-09-02 22:57] LABS: Anisocytosis Slight; HCT 26.5 % (39.0-53.0); Hypochromasia Slight; MCH 30.1 pg (25.0-35.0); MCV 88.5 fL (80.0-100.0); Mean Platelet Volume 7.9; Platelet Count 320 k/uL (150-450); RDW 17.5 % (11.5-15.5); WBC 11.6 k/uL (3.8-10.6)
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
[2023-09-03 08:35] LABS: Basophils # (A) 0.04 X 10*3/uL (0.00-0.10); Basophils % (A) 0.3 %; Eosinophils # (A) 0.39 X 10*3/uL (0.04-0.35); Eosinophils % (A) 3.2 %; HCT 28.9 % (39.6-50.0); Lymphocytes # (A) 1.84 X 10*3/uL (0.90-5.00); Lymphocytes % (A) 15.1 %; MCH 28.3 pg (27.0-32.0); MCHC 31.1 g/dL (32.0-37.0); MCV 90.9 FL (80.0-97.0); Mean Platelet Volume 9.2 FL (9.5-12.2); Monocytes # (A) 1.05 X 10*3/uL (0.20-1.00); Monocytes % (A) 8.6 %; NRBC Per 100 WBC 0.03 X 10*3/uL (0.00-0.01); Neutrophils # (A) 8.67 X 10*3/uL (1.80-7.70); Neutrophils % (A) 71.4 %; Platelet Count 311 X 10*3/uL (140-440); RBC 3.18 X 10*6/uL (4.40-5.60); RDW 17.1 % (11.5-14.5); WBC 12.16 X 10*3/uL (4.50-10.00)
[2023-09-03 08:47] LABS: BUN/Creat Ratio 24.57 Ratio (12.00-20.00); Blood Urea Nitrogen 17.2 mg/dL (9.0-27.0); Carbon Dioxide 26.5 mmol/L (21.6-31.8); Chloride 104 mmol/L (96-109); Glucose 105 mg/dL (70-110); Potassium 4.1 mmol/L (3.5-5.5); Sodium 139 mmol/L (135-145)
[2023-09-03 08:48] LABS: ALT 9 U/L (10-49); AST 19 U/L (14-35); Albumin 2.7 g/dL (3.8-4.9); Albumin/Globulin Ratio 1.42 Ratio (1.60-3.17); Alkaline Phosphatase 83 U/L (41-126); Calcium 8.5 mg/dL (8.7-10.3); Globulin 1.9 g/dL (1.6-3.3); Total Bilirubin 0.5 mg/dL (0.3-1.2); Total Protein 4.6 g/dL (6.2-8.2)
[2023-09-03] MEDS: LACTATED RINGERS 1,000 ML IV SCH (10:58)
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
[2023-09-03] MEDS: IV FLUID CONTINUATION 950 ML IV ONE (15:38)
[2023-09-03] MEDS ORDERED: MIDAZOLAM 2 MG/2 ML VIAL ONE (15:39)
[2023-09-03] MEDS ORDERED: LIDOCAINE 1% INJ 10MG/ML (20 ML MDV) ONE (15:39)
[2023-09-03] MEDS ORDERED: PROPOFOL 10 MG/ML 20 ML VIAL IV ONE (15:39)
[2023-09-03] MEDS ORDERED: fentaNYL (PF) 50 MCG/ML 2 ML AMP ONE (15:39)
[2023-09-03] MEDS ORDERED: SUCCINYLCHOLINE CHLORIDE 200 MG/10 ML VIAL IV ONE (15:39)
[2023-09-03] MEDS ORDERED: PHENYLEPHRINE 10 MG/ML VIAL ONE (15:39)
[2023-09-03] MEDS ORDERED: KETAMINE HCL IN 0.9 % NACL 50 MG/5 ML SYRINGE ONE (15:39)
[2023-09-03] MEDS: LACTATED RINGERS 1,000 ML IV ONE ×2 (16:34)
--- NOTE | 2023-09-03 17:56 | XR ---
Fluoroscopy History: LEFT FIBULAR NAILING Left fibular nail. 51 sec fl .3028 DAP
[2023-09-04] MEDS: hydrOXYzine pamoate 25 MG CAP PO PRN (01:08)
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
[2023-09-04 09:02] LABS: Basophils # (A) 0.03 X 10*3/uL (0.00-0.10); Basophils % (A) 0.3 %; Eosinophils # (A) 0.49 X 10*3/uL (0.04-0.35); Eosinophils % (A) 4.5 %; HCT 29.9 % (39.6-50.0); HGB 9.2 g/dL (13.0-17.0); Lymphocytes % (A) 16.4 %; MCH 28.3 pg (27.0-32.0); MCHC 30.8 g/dL (32.0-37.0); Mean Platelet Volume 9.1 FL (9.5-12.2); Monocytes # (A) 0.91 X 10*3/uL (0.20-1.00); Monocytes % (A) 8.3 %; NRBC Per 100 WBC 0 X 10*3/uL (0.00-0.01); Neutrophils # (A) 7.55 X 10*3/uL (1.80-7.70); Neutrophils % (A) 68.9 %; Platelet Count 377 X 10*3/uL (140-440); RBC 3.25 X 10*6/uL (4.40-5.60); WBC 10.95 X 10*3/uL (4.50-10.00)
[2023-09-04 09:32] LABS: BUN/Creat Ratio 22.38 Ratio (12.00-20.00); Blood Urea Nitrogen 17.9 mg/dL (9.0-27.0); Chloride 104 mmol/L (96-109); Glucose 111 mg/dL (70-110); Potassium 4.1 mmol/L (3.5-5.5); Sodium 139 mmol/L (135-145)
[2023-09-04 09:33] LABS: ALT 9 U/L (10-49); AST 18 U/L (14-35); Albumin 2.8 g/dL (3.8-4.9); Alkaline Phosphatase 98 U/L (41-126); Calcium 8.3 mg/dL (8.7-10.3); Carbon Dioxide 25.8 mmol/L (21.6-31.8); Total Bilirubin 0.5 mg/dL (0.3-1.2); Total Protein 4.8 g/dL (6.2-8.2)
[2023-09-04] MEDS: HYDROmorphone 1 MG/ML 1 ML SYRINGE IVP PRN (09:40)
[2023-09-04] MEDS: oxyCODONE-APAP 5-325MG 1 EACH TAB PO PRN (11:26)
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
[2023-09-04] MEDS: HEPARIN SODIUM,PORCINE 5,000 UNIT/ML 1 ML VIAL SQ SCH (21:24)
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
[2023-09-05] MEDS ORDERED: VANCOMYCIN IV PER PHARMACY 1 EACH MISC MISCELLANE PRN (17:08)
[2023-09-05] MEDS: VANCOMYCIN 2,000 MG in SODIUM CHLORIDE 0.9% 500 ML 500 ML IVPB SCH (17:48)
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
[2023-09-06 08:53] LABS: African American GFR (CKD) >90 (>60 ml/min/1.73 sqM); Anion Gap 4 mmol/L; Blood Urea Nitrogen 17 mg/dL (9-20); Calcium 8.2 mg/dL (8.4-10.2); Carbon Dioxide 25 mmol/L (22-30); Chloride 106 mmol/L (98-107); Glucose 107 mg/dL (74-99); Non-African American GFR(CKD) >90 (>60 ml/min/1.73 sqM); Potassium 4.3 mmol/L (3.5-5.1); Sodium 135 mmol/L (137-145)
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
--- NOTE | 2023-09-06 11:14 | P.PN ---
Subjective Progress Note Date: 09/06/23 Patient's case and therapy reviewed, appropriate for IPR. Will have Case Management submit for insurance authorization for IPR Nadya Medel PA-C Objective - Vital Signs Vital signs: Vital Signs Temp 97.6 F 09/06/23 08:00 Pulse 72 09/06/23 08:00 Resp 17 09/06/23 08:00 BP 121/84 09/06/23 08:00 Pulse Ox 91 L 09/06/23 08:00 FiO2 21 09/04/23 08:41 Intake & Output 09/05/23 09/06/23 09/06/23 18:59 06:59 18:59 Output Total 700 Balance -700 Output: Urine 700 Other: Voiding Method Indwelling Catheter Indwelling Catheter Indwelling Catheter - Labs CBC & Chem 7: 09/04/23 05:54 09/06/23 07:03 Labs: Abnormal Lab Results - Last 24 Hours (Table) 09/05/23 09/06/23 Range/Units 17:19 07:03 Sodium 135 L (137-145) mmol/L Glucose 107 H (74-99) mg/dL Calcium 8.2 L (8.4-10.2) mg/dL C-Reactive Protein 18.4 H (<1.0) mg/dL
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
[2023-09-08] MEDS: VANCOMYCIN TROUGH DUE 1 EACH MISC MISCELLANE ONE (05:23)
[2023-09-08 08:09] LABS: ALT 12 U/L (4-49); AST 22 U/L (17-59); African American GFR (CKD) >90 (>60 ml/min/1.73 sqM); Albumin 2.6 g/dL (3.5-5.0); Alkaline Phosphatase 127 U/L (38-126); Anion Gap 6 mmol/L; Blood Urea Nitrogen 16 mg/dL (9-20); Calcium 8.5 mg/dL (8.4-10.2); Carbon Dioxide 22 mmol/L (22-30); Chloride 107 mmol/L (98-107); Globulin 2.5 g/dL; Glucose 93 mg/dL (74-99); Non-African American GFR(CKD) >90 (>60 ml/min/1.73 sqM); Potassium 4.5 mmol/L (3.5-5.1); Sodium 135 mmol/L (137-145); Total Bilirubin 0.7 mg/dL (0.2-1.3); Total Protein 5.1 g/dL (6.3-8.2)
[2023-09-08 09:39] LABS: Basophils # (A) 0.07 X 10*3/uL (0.00-0.10); Basophils % (A) 0.7 %; Eosinophils # (A) 0.38 X 10*3/uL (0.04-0.35); Eosinophils % (A) 3.9 %; HCT 31.6 % (39.6-50.0); HGB 9.7 g/dL (13.0-17.0); Lymphocytes # (A) 2.09 X 10*3/uL (0.90-5.00); Lymphocytes % (A) 21.2 %; MCH 28.8 pg (27.0-32.0); MCHC 30.7 g/dL (32.0-37.0); MCV 93.8 FL (80.0-97.0); Mean Platelet Volume 8.7 FL (9.5-12.2); Monocytes % (A) 7.1 %; NRBC Per 100 WBC 0 X 10*3/uL (0.00-0.01); Neutrophils % (A) 65.9 %; Platelet Count 580 X 10*3/uL (140-440); RBC 3.37 X 10*6/uL (4.40-5.60); RDW 18.3 % (11.5-14.5); WBC 9.86 X 10*3/uL (4.50-10.00)
[2023-09-08] MEDS: LACTULOSE 20 GM/30 ML CUP PO ONE (11:15)
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
[2023-09-09 06:33] LABS: African American GFR (CKD) >90 (>60 ml/min/1.73 sqM); Non-African American GFR(CKD) >90 (>60 ml/min/1.73 sqM)
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
--- NOTE | 2023-09-09 22:31 | PN ---
PROGRESS NOTE Remains on DuoNeb for breathing treatments, Toprol-XL for hypertension, Primatene and midodrine for orthostatic hypotension. Percocet, Protonix, IV vancomycin, Neurontin for pain. He has GERD precautions hemoglobin is 9.7 up from 9 2. Sodium 135, potassium 4.5, GFR is greater than 90. Albumin is low at 2.6. PT, OT will be done. We will be transferred over to [facility] inpatient rehab tomorrow. Continued on breathing treatments. PT, OT, pain control. Prognosis guarded. MMODL / IJN: [id number] /
[2023-09-10 07:25] LABS: African American GFR (CKD) >90 (>60 ml/min/1.73 sqM); Non-African American GFR(CKD) >90 (>60 ml/min/1.73 sqM)
[2023-09-10 08:49] VITALS: BP 110/70; RESP 18; TEMP 97.8
[2023-09-10 13:11] VITALS: PULSE 80
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
== END 2023-09-10 14:02 | DRG 459 ==
LOC: EC 17:49 → 4SSUR 20:00 → 3SCARD 20:37 → 6NMEDSUR 08-31 23:51 → 4SSUR 09-03 14:19
PROVIDERS: ADMIT Orthopaedic Surgery; ATTEND Orthopaedic Surgery
PROC: 0HQ0XZZ Repair Scalp Skin, External Approach (ICD-10-PCS; 2023-08-25)
PROC: 0HQ1XZZ Repair Face Skin, External Approach (ICD-10-PCS; 2023-08-25)
PROC: 0HQKXZZ Repair Right Lower Leg Skin, External Approach (ICD-10-PCS; 2023-08-25)
PROC: 0RG6071 Fusion of Thoracic Vertebral Joint with Autologous Tissue Substitute, Posterior Approach, Posterior Column, Open Approach (ICD-10-PCS; 2023-08-30)
PROC: 0RGA071 Fusion of Thoracolumbar Vertebral Joint with Autologous Tissue Substitute, Posterior Approach, Posterior Column, Open Approach (ICD-10-PCS; 2023-08-30)
PROC: 0SG0071 Fusion of Lumbar Vertebral Joint with Autologous Tissue Substitute, Posterior Approach, Posterior Column, Open Approach (ICD-10-PCS; 2023-08-30)
PROC: 0RB90ZZ Excision of Thoracic Vertebral Disc, Open Approach (ICD-10-PCS; 2023-08-30)
PROC: 0RBB0ZZ Excision of Thoracolumbar Vertebral Disc, Open Approach (ICD-10-PCS; 2023-08-30)
PROC: 0SB20ZZ Excision of Lumbar Vertebral Disc, Open Approach (ICD-10-PCS; 2023-08-30)
PROC: 02HV33Z Insertion of Infusion Device into Superior Vena Cava, Percutaneous Approach (ICD-10-PCS; 2023-08-30)
PROC: 3E0U0GB Introduction of Recombinant Bone Morphogenetic Protein into Joints, Open Approach (ICD-10-PCS; 2023-08-30)
PROC: 4A11X4G Monitoring of Peripheral Nervous Electrical Activity, Intraoperative, External Approach (ICD-10-PCS; 2023-08-30)
PROC: 30233N1 Transfusion of Nonautologous Red Blood Cells into Peripheral Vein, Percutaneous Approach (ICD-10-PCS; 2023-09-02)
PROC: 8E0WXBZ Computer Assisted Procedure of Trunk Region (ICD-10-PCS; 2023-09-02)
PROC: 0QSH06Z Reposition Left Tibia with Intramedullary Internal Fixation Device, Open Approach (ICD-10-PCS; 2023-09-03)
PROC: 0QSK36Z Reposition Left Fibula with Intramedullary Internal Fixation Device, Percutaneous Approach (ICD-10-PCS; principal; 2023-09-03 13:35)
DX: S82.832A Other fracture of upper and lower end of left fibula, initial encounter for closed fracture (principal); I50.33 Acute on chronic diastolic (congestive) heart failure; N17.0 Acute kidney failure with tubular necrosis; J96.91 Respiratory failure, unspecified with hypoxia; S12.400A Unspecified displaced fracture of fifth cervical vertebra, initial encounter for closed fracture; S06.0XAA Concussion with loss of consciousness status unknown, initial encounter; S32.012A Unstable burst fracture of first lumbar vertebra, initial encounter for closed fracture; E87.20 Acidosis, unspecified; G95.89 Other specified diseases of spinal cord; L97.429 Non-pressure chronic ulcer of left heel and midfoot with unspecified severity; Z68.41 Body mass index [BMI] 40.0-44.9, adult; D62 Acute posthemorrhagic anemia; L03.115 Cellulitis of right lower limb; S82.402A Unspecified fracture of shaft of left fibula, initial encounter for closed fracture; V89.2XXA Person injured in unspecified motor-vehicle accident, traffic, initial encounter; S82.202A Unspecified fracture of shaft of left tibia, initial encounter for closed fracture; T79.6XXA Traumatic ischemia of muscle, initial encounter; I27.20 Pulmonary hypertension, unspecified; I11.0 Hypertensive heart disease with heart failure; J44.9 Chronic obstructive pulmonary disease, unspecified; S01.81XA Laceration without foreign body of other part of head, initial encounter; S01.01XA Laceration without foreign body of scalp, initial encounter; M48.02 Spinal stenosis, cervical region; I48.91 Unspecified atrial fibrillation; I95.1 Orthostatic hypotension; N50.89 Other specified disorders of the male genital organs; S05.11XA Contusion of eyeball and orbital tissues, right eye, initial encounter; K21.9 Gastro-esophageal reflux disease without esophagitis; E87.5 Hyperkalemia; F17.210 Nicotine dependence, cigarettes, uncomplicated; G89.29 Other chronic pain; M47.812 Spondylosis without myelopathy or radiculopathy, cervical region; E11.621 Type 2 diabetes mellitus with foot ulcer; I95.81 Postprocedural hypotension; B96.89 Other specified bacterial agents as the cause of diseases classified elsewhere; S01.111A Laceration without foreign body of right eyelid and periocular area, initial encounter; S30.1XXA Contusion of abdominal wall, initial encounter; S70.02XA Contusion of left hip, initial encounter; W22.09XA Striking against other stationary object, initial encounter; Z79.899 Other long term (current) drug therapy; M47.892 Other spondylosis, cervical region; Z87.19 Personal history of other diseases of the digestive system; Z98.1 Arthrodesis status; V43.52XA Car driver injured in collision with other type car in traffic accident, initial encounter; Z82.49 Family history of ischemic heart disease and other diseases of the circulatory system; Y92.410 Unspecified street and highway as the place of occurrence of the external cause; Z86.010 Personal history of colon polyps; Z87.01 Personal history of pneumonia (recurrent); Z71.6 Tobacco abuse counseling
CPT/HCPCS: 12015; 36415; 36430; 70450; 70486; 71045; 71260; 72100; 72125; 72128; 72129; 72131; 72132; 72156; 72158; 72170; 74177; 80048; 80053; 80074; 80202; 80306; 80320; 81001; 82550; 82565; 83735; 84484; 85025; 85027; 85610; 85730; 86140; 86850; 86900; 86901; 86920; 87040; 90471; 90715; 93005; 94640; 94760; 96374; 96375; 96376; 99291

== ENCOUNTER → 2024-03-27 | Outpatient (CLI) | payer MEDICARE, OTHER | END | disposition home or self-care (01) | LOC: LABWHC1 13:19 | PROVIDERS: ATTEND Family Medicine | DX: M16.11 Unilateral primary osteoarthritis, right hip | CPT/HCPCS: 86850; 86900; 86901; 87070 ==

== ENCOUNTER 2024-04-01 08:56 | Day surgery (SDC) | payer MEDICARE, OTHER ==
--- NOTE | 2024-03-31 12:59 | P.HPOR ---
History of Present Illness H&P Date: 03/31/24 Chief Complaint: Right hip pain The patient is a 68-year-old retired male who presents with progressive right hip pain for the past 2 years. He has had increasing pain over the past couple of months. He notes anterior thigh and groin pain. He has been limping. He has been using crutches. Previously had underwent thoracolumbar fusion in August of this year. Review of Systems Per HPI Past Medical History Past Medical History: COPD, Hypertension, Osteoarthritis (OA), Pneumonia Additional Past Medical History / Comment(s): HEADACHES., HOSPITALIZED WITH PNEUMONIA, COPD AND SEPSIS (OCTOBER 2021)., HX COLON POLYPS, DDD WITH BACK PAIN w/right leg pain & weakness & numbness History of Any Multi-Drug Resistant Organisms: None Reported Past Surgical History: Appendectomy, Heart Catheterization, Orthopedic Surgery, Tonsillectomy Additional Past Surgical History / Comment(s): JOB REMOVED FROM SHOULDER (CHILD), Titanium plate in pelvis to support rods in back, IM nailing of a left tibia fracture Past Anesthesia/Blood Transfusion Reactions: No Reported Reaction Past Psychological History: No Psychological Hx Reported Smoking Status: Current every day smoker Past Alcohol Use History: None Reported Past Drug Use History: Cocaine, Marijuana - Past Family History Mother Family Medical History: Hypertension Additional Family Medical History / Comment(s): pulmonary hypertension - Father Family Medical History: Neurologic Disorder Additional Family Medical History / Comment(s): parkinsons - Medications and Allergies Home Medications Medication Instructions Recorded Confirmed Type Metoprolol Succinate [Metoprolol 25 mg PO DAILY 05/30/22 08/25/23 History Succinate ER] Gabapentin 800 mg PO TID 08/25/23 08/25/23 History Omeprazole [PriLOSEC] 40 mg PO DAILY 08/25/23 08/25/23 History Cyclobenzaprine [Flexeril] 5 mg PO BID PRN #40 tablet 09/07/23 Rx Gabapentin 800 mg PO TID #90 tab 09/07/23 Rx Sennosides/Docusate Sodium [Senna 1 each PO DAILY PRN #20 tablet 09/07/23 Rx Plus 8.6-50 mg Tablet] oxyCODONE-APAP 5-325MG [Percocet 1 tab PO Q4HR PRN #40 tab 09/07/23 Rx 5-325 mg] Artificial Tears-Hypromellose 1 drops RIGHT EYE TID PRN ml 09/10/23 Rx [Artificial Tear Drops] Calcium Carbonate [Tums] 1,000 mg PO TID PRN tab 09/10/23 Rx Doxycycline Hyclate 100 mg PO BID 7 Days #14 tab 09/10/23 Rx Ipratropium-Albuterol Nebulize 3 ml INHALATION RT-QID each 09/10/23 Rx [Duoneb 0.5 mg-3 mg/3 ml Soln] Midodrine [ProAmatine] 5 mg PO AC-TID tab 09/10/23 Rx Nicotine 21Mg/24Hr Patch [Habitrol] 1 patch TRANSDERM DAILY patch 09/10/23 Rx Allergies Allergy/AdvReac Type Severity Reaction Status Date / Time No Known Allergies Allergy Verified 08/27/23 14:09 Physical Examination - Hip right Gait: antalgic Tenderness with palpation: anterior Pain with motion: internal rotation and hip flexion ROM: flexion: 70 degrees ROM: internal rotation: 0 degrees (With pain) ROM: external rotation: 30 degrees Crepitus with motion: Yes Strength: extension: 5/5 Strength: flexion: 5/5 Strength: abduction: 5/5 Tests: impingement tests: positive Results The patient is a well-developed well-nourished male approximately 5 foot 8, 240 pounds of endomorphic habitus. HEENT exam is nonfocal, neck is supple. He has limited thoracolumbar motion with a healed scar. He has painful passive motion of his right hip. Straight leg raises negative. He has 1 cm shortening of the right lower extremity compared to the left. He does have an antalgic gait pattern. No gross motor or sensory deficits are noted in the right lower extremity. - Diagnostic results Hip x-ray: image reviewed (X-rays of the right hip obtained the office show severe osteoarthrosis with [id number] changes and subchondral sclerosis. There is some flattening of the superior femoral head.) Assessment and Plan Assessment: Right hip severe osteoarthrosis COPD History of thoracolumbar fusion Plan: I talked to the patient at length regarding his condition along with treatment options. At this point is quite symptomatic and limited having pain related to his right hip osteoarthrosis despite previous conservative measures. After a thorough discussion he opts to proceed with surgery. We will plan to proceed with right total hip arthroplasty utilizing an anterior approach. Risks and benefits were discussed at length in layman's terms. We will institute DVT prophylaxis postoperative.
[~2024-04-01 08:56] MED LIST changes: -ACETAMINOPHEN TAB 500 MG TAB PO PRN; -DEXAMETHASONE SOD PHOSPHATE 4 MG/ML 1 ML VIAL IV ONE; -GABAPENTIN 300 MG CAP PO PRN; -HYDROmorphone 0.5 MG/0.5 ML SYRINGE IVP PRN; +LIDOCAINE 1% (10MG/ML) FOR IV START INTRADERMA PRN; +MIDAZOLAM 2 MG/2 ML VIAL IV PRN; -ONDANSETRON 4 MG/2 ML VIAL IVP ONE; -ONDANSETRON 4 MG/2 ML VIAL IVP PRN; +TRANEXAMIC 1,000 MG/100ML-NACL 1,000 MG in SALINE 1 100ML.BAG IVPB PRN; -TRANEXAMIC ACID IN NACL,ISO-OS 1,000 MG in SALINE 1 100ML.BAG IVPB PRN; +fentaNYL (PF) 50 MCG/ML 2 ML AMP IVP PRN
[2024-04-01] MEDS: IV FLUID CONTINUATION 1,000 ML IV ONE ×2 (10:30→15:56)
[2024-04-01 11:19] LABS: Basophils # (A) 0.1 k/uL (0-0.2); Basophils % (A) 1 %; Eosinophils # (A) 0.2 k/uL (0-0.7); Eosinophils % (A) 3 %; HCT 49.6 % (39.0-53.0); HGB 15.9 gm/dL (13.0-17.5); Lymphocytes # (A) 2.4 k/uL (1.0-4.8); Lymphocytes % (A) 27 %; MCHC 32.1 g/dL (31.0-37.0); MCV 93.4 fL (80.0-100.0); Mean Platelet Volume 6.8; Monocytes # (A) 0.5 k/uL (0-1.0); Monocytes % (A) 5 %; Neutrophils # (A) 5.8 k/uL (1.3-7.7); Neutrophils % (A) 63 %; Platelet Count 325 k/uL (150-450); RBC 5.31 m/uL (4.30-5.90); RDW 13.6 % (11.5-15.5); WBC 9.1 k/uL (3.8-10.6)
[2024-04-01 11:23] LABS: INR 1.1 (<1.2); Prothrombin Time 11.9 sec (10.0-12.5)
[2024-04-01 11:41] LABS: ALT 13 U/L (4-49); AST 18 U/L (17-59); African American GFR (CKD) >90 (>60 ml/min/1.73 sqM); Albumin 3.9 g/dL (3.5-5.0); Alkaline Phosphatase 77 U/L (38-126); Anion Gap 5 mmol/L; Blood Urea Nitrogen 20 mg/dL (9-20); Calcium 9.5 mg/dL (8.4-10.2); Carbon Dioxide 22 mmol/L (22-30); Chloride 112 mmol/L (98-107); Glucose 96 mg/dL (74-99); Non-African American GFR(CKD) 88 (>60 ml/min/1.73 sqM); Potassium 4.6 mmol/L (3.5-5.1); Sodium 139 mmol/L (137-145); Total Bilirubin 0.7 mg/dL (0.2-1.3); Total Protein 6.3 g/dL (6.3-8.2)
[2024-04-01] MEDS: ACETAMINOPHEN TAB 500 MG TAB PO PRN (11:45)
[2024-04-01] MEDS: DEXAMETHASONE SOD PHOSPHATE 4 MG/ML 1 ML VIAL IV ONE (11:46)
[2024-04-01] MEDS: MELOXICAM 7.5 MG TAB PO PRN (11:46)
[2024-04-01] MEDS: ONDANSETRON 4 MG/2 ML VIAL IVP ONE (11:46)
[2024-04-01] MEDS: LACTATED RINGERS 1,000 ML IV SCH (11:47)
[2024-04-01] MEDS: MIDAZOLAM 2 MG/2 ML VIAL IVP ONE (12:27)
[2024-04-01] MEDS: fentaNYL (PF) 50 MCG/ML 2 ML AMP IVP ONE (12:27)
[2024-04-01] MEDS ORDERED: NEOSTIGMINE 1 MG/ML 10 ML VIAL ONE (13:08)
[2024-04-01] MEDS ORDERED: GLYCOPYRROLATE 0.2 MG/ML 2 ML VIAL ONE (13:08)
[2024-04-01] MEDS ORDERED: KETAMINE HCL IN 0.9 % NACL 50 MG/5 ML SYRINGE ONE (13:08)
[2024-04-01] MEDS ORDERED: ROPIVACAINE 5 MG/ML 30 ML VIAL ONE (13:08)
[2024-04-01] MEDS ORDERED: PHENYLEPHRINE 10 MG/ML VIAL ONE (13:08)
[2024-04-01] MEDS ORDERED: SUCCINYLCHOLINE CHLORIDE 200 MG/10 ML VIAL IV ONE (13:08)
[2024-04-01] MEDS ORDERED: HYDROmorphone (PF) 1 MG/ML ONE (13:08)
[2024-04-01] MEDS ORDERED: MIDAZOLAM 2 MG/2 ML VIAL ONE (13:08)
[2024-04-01] MEDS ORDERED: DEXAMETHASONE SOD PHOSPHATE 4 MG/ML 1 ML VIAL ONE (13:08)
[2024-04-01] MEDS ORDERED: TRANEXAMIC 1,000 MG/100ML-NACL PREMIX BAG ONE (13:08)
[2024-04-01] MEDS ORDERED: fentaNYL (PF) 50 MCG/ML 2 ML AMP ONE (13:08)
[2024-04-01] MEDS ORDERED: PROPOFOL 10 MG/ML 20 ML VIAL IV ONE (13:08)
[2024-04-01] MEDS ORDERED: ROCURONIUM 10 MG/ML (5 ML VIAL) IV ONE (13:08)
[2024-04-01] MEDS ORDERED: LIDOCAINE 1% INJ 10MG/ML (20 ML MDV) ONE (13:08)
--- NOTE | 2024-04-01 13:48 | P.ANPRN ---
Procedure Note - Anesthesia - Nerve Block Performed Right Heath Single Time Out Performed: Yes Date of Procedure: 04/01/24 Procedure Start Time: 12:26 Procedure Stop Time: 12:33 Location of Patient: PreOp Indication: Acute Post-Operative Pain, Requested by Surgeon Sedation Type: Sedate with meaningful contact maintained Preparation: Sterile Prep Position: Supine Needle Types: Pajunk Needle Gauge: 21 Ultrasound used to visualize needle placement: Yes Ultrasound used to observe medication spread: Yes Injectate: 0.5% Ropivacaine (see comment for volume) (20 ml + 10 ml NS + 4 mg Dexamethasone) Blood Aspirated: No Pain Paresthesia on Injection Noted: No Resistance on Injection: Normal Image Stored and Saved: Yes Events: Uneventful and Well Tolerated
[2024-04-01] MEDS: ceFAZolin 1,000 MG in SODIUM CHLORIDE 0.9% 1,000 ML IRRIGATION ONE (13:49)
[2024-04-01] MEDS: LACTATED RINGERS 1,000 ML IV ONE (13:53)
[2024-04-01] MEDS ORDERED: MAGNESIUM HYDROXIDE 2,400 MG/30 ML CUP PO PRN (15:32)
[2024-04-01] MEDS ORDERED: hydrOXYzine pamoate 25 MG CAP PO PRN (15:32)
[2024-04-01] MEDS ORDERED: HYDROmorphone 0.5 MG/0.5 ML SYRINGE IVP PRN ×2 (15:32)
[2024-04-01] MEDS ORDERED: NALOXONE 0.4 MG/ML 1 ML VIAL IV PRN (15:32)
[2024-04-01] MEDS ORDERED: HYDROcodone/APAP 10-325MG 1 EACH TAB PO PRN (15:37)
--- NOTE | 2024-04-01 15:57 | P.OP ---
Date of Procedure: 04/01/24 Preoperative Diagnosis: Right hip severe osteoarthrosis Postoperative Diagnosis: Same Procedure(s) Performed: Right total hip arthroplastypress-fitanterior approach Implants: DePuy Corail size 13 standard collared press-fit femoral stem, 28+5 cobalt chrome femoral head, dual mobility polyethylene liner, 58 mm [place] acetabular shell with metal liner. Anesthesia: GETA, regional, spinal Surgeon: Ollie Pickard Syrup Filterer #1: Alan Garcia Estimated Blood Loss (ml): 550 Pathology: none sent Condition: stable Disposition: PACU Indications for Procedure: The patient is a 68-year-old male who presents with progressive right hip pain secondary to osteoarthrosis despite conservative measures. A discussion of the risks and benefits of operative intervention versus continued conservative measures was made with the patient. He opted to proceed with surgery. Operative risks include infection, neurovascular injury, development of blood clots, fracture, possible component loosening, possible component failure, leg length discrepancy, and possible need for subsequent procedures was discussed. Informed consent was obtained. Operative Findings: As below Description of Procedure: The patient was brought to the operating room, and after induction of spinal anesthesia was placed supine on the Patricia table. Positioning was checked with fluoroscopy. The right hip was then prepped and draped in a normal fashion. A 12 cm incision was then made starting 2 fingerbreadths distal and 3 finger breaths posterior to the ASIS in line with the proximal femur. The skin was incised sharply. Subcutaneous tissues were divided sharply. Electrocautery was used for hemostasis. The fascia was split in line with skin incision. The interval between the sartorius and tensor fascia kyle was then bluntly developed. The posterior fascia was opened with electrocautery. The lateral circumflex vessels were identified and cauterized prior to sectioning. A retractor was placed along the superior femoral neck as well as the anterior acetabular rim. A wide capsulotomy was performed. The neck cut was then made at a 45 angle to the shaft approximately 1 1/2 cm above the level of the lesser trochanter. The head was extracted. Attention was then paid towards preparing the acetabular. Anterior and posterior retractors were placed. The remaining capsular labral tissue sharply debrided clearly defining the acetabular margins. I began reaming with a 53 mm reamer taking care to initially medialize then reaming at 45 of abduction and 20 of anteversion. Sequential reaming is performed up to 57 mm. A trial 58 mm acetabular shell was inserted in the same orientation and was fully seated. There was good rim fit and stability. Positioning was checked with fluoroscopy. The final 58 mm acetabular shell was inserted again at 45 of abduction and 20 of anteversion. This was fully seated. There was good rim fit and stability. A posterior superior 6.5 mm x 30 mm screw was inserted with good purchase. Again fluoroscopy was used to check the adequacy of placement. A neutral metal liner was gently impacted. Care was taken to avoid any soft tissue interposition. Pulsatile lavage was utilized. Attention was then paid towards preparing the proximal femur. The central region was cleared of soft tissue. A canal finder was used to find the femoral canal. Sequential broaching was performed up to size 13 taking care to lateralize proximally. A calcar mill was used to fashion the medial calcar. There was good rotational stability. A standard neck along with a 28+5 mm head inside the polyethylene component was placed. The hip was gently reduced. Fluoroscopy was used to check the adequacy of positioning along with leg lengths. I felt both were good. The hip was gently dislocated. The trial components were removed. The final size 13 collared standard press-fit femoral stem was inserted parallel to the posterior cortex. This was fully seated and there was good rotational stability. A 28 mm +5 cobalt chrome femoral head was placed inside the polyethylene component. This was impacted fully so the components were secure. This was then attached to the femoral stem. This was gently impacted. The hip was then gently reduced. Final fluoroscopic view showed adequate placement implant along with roman catholic of leg length. Stability was checked with 80 of external rotation and 60 of extension of the right hip. The wound was irrigated with sterile lavage. The fascia was closed with running 0 Vicryl suture. There was minimal drainage therefore a deep drain was not placed. The second dose of IV TXA was given. The subcutaneous tissues were reapproximated interrupted 2-0 Vicryl sutures. The skin was reapproximated with 3-0 subcuticular strata fix suture. Skin tape and adhesive was applied. A sterile dressing was applied. The patient was then awoken from sedation and transferred to recovery room in good condition. Blood loss was estimated at 550 mL. No complications were incurred. Sponge and needle counts were correct at the end of the case. Alan Garcia PA assisted during the major components is case to include exposure, bone resection, implantation, and closure.
--- NOTE | 2024-04-01 16:14 | XR ---
EXAMINATION TYPE: XR Hip Limited RT DATE OF EXAM: 04/01/2024 COMPARISON: None HISTORY: Postop right hip TECHNIQUE: Single AP right hip FINDINGS: Femoral prosthesis is present. Acetabular component is present. No acute fracture or disloc ation evident. Postsurgical soft tissue changes evident. IMPRESSION: 1. No acute fracture post right hip replacement.
--- NOTE | 2024-04-01 16:22 | FL ---
EXAMINATION TYPE: FL guidance operating room, XR Hip Limited RT DATE OF EXAM: 04/01/2024 Comparison: None Clinical History: 68-year-old male RIGHT ANTERIOR HIP Findings: R HIP REPLACEMENT, 34SEC FL TIME, DAP=2.631 Gycm2. 4 images submitted. Impression: Intraoperative fluoroscopy as above.
[2024-04-01] MEDS: HYDROmorphone 0.5 MG/0.5 ML SYRINGE IVP PRN (16:26)
[2024-04-01] MEDS: GABAPENTIN 400 MG CAP PO SCH (20:31)
[2024-04-01] MEDS: SENNOSIDES-DOCUSATE SODIUM 1 EACH TAB PO SCH (22:05)
[2024-04-02] MEDS: oxyCODONE-APAP 5-325MG 1 EACH TAB PO PRN (05:16)
[2024-04-02 08:20] VITALS: BP 112/78; PULSE 80; RESP 17; TEMP 98.1
[2024-04-02] MEDS: RIVAROXABAN 10 MG TAB PO SCH (09:22)
[2024-04-02 09:35] LABS: Basophils # (A) 0.03 X 10*3/uL (0.00-0.10); Basophils % (A) 0.2 %; Eosinophils # (A) 0.02 X 10*3/uL (0.04-0.35); Eosinophils % (A) 0.2 %; HGB 13.2 g/dL (13.0-17.0); Lymphocytes # (A) 2.77 X 10*3/uL (0.90-5.00); Lymphocytes % (A) 21.8 %; MCH 30.2 pg (27.0-32.0); MCHC 32.2 g/dL (32.0-37.0); MCV 93.8 FL (80.0-97.0); Mean Platelet Volume 9.2 FL (9.5-12.2); Monocytes # (A) 1.36 X 10*3/uL (0.20-1.00); Monocytes % (A) 10.7 %; NRBC Per 100 WBC 0 X 10*3/uL (0.00-0.01); Neutrophils % (A) 66.7 %; Platelet Count 271 X 10*3/uL (140-440); RBC 4.37 X 10*6/uL (4.40-5.60); RDW 13.9 % (11.5-14.5); WBC 12.73 X 10*3/uL (4.50-10.00)
--- NOTE | 2024-04-02 12:58 | P.DS ---
Providers Date of admission: 04/01/2024 Expected date of discharge: 04/02/24 Attending physician: Ollie Pickard Consults: 04/01/24 15:32 Consult Physician Routine Consulting Provider: Eduard Dominguez Reason/Comments: medical management s/p direct anterior right total hip arthroplasty Do you want consulting provider notified?: Yes Primary care physician: Eduard Dominguez Hospital Course: Date of admission: 04/01/2024 Date of discharge: 04/02/2024 Admission diagnosis: Right hip osteoarthritis Discharge diagnosis: Same Attending physician: Dr. Pickard Surgical procedures: Direct anterior right total hip arthroplasty Brief history: Patient is a 68-year-old male with a history of progressive primary right hip osteoarthritis. At this point patient has failed conservative treatment measures and has opted to proceed with a elective direct anterior right total hip arthroplasty. Hospital course: Details of patient's surgery can be found in operative report. Patient tolerated the procedure well and was subsequently transported to orthopedic floor. Patient's orthopeidc and medical care was provided daily. Patient had daily laboratory tests performed for evaluation of overall blood counts . Patient had daily physical therapy to include strengthening range of motion as well as education with walker ambulation. Patient was treated with Xarelto for their postoperative DVT prophylaxis during their inpatient stay. Patient was noted to have a relatively uneventful postoperative course. Patient reported satisfactory pain control with oral pain medications by postoperative day 1. Patient showed satisfactory progress with physical therapy. Patient moved steadily through the program and had no difficulty meeting the goals by postoperative day 1. Given patient's otherwise satisfactory course and having met physical therapy goals, plan is to discharge patient home with health services on postoperative day 1. Discharge condition/disposition: Patient will be discharged home with health services in stable condition. Discharge medications: Instructions are given on resumption of patient's normal daily medications per primary care recommendation, in addition patient will be prescribed Percocet 5 mg/25 mg; senna; Eliquis 2.5 mg twice a day 2 weeks. Discharge instructions: 1. Wound care and infection precautions, keep incision dry and covered while showering, no lotions, creams, moisturizers. No soaking, tubs, pools, hottubs. Do not scrub over the incision. 2. Weight-bear as tolerated with walker / cane until follow-up. 3. Ice and elevate when necessary. Do not exceed 20 minutes per hour with ice pack. 4. Utilize compression sleeve until seen at first follow up appointment. 5. Visiting nursing care. 6. Home physical therapy. 7. Pain meds and anticoagulants per prescription. 8. Pain medication has potential to cause constipation. Increase oral fluid and fiber intake. Contact primary care provider if you have not had a bowel movement within 48 hours after discharge 9. No anti-inflammatory medication until discussed at first post operative visit, this including Motrin, Aleve, Mobic, Diclofenac. 10. Follow up in office at 2 weeks postop with Donte Palumbo PA-C / Alan Garcia PA-C 11. Follow up with your primary care doctor 7-10 days after discharge. 12. Contact [facility] with any questions, . Assessment: Right hip osteoarthritis Procedures: Direct anterior right total hip arthroplasty Patient Condition at Discharge: Good Plan - Discharge Summary Discharge Rx Participant: Yes New Discharge Prescriptions: New Sennosides/Docusate Sodium [Senna Plus 8.6-50 mg Softgel] 1 each PO DAILY #20 capsule Apixaban [Eliquis] 2.5 mg PO BID #60 tab oxyCODONE HCL/ACETAMINOPHEN [Percocet 5-325 mg] 1 tab PO Q6HR PRN #24 tab PRN Reason: Pain No Action Fluticasone/Umeclidin/Vilanter [Trelegy Ellipta 200-62.5-25] 1 puff INHALATION DAILY Budesonide 0.25 mg INHALATION BID Gabapentin 800 mg PO TID HYDROcodone/APAP 10-325MG [[place] 10-325] 1 tab PO Q6H PRN PRN Reason: Pain Metoprolol Succinate [Metoprolol Succinate ER] 25 mg PO DAILY Cyclobenzaprine [Flexeril] 10 mg PO DAILY Montelukast [Singulair] 10 mg PO DAILY Lubiprostone 24 mcg PO BID Discharge Medication List Budesonide 0.25 mg INHALATION BID 03/31/24 [History] Cyclobenzaprine [Flexeril] 10 mg PO DAILY 03/31/24 [History] Fluticasone/Umeclidin/Vilanter [Trelegy Ellipta 200-62.5-25] 1 puff INHALATION DAILY 03/31/24 [History] Gabapentin 800 mg PO TID 03/31/24 [History] HYDROcodone/APAP 10-325MG [[place] 10-325] 1 tab PO Q6H PRN 03/31/24 [History] Lubiprostone 24 mcg PO BID 03/31/24 [History] Metoprolol Succinate [Metoprolol Succinate ER] 25 mg PO DAILY 03/31/24 [History] Montelukast [Singulair] 10 mg PO DAILY 03/31/24 [History] Apixaban [Eliquis] 2.5 mg PO BID #60 tab 04/02/24 [Rx] Sennosides/Docusate Sodium [Senna Plus 8.6-50 mg Softgel] 1 each PO DAILY #20 capsule 04/02/24 [Rx] oxyCODONE HCL/ACETAMINOPHEN [Percocet 5-325 mg] 1 tab PO Q6HR PRN #24 tab 04/02/24 [Rx] Follow up Appointment(s)/Referral(s): Alan Garcia, MARY [PHYSICIAN STRIP CLEANER] - 04/16/24 8:50 am [facility], [NON-STAFF] - Patient Instructions/Handouts: Anterior Hip Replacement (DC), Anterior Hip Replacement (GEN) Activity/Diet/Wound Care/Special Instructions: Orthopedic Discharge Instructions: 1. Wound care and infection precautions, keep incision dry and covered while showering, no lotions, creams, moisturizers. No soaking, pools, hot tubs. Do not scrub over incision. 2. Weight-bear as tolerated with walker / cane until follow-up. 3. Ice and elevate when necessary. Do not exceed 20 minutes per hour with ice pack. 4. Utilize compression sleeve until seen at first follow up appointment. 5. Pain meds and anticoagulants per prescription. 6. Pain medication has potential to cause constipation. Increase oral fluid and fiber intake. Contact primary care provider if you have not had a bowel movement within 48 hours after discharge. 7. No anti-inflammatory medication until discussed at first post operative visit, this including Motrin, Aleve, Mobic, Diclofenac. 8. Follow up in office at 2 weeks postop with Donte Palumbo PA-C / Alan Garcia PA-C 9. Follow up with your primary care doctor 7-10 days after discharge. 10. Contact [facility] with any questions, . Keep incision clean, dry, intact. While showering, cover fusion tape with Saran wrap. Keep fusion tape on until follow-up appointment in office in 2 weeks. Discharge Disposition: HOME WITH HOME HEALTH SERVICES
--- NOTE | 2024-04-02 13:16 | P.PN ---
Subjective Progress Note Date: 04/02/24 Principal diagnosis: Right hip osteoarthritis Patient was seen at bedside this afternoon lying in semirecumbent position with dressing present over right hip. Patient says he is looking forward to going home later stay. Patient says he did walk around the [place]hu and up-and-down steps with therapy this morning and it did go well. Patient says he has urinated since surgery yesterday without issue. Patient says he has not had a bowel movement yet, however, patient says he has been passing gas. Patient says most the pain is located over the front of the hip. Patient denies chest pain, fever, chest breath, nausea, loss of bowel/bladder control. Objective - Vital Signs Vital signs: Vital Signs Temp 98.1 F 04/02/24 07:55 Pulse 80 04/02/24 07:55 Resp 17 04/02/24 07:55 BP 112/78 04/02/24 07:55 Pulse Ox 94 L 04/02/24 07:55 FiO2 Intake & Output 04/01/24 04/02/24 04/02/24 18:59 06:59 18:59 Intake Total 1651 600 Output Total 400 Balance 1651 200 Weight 85.4 kg 85.4 kg Intake: IV 1651 Oral 600 Output: Urine 400 - Exam Right hip: Incision is clean, dry, and intact. The exofin fusion tape is in good condition. There is minimal soft tissue swelling and ecchymosis surrounding the medial and lateral aspects of the incision. Calf is soft, no tenderness with palpation. Plantar flexion, dorsiflexion, EHL, FHL are intact. Sensory exam to light touch throughout the extremity is intact, dorsal pedis pulses 2+. - Labs CBC & Chem 7: 04/02/24 05:40 04/01/24 10:57 Labs: Abnormal Lab Results - Last 24 Hours (Table) 04/02/24 Range/Units 05:40 WBC 12.73 H (4.50-10.00) X 10*3/uL RBC 4.37 L (4.40-5.60) X 10*6/uL MPV 9.2 L (9.5-12.2) FL Immature Gran # 0.05 H (0.00-0.04) X 10*3/uL Neutrophils # 8.50 H (1.80-7.70) X 10*3/uL Monocytes # 1.36 H (0.20-1.00) X 10*3/uL Eosinophils # 0.02 L (0.04-0.35) X 10*3/uL Assessment and Plan Assessment: 1. Right hip osteoarthritis - Postoperative day 1 status post direct anterior right total hip arthroplasty Plan: 1. Right hip osteoarthritis -direct anterior right total hip arthroplasty performed yesterday, 04/01/2024. Patient stable bedside this morning. Patient did do well with PT/OT this morning. Patient does have a walker for ho me. Discharge home today with health services. 2. Appreciate medical management 3. Pain management - [place] 4. DVT prophylaxis - Xarelto in hospital. Going home with eliquis 2.5 mg twice a day 2 weeks 5. GI prophylaxis - senna 6. PT/OT - weightbearing as tolerated with walker 7. Encourage incentive spirometer use 8. Discharge planning - home today with health services Time with Patient: Less than 30
[2024-04-02] MEDS ORDERED: HYDROcodone/APAP 10-325MG 1 EACH TAB PO PRN (13:54)
[2024-04-02] MEDS ORDERED: NON FORMULARY DRUG (Gabapentin [Gabapentin] 800 MG Tablet) PO SCH (16:00)
[2024-04-02] MEDS ORDERED: NON FORMULARY DRUG (Lubiprostone [Lubiprostone] 24 MCG Capsule) PO SCH (21:00)
[2024-04-02] MEDS ORDERED: BUDESONIDE 0.25 MG/2 ML NEBU INHALATION SCH (21:00)
[2024-04-03] MEDS ORDERED: NON FORMULARY DRUG (Fluticasone/Umeclidin/Vilanter [Trelegy Ellipta 200-62.5-25] 1 EACH Bl INHALATION SCH (09:00)
[2024-04-03] MEDS ORDERED: MONTELUKAST 10 MG TAB PO SCH (09:00)
[2024-04-03] MEDS ORDERED: METOPROLOL SUCCINATE (ER) 25 MG TAB.ER.24H PO SCH (09:00)
== END 2024-04-02 13:51 | disposition home health service (06) ==
LOC: OR 08:56 → 4SSUR 15:40 → OR 04-02 13:51
PROVIDERS: ATTEND Orthopaedic Surgery
DX: M16.11 Unilateral primary osteoarthritis, right hip
CPT/HCPCS: 64447; 73501; 80053; 85025; 85610

== ENCOUNTER → 2024-06-19 | Outpatient (CLI) | payer MEDICARE, OTHER ==
--- NOTE | 2024-06-19 11:14 | CT ---
EXAMINATION TYPE: CT abdomen pelvis wo con DATE OF EXAM: 06/19/2024 9:47 AM COMPARISON: None. CLINICAL INDICATION: Male, 68 years old with history of R10.84 GENERALIZED ABDOMINAL PAIN R10.9 UNSPE CIFIE, Rt flank pain TECHNIQUE: Axial images were obtained from above the diaphragm to the pubic rami in the axial plane a t 5 mm thick sections. Reconstructed images are reviewed on the computer in the coronal plane. CONTRAST: mL of . Study performed without Oral Contrast DLP: 1039 mGycm, Automated exposure control for dose reduction was used. FINDINGS: Limited CT sections are obtained the lung bases. Upper lobe calcified nodules are along the left lat eral lung base.. CT ABDOMEN: There is extensive pedicle screws and fixation rods from a prior thoracolumbar surgery. Liver: Normal Spleen: Normal Pancreas: Normal Adrenal glands: The adrenal glands are normal. Gallbladder: Normal Kidneys: No masses are evident. No hydronephrosis is present. No cysts are present. No renal stone s evident Aorta: Vascular calcification is within the aorta. Inferior vena cava: Normal. CT PELVIS: Loops of bowel within the abdomen and pelvis are normal. Scattered diverticula are present. No acute diverticulitis There are loops of bowel which are incompletely distended or lack oral contrast valle iting their evaluation. Appendix: Normal as visualized. Urinary bladder: Normal. Genitourinary structures: Prostate calcifications are present. Osseous structures: No suspicious lytic or sclerotic lesions. IMPRESSION: 1. Diverticulosis without acute diverticulitis. 2. Extensive thoracic and lumbar surgery. 3. Etiology for abdominal pain not otherwise evident. [facility], , 06/19/2024 11:12 AM
== END | disposition home or self-care (01) ==
LOC: RADCTMAIN 09:24
PROVIDERS: ATTEND Family Medicine
DX: R10.84 Generalized abdominal pain (principal); K57.30 Diverticulosis of large intestine without perforation or abscess without bleeding
CPT/HCPCS: 74176